=== PATIENT | male | born 1935 | race African-American/Black ===

== ENCOUNTER → 2016-09-27 | Outpatient (CLI) | payer MEDICARE, MEDICAID ==
[2016-09-27 12:16] LABS: ABSOLUTE LYMPHOCYTES (AUTO) 1.7 10^3/uL (0.5-4.7); ABSOLUTE MONOCYTES (AUTO) 0.5 10^3/uL (0.1-1.4); ABSOLUTE NEUT (AUTO) 3.4 10^3/uL (1.7-8.2); BASOPHILS % (AUTO) 0.5 % (0-2); EOSINOPHILS % (AUTO) 0.6 % (0-6); HEMATOCRIT 35.2 % (37.9-51.0); HEMOGLOBIN 11.7 g/dL (13.5-17.0); HGB HCT DIFFERENCE -0.1; LYMPHOCYTES % (AUTO) 30.4 % (13-45); MEAN CORPUSCULAR HGB CONC 33.3 g/dL (32.0-36.0); MEAN CORPUSCULAR VOLUME 93 fl (80-97); MONOCYTES % (AUTO) 9.1 % (3-13); RED BLOOD COUNT 3.78 10^6/uL (4.35-5.55); SEGMENTED NEUTROPHILS % (AUTO) 59.4 % (42-78); WHITE BLOOD COUNT 5.6 10^3/uL (4.0-10.5)
[2016-09-27 13:03] LABS: ERYTHROCYTE SEDIMENTATION RATE 31 mm/hr (0-20)
== END ==
LOC: OD 10:59
PROVIDERS: ATTEND Orthopaedic Surgery
DX: T84.59XD Infection and inflammatory reaction due to other internal joint prosthesis, subsequent encounter (principal)
CPT/HCPCS: 36415; 85025; 85652; 86140

== ENCOUNTER 2016-10-09 12:30 | Emergency (ER) | payer OTHER, MEDICARE, MEDICAID ==
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
[2016-10-09 12:53] VITALS: BP 142/75
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
== END 2016-10-09 14:24 | disposition home or self-care (01) ==
LOC: ER 12:30
DX: S46.911A Strain of unspecified muscle, fascia and tendon at shoulder and upper arm level, right arm, initial encounter (principal); M25.511 Pain in right shoulder; V89.2XXA Person injured in unspecified motor-vehicle accident, traffic, initial encounter; I48.91 Unspecified atrial fibrillation; Z95.0 Presence of cardiac pacemaker; Z79.01 Long term (current) use of anticoagulants
CPT/HCPCS: 99283

== ENCOUNTER → 2016-11-03 | Outpatient (CLI) | payer MEDICARE, MEDICAID ==
[2016-11-03 12:46] LABS: HEMATOCRIT 34.1 % (37.9-51.0); HEMOGLOBIN 11.3 g/dL (13.5-17.0); HGB HCT DIFFERENCE -0.2; MEAN CORPUSCULAR HEMOGLOBIN 31.2 pg (27.0-33.4); MEAN CORPUSCULAR HGB CONC 33.2 g/dL (32.0-36.0); MEAN CORPUSCULAR VOLUME 94 fl (80-97); RED BLOOD COUNT 3.62 10^6/uL (4.35-5.55); RED CELL DISTRIBUTION WIDTH 12.9 % (11.5-14.0); WHITE BLOOD COUNT 5.8 10^3/uL (4.0-10.5)
[2016-11-03 13:10] LABS: ALANINE AMINOTRANSFERASE 19 U/L (21-72); ALBUMIN 3.9 g/dL (3.5-5.0); ALKALINE PHOSPHATASE 104 U/L (38-126); ANION GAP 8 (5-19); ASPARTATE AMINO TRANSFERASE 18 U/L (17-59); BILIRUBIN,TOTAL 0.5 mg/dL (0.2-1.3); BLOOD UREA NITROGEN 15 mg/dL (7-20); CALCIUM 10.3 mg/dL (8.4-10.2); CARBON DIOXIDE 28 mmol/L (22-30); CHLORIDE 105 mmol/L (98-107); CREATININE RESULT 1.16 mg/dL (0.52-1.25); GLUCOSE 148 mg/dL (75-110); TOTAL PROTEIN 7.6 g/dL (6.3-8.2)
[2016-11-03 13:11] LABS: C-REACTIVE PROTEIN < 5.0 mg/L (<10.0)
[2016-11-03 13:24] LABS: ERYTHROCYTE SEDIMENTATION RATE 29 mm/hr (0-20)
[2016-11-03 13:38] LABS: THYROID STIMULATING HORMONE 0.08 uIU/mL (0.47-4.68)
== END ==
LOC: OD 11:54
PROVIDERS: ATTEND Family Medicine
DX: M25.50 Pain in unspecified joint (principal); R63.4 Abnormal weight loss
CPT/HCPCS: 36415; 80053; 84439; 84443; 85027; 85652; 86140

== ENCOUNTER 2016-11-14 16:51 | Emergency (ER) | payer MEDICARE, MEDICAID ==
--- NOTE | 2016-11-14 17:14 | ER Document Report ---
ED Medical Screen (RME) - General Stated Complaint: VOMITING,ABDOMINAL PAIN,DIZZY Time seen by provider: 17:12 Mode of Arrival: Wheelchair Information source: Patient Notes: 80-year-old male presents to ED for nausea and vomiting with a cold sweat when he gets nauseated abdominal pain and dizziness states she started about 2 hours ago. His states that everybody else ate the same thing and nobody else is sick. States that hand potato salad jarret greens and dumplings. Eliminate to drink. I have greeted and performed a rapid initial assessment of this patient. A comprehensive ED assessment and evaluation of the patient, analysis of test results and completion of medical decision making process will be conducted by an additional ED providers. TRAVEL OUTSIDE OF THE [place] IN LAST 30 DAYS: No - Related Data Allergies/Adverse Reactions: No Known Allergies Allergy (Verified 11/14/16 17:11) Past Medical History - Past Medical History Cardiac Medical History: Reports: Hx Atrial Fibrillation, Hx Hypertension Denies: Hx Coronary Artery Disease, Hx Heart Attack Pulmonary Medical History: Denies: Hx Asthma, Hx Bronchitis, Hx COPD, Hx Pneumonia, Hx Tuberculosis Neurological Medical History: Denies: Hx Cerebrovascular Accident, Hx Seizures Renal/ Medical History: Denies: Hx Peritoneal Dialysis GI Medical History: Reports: Hx Ulcer - ?. Denies: Hx Diverticulitis, Hx Gastritis, Hx Gastroesophageal Reflux Disease, Hx Hepatitis, Hx Hiatal Hernia Musculoskeltal Medical History: Denies Hx Arthritis Infectious Medical History: Denies: Hx Hepatitis Past Surgical History: Reports: Hx Cardiac Surgery - pacemaker placement, Hx Pacemaker - 3 years ago. Denies: Hx Open Heart Surgery - Immunizations Immunizations up to date: No Hx Diphtheria, Pertussis, Tetanus Vaccination: Yes
[2016-11-14] MEDS ORDERED: NORMAL SALINE 1000 ML 1,000 ML IV ONE (17:15)
[2016-11-14] MEDS ORDERED: ONDANSETRON HCL INJ/PF 4 MG/2 ML SDV IV ONE (17:15)
[2016-11-14 18:02] LABS: ABSOLUTE MONOCYTES (AUTO) 0.3 10^3/uL (0.1-1.4); ABSOLUTE NEUT (AUTO) 5.2 10^3/uL (1.7-8.2); BASOPHILS % (AUTO) 0.6 % (0-2); EOSINOPHILS % (AUTO) 0.1 % (0-6); HEMATOCRIT 35.1 % (37.9-51.0); HEMOGLOBIN 11.7 g/dL (13.5-17.0); LYMPHOCYTES % (AUTO) 14.8 % (13-45); MEAN CORPUSCULAR HEMOGLOBIN 31.2 pg (27.0-33.4); MEAN CORPUSCULAR HGB CONC 33.5 g/dL (32.0-36.0); MEAN CORPUSCULAR VOLUME 93 fl (80-97); MONOCYTES % (AUTO) 4.9 % (3-13); RED BLOOD COUNT 3.76 10^6/uL (4.35-5.55); RED CELL DISTRIBUTION WIDTH 12.1 % (11.5-14.0); SEGMENTED NEUTROPHILS % (AUTO) 79.6 % (42-78); WHITE BLOOD COUNT 6.6 10^3/uL (4.0-10.5)
[2016-11-14 18:15] LABS: ALANINE AMINOTRANSFERASE 25 U/L (21-72); ALBUMIN 4.4 g/dL (3.5-5.0); ALKALINE PHOSPHATASE 99 U/L (38-126); ANION GAP 13 (5-19); ASPARTATE AMINO TRANSFERASE 23 U/L (17-59); BILIRUBIN,TOTAL 0.5 mg/dL (0.2-1.3); BLOOD UREA NITROGEN 15 mg/dL (7-20); CALCIUM 10.9 mg/dL (8.4-10.2); CARBON DIOXIDE 22 mmol/L (22-30); CHLORIDE 106 mmol/L (98-107); CREATININE RESULT 1.22 mg/dL (0.52-1.25); GLUCOSE 201 mg/dL (75-110); LIPASE 149.5 U/L (23-300); POTASSIUM 3.8 mmol/L (3.6-5.0); SODIUM 140.5 mmol/L (137-145); TOTAL PROTEIN 7.5 g/dL (6.3-8.2)
--- NOTE | 2016-11-14 18:25 | ER Document Report ---
ED GI/ - General Chief Complaint: Nausea/Vomiting Stated Complaint: VOMITING,ABDOMINAL PAIN,DIZZY Time seen by provider: 18:24 Mode of Arrival: Wheelchair Information source: Patient TRAVEL OUTSIDE OF THE [place] IN LAST 30 DAYS: No - HPI Patient complains to provider of: Vomiting Onset: This morning Timing/Duration: Sudden Quality of pain: No pain Associated symptoms: Nausea, Vomiting Exacerbated by: Denies Relieved by: Denies Similar symptoms previously: No Recently seen / treated by doctor: No Notes: 11/14/16 18:24 Patient is an 80-year-old male presenting to the emergency room complaining of nausea and vomiting that started early this morning, he denies any diarrhea, no abdominal pain, no fever or chills, no sick contacts, no questionable food intake, at time of my evaluation he reports feeling much better and ready to try a by mouth challenge - Related Data Allergies/Adverse Reactions: No Known Allergies Allergy (Verified 11/14/16 17:11) Past Medical History - General Information source: Patient - Social History Smoking Status: Current Every Day Smoker Chew tobacco use (# tins/day): No Frequency of alcohol use: Occasional Drug Abuse: None Family History: Reviewed & Not Pertinent Patient has suicidal ideation: No Patient has homicidal ideation: No - Past Medical History Cardiac Medical History: Reports: Hx Atrial Fibrillation, Hx Hypertension Denies: Hx Coronary Artery Disease, Hx Heart Attack Pulmonary Medical History: Denies: Hx Asthma, Hx Bronchitis, Hx COPD, Hx Pneumonia, Hx Tuberculosis Neurological Medical History: Denies: Hx Cerebrovascular Accident, Hx Seizures Renal/ Medical History: Denies: Hx Peritoneal Dialysis GI Medical History: Reports: Hx Ulcer - ?. Denies: Hx Diverticulitis, Hx Gastritis, Hx Gastroesophageal Reflux Disease, Hx Hepatitis, Hx Hiatal Hernia Musculoskeltal Medical History: Denies Hx Arthritis Infectious Medical History: Denies: Hx Hepatitis Past Surgical History: Reports: Hx Cardiac Surgery - pacemaker placement, Hx Pacemaker - 3 years ago. Denies: Hx Open Heart Surgery - Immunizations Immunizations up to date: No Hx Diphtheria, Pertussis, Tetanus Vaccination: Yes Hx Pneumococcal Vaccination: 09/19/11 Review of Systems - Review of Systems Constitutional: No symptoms reported. denies: Chills, Fever EENT: No symptoms reported Cardiovascular: No symptoms reported Respiratory: No symptoms reported Gastrointestinal: No symptoms reported, Nausea, Vomiting. denies: Abdominal pain Genitourinary: No symptoms reported Male Genitourinary: No symptoms reported Musculoskeletal: No symptoms reported Skin: No symptoms reported Hematologic/Lymphatic: No symptoms reported Neurological/Psychological: No symptoms reported -: Yes All other systems reviewed and negative Physical Exam - Vital signs Vitals: Temp Pulse Resp BP Pulse Ox 97.4 F 70 18 158/68 H 99 11/14/16 17:03 11/14/16 17:03 11/14/16 17:03 11/14/16 17:03 11/14/16 17:03 Interpretation: Normal - General General appearance: Appears well, Alert - HEENT Head: Normocephalic, Atraumatic Eyes: Normal Pupils: PERRL - Respiratory Respiratory status: No respiratory distress Chest status: Nontender Breath sounds: Normal Chest palpation: Normal - Cardiovascular Rhythm: Regular Heart sounds: Normal auscultation Murmur: No - Abdominal Inspection: Normal Distension: No distension Bowel sounds: Normal Tenderness: Nontender Organomegaly: No organomegaly - Back Back: Normal, Nontender - Extremities General upper extremity: Normal inspection, Nontender, Normal color, Normal ROM , Normal temperature General lower extremity: Normal inspection, Nontender, Normal color, Normal ROM , Normal temperature, Normal weight bearing. No: Emiliana's sign - Neurological Neuro grossly intact: Yes Cognition: Normal Orientation: AAOx4 Delia Coma Scale Eye Opening: Spontaneous [place] Coma Scale Verbal: Oriented [place] Coma Scale Motor: Obeys Commands [place] Coma Scale Total: 15 Speech: Normal Motor strength normal: LUE, RUE, LLE, RLE Sensory: Normal - Psychological Associated symptoms: Normal affect, Normal mood - Skin Skin Temperature: Warm Skin Moisture: Dry Skin Color: Normal Course - Re-evaluation Re-evalutation: 11/14/16 19:25 Patient resting comfortably, reports feeling much better, tolerating by mouth intake, labs were discussed with patient at bedside including elevated blood sugar, he reports that he has a follow-up with his primary care provider later this week, he was advised to keep that appointment, will be discharged with a Zofran dose pack and information for follow-up, advised to return if symptoms worsen, patient acknowledges understanding and agreement with this plan - Vital Signs Vital signs: Temp Pulse Resp BP Pulse Ox 97.9 F 70 20 158/87 H 100 11/14/16 18:58 11/14/16 18:58 11/14/16 18:58 11/14/16 18:58 11/14/16 18:58 - Laboratory Result Diagrams: 11/14/16 17:40 11/14/16 17:40 Laboratory results interpreted by me: 11/14/16 11/14/16 17:40 17:40 RBC 3.76 L Hgb 11.7 L Hct 35.1 L Seg Neutrophils % 79.6 H Est GFR (Non-Af Amer) 57 L Glucose 201 H Calcium 10.9 H Discharge - Discharge Clinical Impression: Nausea and vomiting Qualifiers: Vomiting type: unspecified Vomiting Intractability: non-intractable Qualified Code(s): R11.2 - Nausea with vomiting, unspecified Condition: Stable Disposition: HOME, SELF-CARE Instructions: Viral Syndrome ([facility]), Vomiting ([facility]), Antinausea Medication ([facility]) Additional Instructions: Follow up with your primary care provider in one to 2 days. Return to the emergency room immediately if symptoms worsen or any additional concerns.
[2016-11-14 19:02] VITALS: BP 158/87
[2016-11-14] MEDS ORDERED: ONDANSETRON ODT 4 MG TAB (6 TAB/DSPK) PO PRN (19:26)
[2016-11-14 19:33] LABS: AMORPHOUS SEDIMENT,URINE TRACE /HPF; APPEARANCE,URINE CLOUDY; BILIRUBIN,URINE NEGATIVE (NEGATIVE); GLUCOSE, URINE NEGATIVE (NEGATIVE); KETONES,URINE NEGATIVE (NEGATIVE); LEUKOCYTE ESTERASE,URINE NEGATIVE (NEGATIVE); NITRITE,URINE NEGATIVE (NEGATIVE); PROTEIN,URINE NEGATIVE (NEGATIVE); URINE SPECIFIC GRAVITY 1.009; UROBILINOGEN,URINE NEGATIVE mg/dL (<2.0)
== END 2016-11-14 19:40 | disposition home or self-care (01) ==
LOC: ER 16:51
DX: R11.2 Nausea with vomiting, unspecified (principal); R73.9 Hyperglycemia, unspecified; I48.91 Unspecified atrial fibrillation; I10 Essential (primary) hypertension; F17.200 Nicotine dependence, unspecified, uncomplicated; Z95.0 Presence of cardiac pacemaker
CPT/HCPCS: 99284; 96374; 36415; 83690; 85025; 80053; 81001; J2405; A9270

== ENCOUNTER → 2016-11-22 | Outpatient (CLI) | payer MEDICARE, MEDICAID | LOC: RAD 11:16 | PROVIDERS: ATTEND Internal Medicine Geriatric Medicine | DX: R94.6 Abnormal results of thyroid function studies (principal) | CPT/HCPCS: 76536 ==

== ENCOUNTER 2016-12-11 12:38 | Inpatient (IN) | payer MEDICARE, MEDICAID ==
--- NOTE | 2016-12-11 12:45 | ER Document Report ---
ED Medical Screen (RME) - General Stated Complaint: BLOOD IN STOOL Mode of Arrival: Ambulatory Information source: Patient Notes: Pt presents to the ED with c/o LLQ abdominal pain for the last few days. He was dx with diverticulitis by Dr Son. reports no antibx given. Noted blood in stool night. Denies v/f/d. I have greeted and performed a rapid initial assessment of this patient. A comprehensive ED assessment and evaluation of the patient, analysis of test results and completion of the medical decision making process will be conducted by additional ED providers. TRAVEL OUTSIDE OF THE [place] IN LAST 30 DAYS: No - Related Data Allergies/Adverse Reactions: No Known Allergies Allergy (Verified 11/14/16 17:11) Past Medical History - Past Medical History Cardiac Medical History: Reports: Hx Atrial Fibrillation, Hx Hypertension Denies: Hx Coronary Artery Disease, Hx Heart Attack Pulmonary Medical History: Denies: Hx Asthma, Hx Bronchitis, Hx COPD, Hx Pneumonia, Hx Tuberculosis Neurological Medical History: Denies: Hx Cerebrovascular Accident, Hx Seizures Renal/ Medical History: Denies: Hx Peritoneal Dialysis GI Medical History: Reports: Hx Ulcer - ?. Denies: Hx Diverticulitis, Hx Gastritis, Hx Gastroesophageal Reflux Disease, Hx Hepatitis, Hx Hiatal Hernia Musculoskeltal Medical History: Denies Hx Arthritis Infectious Medical History: Denies: Hx Hepatitis Past Surgical History: Reports: Hx Cardiac Surgery - pacemaker placement, Hx Pacemaker - 3 years ago. Denies: Hx Open Heart Surgery - Immunizations Immunizations up to date: No Hx Diphtheria, Pertussis, Tetanus Vaccination: Yes
--- NOTE | 2016-12-11 13:14 | ER Document Report ---
ED GI/ - General Chief Complaint: Abdominal Pain Stated Complaint: BLOOD IN STOOL Mode of Arrival: Ambulatory Notes: Patient is an 81-year-old male, PMHx A. fib and pacemaker on Coumadin, presents after 8 episodes of bloody stool and lower abdominal pain. He saw his primary care physician yesterday and was told he has diverticulitis. He was not started on any antibiotics. His last colonoscopy was one year ago and he had multiple polyps removed. He denies lightheadedness, chest pain, shortness of breath, nausea, vomiting, rectal pain, flank pain or urinary symptoms. TRAVEL OUTSIDE OF THE [place] IN LAST 30 DAYS: No - Related Data Allergies/Adverse Reactions: No Known Allergies Allergy (Verified 12/11/16 12:43) Past Medical History - General Information source: Patient - Social History Smoking Status: Never Smoker Chew tobacco use (# tins/day): No Frequency of alcohol use: None Drug Abuse: None Family History: Reviewed & Not Pertinent - Past Medical History Cardiac Medical History: Reports: Hx Atrial Fibrillation, Hx Hypertension Denies: Hx Coronary Artery Disease, Hx Heart Attack Pulmonary Medical History: Denies: Hx Asthma, Hx Bronchitis, Hx COPD, Hx Pneumonia, Hx Tuberculosis Neurological Medical History: Denies: Hx Cerebrovascular Accident, Hx Seizures Renal/ Medical History: Denies: Hx Peritoneal Dialysis GI Medical History: Reports: Hx Ulcer - ?. Denies: Hx Diverticulitis, Hx Gastritis, Hx Gastroesophageal Reflux Disease, Hx Hepatitis, Hx Hiatal Hernia Musculoskeltal Medical History: Denies Hx Arthritis Infectious Medical History: Denies: Hx Hepatitis Past Surgical History: Reports: Hx Cardiac Surgery - pacemaker placement, Hx Pacemaker - 3 years ago. Denies: Hx Open Heart Surgery - Immunizations Immunizations up to date: No Hx Diphtheria, Pertussis, Tetanus Vaccination: Yes Hx Pneumococcal Vaccination: 09/19/11 Review of Systems - Review of Systems Notes: REVIEW OF SYSTEMS: CONSTITUTIONAL: -fevers, -chills EENT: -eye pain, -difficulty swallowing, -nasal congestion CARDIOVASCULAR:-chest pain, -syncope. RESPIRATORY: -cough, -SOB GASTROINTESTINAL: -abdominal pain, -nausea, -vomiting, -diarrhea, +blood in stool GENITOURINARY: -dysuria, -hematuria MUSCULOSKELETAL: -back pain, -neck pain SKIN: -rash or skin lesions. HEMATOLOGIC: -easy bruising or bleeding. LYMPHATIC: -swollen, enlarged glands. NEUROLOGICAL: -altered mental status or loss of consciousness, -headache, - neurologic symptoms PSYCHIATRIC: -anxiety, -depression. ALL OTHER SYSTEMS REVIEWED AND NEGATIVE. Physical Exam - Vital signs Vitals: Temp Pulse Resp BP Pulse Ox 98.3 F 87 20 161/94 H 100 12/11/16 12:45 12/11/16 12:45 12/11/16 12:45 12/11/16 12:45 12/11/16 12:45 - Notes Notes: PHYSICAL EXAMINATION: GENERAL: Well-appearing, well-nourished and in no acute distress. HEAD: Atraumatic, normocephalic. EYES: Pupils equal round and reactive to light, extraocular movements intact, sclera anicteric, conjunctiva are normal. ENT: nares patent, oropharynx clear without exudates. Moist mucous membranes. NECK: Normal range of motion, supple without lymphadenopathy LUNGS: Breath sounds clear to auscultation bilaterally and equal. No wheezes rales or rhonchi. HEART: Regular rate and rhythm without murmurs ABDOMEN: rectal exam with brown stool mixed with BRB, Soft, mild tenderness, normoactive bowel sounds. No guarding, no rebound. No masses appreciated. EXTREMITIES: Normal range of motion, no pitting or edema. No cyanosis. NEUROLOGICAL: Cranial nerves grossly intact. Normal speech, normal gait. Normal sensory, motor, and reflex exams. PSYCH: Normal mood, normal affect. SKIN: Warm, Dry, normal turgor, no rashes or lesions noted. Course - Re-evaluation Re-evalutation: Patient with bright red blood per rectum while in the emergency room. HD stable at this time and H/H 11.1, which is slightly lower than his prior values. CT does not show any evidence of diverticulosis or any other acute changes. Spoke to surgeon television producer at [place] (Dr. Oscar) and he is unable to do colonoscopies. No GI television producer at this time. Spoke to Dr. Pedro at [facility] and she is requested ICU consultation. Spoke to Dr. Rockwell at ICU and he said patient is stable for floor. Spoke to GI doc and he will see patient when he arrives to [facility]. Dr. Pedro is accepting doc. Pt HD stable at this time. - Vital Signs Vital signs: Temp Pulse Resp BP Pulse Ox 98.3 F 72 14 161/94 H 96 12/11/16 12:45 12/11/16 18:18 12/11/16 18:20 12/11/16 12:45 12/11/16 18:18 - Laboratory Result Diagrams: 12/11/16 13:35 12/11/16 13:35 Laboratory results interpreted by me: 12/11/16 12/11/16 12/11/16 13:30 13:35 13:35 RBC 3.63 L Hgb 11.2 L Hct 33.7 L PT 17.9 H Sodium 146.1 H Chloride 108 H BUN 22 H Calcium 11.0 H ALT 11 L Urine Blood 12/11/16 14:39 RBC Hgb Hct PT Sodium Chloride BUN Calcium ALT Urine Blood MODERATE H - Diagnostic Test Radiology reviewed: Image reviewed, Reports reviewed Radiology results interpreted by me: CT A/P: NAD Critical Care Note - Critical Care Note Total time excluding time spent on procedures (mins): 35 Discharge - Discharge Clinical Impression: Lower GI bleed Condition: Stable Disposition: [facility] Referrals: ROS AMAYA MD [Primary Care Provider] - Follow up as needed
[2016-12-11 14:02] LABS: ABSOLUTE LYMPHOCYTES (AUTO) 1.7 10^3/uL (0.5-4.7); ABSOLUTE MONOCYTES (AUTO) 0.6 10^3/uL (0.1-1.4); BASOPHILS % (AUTO) 0.7 % (0-2); EOSINOPHILS % (AUTO) 0.6 % (0-6); HEMATOCRIT 33.7 % (37.9-51.0); HEMOGLOBIN 11.2 g/dL (13.5-17.0); HGB HCT DIFFERENCE -0.1; LYMPHOCYTES % (AUTO) 26.3 % (13-45); MEAN CORPUSCULAR HEMOGLOBIN 30.9 pg (27.0-33.4); MEAN CORPUSCULAR HGB CONC 33.4 g/dL (32.0-36.0); MEAN CORPUSCULAR VOLUME 93 fl (80-97); MONOCYTES % (AUTO) 8.8 % (3-13); RED BLOOD COUNT 3.63 10^6/uL (4.35-5.55); RED CELL DISTRIBUTION WIDTH 12.8 % (11.5-14.0); SEGMENTED NEUTROPHILS % (AUTO) 63.6 % (42-78); WHITE BLOOD COUNT 6.3 10^3/uL (4.0-10.5)
[2016-12-11 14:07] LABS: PROTHROMBIN TIME 17.9 SEC (11.4-15.4)
[2016-12-11 14:21] LABS: ALANINE AMINOTRANSFERASE 11 U/L (21-72); ALBUMIN 4.2 g/dL (3.5-5.0); ALKALINE PHOSPHATASE 71 U/L (38-126); ANION GAP 10 (5-19); ASPARTATE AMINO TRANSFERASE 19 U/L (17-59); BILIRUBIN,DIRECT 0.1 mg/dL (0.0-0.4); BILIRUBIN,TOTAL 0.5 mg/dL (0.2-1.3); BLOOD UREA NITROGEN 22 mg/dL (7-20); CARBON DIOXIDE 28 mmol/L (22-30); CHLORIDE 108 mmol/L (98-107); CREATININE RESULT 1.05 mg/dL (0.52-1.25); GLUCOSE 95 mg/dL (75-110); POTASSIUM 4.3 mmol/L (3.6-5.0); SODIUM 146.1 mmol/L (137-145); TOTAL PROTEIN 7.4 g/dL (6.3-8.2)
[2016-12-11 14:55] LABS: APPEARANCE,URINE CLEAR; BILIRUBIN,URINE NEGATIVE (NEGATIVE); GLUCOSE, URINE NEGATIVE (NEGATIVE); KETONES,URINE NEGATIVE (NEGATIVE); LEUKOCYTE ESTERASE,URINE NEGATIVE (NEGATIVE); NITRITE,URINE NEGATIVE (NEGATIVE); PROTEIN,URINE NEGATIVE (NEGATIVE); URINE SPECIFIC GRAVITY 1.017; UROBILINOGEN,URINE NEGATIVE mg/dL (<2.0)
[2016-12-11 20:01] LABS: ABSOLUTE LYMPHOCYTES (AUTO) 2.4 10^3/uL (0.5-4.7); ABSOLUTE MONOCYTES (AUTO) 0.6 10^3/uL (0.1-1.4); ABSOLUTE NEUT (AUTO) 4.2 10^3/uL (1.7-8.2); BASOPHILS % (AUTO) 0.6 % (0-2); EOSINOPHILS % (AUTO) 0.2 % (0-6); LYMPHOCYTES % (AUTO) 33.3 % (13-45); MEAN CORPUSCULAR HEMOGLOBIN 30.8 pg (27.0-33.4); MEAN CORPUSCULAR HGB CONC 33.4 g/dL (32.0-36.0); MEAN CORPUSCULAR VOLUME 92 fl (80-97); MONOCYTES % (AUTO) 8.6 % (3-13); RED BLOOD COUNT 3.58 10^6/uL (4.35-5.55); RED CELL DISTRIBUTION WIDTH 12.5 % (11.5-14.0); SEGMENTED NEUTROPHILS % (AUTO) 57.3 % (42-78); WHITE BLOOD COUNT 7.4 10^3/uL (4.0-10.5)
[2016-12-12] MEDS ORDERED: NICOTINE 21 MG/24 HR PATCH.TD24 TD ONE (00:50)
--- NOTE | 2016-12-12 03:55 | ER Document Report ---
Doctor's Note Notes: 12/12/16 03:54 Patient resting comfortably with no complaints overnight, he did request a nicotine patch which was ordered, vital signs are stable, he is denying any pain , patient is pending transfer to tertiary care center, he remains stable for transfer
[2016-12-12 06:37] LABS: ABSOLUTE BASOPHILS # (AUTO) 0.1 10^3/uL (0.0-0.2); ABSOLUTE EOSINOPHILS # (AUTO) 0.1 10^3/uL (0.0-0.6); ABSOLUTE MONOCYTES (AUTO) 0.8 10^3/uL (0.1-1.4); ABSOLUTE NEUT (AUTO) 4.2 10^3/uL (1.7-8.2); BASOPHILS % (AUTO) 1.3 % (0-2); EOSINOPHILS % (AUTO) 0.9 % (0-6); HEMATOCRIT 32.1 % (37.9-51.0); HEMOGLOBIN 10.8 g/dL (13.5-17.0); HGB HCT DIFFERENCE 0.3; LYMPHOCYTES % (AUTO) 36.5 % (13-45); MEAN CORPUSCULAR HEMOGLOBIN 31.4 pg (27.0-33.4); MEAN CORPUSCULAR HGB CONC 33.5 g/dL (32.0-36.0); MEAN CORPUSCULAR VOLUME 94 fl (80-97); MONOCYTES % (AUTO) 10.3 % (3-13); RED BLOOD COUNT 3.43 10^6/uL (4.35-5.55); RED CELL DISTRIBUTION WIDTH 12.8 % (11.5-14.0); WHITE BLOOD COUNT 8.1 10^3/uL (4.0-10.5)
[2016-12-12] MEDS ORDERED: PANTOPRAZOLE SODIUM 40 MG VIAL IV ONE (10:56)
--- NOTE | 2016-12-12 10:56 | ER Document Report ---
Doctor's Note Notes: 12/12/16 10:55 Patient was reevaluated patient and bleeding around the ER in his clothing. Patient requesting an update. We did call transferring facility stated to be approximately 24-48 hours before bed would be available. They contacted her surgeon on-call who agreed that he'll be able to form a colonoscopy on the gentleman I discussed the case with covering PCP Dr. Adriane Quintanilla who agrees to that the patient. Otherwise patient hemoglobin 7 stable vital signs have been stable. Will give the patient a dose of Protonix Will keep nothing by mouth for possible procedure. Will admit to the [facility]
[2016-12-12] MEDS ORDERED: ONDANSETRON HCL INJ/PF 4 MG/2 ML SDV IV PRN (10:57)
[2016-12-12] MEDS ORDERED: IPRATROPIUM/ALBUTEROL 0.5-2.5 MG/3 ML AMPUL NEB PRN (10:57)
[2016-12-12] MEDS ORDERED: ACETAMINOPHEN 325 MG TABLET PO PRN (10:57)
[2016-12-12] MEDS ORDERED: NORMAL SALINE 1000 ML 1,000 ML IV ONE (10:57)
[2016-12-12] MEDS ORDERED: PHYTONADIONE INJ 10 MG/1 ML AMPULE SUBCUT ONE (11:08)
[2016-12-12 11:28] LABS: HEMATOCRIT 31.8 % (37.9-51.0); HEMOGLOBIN 10.5 g/dL (13.5-17.0); HGB HCT DIFFERENCE -0.3; MEAN CORPUSCULAR HGB CONC 33.1 g/dL (32.0-36.0); MEAN CORPUSCULAR VOLUME 94 fl (80-97); RED CELL DISTRIBUTION WIDTH 12.7 % (11.5-14.0); WHITE BLOOD COUNT 6.4 10^3/uL (4.0-10.5)
[2016-12-12 11:35] LABS: PROTHROMBIN TIME 17.6 SEC (11.4-15.4)
[2016-12-12 11:43] LABS: ANION GAP 12 (5-19); BLOOD UREA NITROGEN 25 mg/dL (7-20); CALCIUM 10.5 mg/dL (8.4-10.2); CARBON DIOXIDE 26 mmol/L (22-30); CHLORIDE 106 mmol/L (98-107); CREATININE RESULT 1.04 mg/dL (0.52-1.25); GLUCOSE 105 mg/dL (75-110); POTASSIUM 4.2 mmol/L (3.6-5.0); SODIUM 143.9 mmol/L (137-145)
[2016-12-12] MEDS ORDERED: PHYTONADIONE INJ 10 MG/1 ML AMPULE IV ONE (15:00)
--- NOTE | 2016-12-12 15:53 | HISTORY AND PHYSICAL E ---
History and Physical NAME: RASHAD GOODSON : 1935 AGE: 81Y ADMITTED: 12/12/2016 ROOM: 422 CHIEF COMPLAINT: Bloody stools. HISTORY OF PRESENT ILLNESS: This is an 81-year-old male, a patient of Dr. Amaya, with a significant history of coronary artery disease, history of pacemaker, history of chronic atrial fibrillation on chronic Coumadin and a history of diverticulitis, came to the emergency department with the presence of up 7-8 episodes of bloody stool and lower abdominal pain. The patient saw the primary care doctor yesterday and was told the patient had diverticulitis. The patient denied any antibiotic use. The patient stated the last colonoscopy was done 1 year ago and had multiple polyps that were removed. The patient denied any chest pain, not short of breath, no nausea, no vomiting. The patient's initial INR was 1.42. The patient's hemoglobin was stable. The patient initially was transferred to [facility] because of no GI availability and the patient was kept in the emergency department for more than 24 hours and the patient's hemoglobin remained stable around 10.4. Finally the ER physicians called me and they said the *------* unable to take it and they called the surgical aide here and she has agreed to scope the patient and will admit the patient for further evaluation. When I saw the patient in the emergency department, the patient denied any abdominal pain, no nausea, no vomiting. The patient had a CT abdomen and pelvis performed which showed some renal cysts but no other acute findings, and patient's hemoglobin remained stable, too. The patient at this point is admitted to the [facility] for further evaluation and treatment. PAST MEDICAL HISTORY: 1. History of atrial fibrillation on chronic Coumadin therapy. 2. History of hypertension. 3. History of pacemaker implant for arrhythmia management. 4. History of hyperlipidemia. 5. History of prostate cancer. 6. History of osteoarthritis. 7. History of essential tremors. 8. History of peripheral artery disease. ALLERGIES: No known drug allergies. HOME MEDICATIONS: Are listed in [employer] and reviewed. Currently hold the Coumadin and aspirin. FAMILY HISTORY: Noncontributory. REVIEW OF SYSTEMS: As above, all other pertinents are negative. SOCIAL HISTORY: The patient is with a spouse, denied any current cigarette smoking, no alcohol, no substance drug abuse. PHYSICAL EXAMINATION: VITAL SIGNS: Blood pressure was 160/88, temperature 97.7, pulse was 70, respirations 20, 02 saturation is 100% on room air. GENERAL: The patient is alert, awake, oriented, no acute distress. HEENT: Normocephalic. PERRLA. LUNGS: No wheezing, no rales, no rhonchi. HEART: S1 and S2 are present. ABDOMEN: Soft. Bowel sounds present. EXTREMITIES: No edema. NEUROLOGIC: No focal weakness seen. LABORATORY DATA: WBC on admission was 7.4, hemoglobin 11.0, platelets 290. Currently hemoglobin was 10.5 and platelets 281. The patient's chemistries: Sodium is 146, potassium 4.3, BUN 22, creatinine 1.05, calcium 11.0, AST is 19, ALT 11, albumin 4.2. The patient's urine is moderate blood. Stool occult blood is positive. ASSESSMENT: 1. Lower gastrointestinal bleed. 2. Abdominal pain. 3. Chronic atrial fibrillation with chronic Coumadin. 4. Hypertension. 5. Coronary disease. 6. Pacemaker status post arrhythmia. 7. Hyperlipidemia. 8. History of prostate cancer. PLAN: Admit the patient in the IMCU. Start the patient on Protonix 40 mg IV, currently hold the Coumadin and aspirin. Continue the current other medications. Consult surgery for the GI workup as agreed and continue to monitor the patient. Discussed in the ER room with the nurses who are taking care of the patient. I do not see any , will contact the and talk to her about the patient's currently admitted. We will consult cardiology for further evaluation before the procedure. I hope the patient continues to be improved. More than 45 minutes, present and examined the patient and reviewing the records. DICTATING PHYSICIAN: MARGARITA MCCRACKEN M.D. [id number] PHY#: [id number] ID: [id number] JOB#: [id number] ACCT: [id number] cc:ROS AMAYA M.D., SWETANG M.D. >
[2016-12-12] MEDS ORDERED: BISACODYL 5 MG TABEC PO ONE (16:00)
[2016-12-12] MEDS ORDERED: PEG 3350/NA SULF,BICARB,CL/KCL 4000 ML PO PRN (16:00)
--- NOTE | 2016-12-12 17:53 | CONSULTATION REPORT E ---
Consultation Report NAME: RASHAD GOODSON : 1935 AGE: 81Y DATE: 12/12/2016 422 A TO: EZEQUIEL PALOMARES M.D. FROM: ROS AMAYA M.D. Requesting Physician HISTORY OF PRESENT ILLNESS: Thank you for asking me to see this 81-year-old male who presented to the emergency room with a history of hematochezia. The patient has been having several bouts of bloody stools during the past week. He is currently on Coumadin because of atrial fibrillation. I have been consulted to provide recommendations for additional tests and/or procedures. In addition, the patient's PT/INR is elevated and the patient has been given 5 mg of vitamin K subcutaneously in the emergency room. During the interview, the patient appears to have an odd behavior consisting of confabulation, disorientation, and unable to recognize the situation, space, and time. He obviously appears to suffer from advanced dementia. He is unable to respond to the questions which are answered by his . PAST MEDICAL HISTORY: 1. Syncopal episodes. 2. Hypertension. 3. BPH. 4. Atrial fibrillation with controlled ventricular response. 5. Pacemaker placement. 6. Dementia. 7. Prostate cancer. 8. Peripheral artery disease. ALLERGIES: Negative. SOCIAL HISTORY: The patient's denies a history of alcohol, drugs or tobacco abuse. FAMILY HISTORY: Being investigated and is noncontributory. REVIEW OF SYSTEMS: A 12-point review of systems is significant for dementia, coronary artery disease, prostate cancer, hypertension, peripheral vascular disease, and atrial fibrillation. MEDICATIONS: 1. Tylenol 325 mg p.o. q.4 h. p.r.n. for pain. 2. DuoNeb treatment p.r.n. 3. Zofran 4 mg IV q.4 h. p.r.n. nausea or vomiting. 4. Protonix 40 mg IV q.12 h. REVIEW OF LABORATORIES: White blood count of 6.4, hemoglobin 10, hematocrit 31, platelet count of 281. Urinalysis shows a moderate amount of blood. Electrolytes: Creatinine within normal limits, BUN elevated at 25. Liver profile done yesterday, December 11, is within normal limits. PT/INR done today is significant for elevation of the PT at 17.6, INR 1.39 and PTT 38. PHYSICAL EXAMINATION: GENERAL: The patient is alert, but disoriented to time, place and situation. HEENT: Grossly intact, however, the patient is uncooperative. NECK: Supple without masses. CHEST: Symmetric bilaterally. LUNGS: Clear to auscultation bilaterally. HEART: Irregular rhythm and rate. ABDOMEN: Flat, soft, nondistended, nontender. EXTREMITIES: Upper extremities are equal bilaterally without deficits. NEUROLOGIC SYSTEM: Equal and symmetric bilaterally without deficits. SKIN: Warm, dry and intact without lesions. ASSESSMENT: 1. Hematochezia, multiple episodes during the past week. 2. The patient is currently on Coumadin for atrial fibrillation 3. No gastrointestinal symptoms identified at this point. 4. Stable hemoglobin and hematocrit throughout the day, 10.5 and 31.8 the most recent one, which is decreased since yesterday, 11.2 and 33.7, respectively. 5. Elevated PT, PTT and INR due to Coumadin. PLAN: 1. I agree with admission. 2. Patient to remain n.p.o. until a source of bleeding has been identified. 3. The patient has been given 5 mg of vitamin K subcutaneously. 4. Plan to perform an EGD and colonoscopy tomorrow, December 13. The procedures, benefits, and complications have been explained to the . The patient's understands all the above and she will sign a consent in [place] of the because of his dementia. 5. Will have 2 units of fresh frozen plasma ready for the patient for tomorrow to be given if his repeated PT/INR tomorrow morning is still elevated. 6. The procedures, benefits and complications have been explained to the . She understands and desires to proceed. DICTATING PHYSICIAN: EZEQUIEL PALOMARES M.D. [id number] PHY#: [id number] ID: [id number] JOB#: [id number] ACCT: [id number] cc:EZEQUIEL PALOMARES M.D. > [facility]
--- NOTE | 2016-12-12 18:57 | PDOC CONSULTATION ---
Consultation Consult Date: 12/12/16 Attending physician:: MARGARITA MCCRACKEN Consult reason:: Preop clearance History of Present Illness Admission Date/PCP: 12/12/16 10:57 ROS AMAYA Patient complains of: GI bleed History of Present Illness: RASHAD GOODSON is an 81-year-old male, with PMHx A. fib and pacemaker on Coumadin, presents after 8 episodes of bloody stool and lower abdominal pain. He saw his primary care physician yesterday and was told he has diverticulitis. He was not started on any antibiotics. His last colonoscopy was one year ago and he had multiple polyps removed. He denies lightheadedness, chest pain, shortness of breath, nausea, vomiting, rectal pain, flank pain or urinary symptoms. Patient has been is admitted for observation. He is supposed to undergo colonoscopy. I been asked to evaluate patient as regards clearance. Patient on questioning denied any chest pain. He denied any shortness of breath. Patient had a pacemaker placed in [place] about a year or 2 ago. He could not remember the name of private clinical analyst that he sees. Patient claims that he is physically active. Patient's at bedside. She basically confirmed this history. Patient denied any prior history of myocardial infarction, angina or congestive heart failure. Patient's also tells me that he has been doing well from cardiac standpoint. Past Medical History Cardiac Medical History: Reports: Atrial Fibrillation, Hypertension Denies: Coronary Artery Disease, Myocardial Infarction Pulmonary Medical History: Denies: Asthma, Bronchitis, Chronic Obstructive Pulmonary Disease (COPD), Pneumonia, Tuberculosis Neurological Medical History: Denies: Seizures GI Medical History: Denies: Diverticulitis, Gastroesophageal Reflux Disease, Hepatitis, Hiatal Hernia Musculoskeltal Medical History: Denies: Arthritis Hematology: Denies: Anemia, Sickle Cell Disease Past Surgical History Past Surgical History: Reports: Pacemaker - 3 years ago Social History Information Source: Patient Smoking Status: Never Smoker Frequency of Alcohol Use: Rare Hx Recreational Drug Use: No Drugs: None Hx Prescription Drug Abuse: No Family History Family History: Reviewed & Not Pertinent Parental Family History Reviewed: Yes Children Family History Reviewed: Yes Sibling(s) Family History Reviewed.: Yes - Negative for premature coronary artery disease or sudden cardiac in the family amongst first degree relatives. Medication/Allergy Home Medications: Diltiazem HCl [Cardizem Cd 120 mg Capsule] 120 mg PO BID 12/12/16 Meclizine HCl [Antivert 12.5 mg Tablet] 12.5 mg PO TID 12/12/16 Multivitamin [Multivitamins] 1 tab PO DAILY 12/12/16 Omeprazole 20 mg PO DAILY 12/12/16 Pentoxifylline [Pentoxil] 400 mg PO BID 12/12/16 Warfarin Sodium [Coumadin] 5 mg PO DAILY 12/12/16 Allergies/Adverse Reactions: No Known Allergies Allergy (Verified 12/11/16 12:43) Review of Systems Review of Systems: Please see history of present illness and past medical history as wall. Constitutional: No fever or chills reported. Head : No recent chronic headaches, recent head injury. Eyes: No recent eye pain, diplopia, redness, discharge, acute visual changes. Ears: No recent chronic ear pain, acute hearing loss, ear discharge. Oral cavity: No recent ulcerations, bleeding, oral cavity discomfort. Neck: No recent acute neck pain reported. Hematologic: No recent easy bruising or bleeding or hematologic malignancy reported. Lymphatic: No recent lymphatic malignancy, chronic lymphadenopathy reported yet Cardiovascular system review: See history of present illness. History of pacemaker but no history of sustained palpitations, syncope near syncope. Respiratory system review: No recent chronic cough, hemoptysis, blood clots in the lungs reported. Mild Shortness of breath on exertion Gastrointestinal system review: Negative for any recent acute or chronic abdominal pain, hematemesis, admitted now with bloody stools. Genitourinary system review: No recent acute or chronic hematuria, flank pain, UTI etc. reported. Skin system review: Negative for any recent abnormal bruising, no rash, no pruritus reported. Neurologic: No prior history of strokes, mini strokes, seizure disorder. Psychologic: No history of major psychosis or major depression reported. Musculoskeletal: Minor aches and pains reported. No acute joint swelling reported. Endocrine: No recent polyuria, polydipsia, recent heat or cold intolerance. Physical Exam Vital Signs: Temp Pulse Resp BP Pulse Ox 98.4 F 107 H 16 156/85 H 98 12/12/16 13:10 12/12/16 16:17 12/12/16 16:17 12/12/16 13:10 12/12/16 16:17 Intake & Output 12/11/16 12/12/16 12/13/16 06:59 06:59 06:59 Intake Total 300 Balance 300 Weight 54.2 kg Results Laboratory Results: 12/12/16 11:15 12/12/16 11:15 12/12/16 12/12/16 12/12/16 11:15 11:15 14:12 WBC 6.4 RBC 3.40 L Hgb 10.5 L Hct 31.8 L MCV 94 MCH 31.0 MCHC 33.1 RDW 12.7 Plt Count 281 Sodium 143.9 Potassium 4.2 Chloride 106 Carbon Dioxide 26 Anion Gap 12 BUN 25 H Creatinine 1.04 Est GFR ( Amer) > 60 Est GFR (Non-Af Amer) > 60 Glucose 105 Calcium 10.5 H Blood Type A POSITIVE Antibody Screen NEGATIVE EKG Comments: Not available for review but have ordered one. Impressions: Abdomen/Pelvis CT 12/11/16 14:45 IMPRESSION: 1. No acute findings to correlate with the patient's reported right lower quadrant pain. 2. Multiple renal cysts which have increased in number relative to CT imaging performed in 2007. While the larger lesions demonstrate Hounsfield units consistent with simple fluid, consider further evaluation with ultrasound on a routine outpatient basis. 3. 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 Assessment & Plan - Diagnosis (1) Paroxysmal atrial fibrillation Is this a current diagnosis for this admission?: Yes (2) History of Coumadin therapy Is this a current diagnosis for this admission?: Yes (3) Lower GI bleed Is this a current diagnosis for this admission?: Yes (4) History of pacemaker Is this a current diagnosis for this admission?: Yes (5) Senile dementia Qualifiers: Dementia behavioral disturbance: without behavioral disturbance Qualified Code(s): F03.90 - Unspecified dementia without behavioral disturbance Is this a current diagnosis for this admission?: Yes (6) HTN (hypertension) Qualifiers: Hypertension type: essential hypertension Qualified Code(s): I10 - Essential (primary) hypertension Is this a current diagnosis for this admission?: Yes (7) PAD (peripheral artery disease) Is this a current diagnosis for this admission?: Yes (8) Preoperative clearance Is this a current diagnosis for this admission?: Yes - Notes Notes: Paroxysmal atrial fibrillation: On rhythm strips Patient noted to have atrial paced beats. Rate is well controlled. At this point chronic Coumadin therapy on hold. Resume when feasible from GI standpoint. Lower GI bleed: Possibly diverticular versus other cause. Patient being scheduled for colonoscopy. Patient likely to do well with this procedure since this is a low-risk procedure. History of pacemaker therapy. This seems to be functioning normally. Hypertension: Blood pressure under good control. Continue home medications. Peripheral arterial disease: Currently stable without any evidence of tissue hypoperfusion. Preoperative clearance: Patient cleared for proposed surgery. Risk higher than average but not in the prohibitive range. EKG not still available for review - Time Time Spent: 30 to 50 Minutes - CODE STATUS was discussed, patient remains full code. Surrogate decision-maker patient's . Multiple medical problems were addressed.More than 50% of the time spent coordinating care, discussing management plans with involved caregivers. Management plans discussed with involved personnels. Medical decision making was of moderate complexity.
--- NOTE | 2016-12-12 19:53 | EKG REPORT ---
SEVERITY:- ABNORMAL ECG - ATRIAL-PACED RHYTHM : Confirmed by: Preet Szymanski MD 12-Dec-2016 19:52:27
[2016-12-12] MEDS: PANTOPRAZOLE SODIUM 40 MG VIAL IV SCH (22:15)
[2016-12-13 00:36] LABS: HEMATOCRIT 26.2 % (37.9-51.0); HGB HCT DIFFERENCE 0.8; MEAN CORPUSCULAR HEMOGLOBIN 31.2 pg (27.0-33.4); MEAN CORPUSCULAR HGB CONC 34.2 g/dL (32.0-36.0); MEAN CORPUSCULAR VOLUME 91 fl (80-97); RED BLOOD COUNT 2.87 10^6/uL (4.35-5.55); RED CELL DISTRIBUTION WIDTH 12.2 % (11.5-14.0); WHITE BLOOD COUNT 6.5 10^3/uL (4.0-10.5)
[2016-12-13] MEDS ORDERED: NA PHOS,M-B/NA PHOS,DI-BA (ADULT) 133 ML ENEMA PR ONE (06:00)
[2016-12-13 08:29] LABS: ABSOLUTE LYMPHOCYTES (AUTO) 2.3 10^3/uL (0.5-4.7); ABSOLUTE MONOCYTES (AUTO) 0.6 10^3/uL (0.1-1.4); ABSOLUTE NEUT (AUTO) 3.7 10^3/uL (1.7-8.2); BASOPHILS % (AUTO) 0.6 % (0-2); EOSINOPHILS % (AUTO) 0.6 % (0-6); HEMOGLOBIN 10.1 g/dL (13.5-17.0); HGB HCT DIFFERENCE 0.3; LYMPHOCYTES % (AUTO) 34.9 % (13-45); MEAN CORPUSCULAR HEMOGLOBIN 31.2 pg (27.0-33.4); MEAN CORPUSCULAR HGB CONC 33.7 g/dL (32.0-36.0); MEAN CORPUSCULAR VOLUME 92 fl (80-97); MONOCYTES % (AUTO) 8.5 % (3-13); RED BLOOD COUNT 3.25 10^6/uL (4.35-5.55); RED CELL DISTRIBUTION WIDTH 12.7 % (11.5-14.0); SEGMENTED NEUTROPHILS % (AUTO) 55.4 % (42-78); WHITE BLOOD COUNT 6.7 10^3/uL (4.0-10.5)
[2016-12-13 08:36] LABS: PROTHROMBIN TIME 15.2 SEC (11.4-15.4)
[2016-12-13 08:37] LABS: PARTIAL THROMBOPLASTIN TIME 35.8 SEC (23.5-35.8)
--- NOTE | 2016-12-13 08:44 | PDOC PROGRESS REPORT ---
Subjective Progress Note for:: 12/13/16 Subjective:: No abdominal pain, nausea, or vomiting. No chest pain or difficulty with breathing. No fever or chills. No reported observed bleeding. Patient remain NPO for possible colonoscopy evaluation later today. Physical Exam Vital Signs: Temp Pulse Resp BP Pulse Ox 98.0 F 69 16 168/95 H 100 12/13/16 06:41 12/13/16 06:41 12/13/16 06:41 12/13/16 06:41 12/13/16 06:41 Intake & Output 12/12/16 12/13/16 12/14/16 06:59 06:59 06:59 Intake Total 700 Balance 700 Weight 47.4 kg General appearance: PRESENT: no acute distress, cooperative Head exam: PRESENT: atraumatic, normocephalic Eye exam: PRESENT: conjunctiva pink, EOMI, PERRLA. ABSENT: scleral icterus Mouth exam: PRESENT: moist Respiratory exam: PRESENT: clear to auscultation stacie Cardiovascular exam: PRESENT: RRR. ABSENT: diastolic murmur, rubs, systolic murmur GI/Abdominal exam: PRESENT: normal bowel sounds, soft. ABSENT: distended, guarding, mass, organolmegaly, rebound, tenderness Extremities exam: PRESENT: full ROM Musculoskeletal exam: PRESENT: deformity - related to arthritos involvement of multiple joints Neurological exam: PRESENT: alert, awake Psychiatric exam: PRESENT: agitated - because of absence of his at bedside Skin exam: PRESENT: dry, intact, warm. ABSENT: cyanosis, rash Results Laboratory Results: 12/12/16 12/12/16 12/12/16 11:15 11:15 14:12 WBC 6.4 RBC 3.40 L Hgb 10.5 L Hct 31.8 L MCV 94 MCH 31.0 MCHC 33.1 RDW 12.7 Plt Count 281 Sodium 143.9 Potassium 4.2 Chloride 106 Carbon Dioxide 26 Anion Gap 12 BUN 25 H Creatinine 1.04 Est GFR ( Amer) > 60 Est GFR (Non-Af Amer) > 60 Glucose 105 Calcium 10.5 H Blood Type A POSITIVE Antibody Screen NEGATIVE 12/13/16 00:20 WBC 6.5 RBC 2.87 L Hgb 9.0 L Hct 26.2 L MCV 91 MCH 31.2 MCHC 34.2 RDW 12.2 Plt Count 209 Sodium Potassium Chloride Carbon Dioxide Anion Gap BUN Creatinine Est GFR ( Amer) Est GFR (Non-Af Amer) Glucose Calcium Blood Type Antibody Screen Impressions: Abdomen/Pelvis CT 12/11/16 14:45 IMPRESSION: 1. No acute findings to correlate with the patient's reported right lower quadrant pain. 2. Multiple renal cysts which have increased in number relative to CT imaging performed in 2007. While the larger lesions demonstrate Hounsfield units consistent with simple fluid, consider further evaluation with ultrasound on a routine outpatient basis. 3. 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 Assessment & Plan - Diagnosis (1) Chronic lower gastrointestinal bleeding Is this a current diagnosis for this admission?: YesPlan: See attending physician orders. Probably related to history of diverticulosis and prolong use of Coumadin for Atrial fibrillation anticoagulation therapy. (2) Anemia due to chronic blood loss Is this a current diagnosis for this admission?: YesPlan: See attending physician orders. Related to above but hemodilution may be a contributing factor. Follow up on colonoscopy findings. We toya evaluate his hemopoietic response. (3) History of Coumadin therapy Is this a current diagnosis for this admission?: YesPlan: See attending physician orders. (4) Paroxysmal atrial fibrillation Is this a current diagnosis for this admission?: YesPlan: See attending physician orders. (5) History of pacemaker Is this a current diagnosis for this admission?: YesPlan: See attending physician orders. (6) Senile dementia Qualifiers: Dementia behavioral disturbance: without behavioral disturbance Qualified Code(s): F03.90 - Unspecified dementia without behavioral disturbance Is this a current diagnosis for this admission?: YesPlan: See attending physician orders. (7) HTN (hypertension) Qualifiers: Hypertension type: essential hypertension Qualified Code(s): I10 - Essential (primary) hypertension Is this a current diagnosis for this admission?: YesPlan: See attending physician orders. (8) PAD (peripheral artery disease) Is this a current diagnosis for this admission?: YesPlan: See attending physician orders. (9) Prostate cancer Plan: See attending physician orders. 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
[2016-12-13 08:54] LABS: ANION GAP 13 (5-19); BLOOD UREA NITROGEN 16 mg/dL (7-20); CALCIUM 10.3 mg/dL (8.4-10.2); CARBON DIOXIDE 26 mmol/L (22-30); CHLORIDE 106 mmol/L (98-107); GLUCOSE 90 mg/dL (75-110); POTASSIUM 3.7 mmol/L (3.6-5.0); SODIUM 144.8 mmol/L (137-145)
[2016-12-13] MEDS: DILTIAZEM HCL 120 MG CAP.SR.24H PO SCH (09:53)
[2016-12-13] MEDS: PANTOPRAZOLE SODIUM 40 MG VIAL IV SCH ×2 (09:54→22:38)
[2016-12-13] MEDS: PENTOXIFYLLINE 400 MG TABLET.SA PO SCH ×2 (09:54→17:11)
[2016-12-13] MEDS ORDERED: NALOXONE HCL INJ/PF 0.4 MG/1 ML SDV ONE (11:39)
[2016-12-13] MEDS ORDERED: ONDANSETRON HCL INJ/PF 4 MG/2 ML SDV ONE (11:39)
[2016-12-13] MEDS ORDERED: PROMETHAZINE HCL INJ 25 MG/1 ML VIAL ONE (11:39)
[2016-12-13] MEDS ORDERED: EPINEPHRINE INJ 1 MG/10 ML DISP.SYRIN ONE (11:40)
[2016-12-13] MEDS ORDERED: FLUMAZENIL INJ 0.5 MG/5 ML VIAL IV ONE (11:40)
[2016-12-13] MEDS ORDERED: GLUCAGON,HUMAN RECOMB 1 MG INJ ONE (11:40)
[2016-12-13] MEDS: FENTANYL CITRATE INJ/PF 100 MCG/2 ML AMPUL ONE ×4 (12:12→12:43)
[2016-12-13] MEDS: MIDAZOLAM 2 MG/2 ML INJ ONE ×4 (12:14→12:45)
--- NOTE | 2016-12-13 13:43 | Operative Report ---
Operative Report DATE OF SURGERY: 12/13/16 PREOPERATIVE DIAGNOSIS: lower GI bleeding POSTOPERATIVE DIAGNOSIS: same; sigmoid diverticulosis, transverse colon teleangectasia OPERATION: EGD, colonoscopy to cecum; intravenous sedation provided by Dr. Bustos SURGEON: Prince Bustos ANESTHESIA: Moderate Sedation TISSUE REMOVED OR ALTERED: none COMPLICATIONS: none ESTIMATED BLOOD LOSS: none INTRAOPERATIVE FINDINGS: antritis; sigmoid diverticulosis, transverse coon teleangectasia
[2016-12-13] MEDS ORDERED: NORMAL SALINE 1000 ML 1,000 ML IV PRN (14:17)
[2016-12-13 15:47] LABS: HEMATOCRIT 30.4 % (37.9-51.0); HGB HCT DIFFERENCE -0.4; MEAN CORPUSCULAR HEMOGLOBIN 30.5 pg (27.0-33.4); MEAN CORPUSCULAR HGB CONC 32.9 g/dL (32.0-36.0); MEAN CORPUSCULAR VOLUME 93 fl (80-97); RED BLOOD COUNT 3.28 10^6/uL (4.35-5.55); RED CELL DISTRIBUTION WIDTH 12.1 % (11.5-14.0)
--- NOTE | 2016-12-13 15:56 | EKG REPORT ---
SEVERITY:- ABNORMAL ECG - ATRIAL-PACED RHYTHM LEFT VENTRICULAR HYPERTROPHY : Confirmed by: Fabrice Lechuga 13-Dec-2016 15:56:14
--- NOTE | 2016-12-13 20:38 | PROGRESS NOTE E ---
Progress Note NAME: RASHAD GOODSON : 1935 AGE: 81Y DATE: 12/13/2016 ROOM: 422 SUBJECTIVE: The patient denies any chest pain or discomfort. It is difficult to get hold of the patient since he is always wandering around and not in the room. He refused to be on the telemetry. On examination, his heart sounds seem to be regular. There is no PND or orthopnea. There is no further GI bleed. The patient did have a lower GI colonoscopy which showed sigmoid diverticulosis, transverse colon telangiectasia after colonoscopy. The patient denies any palpitations. There is no syncope. There is no pedal edema. OBJECTIVE: GENERAL: On examination, the patient appears to be frail built but well nourished. VITAL SIGNS: He is afebrile with temperature 97.6 degrees Fahrenheit. His pulse was 70 beats per minute. Blood pressure is 173/82. Respirations are 18 per minute. O2 saturation is 100% on room air. HEENT: Head is atraumatic, normocephalic. Eyes: Pupils are equal, round, regular, reactive to light and accommodation. Extraocular movements are normal. There is no conjunctival pallor. There is no scleral icterus. ENT is negative. NECK: Supple. There is no JVD. Carotids are equal; there is no bruit. LUNGS: Clear to auscultation and percussion. CARDIOVASCULAR: S1, S2 are heard. There is no diastolic murmur. There is systolic murmur in the left sternal border and the apex. There is no rub. ABDOMEN: Soft, nontender. There is no hepatosplenomegaly. Bowel sounds are well heard. EXTREMITIES: There is no pedal edema. Peripheral pulses are decreased. The femorals are decreased. There are no femoral bruits. There is no leg edema. CENTRAL NERVOUS SYSTEM: The patient is conscious, confused with no focal deficits. PSYCHIATRIC: The patient has spells of agitation, at present is not agitated. DIAGNOSTIC TESTS: The patient's white count is 8000; hemoglobin is 10.0; hematocrit is 30.4, and platelet count is 266,000. The patient's sodium is 144.8, potassium 3.7, chloride 106, CO2 26. BUN is 16, creatinine 0.90. GFR is greater than 60. Calcium is 10.3. Note on 12/11/2016, the patient has occult blood positive stool. ASSESSMENT: 1. LOWER GASTROINTESTINAL BLEED DUE TO CHRONIC TELANGIECTASIA AND DIVERTICULOSIS. 2. ANEMIA DUE TO CHRONIC BLOOD LOSS. Note that the patient is having his CBC checked to make sure the hemoglobin does not drop. 3. HISTORY OF COUMADIN THERAPY, AT PRESENT STOPPED. 4. PAROXYSMAL ATRIAL FIBRILLATION. At present, the patient most likely is in sinus rhythm, but he is not on the monitor. He is being placed on Cardizem CD 120 mg p.o. q.12 hours, and his Coumadin has been stopped. 5. HISTORY OF COUMADIN THERAPY. The patient is not a suitable candidate for chronic anticoagulation therapy. 6. HISTORY OF PACEMAKER. Seems to be functioning well. 7. DEMENTIA WITH SENILE DEMENTIA. 8. HYPERTENSION. Blood pressure is still not well controlled. 9. PERIPHERAL ARTERIAL DISEASE. 10. PROSTATE CANCER. PLAN: Note medications were reviewed and adjusted. Note that the patient is not a candidate for long-term anticoagulation therapy. Would continue the patient on Cardizem CD q.12 hours. TIME SPENT: Time spent with the patient 30 minutes. Colonoscopy report reviewed. Discussed with the patient. We will follow with you. DICTATING PHYSICIAN: LUKE SORIA M.D. [id number] ENMA#: [id number] ID: [id number] JOB#: [id number] ACCT: [id number] cc: > CYNTHIAD
[2016-12-13 21:07] LABS: HEMATOCRIT 28.9 % (37.9-51.0); HEMOGLOBIN 9.7 g/dL (13.5-17.0); HGB HCT DIFFERENCE 0.2; MEAN CORPUSCULAR HEMOGLOBIN 31.1 pg (27.0-33.4); MEAN CORPUSCULAR HGB CONC 33.4 g/dL (32.0-36.0); MEAN CORPUSCULAR VOLUME 93 fl (80-97); RED BLOOD COUNT 3.11 10^6/uL (4.35-5.55); RED CELL DISTRIBUTION WIDTH 12.4 % (11.5-14.0); WHITE BLOOD COUNT 6.9 10^3/uL (4.0-10.5)
[2016-12-14] MEDS: DILTIAZEM HCL 120 MG CAP.SR.24H PO SCH ×3 (01:14→18:24)
[2016-12-14 03:30] LABS: HEMATOCRIT 27.1 % (37.9-51.0); HGB HCT DIFFERENCE -0.1; MEAN CORPUSCULAR HEMOGLOBIN 30.7 pg (27.0-33.4); MEAN CORPUSCULAR HGB CONC 33.3 g/dL (32.0-36.0); MEAN CORPUSCULAR VOLUME 92 fl (80-97); RED BLOOD COUNT 2.94 10^6/uL (4.35-5.55); RED CELL DISTRIBUTION WIDTH 12.4 % (11.5-14.0)
[2016-12-14 03:46] LABS: ANION GAP 11 (5-19); BLOOD UREA NITROGEN 17 mg/dL (7-20); CALCIUM 9.8 mg/dL (8.4-10.2); CARBON DIOXIDE 22 mmol/L (22-30); CHLORIDE 110 mmol/L (98-107); CREATININE RESULT 0.94 mg/dL (0.52-1.25); GLUCOSE 82 mg/dL (75-110); POTASSIUM 3.6 mmol/L (3.6-5.0); SODIUM 143.2 mmol/L (137-145)
[2016-12-14 09:34] LABS: ABSOLUTE BASOPHILS # (AUTO) 0.1 10^3/uL (0.0-0.2); ABSOLUTE LYMPHOCYTES (AUTO) 1.9 10^3/uL (0.5-4.7); ABSOLUTE MONOCYTES (AUTO) 0.6 10^3/uL (0.1-1.4); ABSOLUTE NEUT (AUTO) 4.7 10^3/uL (1.7-8.2); BASOPHILS % (AUTO) 0.8 % (0-2); EOSINOPHILS % (AUTO) 0.2 % (0-6); HEMATOCRIT 29.3 % (37.9-51.0); HEMOGLOBIN 9.7 g/dL (13.5-17.0); HGB HCT DIFFERENCE -0.2; LYMPHOCYTES % (AUTO) 25.8 % (13-45); MEAN CORPUSCULAR HEMOGLOBIN 30.9 pg (27.0-33.4); MEAN CORPUSCULAR HGB CONC 33.2 g/dL (32.0-36.0); MEAN CORPUSCULAR VOLUME 93 fl (80-97); MONOCYTES % (AUTO) 8.1 % (3-13); RED BLOOD COUNT 3.15 10^6/uL (4.35-5.55); RED CELL DISTRIBUTION WIDTH 12.8 % (11.5-14.0); SEGMENTED NEUTROPHILS % (AUTO) 65.1 % (42-78); WHITE BLOOD COUNT 7.2 10^3/uL (4.0-10.5)
--- NOTE | 2016-12-14 10:43 | OPERATIVE REPORT E ---
Operative Report NAME: RASHAD GOODSON : 1935 AGE: 81Y DATE OF SURGERY: 12/13/2016 ROOM: 422 PREOPERATIVE DIAGNOSIS: Lower GI bleeding. POSTOPERATIVE DIAGNOSES: 1. Antritis with multiple superficial ulcerations. 2. Sigmoid diverticulosis. 3. Telangiectasia of the transverse colon. PROCEDURES: 1. EGD. 2. Colonoscopy to cecum. 3. Intermittent sedation provided by Dr. Palomares. SURGEON: EZEQUIEL PALOMARES M.D. SERVICE DELIVERY MANAGER: None. BLEEDING: None. COMPLICATIONS: None. ANESTHESIA: IV conscious sedation (4 mg IV push of Versed, 75 mcg IV push of fentanyl). INDICATION AND FINDINGS: This is an 81-year-old -[place] male who presented to the hospital with history of anemia and multiple bouts of bloody stools. I have been consulted to evaluated this for possible causes of gastrointestinal bleeding. The patient's PT/INR has been corrected with administration of vitamin K. Patient to undergo EGD and colonoscopy today for evaluation of his gastrointestinal tract. The procedure risks, benefits, and complications were explained to his . The patient understood all the above and decided to proceed. DESCRIPTION OF PROCEDURE: The patient was taken to the operating room and placed in lateral decubitus. IV sedation was provided as above. The EGD was performed without difficulty. The upper gastroscope was inserted without difficulty through the mouth as well as in the stomach and duodenum. Preparation was good. No masses, polyps, strictures, or mucosal changes were identified. At the level of the antrum, there was an area of erythema with superficial ulcerations. However, no obvious large ulcers or evidence of fresh bleeding was noted. The instrument was then slowly withdrawn. The remaining portion of the stomach was examined. On retroflexion, the fundus appeared to be within normal limits. The esophagus was examined as well and no lesions were identified. Following this, a colonoscope was inserted through the rectum and several segments and going up to the cecum. Preparation was good. No masses, polyps, strictures, or mucosal changes were identified and no ulcerations were seen. No evidence of rectal bleeding was noted; however, few scattered diverticula were noted in the sigmoid colon. The transverse colon was noted to have a large number of telangiectasias (AVM). The instrument was very slowly withdrawn. In the rectum, no lesions were identified. The instrument was then removed then from the patient without difficulty. The patient tolerated the procedure well and transferred to the recovery room in satisfactory condition. DICTATING PHYSICIAN: EZEQUIEL PALOMARES M.D. [id number] PHY#: [id number] ID: [id number] JOB#: [id number] ACCT: [id number] cc:EZEQUIEL PALOMARES M.D. > [facility]
[2016-12-14] MEDS: PENTOXIFYLLINE 400 MG TABLET.SA PO SCH ×2 (11:12→18:23)
[2016-12-14] MEDS: PANTOPRAZOLE SODIUM 40 MG VIAL IV SCH (11:12)
--- NOTE | 2016-12-14 18:39 | PDOC PROGRESS REPORT ---
Subjective Progress Note for:: 12/14/16 Subjective:: No abdominal pain, nausea, or vomiting. No chest pain or difficulty with breathing. No fever or chills. His colonoscopy evaluation did revealed telengectatic lesions with diverticulosis without any identifiable site of active bleeding. Physical Exam Vital Signs: Temp Pulse Resp BP Pulse Ox 98.5 F 72 16 139/71 H 100 12/14/16 15:12 12/14/16 17:37 12/14/16 17:37 12/14/16 15:12 12/14/16 17:37 Intake & Output 12/13/16 12/14/16 12/15/16 06:59 06:59 06:59 Intake Total 700 730 650 Output Total 150 Balance 700 580 650 Weight 47.4 kg 47.4 kg 55.3 kg Physical Exam: General appearance: PRESENT: no acute distress, cooperative Head exam: PRESENT: atraumatic, normocephalic Eye exam: PRESENT: conjunctiva pink, EOMI, PERRLA. ABSENT: scleral icterus Mouth exam: PRESENT: moist Respiratory exam: PRESENT: clear to auscultation stacie Cardiovascular exam: PRESENT: RRR. ABSENT: diastolic murmur, rubs, systolic murmur GI/Abdominal exam: PRESENT: normal bowel sounds, soft. ABSENT: distended, guarding, mass, organolmegaly, rebound, tenderness Extremities exam: PRESENT: full ROM Musculoskeletal exam: PRESENT: deformity - related to arthritis involvement of multiple joints Neurological exam: PRESENT: alert, awake Psychiatric exam: PRESENT: agitated - because of absence of his at bedside Skin exam: PRESENT: dry, intact, warm. ABSENT: cyanosis, rash Results Laboratory Results: 12/14/16 09:07 12/14/16 03:14 12/13/16 12/14/16 12/14/16 20:56 03:14 03:14 WBC 6.9 6.0 RBC 3.11 L 2.94 L Hgb 9.7 L 9.0 L Hct 28.9 L 27.1 L MCV 93 92 MCH 31.1 30.7 MCHC 33.4 33.3 RDW 12.4 12.4 Plt Count 264 192 Seg Neutrophils % Lymphocytes % Monocytes % Eosinophils % Basophils % Absolute Neutrophils Absolute Lymphocytes Absolute Monocytes Absolute Eosinophils Absolute Basophils Sodium 143.2 Potassium 3.6 Chloride 110 H Carbon Dioxide 22 Anion Gap 11 BUN 17 Creatinine 0.94 Est GFR ( Amer) > 60 Est GFR (Non-Af Amer) > 60 Glucose 82 Calcium 9.8 12/14/16 09:07 WBC 7.2 RBC 3.15 L Hgb 9.7 L Hct 29.3 L MCV 93 MCH 30.9 MCHC 33.2 RDW 12.8 Plt Count 255 Seg Neutrophils % 65.1 Lymphocytes % 25.8 Monocytes % 8.1 Eosinophils % 0.2 Basophils % 0.8 Absolute Neutrophils 4.7 Absolute Lymphocytes 1.9 Absolute Monocytes 0.6 Absolute Eosinophils 0.0 Absolute Basophils 0.1 Sodium Potassium Chloride Carbon Dioxide Anion Gap BUN Creatinine Est GFR ( Amer) Est GFR (Non-Af Amer) Glucose Calcium Impressions: Abdomen/Pelvis CT 12/11/16 14:45 IMPRESSION: 1. No acute findings to correlate with the patient's reported right lower quadrant pain. 2. Multiple renal cysts which have increased in number relative to CT imaging performed in 2007. While the larger lesions demonstrate Hounsfield units consistent with simple fluid, consider further evaluation with ultrasound on a routine outpatient basis. 3. 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 Assessment & Plan - Diagnosis (1) Chronic lower gastrointestinal bleeding Is this a current diagnosis for this admission?: YesPlan: See attending physician orders. (2) Anemia due to chronic blood loss Is this a current diagnosis for this admission?: YesPlan: See attending physician orders. Patient is considered not a candidate for director long term care anticoagulation. (3) History of Coumadin therapy Is this a current diagnosis for this admission?: YesPlan: See attending physician orders. (4) Paroxysmal atrial fibrillation Is this a current diagnosis for this admission?: YesPlan: See attending physician orders. (5) History of pacemaker Is this a current diagnosis for this admission?: YesPlan: See attending physician orders. (6) Senile dementia Qualifiers: Dementia behavioral disturbance: without behavioral disturbance Qualified Code(s): F03.90 - Unspecified dementia without behavioral disturbance Is this a current diagnosis for this admission?: YesPlan: See attending physician orders. (7) HTN (hypertension) Qualifiers: Hypertension type: essential hypertension Qualified Code(s): I10 - Essential (primary) hypertension Is this a current diagnosis for this admission?: YesPlan: See attending physician orders. (8) PAD (peripheral artery disease) Is this a current diagnosis for this admission?: YesPlan: See attending physician orders. (9) Prostate cancer Plan: See attending physician orders. 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
[2016-12-15] MEDS: DILTIAZEM HCL 120 MG CAP.SR.24H PO SCH (05:49)
[2016-12-15 06:59] LABS: ABSOLUTE BASOPHILS # (AUTO) 0.1 10^3/uL (0.0-0.2); ABSOLUTE LYMPHOCYTES (AUTO) 1.9 10^3/uL (0.5-4.7); ABSOLUTE MONOCYTES (AUTO) 0.7 10^3/uL (0.1-1.4); ABSOLUTE NEUT (AUTO) 3.8 10^3/uL (1.7-8.2); BASOPHILS % (AUTO) 0.9 % (0-2); EOSINOPHILS % (AUTO) 0.6 % (0-6); HEMATOCRIT 29.3 % (37.9-51.0); HEMOGLOBIN 9.9 g/dL (13.5-17.0); HGB HCT DIFFERENCE 0.4; LYMPHOCYTES % (AUTO) 29.1 % (13-45); MEAN CORPUSCULAR HEMOGLOBIN 31.3 pg (27.0-33.4); MEAN CORPUSCULAR HGB CONC 33.7 g/dL (32.0-36.0); MEAN CORPUSCULAR VOLUME 93 fl (80-97); MONOCYTES % (AUTO) 10.9 % (3-13); RED BLOOD COUNT 3.16 10^6/uL (4.35-5.55); RED CELL DISTRIBUTION WIDTH 12.5 % (11.5-14.0); SEGMENTED NEUTROPHILS % (AUTO) 58.5 % (42-78); WHITE BLOOD COUNT 6.5 10^3/uL (4.0-10.5)
[2016-12-15 07:23] LABS: ANION GAP 13 (5-19); BLOOD UREA NITROGEN 16 mg/dL (7-20); CALCIUM 10.7 mg/dL (8.4-10.2); CARBON DIOXIDE 25 mmol/L (22-30); CHLORIDE 106 mmol/L (98-107); CREATININE RESULT 1.07 mg/dL (0.52-1.25); GLUCOSE 88 mg/dL (75-110); POTASSIUM 3.9 mmol/L (3.6-5.0); SODIUM 143.6 mmol/L (137-145)
--- NOTE | 2016-12-15 08:12 | PDOC DISCHARGE SUMMARY ---
General - Admit/Disc Date/PCP Admission Date/Primary Care Provider: 12/12/16 10:57 ROS AMAYA Discharge Date: 12/15/16 - Discharge Diagnosis (1) Chronic lower gastrointestinal bleeding Is this a current diagnosis for this admission?: Yes (2) Anemia due to chronic blood loss Is this a current diagnosis for this admission?: Yes (3) History of Coumadin therapy Is this a current diagnosis for this admission?: Yes (4) Paroxysmal atrial fibrillation Is this a current diagnosis for this admission?: Yes (5) History of pacemaker Is this a current diagnosis for this admission?: Yes (6) Senile dementia Is this a current diagnosis for this admission?: Yes (7) HTN (hypertension) Is this a current diagnosis for this admission?: Yes (8) PAD (peripheral artery disease) Is this a current diagnosis for this admission?: Yes - Additional Information Resuscitation Status: Full Code Discharge Diet: Cardiac Discharge Activity: Activity As Tolerated Home Medications: Diltiazem HCl [Cardizem Cd 120 mg Capsule] 120 mg PO BID 12/12/16 Meclizine HCl [Antivert 12.5 mg Tablet] 12.5 mg PO TID 12/12/16 Multivitamin [Multivitamins] 1 tab PO DAILY 12/12/16 Omeprazole 20 mg PO DAILY 12/12/16 Pentoxifylline [Pentoxil] 400 mg PO BID 12/12/16 Warfarin Sodium [Coumadin] 5 mg PO DAILY 12/12/16 History of Present Illness History of Present Illness: RASHAD GOODSON is a 81 year old male admitted on 12/12/2016 after presenting to ED with compliant of recurrent bloody stool. His initial evaluation was revealing for stable hemoglobin, INR at 1.42, and CT scan abdomen and pelvic revealing renal cyst without any significant acute pathology. His transfer to tertiary center due to no GI service was salvage by the surgicalist agreeing to do his colonoscopy evaluation. This was completed and revealed nonbleeding telangectatic lesions and diverticulosis. Hospital Course Hospital Course: Patient was seen in consultation by the surgicalist and had colonoscopy completed for low GI bleed evaluation. His procedure revealed nonbleeding telangectatic lesions ad diverticulosis. He was seen in consultation by Dr. Lechuga and Griselda, cardiology team, considered not a candidate for [facility] anticoagulation therapy for chronic atrial fibrillation due to high risk for bleeding complication. His hemoglobin have been stable and on upward trend at this time. He will be discharge home today and follow up in the office as instructed upon discharge. Physical Exam Vital Signs: Temp Pulse Resp BP Pulse Ox 97.9 F 70 16 148/84 H 100 12/15/16 07:39 12/15/16 07:39 12/15/16 07:39 12/15/16 07:39 12/15/16 07:39 Intake & Output 12/14/16 12/15/16 12/16/16 06:59 06:59 06:59 Intake Total 730 1040 Output Total 150 Balance 580 1040 Weight 47.4 kg 55.3 kg Physical Exam: General appearance: PRESENT: no acute distress, cooperative Head exam: PRESENT: atraumatic, normocephalic Eye exam: PRESENT: conjunctiva pink, EOMI, PERRLA. ABSENT: scleral icterus Mouth exam: PRESENT: moist Respiratory exam: PRESENT: clear to auscultation stacie Cardiovascular exam: PRESENT: RRR. ABSENT: diastolic murmur, rubs, systolic murmur GI/Abdominal exam: PRESENT: normal bowel sounds, soft. ABSENT: distended, guarding, mass, organomegaly, rebound, tenderness Extremities exam: PRESENT: full ROM Musculoskeletal exam: PRESENT: deformity - related to arthritis involvement of multiple joints Neurological exam: PRESENT: alert, awake Psychiatric exam: PRESENT: agitated - because of absence of his at bedside Skin exam: PRESENT: dry, intact, warm. ABSENT: cyanosis, rash Results Laboratory Results: 12/15/16 05:47 12/15/16 05:47 12/14/16 12/15/16 12/15/16 09:07 05:47 05:47 WBC 7.2 6.5 RBC 3.15 L 3.16 L Hgb 9.7 L 9.9 L Hct 29.3 L 29.3 L MCV 93 93 MCH 30.9 31.3 MCHC 33.2 33.7 RDW 12.8 12.5 Plt Count 255 264 Seg Neutrophils % 65.1 58.5 Lymphocytes % 25.8 29.1 Monocytes % 8.1 10.9 Eosinophils % 0.2 0.6 Basophils % 0.8 0.9 Absolute Neutrophils 4.7 3.8 Absolute Lymphocytes 1.9 1.9 Absolute Monocytes 0.6 0.7 Absolute Eosinophils 0.0 0.0 Absolute Basophils 0.1 0.1 Sodium 143.6 Potassium 3.9 Chloride 106 Carbon Dioxide 25 Anion Gap 13 BUN 16 Creatinine 1.07 Est GFR ( Amer) > 60 Est GFR (Non-Af Amer) > 60 Glucose 88 Calcium 10.7 H Impressions: Abdomen/Pelvis CT 12/11/16 14:45 IMPRESSION: 1. No acute findings to correlate with the patient's reported right lower quadrant pain. 2. Multiple renal cysts which have increased in number relative to CT imaging performed in 2007. While the larger lesions demonstrate Hounsfield units consistent with simple fluid, consider further evaluation with ultrasound on a routine outpatient basis. 3. 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 Qualifiers PATEINT BEING DISCHARGED WITH ANY OF THE FOLLOWING DIAGNOSIS?: No Plan Discharge Plan: D/C home today with follow up in the office as instructed upon discharge. Discontinue Coumadin usage. Time Spent: Less than 30 Minutes
[2016-12-15] MEDS: PENTOXIFYLLINE 400 MG TABLET.SA PO SCH (10:15)
[2016-12-15 11:26] VITALS: BP 128/55
--- NOTE | 2016-12-16 09:38 | PROGRESS NOTE E ---
Progress Note NAME: RASHAD GOODSON : 1935 AGE: 81Y DATE: 12/15/2016 ROOM: 422 SUBJECTIVE: Note, the patient has a habit of moving around and hence I could not see him yesterday. This is since I just could not find the patient, but today, the patient is ready for discharge and I spoke to and examined the patient. He denies any chest pain or discomfort. He has no palpitations. There is no further GI bleeding. There is no abdominal pain. There is no PND or orthopnea. There is no pedal edema. There is no clinical recurrence of atrial fibrillation, but the patient is not on the monitor. OBJECTIVE: GENERAL: The patient appears to be frail built but well nourished. VITAL SIGNS: He is afebrile with a temperature of 98.1 degrees Fahrenheit orally. Pulse is 71 beats per minute, blood pressure is 128/55, respirations are 16 per minute, O2 saturations are 100% on room air. HEENT: Head is atraumatic, normocephalic. Eyes: Pupils are equal, round, regular and reactive to light and accommodation. Extraocular movements are normal. There is no conjunctival pallor. There is no scleral icterus. ENT is negative. NECK: Supple. There is no JVD. Carotids are equal. There is no bruit. LUNGS: Clear to auscultation and percussion. CARDIOVASCULAR: S1 and S2 are heard. There is no S3 gallop. There is no S4 gallop. There is a systolic murmur in the left sternal border and the apex. There is no rub. ABDOMEN: Soft, nontender. There is no hepatosplenomegaly. Bowel sounds are well heard. EXTREMITIES: There is no pedal edema. Peripheral pulses are decreased. The femorals are decreased. There are no femoral bruits. There is no leg edema. CENTRAL NERVOUS SYSTEM: The patient is conscious, confused with no focal deficits. PSYCHIATRIC: The patient does not appear to be anxious or depressed. ASSESSMENT: 1. LOWER GASTROINTESTINAL BLEED DUE TO CHRONIC TELANGIECTASIA AND DIVERTICULOSIS. 2. ANEMIA DUE TO CHRONIC BLOOD LOSS. Note that the patient is having his CBC checked to make sure the hemoglobin does not drop. 3. HISTORY OF COUMADIN THERAPY, AT PRESENT STOPPED. 4. PAROXYSMAL ATRIAL FIBRILLATION. At present, the patient most likely is in sinus rhythm, but he is not on the monitor. He is being placed on Cardizem CD 120 mg p.o. q.12 hours, and his Coumadin has been stopped. 5. HISTORY OF COUMADIN THERAPY. The patient is not a suitable candidate for chronic anticoagulation therapy. 6. HISTORY OF PACEMAKER. Seems to be functioning well. 7. DEMENTIA WITH SENILE DEMENTIA. 8. HYPERTENSION. Blood pressure is still not well controlled. 9. PERIPHERAL ARTERIAL DISEASE. 10. PROSTATE CANCER. PLAN: Note that the patient is not a candidate for long-term anticoagulation therapy. Would continue the patient on Cardizem CD q.12 hours. TIME SPENT: Time spent with the patient 25 minutes. The patient is being discharged. We will sign off. Thank you for this consult. DICTATING PHYSICIAN: LUKE SORIA M.D. [id number] PHY#: [id number] ID: [id number] JOB#: [id number] ACCT: [id number] cc: > CHRISTO
== END 2016-12-15 13:15 | disposition home or self-care (01) | DRG 379 ==
LOC: ER 12:38 → EH 12-12 10:57 → UNDOADMIN 12-12 11:04 → EH 12-12 11:04 → 4W 12-12 12:40
PROVIDERS: ADMIT Internal Medicine Geriatric Medicine; ATTEND Internal Medicine Geriatric Medicine
PROC: 0DJ08ZZ Inspection of Upper Intestinal Tract, Via Natural or Artificial Opening Endoscopic (ICD-10-PCS; principal; 2016-12-13 12:00)
PROC: 0DJD8ZZ Inspection of Lower Intestinal Tract, Via Natural or Artificial Opening Endoscopic (ICD-10-PCS; 2016-12-13 12:00)
DX: K92.1 Melena (principal); D50.0 Iron deficiency anemia secondary to blood loss (chronic); K57.30 Diverticulosis of large intestine without perforation or abscess without bleeding; K29.60 Other gastritis without bleeding; K31.819 Angiodysplasia of stomach and duodenum without bleeding; K25.9 Gastric ulcer, unspecified as acute or chronic, without hemorrhage or perforation; I10 Essential (primary) hypertension; I25.10 Atherosclerotic heart disease of native coronary artery without angina pectoris; E78.5 Hyperlipidemia, unspecified; I48.0 Paroxysmal atrial fibrillation; M19.90 Unspecified osteoarthritis, unspecified site; F03.90 Unspecified dementia, unspecified severity, without behavioral disturbance, psychotic disturbance, mood disturbance, and anxiety; I73.9 Peripheral vascular disease, unspecified; Z87.19 Personal history of other diseases of the digestive system; Z95.0 Presence of cardiac pacemaker; Z79.01 Long term (current) use of anticoagulants; Z86.010 Personal history of colon polyps; Z85.46 Personal history of malignant neoplasm of prostate
CPT/HCPCS: 36415; 43235; 45378; 74177; 80048; 80053; 81001; 82272; 85025; 85027; 85045; 85610; 85730; 86850; 86900; 86901; 87086; 87088; 87186; 93005; 93010; 99291; J0171; J1610; J2250; J2310; J2405; J2550; J3010; J3430; J3490; J7030; S0164

== ENCOUNTER 2017-01-06 12:24 | Emergency (ER) | payer MEDICARE, MEDICAID ==
--- NOTE | 2017-01-06 12:46 | ER Document Report ---
ED Medical Screen (RME) - General Chief Complaint: Dizziness Stated Complaint: DIZZINESS Notes: 81-year-old male patient comes emergency room complaining of lightheaded feeling for about 2 weeks. He was admitted on 12/13/2015 with chronic GI bleed transfused. His Coumadin was stopped at that time. Nothing seems to make the dizziness worse. I have greeted and performed a rapid initial assessment of this patient. A comprehensive ED assessment and evaluation of the patient, analysis of test results and completion of the medical decision making process will be conducted by additional ED providers. TRAVEL OUTSIDE OF THE [place] IN LAST 30 DAYS: No - Related Data Allergies/Adverse Reactions: No Known Allergies Allergy (Verified 01/06/17 12:43) Past Medical History - Past Medical History Cardiac Medical History: Reports: Hx Atrial Fibrillation, Hx Hypertension Denies: Hx Coronary Artery Disease, Hx Heart Attack Pulmonary Medical History: Denies: Hx Asthma, Hx Bronchitis, Hx COPD, Hx Pneumonia, Hx Tuberculosis Neurological Medical History: Denies: Hx Cerebrovascular Accident, Hx Seizures Renal/ Medical History: Denies: Hx Peritoneal Dialysis GI Medical History: Reports: Hx Ulcer - ?. Denies: Hx Diverticulitis, Hx Gastritis, Hx Gastroesophageal Reflux Disease, Hx Hepatitis, Hx Hiatal Hernia Musculoskeltal Medical History: Denies Hx Arthritis Infectious Medical History: Denies: Hx Hepatitis Past Surgical History: Reports: Hx Cardiac Surgery - pacemaker placement, Hx Pacemaker - 3 years ago. Denies: Hx Open Heart Surgery - Immunizations Immunizations up to date: No Hx Diphtheria, Pertussis, Tetanus Vaccination: Yes Physical Exam - Vital signs Vitals: Temp Pulse Resp BP Pulse Ox 98.5 F 71 20 151/81 H 100 01/06/17 12:37 01/06/17 12:37 01/06/17 12:37 01/06/17 12:37 01/06/17 12:37 Course - Vital Signs Vital signs: Temp Pulse Resp BP Pulse Ox 98.5 F 71 20 151/81 H 100 01/06/17 12:37 01/06/17 12:37 01/06/17 12:37 01/06/17 12:37 01/06/17 12:37
[2017-01-06 14:23] LABS: ABSOLUTE LYMPHOCYTES (AUTO) 1.3 10^3/uL (0.5-4.7); ABSOLUTE MONOCYTES (AUTO) 0.5 10^3/uL (0.1-1.4); ABSOLUTE NEUT (AUTO) 3.8 10^3/uL (1.7-8.2); BASOPHILS % (AUTO) 0.6 % (0-2); EOSINOPHILS % (AUTO) 0.1 % (0-6); HEMATOCRIT 32.7 % (37.9-51.0); HEMOGLOBIN 10.9 g/dL (13.5-17.0); LYMPHOCYTES % (AUTO) 22.7 % (13-45); MEAN CORPUSCULAR HEMOGLOBIN 31.1 pg (27.0-33.4); MEAN CORPUSCULAR HGB CONC 33.3 g/dL (32.0-36.0); MEAN CORPUSCULAR VOLUME 93 fl (80-97); MONOCYTES % (AUTO) 8.9 % (3-13); RED CELL DISTRIBUTION WIDTH 12.9 % (11.5-14.0); SEGMENTED NEUTROPHILS % (AUTO) 67.7 % (42-78); WHITE BLOOD COUNT 5.6 10^3/uL (4.0-10.5)
[2017-01-06 14:31] LABS: PROTHROMBIN TIME 12.9 SEC (11.4-15.4)
[2017-01-06 14:41] LABS: ALANINE AMINOTRANSFERASE 19 U/L (21-72); ALBUMIN 4.2 g/dL (3.5-5.0); ALKALINE PHOSPHATASE 89 U/L (38-126); ANION GAP 12 (5-19); ASPARTATE AMINO TRANSFERASE 17 U/L (17-59); BILIRUBIN,DIRECT 0.2 mg/dL (0.0-0.4); BILIRUBIN,TOTAL 0.4 mg/dL (0.2-1.3); BLOOD UREA NITROGEN 15 mg/dL (7-20); CALCIUM 10.6 mg/dL (8.4-10.2); CARBON DIOXIDE 25 mmol/L (22-30); CHLORIDE 105 mmol/L (98-107); CREATINE KINASE 38 U/L (55-170); CREATININE RESULT 1.27 mg/dL (0.52-1.25); GLUCOSE 93 mg/dL (75-110); POTASSIUM 4.7 mmol/L (3.6-5.0); SODIUM 142.4 mmol/L (137-145); TOTAL PROTEIN 7.3 g/dL (6.3-8.2)
--- NOTE | 2017-01-06 14:41 | ER Document Report ---
ED Dizziness/Weakness - General Chief Complaint: Dizziness Stated Complaint: DIZZINESS Time seen by provider: 14:37 Mode of Arrival: Ambulatory Information source: Patient Notes: 81-year-old male presents to ED for complaint of lightheaded feeling for about a week. He states he was admitted on 12/13/2015 for you, chronic GI bleed with transfusions. His Coumadin was stopped at that time. He states he is dizzy most of the time not standing or anything is just comes and goes. TRAVEL OUTSIDE OF THE [place] IN LAST 30 DAYS: No - HPI Patient complains to provider of: Dizziness Onset: Other - About 2 weeks Onset/Duration: Intermittent Quality of pain: Sharp - Sharp pain in his knee that Dr. 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 denies: Arthritis, CAD, COPD, CVA, DM, Hyperlipidemia, Hypertension, Malignancy, Thyroid Disfunction Patient has suicidal ideation: No Patient has homicidal ideation: No - Past Medical History Cardiac Medical History: Reports: Hx Atrial Fibrillation, Hx Hypertension, Other - Pacemaker Pulmonary Medical History: Reports: None EENT Medical History: Reports: None Neurological Medical History: Reports: None Endocrine Medical History: Reports: None Renal/ Medical History: Reports: None Malignancy Medical History: Reports Hx Prostate Cancer - Prostatectomy GI Medical History: Reports: Hx Gastroesophageal Reflux Disease, Hx Ulcer - ?, Hx Colonoscopy Musculoskeltal Medical History: Reports None Skin Medical History: Reports None Psychiatric Medical History: Reports: None Traumatic Medical History: Reports: None Infectious Medical History: Reports: None Past Surgical History: Reports: Hx Oral Surgery - Dental surgery, Hx Pacemaker - Immunizations Immunizations up to date: No Hx Diphtheria, Pertussis, Tetanus Vaccination: Yes Hx Pneumococcal Vaccination: 09/19/11 Review of Systems - Review of Systems Constitutional: Malaise Cardiovascular: Dizziness, Lightheaded Respiratory: No symptoms reported Gastrointestinal: No symptoms reported Genitourinary: No symptoms reported Male Genitourinary: No symptoms reported Musculoskeletal: Joint pain - Knee pain Skin: No symptoms reported Hematologic/Lymphatic: No symptoms reported Neurological/Psychological: No symptoms reported -: Yes All other systems reviewed and negative Physical Exam - Vital signs Vitals: Temp Pulse Resp BP Pulse Ox 98.5 F 71 20 151/81 H 100 01/06/17 12:37 01/06/17 12:37 01/06/17 12:37 01/06/17 12:37 01/06/17 12:37 Interpretation: Normal - General General appearance: Appears well, Alert - HEENT Head: Normocephalic, Atraumatic Eyes: Normal Pupils: PERRL - Respiratory Respiratory status: No respiratory distress Chest status: Nontender Breath sounds: Normal Chest palpation: Normal - Cardiovascular Rhythm: Regular Heart sounds: Normal auscultation Murmur: No - Abdominal Inspection: Normal Distension: No distension Bowel sounds: Normal Tenderness: Nontender Organomegaly: No organomegaly - Back Back: Normal, Nontender - Extremities General upper extremity: Normal inspection, Nontender, Normal color, Normal ROM , Normal temperature General lower extremity: Normal inspection, Normal color, Normal temperature, Normal weight bearing. No: Emiliana's sign Knee: Tender, Pain with ROM, Patellar tendon intact, Tender joint line. No: Normal, Nontender, Abrasion, Deformity, Drawer's test instability, Dislocation, Ecchymosis, Joint effusion, Instability, Laxity with valgus stress, Laxity with varus stress, Laceration, Popliteal fossa tender, Unable to bear weight, Other - Neurological Neuro grossly intact: Yes Cognition: Normal Orientation: AAOx4 [place] Coma Scale Eye Opening: Spontaneous [place] Coma Scale Verbal: Oriented Delia Coma Scale Motor: Obeys Commands [place] Coma Scale Total: 15 Speech: Normal Motor strength normal: LUE, RUE, LLE, RLE Sensory: Normal - Psychological Associated symptoms: Normal affect, Normal mood - Skin Skin Temperature: Warm Skin Moisture: Dry Skin Color: Normal Course - Re-evaluation Re-evalutation: 01/06/17 17:09 Labs discussed with patient and family. A written report given to patient to follow-up with primary doctor on Tuesday. Patient states she is feeling much better he's not shaken at this time. - Vital Signs Vital signs: Temp Pulse Resp BP Pulse Ox 98.5 F 71 15 151/81 H 100 01/06/17 12:37 01/06/17 12:37 01/06/17 16:00 01/06/17 12:37 01/06/17 12:37 - Laboratory Result Diagrams: 01/06/17 13:20 01/06/17 13:20 Laboratory results interpreted by me: 01/06/17 01/06/17 13:20 13:20 RBC 3.50 L Hgb 10.9 L Hct 32.7 L Creatinine 1.27 H Est GFR (Non-Af Amer) 54 L Calcium 10.6 H ALT 19 L Creatine Kinase 38 L Discharge - Discharge Clinical Impression: Dizziness Condition: Stable Disposition: HOME, SELF-CARE Additional Instructions: DIZZINESS: Under normal circumstances, your sense of balance is controlled by a number of signals that your brain receives from several locations: Eyes. No matter what your position, visual signals help you determine where your body is in space and how it's moving. Sensory nerves. These are in your skin, muscles and joints. Sensory nerves send messages to your brain about body movements and positions. Inner ear. The organ of balance in your inner ear is the vestibular labyrinth. It includes loop-shaped structures (semicircular canals) that contain fluid and fine, hair-like sensors that monitor the rotation of your head. Near the semicircular canals are the utricle and saccule, which contain tiny particles called otoconia (v-kis-WES-[id number]). These particles are attached to sensors that help detect gravity and dhth-wfa-[id number] motion. Good balance depends on at least two of these three sensory systems working well. For instance, closing your eyes while washing your hair in the shower doesn't mean you'll lose your balance. Signals from your inner ear and sensory nerves help keep you upright. However, if your central nervous system can't process signals from all of these locations, if the messages are contradictory, or if the sensory systems aren't functioning properly, you may experience loss of balance. Dizziness may have a number of potential causes. These may include: Vertigo Vertigo - the false sense of motion or spinning - is the most common symptom of dizziness. Sitting up or moving around may make it worse. Sometimes vertigo is severe enough to cause nausea and vomiting. Vertigo usually results from a problem with the nerves and the structures of the balance mechanism in your inner ear (vestibular system), which sense movement and changes in your head position. Abnormal rhythmic eye movements ( nystagmus) almost always accompany vertigo. Causes of vertigo may include: Benign paroxysmal positional vertigo (BPPV). BPPV involves intense, brief episodes of vertigo associated with a change in the position of your head, often when you turn over in bed or sit up in the morning. It occurs when normal calcium carbonate crystals (otoconia) break loose and fall into the wrong part of the canals in your inner ear. When these particles shift, they stimulate sensors in your ear, producing an episode of vertigo. Doctors don't know what causes BPPV, but it may be a natural result of aging. Trauma to your head also may lead to BPPV. Inflammation in the inner ear. Signs and symptoms of inflammation of the inner ear (acute vestibular neuronitis or labyrinthitis) include sudden, intense vertigo that may persist for several days, with nausea and vomiting. It can be incapacitating, requiring bed rest to minimize the signs and symptoms. Fortunately, vestibular neuronitis generally subsides and clears up on its own. Recovery time may be shorter with vestibular rehabilitation exercises. Although the cause of this condition is unknown, it may be a viral infection. Meniere's disease. This disease involves the excessive buildup of fluid in your inner ear. It may affect adults at any age and is characterized by sudden episodes of vertigo lasting 30 minutes to an hour or longer. Other signs and symptoms include the feeling of fullness in your ear, buzzing or ringing in your ear (tinnitus), and fluctuating hearing loss. The cause of Meniere's disease is unknown. Vestibular migraine. People who experience a vestibular migraine are very sensitive to motion. Dizziness and vertigo caused by a vestibular migraine may be triggered by turning your head quickly, being in a crowded or confusing place , driving or riding in a vehicle, or even watching movement on TV. A vestibular migraine may cause feelings of imbalance or unsteadiness, hearing loss, "muffled " hearing, or ringing in your ears (tinnitus). For most people with a vestibular migraine, vertigo doesn't necessarily happen at the same time as the headache. Instead, typical migraine triggers may lead to vertigo without an actual migraine. Attacks of migrainous vertigo can last from a few minutes to several days. Acoustic neuroma. An acoustic neuroma (schwannoma) is a noncancerous (benign ) growth on the acoustic nerve, which connects the inner ear to your brain. Signs and symptoms of an acoustic neuroma may include dizziness, loss of balance , hearing loss and tinnitus. Rapid changes in motion. Riding on roller coasters or in boats, cars or even airplanes may on occasion make you dizzy. Other causes. Rarely, vertigo can be a symptom of a more serious neurological problem such as a stroke, brain hemorrhage or multiple sclerosis. Feeling of faintness (presyncope) "Presyncope" is the medical term for feeling faint and lightheaded without losing consciousness. Sometimes nausea, pale skin and a sense of dizziness accompany a feeling of faintness. Causes of presyncope include: Drop in blood pressure (orthostatic hypotension). A dramatic drop in your systolic blood pressure - the higher number in your blood pressure reading - may result in lightheadedness or a feeling of faintness. It can occur after sitting up or standing too quickly. Inadequate output of blood from the heart. Conditions such as partially blocked arteries (atherosclerosis), disease of the heart muscle (cardiomyopathy) , abnormal heart rhythm (arrhythmia) or a decrease in blood volume may cause inadequate blood flow from your heart. Loss of balance (disequilibrium) Disequilibrium is the loss of balance or the feeling of unsteadiness when you walk. Causes may include: Inner ear (vestibular) problems. Abnormalities with your inner ear can cause you to feel like you are floating, have a heavy head or are unsteady in the dark. Sensory disorders. Failing vision and nerve damage in your legs (peripheral neuropathy) are common in older adultsand may result in difficulty maintaining your balance. Joint and muscle problems. Muscle weakness and osteoarthritis - the type of arthritis that involves wear and tear of your joints - can contribute to loss of balance when it involves your weight-bearing joints. Medications. Loss of balance can be a side effect of certain medications, such as anti-seizure drugs, sedatives and tranquilizers. Lightheadedness and other kinds of dizziness Feeling lightheaded is the feeling of being "spaced out" or having the sensation of spinning inside your head. It can also give you the sensation that if your lightheadedness worsens, you might lose consciousness. Causes may include: Inner ear disorders. These abnormalities of your inner ear can lead to illusions of motion and make you feel like you're floating. Anxiety disorders. Certain anxiety disorders, such as panic attacks and a fear of leaving home or being in large, open spaces (agoraphobia), may cause lightheadedness. Hyperventilation. Abnormally rapid breathing that often accompanies anxiety disorders may make you feel lightheaded. NORMAL EXAM AND WORKUP: At this time, your examination and workup show no significant abnormality. No significant abnormal physical findings were noted. All laboratory, EKG, and imaging (x-ray, CT scans, ultrasound) studies that were ordered show no significant abnormality. Although your examination and all studies that were ordered showed no significant abnormal finding, there are no examinations and no studies that are 100% accurate. There is always the possibility that some abnormality could exist and not be detected with physical examination or within the limits and capabilities of laboratory and other studies. You should return or follow up as you were instructed on your visit today for further evaluation if your symptoms do not resolve. A copy of all of your labs reports were given to you to follow-up with her primary doctor on Tuesday at your scheduled visit. Please call your doctor if you have any increase in symptoms before your visit on Tuesday. Return to the ED for any questions or concerns. FOLLOW-UP CARE: If you have been referred to a physician for follow-up care, call the physician s office for an appointment as you were instructed or within the next two days. If you experience worsening or a significant change in your symptoms, notify the physician immediately or return to the Emergency Department at any time for re-evaluation. Forms: Elevated Blood Pressure Referrals: ROS AMAYA MD [Primary Care Provider] - Follow up as needed
[2017-01-06 14:52] LABS: CREATINE KINASE MB < 0.22 ng/mL (<4.55); TROPONIN I < 0.012 ng/mL
[2017-01-06 17:15] VITALS: BP 150/72
--- NOTE | 2017-01-06 20:02 | EKG REPORT ---
SEVERITY:- ABNORMAL ECG - ATRIAL-PACED RHYTHM : Confirmed by: Samantha Block MD 06-Jan-2017 20:01:46
== END 2017-01-06 17:16 | disposition home or self-care (01) ==
LOC: ER 12:24
DX: R42 Dizziness and giddiness (principal); I48.91 Unspecified atrial fibrillation; I10 Essential (primary) hypertension; M25.569 Pain in unspecified knee; Z95.0 Presence of cardiac pacemaker; Z87.19 Personal history of other diseases of the digestive system; Z87.891 Personal history of nicotine dependence; Z85.46 Personal history of malignant neoplasm of prostate
CPT/HCPCS: 36415; 80053; 82272; 82550; 82553; 84484; 85025; 85610; 93005; 93010; 99284

== ENCOUNTER 2017-02-22 12:34 | Emergency (ER) | payer MEDICARE, MEDICAID ==
[2017-02-22 13:06] LABS: ABSOLUTE LYMPHOCYTES (AUTO) 0.9 10^3/uL (0.5-4.7); ABSOLUTE MONOCYTES (AUTO) 0.4 10^3/uL (0.1-1.4); BASOPHILS % (AUTO) 0.7 % (0-2); EOSINOPHILS % (AUTO) 0.2 % (0-6); HEMATOCRIT 35.1 % (37.9-51.0); HEMOGLOBIN 11.3 g/dL (13.5-17.0); HGB HCT DIFFERENCE -1.2; LYMPHOCYTES % (AUTO) 16.4 % (13-45); MEAN CORPUSCULAR HEMOGLOBIN 30.2 pg (27.0-33.4); MEAN CORPUSCULAR HGB CONC 32.1 g/dL (32.0-36.0); MEAN CORPUSCULAR VOLUME 94 fl (80-97); MONOCYTES % (AUTO) 6.9 % (3-13); RED BLOOD COUNT 3.73 10^6/uL (4.35-5.55); RED CELL DISTRIBUTION WIDTH 12.7 % (11.5-14.0); SEGMENTED NEUTROPHILS % (AUTO) 75.8 % (42-78); WHITE BLOOD COUNT 5.3 10^3/uL (4.0-10.5)
[2017-02-22 13:26] LABS: ALANINE AMINOTRANSFERASE 17 U/L (21-72); ALBUMIN 4.1 g/dL (3.5-5.0); ALKALINE PHOSPHATASE 94 U/L (38-126); ANION GAP 9 (5-19); ASPARTATE AMINO TRANSFERASE 17 U/L (17-59); BILIRUBIN,DIRECT 0.3 mg/dL (0.0-0.4); BILIRUBIN,TOTAL 0.5 mg/dL (0.2-1.3); BLOOD UREA NITROGEN 13 mg/dL (7-20); CALCIUM 10.5 mg/dL (8.4-10.2); CARBON DIOXIDE 27 mmol/L (22-30); CHLORIDE 106 mmol/L (98-107); CREATINE KINASE 46 U/L (55-170); CREATININE RESULT 1.04 mg/dL (0.52-1.25); GLUCOSE 124 mg/dL (75-110); POTASSIUM 4.7 mmol/L (3.6-5.0); SODIUM 141.9 mmol/L (137-145); TOTAL PROTEIN 7.7 g/dL (6.3-8.2)
[2017-02-22] MEDS ORDERED: ONDANSETRON HCL INJ/PF 4 MG/2 ML SDV ONE ×2 (13:29→13:30)
--- NOTE | 2017-02-22 13:35 | RADIOLOGY REPORT (SQ) ---
EXAM DESCRIPTION: CHEST SINGLE VIEW COMPLETED DATE/TIME: 02/22/2017 1:20 pm REASON FOR STUDY: weakness, COMPARISON: 08/19/2016 EXAM PARAMETERS: NUMBER OF VIEWS: One view. TECHNIQUE: Single frontal radiographic view of the chest acquired. RADIATION DOSE: NA LIMITATIONS: None. FINDINGS: LUNGS AND PLEURA: No opacities, masses or pneumothorax. No pleural effusion. MEDIASTINUM AND HILAR STRUCTURES: No masses. Contour normal. HEART AND VASCULAR STRUCTURES: Heart normal in size. Normal vasculature. BONES: No acute findings. HARDWARE: Pacemaker OTHER: No other significant finding. IMPRESSION: NO ACUTE RADIOGRAPHIC FINDING IN THE CHEST. TECHNICAL DOCUMENTATION: JOB ID: [id number]
[2017-02-22 13:37] LABS: CREATINE KINASE MB < 0.22 ng/mL (<4.55); TROPONIN I < 0.012 ng/mL
--- NOTE | 2017-02-22 13:45 | PDOC CONSULTATION ---
Consultation Consult Date: 02/22/17 Attending physician:: DENNIS SANTANA Consult reason:: Abnormal electrocardiogram History of Present Illness Admission Date/PCP: Dr. Son Patient complains of: Nausea and vomiting History of Present Illness: RASHAD GOODSON is a 81 year old male, who presents to the emergency department with nausea vomiting, generalized shakiness and weakness. measurement superintendent were called. They did EKG rhythm strip which showed ventricular tachycardia. Patient has underlying pacemaker. To my review of rhythm strips, it seems patient has artifact. Patient describes history of pacemaker being placed about a year or 2 ago. To the best of his memory, it was placed at [facility] but my previous notes suggest that it could have been done in [place]. Patient may have some underlying dementia. Past Medical History Cardiac Medical History: Reports: Atrial Fibrillation - Paroxysmal, Hypertension Denies: Coronary Artery Disease, Myocardial Infarction Pulmonary Medical History: Denies: Asthma, Bronchitis, Chronic Obstructive Pulmonary Disease (COPD), Pneumonia, Tuberculosis Neurological Medical History: Denies: Seizures GI Medical History: Reports: Gastroesophageal Reflux Disease Denies: Diverticulitis, Hepatitis, Hiatal Hernia Musculoskeltal Medical History: Denies: Arthritis Hematology: Denies: Anemia, Sickle Cell Disease Past Surgical History Past Surgical History: Reports: Pacemaker Social History Information Source: Patient Smoking Status: Current Every Day Smoker Frequency of Alcohol Use: Rare Hx Recreational Drug Use: No Drugs: None Hx Prescription Drug Abuse: No - Advance Directive Surrogate healthcare decision maker:: is the surrogate decision-maker Family History Family History: None. denies: Arthritis, CAD, COPD, CVA, DM, Hyperlipidemia, Hypertension, Malignancy, Thyroid Disfunction Parental Family History Reviewed: Yes Children Family History Reviewed: Yes Sibling(s) Family History Reviewed.: Yes Medication/Allergy Home Medications: Diltiazem HCl [Cardizem Cd 120 mg Capsule] 120 mg PO BID 12/12/16 Meclizine HCl [Antivert 12.5 mg Tablet] 12.5 mg PO TID 12/12/16 Multivitamin [Multivitamins] 1 tab PO DAILY 12/12/16 Omeprazole 20 mg PO DAILY 12/12/16 Pentoxifylline [Pentoxil] 400 mg PO BID 12/12/16 Allergies/Adverse Reactions: No Known Allergies Allergy (Verified 01/06/17 12:43) Review of Systems Review of Systems: Please see history of present illness and past medical history as wall. Constitutional: No fever or chills reported. Head : No recent chronic headaches, recent head injury. Eyes: No recent eye pain, diplopia, redness, discharge, acute visual changes. Ears: No recent chronic ear pain, acute hearing loss, ear discharge. Oral cavity: No recent ulcerations, bleeding, oral cavity discomfort. Neck: No recent acute neck pain reported. Hematologic: No recent easy bruising or bleeding or hematologic malignancy reported. Lymphatic: No recent lymphatic malignancy, chronic lymphadenopathy reported yet Cardiovascular system review: See history of present illness. No chest pain, mild dizziness noted today. Respiratory system review: No recent chronic cough, hemoptysis, blood clots in the lungs reported. Mild Shortness of breath on exertion Gastrointestinal system review: Negative for any recent acute or chronic abdominal pain, hematemesis, melena, recent change in bowel habits. Positive for nausea vomiting. History of GI bleed in the past. Genitourinary system review: No recent acute or chronic hematuria, flank pain, UTI etc. reported. Skin system review: Negative for any recent abnormal bruising, no rash, no pruritus reported. Neurologic: No prior history of strokes, mini strokes, seizure disorder. Psychologic: No history of major psychosis or major depression reported. Musculoskeletal: Minor aches and pains reported. No acute joint swelling reported. Endocrine: No recent polyuria, polydipsia, recent heat or cold intolerance. Physical Exam Vital Signs: Temp Pulse Resp BP Pulse Ox 98.1 F 70 20 143/79 H 100 02/22/17 12:54 02/22/17 12:54 02/22/17 12:54 02/22/17 12:54 02/22/17 12:54 Exam: GENERAL: well-nourished and in no acute distress. Alert and oriented x3. Patient seems nervous and shaky HEAD: Atraumatic, normocephalic. EYES: Pupils equal round and reactive to light, extraocular movements intact, sclera anicteric, conjunctiva are normal. ENT: TMs normal, nares patent, oropharynx clear without exudates. Moist mucous membranes. No oral ulcerations or bleeding gums noted NECK: supple without lymphadenopathy. Trachea is central. No cervical or axillary lymphadenopathy noted. Carotids are 2+, JVD WNL LUNGS: Respiration seems nonlabored, no significant accessory muscle action noted. Breath sounds clear to auscultation bilaterally and equal noted. No wheezes rales or rhonchi noted. No significant dullness noted on percussion. CHEST: Palpation of the chest wall shows no significant chest wall tenderness. No other significant abnormalities noted. HEART: [employer], No PSH, 1/6 LEATHA aortic area, 1/6 pop systolic murmur mitral area, no rubs, no gallops. ABDOMEN: Soft, no significant tenderness appreciated, normoactive bowel sounds. No guarding, no rebound. No rigidity noted . No masses appreciated. EXTREMITIES: Pedal pulses are 1-2+, no calf tenderness noted. No clubbing or cyanosis.trace to 1+ pedal edema noted NEUROLOGICAL: Focused neurological exam showed no significant neurologic deficit. Normal speech, no focal weakness appreciated. PSYCH: Normal mood, normal affect. Judgment and insight within normal limits. SKIN: No significant ecchymosis, rash, ulcerations or signs of pruritus noted. MUSCULOSKELETAL EXAM: No significant joint swelling noted. Results Laboratory Results: 02/22/17 12:42 02/22/17 12:42 02/22/17 02/22/17 02/22/17 12:42 12:42 12:42 WBC 5.3 RBC 3.73 L Hgb 11.3 L Hct 35.1 L MCV 94 MCH 30.2 MCHC 32.1 RDW 12.7 Plt Count 262 Seg Neutrophils % 75.8 Lymphocytes % 16.4 Monocytes % 6.9 Eosinophils % 0.2 Basophils % 0.7 Absolute Neutrophils 4.0 Absolute Lymphocytes 0.9 Absolute Monocytes 0.4 Absolute Eosinophils 0.0 Absolute Basophils 0.0 Sodium 141.9 Potassium 4.7 Chloride 106 Carbon Dioxide 27 Anion Gap 9 BUN 13 Creatinine 1.04 Est GFR ( Amer) > 60 Est GFR (Non-Af Amer) > 60 Glucose 124 H Lactic Acid 1.4 Calcium 10.5 H Total Bilirubin 0.5 AST 17 ALT 17 L Alkaline Phosphatase 94 Total Protein 7.7 Albumin 4.1 02/22/17 12:42 Creatine Kinase 46 L EKG Comments: Shows atrial paced beats, no acute ST-T wave changes are noted. Impressions: Chest X-Ray 02/22/17 12:58 IMPRESSION: NO ACUTE RADIOGRAPHIC FINDING IN THE CHEST. Assessment & Plan - Diagnosis (1) Cardiac dysrhythmia Qualifiers: Atrial fibrillation type: unspecified Is this a current diagnosis for this admission?: Yes (2) Paroxysmal atrial fibrillation Is this a current diagnosis for this admission?: Yes (3) HTN (hypertension) Qualifiers: Hypertension type: essential hypertension Qualified Code(s): I10 - Essential (primary) hypertension Is this a current diagnosis for this admission?: Yes (4) History of pacemaker Is this a current diagnosis for this admission?: Yes (5) Senile dementia Qualifiers: Dementia behavioral disturbance: without behavioral disturbance Qualified Code(s): F03.90 - Unspecified dementia without behavioral disturbance Is this a current diagnosis for this admission?: Yes - Notes Notes: Cardiac dysrhythmia: Rhythm strip suggest more artifact rather than true arrhythmia but would recommend observation and interrogation of the pacemaker. This was discussed with the ER physician. Paroxysmal atrial fibrillation: Patient currently maintaining atrial paced rhythm. Hypertension: Stable History of pacemaker placement: To be interrogated. Senile dementia: Stable Nausea/vomiting: Because not clear. Possible vagal stimulation. To be further evaluated. - Time Time Spent: 30 to 50 Minutes Medications reviewed and adjusted accordingly: Yes
--- NOTE | 2017-02-22 14:36 | RADIOLOGY REPORT (SQ) ---
EXAM DESCRIPTION: CT HEAD WITHOUT COMPLETED DATE/TIME: 02/22/2017 2:23 pm REASON FOR STUDY: Lightheaded and nausea and vomited COMPARISON: [address] BRAIN EXAMS SINCE 01/02/2010, MOST RECENTLY 04/09/2016 TECHNIQUE: Axial images acquired through the brain without intravenous contrast. Images reviewed wi th bone, brain and subdural windows. Images stored on PACS. All CT scanners at this facility use dose modulation, iterative reconstruction, and/or weight based d osing when appropriate to reduce radiation dose to as low as reasonably achievable (ALARA). [facility]: Dose Right [facility]: CareDose [facility]: Dose Right [facility]: Teradose 4D [facility]: Navagis RADIATION DOSE: 64.61 mGy. LIMITATIONS: None. FINDINGS: VENTRICLES: Normal size and contour. CEREBRUM: No masses. No acute hemorrhage. No midline shift. Moderate spotty bifrontal and bipariet al low attenuation from chronic small vessel disease. No evidence for acute infarction. CEREBELLUM: No masses. No hemorrhage. No alteration of density. No evidence for acute infarction. EXTRAAXIAL SPACES: No fluid collections. No masses. ORBITS AND GLOBE: No intra- or extraconal masses. Normal contour of globe without masses. CALVARIUM: No fracture. PARANASAL SINUSES: No fluid or mucosal thickening. SOFT TISSUES: No mass or hematoma. OTHER: No other significant finding. IMPRESSION: White matter disease. No acute findings TECHNICAL DOCUMENTATION: JOB ID: [id number] Quality ID # [id number]: Final reports with documentation of one or more dose reduction techniques (e.g., Au tomated exposure control, adjustment of the mA and/or kV according to patient size, use of iterative reconstruction technique) 2010 [employer]- All Rights Reserved
[2017-02-22 14:57] LABS: APPEARANCE,URINE SLIGHTLY-CLOUDY; BILIRUBIN,URINE NEGATIVE (NEGATIVE); GLUCOSE, URINE NEGATIVE (NEGATIVE); KETONES,URINE NEGATIVE (NEGATIVE); LEUKOCYTE ESTERASE,URINE NEGATIVE (NEGATIVE); NITRITE,URINE NEGATIVE (NEGATIVE); PROTEIN,URINE NEGATIVE (NEGATIVE); URINE SPECIFIC GRAVITY 1.013; UROBILINOGEN,URINE NEGATIVE mg/dL (<2.0)
--- NOTE | 2017-02-22 16:12 | ER Document Report ---
ED General - General Chief Complaint: Vomiting Stated Complaint: VOMITING,WEAKNESS Time Seen by Provider: 02/22/17 12:57 Notes: Patient was at his 's doctor's office for her appointment this morning when he began to feel lightheaded and then nauseated and eventually vomited once. He was not there to see the doctor, merely accompanying his . Patient denies experiencing any chest pain or he had the pain. He did not lose consciousness. He says he is feeling much better now and no longer feels lightheaded or experiencing any nausea. Patient denies having any difficulty breathing or shortness of breath. He has not been sick recently. Has not had any fever. EMS obtained a couple of runs of what are suggestive of ventricular tachycardia. Patient was placed in his room and on a monitor and has no complaints and is stable and all his vital signs are normal. TRAVEL OUTSIDE OF THE [place] IN LAST 30 DAYS: No - Related Data Allergies/Adverse Reactions: No Known Allergies Allergy (Verified 01/06/17 12:43) Past Medical History - Social History Smoking Status: Current Every Day Smoker Chew tobacco use (# tins/day): No Frequency of alcohol use: None Drug Abuse: None Family History: None, Reviewed & Not Pertinent - Past Medical History Cardiac Medical History: Reports: Hx Atrial Fibrillation - Paroxysmal, Hx Hypertension, Other - Has a cardiac pacemaker Neurological Medical History: Denies: Hx Cerebrovascular Accident, Hx Seizures Endocrine Medical History: Denies: Hx Diabetes Mellitus Type 1, Hx Diabetes Mellitus Type 2 Malignancy Medical History: Reports Hx Prostate Cancer - Prostatectomy GI Medical History: Reports: Hx Gastroesophageal Reflux Disease, Hx Ulcer - ?, Hx Colonoscopy Infectious Medical History: Denies: Hx Hepatitis Past Surgical History: Reports: Hx Cardiac Surgery - pacemaker placement, Hx Oral Surgery - Dental surgery, Hx Pacemaker. Denies: Hx Open Heart Surgery - Immunizations Immunizations up to date: No Hx Diphtheria, Pertussis, Tetanus Vaccination: Yes Hx Pneumococcal Vaccination: 09/19/11 Review of Systems - Review of Systems Notes: REVIEW OF SYSTEMS: CONSTITUTIONAL : Denies fever. EENT: Denies eye, ear, nose or mouth or throat pain or other symptoms. CARDIOVASCULAR: Denies chest pain. RESPIRATORY: Denies cough, chest congestion, or shortness of breath. GASTROINTESTINAL: See HPI. Denies abdominal pain, vomited once. Now feels better. No diarrhea. Not constipated. GENITOURINARY: Denies difficulty or painful urinating, urinary frequency, blood in urine. MUSCULOSKELETAL: Denies back or neck pain. Denies joint pain or swelling. SKIN: Denies rash or skin lesions. NEUROLOGICAL: Denies LOC or altered mental status. Denies headache. Denies sensory loss or motor deficits. ALL OTHER SYSTEMS REVIEWED AND NEGATIVE. Physical Exam - Vital signs Vitals: Resp Pulse Ox 17 99 02/22/17 12:42 02/22/17 12:42 Interpretation: Normal - Notes Notes: PHYSICAL EXAMINATION: GENERAL: Well-appearing, in no acute distress. Signs are all normal. Has no complaints at this time. HEAD: Atraumatic, normocephalic. NECK: Normal range of motion, supple. LUNGS: Breath sounds clear and equal bilaterally. HEART: Regular rate and rhythm without murmurs. ABDOMEN: Soft, nontender. No guarding or rebound. BACK: No tenderness throughout entire back. EXTREMITIES: Normal range of motion without pain. NEUROLOGICAL: Normal speech, normal gait. Normal sensory, motor, and reflex exams. Awake, alert, and oriented x3. Cranial nerves normal. PSYCH: Normal mood, normal affect. SKIN: Warm, dry, no rashes. Course - Re-evaluation Re-evalutation: 02/22/17 16:14 Patient had an episode in the emergency department where his satellite project site monitor showed the same pattern that EMS had obtained on their leads in route to the hospital. Patient was asymptomatic through this episode. Attempted to interrogate the patient's pacemaker, but the machine is not functioning properly. [employer] will send a retail account representative out to check the machine, but that will take an hour and a half to get here. In the meantime, I faxed the patient's EKG strips from EMS as well as one here in the emergency department as well as a 12-lead EKG to Dr. Wheeler in [place]. She called me back and says that all of these leads look like artifact to her. 02/22/17 22:03 Patient's pacemaker was eventually interrogated by a [employer] retail account representative. He indicated that the findings suggest that these changes seen on the patient' s rhythm strips are not real and are most likely some form of artifact, as well. Patient is being discharged to follow-up at Dr. Wheeler's office for a visit on Tuesday, as scheduled. - Vital Signs Vital signs: Temp Pulse Resp BP Pulse Ox 97.9 F 66 16 100/56 L 100 02/22/17 19:13 02/22/17 19:13 02/22/17 19:13 02/22/17 19:13 02/22/17 19:13 - Laboratory Result Diagrams: 02/22/17 12:42 02/22/17 12:42 Laboratory results interpreted by me: 02/22/17 02/22/17 12:42 12:42 RBC 3.73 L Hgb 11.3 L Hct 35.1 L Glucose 124 H Calcium 10.5 H ALT 17 L Creatine Kinase 46 L Discharge - Discharge Clinical Impression: Lightheaded Vomiting Qualifiers: Vomiting type: unspecified Vomiting Intractability: non-intractable Nausea presence: with nausea Qualified Code(s): R11.2 - Nausea with vomiting, unspecified Condition: Stable Disposition: HOME, SELF-CARE Additional Instructions: DIZZINESS: Under normal circumstances, your sense of balance is controlled by a number of signals that your brain receives from several locations: Eyes. No matter what your position, visual signals help you determine where your body is in space and how it's moving. Sensory nerves. These are in your skin, muscles and joints. Sensory nerves send messages to your brain about body movements and positions. Inner ear. The organ of balance in your inner ear is the vestibular labyrinth. It includes loop-shaped structures (semicircular canals) that contain fluid and fine, hair-like sensors that monitor the rotation of your head. Near the semicircular canals are the utricle and saccule, which contain tiny particles called otoconia (m-pzu-VIM-nee-uh). These particles are attached to sensors that help detect gravity and pbdl-mnp-ldsri motion. Good balance depends on at least two of these three sensory systems working well. For instance, closing your eyes while washing your hair in the shower doesn't mean you'll lose your balance. Signals from your inner ear and sensory nerves help keep you upright. However, if your central nervous system can't process signals from all of these locations, if the messages are contradictory, or if the sensory systems aren't functioning properly, you may experience loss of balance. Dizziness may have a number of potential causes. These may include: Vertigo Vertigo - the false sense of motion or spinning - is the most common symptom of dizziness. Sitting up or moving around may make it worse. Sometimes vertigo is severe enough to cause nausea and vomiting. Vertigo usually results from a problem with the nerves and the structures of the balance mechanism in your inner ear (vestibular system), which sense movement and changes in your head position. Abnormal rhythmic eye movements ( nystagmus) almost always accompany vertigo. Causes of vertigo may include: Benign paroxysmal positional vertigo (BPPV). BPPV involves intense, brief episodes of vertigo associated with a change in the position of your head, often when you turn over in bed or sit up in the morning. It occurs when normal calcium carbonate crystals (otoconia) break loose and fall into the wrong part of the canals in your inner ear. When these particles shift, they stimulate sensors in your ear, producing an episode of vertigo. Doctors don't know what causes BPPV, but it may be a natural result of aging. Trauma to your head also may lead to BPPV. Inflammation in the inner ear. Signs and symptoms of inflammation of the inner ear (acute vestibular neuronitis or labyrinthitis) include sudden, intense vertigo that may persist for several days, with nausea and vomiting. It can be incapacitating, requiring bed rest to minimize the signs and symptoms. Fortunately, vestibular neuronitis generally subsides and clears up on its own. Recovery time may be shorter with vestibular rehabilitation exercises. Although the cause of this condition is unknown, it may be a viral infection. Meniere's disease. This disease involves the excessive buildup of fluid in your inner ear. It may affect adults at any age and is characterized by sudden episodes of vertigo lasting 30 minutes to an hour or longer. Other signs and symptoms include the feeling of fullness in your ear, buzzing or ringing in your ear (tinnitus), and fluctuating hearing loss. The cause of Meniere's disease is unknown. Vestibular migraine. People who experience a vestibular migraine are very sensitive to motion. Dizziness and vertigo caused by a vestibular migraine may be triggered by turning your head quickly, being in a crowded or confusing place , driving or riding in a vehicle, or even watching movement on TV. A vestibular migraine may cause feelings of imbalance or unsteadiness, hearing loss, "muffled " hearing, or ringing in your ears (tinnitus). For most people with a vestibular migraine, vertigo doesn't necessarily happen at the same time as the headache. Instead, typical migraine triggers may lead to vertigo without an actual migraine. Attacks of migrainous vertigo can last from a few minutes to several days. Acoustic neuroma. An acoustic neuroma (schwannoma) is a noncancerous (benign ) growth on the acoustic nerve, which connects the inner ear to your brain. Signs and symptoms of an acoustic neuroma may include dizziness, loss of balance , hearing loss and tinnitus. Rapid changes in motion. Riding on roller coasters or in boats, cars or even airplanes may on occasion make you dizzy. Other causes. Rarely, vertigo can be a symptom of a more serious neurological problem such as a stroke, brain hemorrhage or multiple sclerosis. Feeling of faintness (presyncope) "Presyncope" is the medical term for feeling faint and lightheaded without losing consciousness. Sometimes nausea, pale skin and a sense of dizziness accompany a feeling of faintness. Causes of presyncope include: Drop in blood pressure (orthostatic hypotension). A dramatic drop in your systolic blood pressure - the higher number in your blood pressure reading - may result in lightheadedness or a feeling of faintness. It can occur after sitting up or standing too quickly. Inadequate output of blood from the heart. Conditions such as partially blocked arteries (atherosclerosis), disease of the heart muscle (cardiomyopathy) , abnormal heart rhythm (arrhythmia) or a decrease in blood volume may cause inadequate blood flow from your heart. Loss of balance (disequilibrium) Disequilibrium is the loss of balance or the feeling of unsteadiness when you walk. Causes may include: Inner ear (vestibular) problems. Abnormalities with your inner ear can cause you to feel like you are floating, have a heavy head or are unsteady in the dark. Sensory disorders. Failing vision and nerve damage in your legs (peripheral neuropathy) are common in older adultsand may result in difficulty maintaining your balance. Joint and muscle problems. Muscle weakness and osteoarthritis - the type of arthritis that involves wear and tear of your joints - can contribute to loss of balance when it involves your weight-bearing joints. Medications. Loss of balance can be a side effect of certain medications, such as anti-seizure drugs, sedatives and tranquilizers. Lightheadedness and other kinds of dizziness Feeling lightheaded is the feeling of being "spaced out" or having the sensation of spinning inside your head. It can also give you the sensation that if your lightheadedness worsens, you might lose consciousness. Causes may include: Inner ear disorders. These abnormalities of your inner ear can lead to illusions of motion and make you feel like you're floating. Anxiety disorders. Certain anxiety disorders, such as panic attacks and a fear of leaving home or being in large, open spaces (agoraphobia), may cause lightheadedness. Hyperventilation. Abnormally rapid breathing that often accompanies anxiety disorders may make you feel lightheaded. VOMITING: Vomiting (or nausea without vomiting) can be caused by many other different problems. It can mean that something's wrong with the stomach, such as ulcers or inflammation or the intestinal tract, such as appendicitis. But it can also be a symptom of a problem that has nothing to do with the stomach or intestines. Vomiting is common with severe headaches, earaches, tonsillitis, and kidney infections, etc. We see it with pneumonia or heart attacks. Drugs can cause nausea and vomiting. Many abdominal problems cause vomiting; for example, gallstones, kidney stones, pancreatitis, and intestinal obstruction ( blocked bowels). In most cases, curing the vomiting depends on fixing the problem that caused it. For temporary relief, we may use an anti-nausea medicine. For home use, we can prescribe suppositories, chewable pills, pills that dissolve in the mouth, or liquid anti-nausea drugs. If the vomiting seems to be caused by a problem in the stomach, acid-suppressing drugs may be prescribed as well. It's important to avoid dehydration. Sip small amounts of clear liquids ( soft drinks, tea, broth, etc) . Try to take fluids frequently even if you are vomiting to prevent dehydration. Take increasing amounts of fluid and when liquids are being consumed successfully, advance to small amounts of bland food (toast, soups, mashed potatoes, etc.) until you are able to resume a regular diet. Avoid aspirin, tobacco, and alcohol. If the vomiting worsens, if the problem that's making you vomit worsens, or if there's evidence of bleeding in the stomach (such as black, tarry stool, or bloody or black vomit), you should return immediately. Also, return if abdominal pain worsens or becomes localized to one area or you develop high fever. Call your doctor if you aren't improved in 24 hours. INTRAVENOUS (I V) FLUIDS: As part of your care today, you received intravenous (IV) fluids. IV fluids are administered to patients who are dehydrated or to those who have certain chemical (electrolyte) abnormalities that need correcting. ANTINAUSEA MEDICATION: You have been given a medication to suppress nausea and vomiting. This type of medication can be given as a shot, pill, or suppository. It will usually last for many hours. Pills and shots usually last six to eight hours. For the typical illness, only one or two doses of the medication may be necessary. Mild lightheadedness may occur. This type of medicine can cause drowsiness. Do not drive or operate dangerous machinery while under its influence. Do not mix with alcohol. See your doctor at once if you have muscle spasms or tightness, or uncontrollable motions (particularly of the neck, mouth, or jaw). Persistent vomiting or severe lightheadedness should also be evaluated by the physician. NORMAL EXAM AND WORKUP: At this time, your examination and workup show no significant abnormality. No significant abnormal physical findings were noted. All laboratory, EKG, and imaging (x-ray, CT scans, ultrasound) studies that were ordered show no significant abnormality. Although your examination and all studies that were ordered showed no significant abnormal finding, there are no examinations and no studies that are 100% accurate. There is always the possibility that some abnormality could exist and not be detected with physical examination or within the limits and capabilities of laboratory and other studies. You should return or follow up as you were instructed on your visit today for further evaluation if your symptoms do not resolve. FOLLOW-UP CARE: If you have been referred to a physician for follow-up care, call the physician s office for an appointment as you were instructed or within the next two days. If you experience worsening or a significant change in your symptoms, notify the physician immediately or return to the Emergency Department at any time for re-evaluation. Keep your appointment Tuesday with Dr. Wheeler, your cardiovascular invasive specialist. Return if you have new or worsening symptoms. Referrals: ROS AMAYA MD [Primary Care Provider] - Follow up as needed
--- NOTE | 2017-02-22 17:14 | EKG REPORT ---
SEVERITY:- ABNORMAL ECG - ATRIAL-PACED COMPLEXES : Confirmed by: Samantha Block MD 22-Feb-2017 17:14:13
[2017-02-22 19:40] VITALS: BP 100/56
== END 2017-02-22 19:25 | disposition home or self-care (01) ==
LOC: ER 12:34
DX: R42 Dizziness and giddiness (principal); R11.2 Nausea with vomiting, unspecified; R53.1 Weakness; I47.2 Ventricular tachycardia
CPT/HCPCS: 93005; 99285; 96374; 36415; 82553; 82550; 83605; 85025; 80053; 81001; 84484; 71010; 70450; 93010; J2405

== ENCOUNTER → 2017-03-24 | Outpatient (CLI) | payer MEDICARE, MEDICAID ==
--- NOTE | 2017-03-24 12:53 | EKG REPORT ---
SEVERITY:- ABNORMAL ECG - ATRIAL-PACED COMPLEXES PROBABLE LEFT ATRIAL ABNORMALITY : Confirmed by: Preet Szymanski MD 24-Mar-2017 12:52:29
[2017-03-24 13:50] LABS: ABSOLUTE LYMPHOCYTES (AUTO) 1.3 10^3/uL (0.5-4.7); ABSOLUTE MONOCYTES (AUTO) 0.4 10^3/uL (0.1-1.4); ABSOLUTE NEUT (AUTO) 2.8 10^3/uL (1.7-8.2); BASOPHILS % (AUTO) 0.8 % (0-2); EOSINOPHILS % (AUTO) 0.4 % (0-6); HEMATOCRIT 34.9 % (37.9-51.0); HEMOGLOBIN 11.4 g/dL (13.5-17.0); HGB HCT DIFFERENCE -0.7; LYMPHOCYTES % (AUTO) 28.6 % (13-45); MEAN CORPUSCULAR HEMOGLOBIN 30.1 pg (27.0-33.4); MEAN CORPUSCULAR HGB CONC 32.5 g/dL (32.0-36.0); MEAN CORPUSCULAR VOLUME 93 fl (80-97); MONOCYTES % (AUTO) 9.3 % (3-13); RED BLOOD COUNT 3.78 10^6/uL (4.35-5.55); RED CELL DISTRIBUTION WIDTH 12.7 % (11.5-14.0); SEGMENTED NEUTROPHILS % (AUTO) 60.9 % (42-78); WHITE BLOOD COUNT 4.6 10^3/uL (4.0-10.5)
[2017-03-24 14:03] LABS: ANION GAP 12 (5-19); BLOOD UREA NITROGEN 16 mg/dL (7-20); CALCIUM 10.4 mg/dL (8.4-10.2); CARBON DIOXIDE 24 mmol/L (22-30); CHLORIDE 107 mmol/L (98-107); GLUCOSE 96 mg/dL (75-110); POTASSIUM 4.4 mmol/L (3.6-5.0); SODIUM 142.6 mmol/L (137-145)
--- NOTE | 2017-03-24 15:51 | RADIOLOGY REPORT (SQ) ---
EXAM DESCRIPTION: CHEST PA/LATERAL COMPLETED DATE/TIME: 03/24/2017 1:15 pm REASON FOR STUDY: PRE OP COMPARISON: AP chest 02/22/2017 Two-view chest 08/19/2016 EXAM PARAMETERS: NUMBER OF VIEWS: two views TECHNIQUE: Digital Frontal and Lateral radiographic views of the chest acquired. RADIATION DOSE: NA LIMITATIONS: none FINDINGS: LUNGS AND PLEURA: No opacities, masses or pneumothorax. No pleural effusion. MEDIASTINUM AND HILAR STRUCTURES: No masses or contour abnormalities. HEART AND VASCULAR STRUCTURES: Heart normal size. No evidence for failure. BONES: Left-sided dual lead pacemaker unchanged HARDWARE: None in the chest. OTHER: No other significant finding. IMPRESSION: NO SIGNIFICANT RADIOGRAPHIC FINDING IN THE CHEST. TECHNICAL DOCUMENTATION: JOB ID: [id number] [employer]- All Rights Reserved
[2017-03-25 17:48] LABS: APPEARANCE,URINE SLIGHTLY-CLOUDY; BILIRUBIN,URINE NEGATIVE (NEGATIVE); CALCIUM OXALATE CRYSTALS,URINE MODERATE /HPF; GLUCOSE, URINE NEGATIVE (NEGATIVE); KETONES,URINE NEGATIVE (NEGATIVE); LEUKOCYTE ESTERASE,URINE NEGATIVE (NEGATIVE); NITRITE,URINE NEGATIVE (NEGATIVE); PROTEIN,URINE NEGATIVE (NEGATIVE); URINE SPECIFIC GRAVITY 1.018; UROBILINOGEN,URINE NEGATIVE mg/dL (<2.0)
== END ==
LOC: OD 12:18
PROVIDERS: ATTEND Orthopaedic Surgery
DX: Z01.810 Encounter for preprocedural cardiovascular examination (principal); Z01.812 Encounter for preprocedural laboratory examination; Z01.818 Encounter for other preprocedural examination
CPT/HCPCS: 36415; 71020; 80048; 81001; 85025; 93005; 93010

== ENCOUNTER → 2017-04-06 | Outpatient (CLI) | payer MEDICARE, MEDICAID ==
[2017-04-06 12:44] LABS: Direct HDL 53 mg/dL (>40); TRIGLYCERIDES 140 mg/dL (<150)
[2017-04-06 12:55] LABS: DIRECT LDL 140 mg/dL (<100)
== END ==
LOC: OD 11:28
PROVIDERS: ATTEND Internal Medicine Endocrinology, Diabetes & Metabolism
DX: E05.90 Thyrotoxicosis, unspecified without thyrotoxic crisis or storm (principal)
CPT/HCPCS: 36415; 80061

== ENCOUNTER → 2017-04-13 | Outpatient (CLI) | payer MEDICARE, MEDICAID | LOC: OD 07:52 | PROVIDERS: ATTEND Internal Medicine Endocrinology, Diabetes & Metabolism | DX: E05.90 Thyrotoxicosis, unspecified without thyrotoxic crisis or storm (principal) | CPT/HCPCS: 36415; 82024; 82533 ==

== ENCOUNTER 2017-04-18 07:54 | Inpatient (IN) | payer MEDICARE, MEDICAID ==
[~2017-04-18 07:54] MED LIST: BUPIVACAINE INJ/PF LIPOSOME/PF 266 MG/20 ML SDV INJ PRN; CEFAZOLIN INJ 1 GM VIAL IV PRN; IBUPROFEN 800 MG in NORMAL SALINE 250 ML IV PRN; LACTATED RINGERS 1000 ML IV PRN; LANSOPRAZOLE 15 MG TAB.RAP.DR PO PRN; OXYCODONE HCL SR 10 MG TABLET PO PRN; VANCOMYCIN HCL 1,000 MG in DEXTROSE 5%-WATER 250 ML IV PRN
[2017-04-18] MEDS ORDERED: THROMBIN (BOVINE) 5000 UNIT EPITAXIS KIT ONE (08:25)
[2017-04-18] MEDS ORDERED: THROMBIN (BOVINE) TOPICAL 20000 UNIT VIAL ONE (08:25)
[2017-04-18] MEDS ORDERED: BUPIVACAINE INJ/PF LIPOSOME/PF 266 MG/20 ML SDV ONE (08:25)
[2017-04-18] MEDS ORDERED: DEXMEDETOMIDINE INJ 80 MCG/20 ML VIAL IV ONE (09:03)
[2017-04-18] MEDS ORDERED: MIDAZOLAM 2 MG/2 ML INJ ONE (09:03)
[2017-04-18] MEDS ORDERED: FENTANYL CITRATE INJ/PF 100 MCG/2 ML AMPUL ONE (09:03)
[2017-04-18] MEDS ORDERED: PROPOFOL INJ 200 MG/20 ML VIAL IV ONE (09:03)
[2017-04-18] MEDS ORDERED: TRANEXAMIC ACID INJ/PF 1,000 MG/10 ML SDV IV ONE ×3 (09:04→15:00)
[2017-04-18] MEDS ORDERED: PROMETHAZINE HCL INJ 25 MG/1 ML VIAL IV PRN (11:09)
[2017-04-18] MEDS ORDERED: FENTANYL CITRATE INJ/PF 100 MCG/2 ML AMPUL IV PRN ×3 (11:09)
[2017-04-18] MEDS ORDERED: DIPHENHYDRAMINE HCL 50 MG/ML VIAL IV PRN ×2 (11:09→11:27)
[2017-04-18] MEDS ORDERED: MORPHINE SULFATE 10 MG/ML INJ IV PRN ×4 (11:09→11:27)
--- NOTE | 2017-04-18 11:26 | Operative Report ---
Operative Report DATE OF SURGERY: 04/18/17 PREOPERATIVE DIAGNOSIS: Painful left knee arthroplasty OPERATION: Revision tibial spacer left knee arthroplasty SURGEON: JOSE LUIS HELM ANESTHESIA: Spinal TISSUE REMOVED OR ALTERED: Cultures 2 to microbiology, implant to pathology ESTIMATED BLOOD LOSS: 75 PROCEDURE: The patient supine table the left lower extremities prepped and draped in a sterile fashion. Limb was elevated for exsanguination tourniquet inflated to 80 torr. A standard midline medial parapatellar approach to the knee is taken. Once the knee capsule has been entered cultures are sent for culture and sensitivity. The knee is then exposed. The existing polyethylene is removed uneventfully. The [employer] size 5 611 mm posterior stabilized spacer. The wound was then irrigated. A trial with a 13 mm spacer mild and continues to demonstrate full extension but with presumed increased tension and better stability. The 13 mm spacer was then impacted into position. The wound was irrigated. Hemostasis obtained with electrocautery. The wound was closed with interrupted Vicryl followed by bud. A sterile compressive dressing was applied and the patient's return to the PACU in satisfactory condition.
[2017-04-18] MEDS ORDERED: ONDANSETRON 4 MG TAB.RAPDIS PO PRN (11:27)
[2017-04-18] MEDS ORDERED: MAG HYDROX/AL HYDROX/SIMETH SUSP 30 ML UDCUP PO PRN (11:27)
[2017-04-18] MEDS ORDERED: ACETAMINOPHEN 325 MG TABLET PO PRN (11:27)
[2017-04-18] MEDS ORDERED: MORPHINE SULFATE 10 MG/ML INJ IM PRN (11:27)
[2017-04-18] MEDS ORDERED: OXYCODONE HCL IR 5 MG TABLET PO PRN (11:27)
[2017-04-18] MEDS ORDERED: ZOLPIDEM TARTRATE 5 MG TABLET PO PRN (11:27)
--- NOTE | 2017-04-18 12:13 | RADIOLOGY REPORT (SQ) ---
EXAM DESCRIPTION: KNEE LEFT 2 VIEWS COMPLETED DATE/TIME: 04/18/2017 11:55 am REASON FOR STUDY: Post OP -Long Cassette in PACU T84.398D [facility] COMPL OF OTH BONE DEVICES, IMPLANTS AND GRAFTS COMPARISON: None. NUMBER OF VIEWS: Two views view(s). TECHNIQUE: Digital radiographic images of the left knee post-procedure. LIMITATIONS: None. FINDINGS: BONES: No worrisome or unexpected findings post- procedure. DEVICes: Left knee arthroplasty. SOFT TISSUES: No worrisome findings. Expected postoperative soft tissue changes. Ligamentous calcification again noted medially. IMPRESSION: POSTOPERATIVE left KNEE. TECHNICAL DOCUMENTATION: JOB ID: [id number] [employer]- All Rights Reserved
[2017-04-18] MEDS: MECLIZINE HCL 12.5 MG TABLET PO SCH ×2 (13:28→15:22)
[2017-04-18] MEDS ORDERED: TRANEXAMIC ACID INJ/PF 1,000 MG/10 ML SDV IV PRN (14:00)
[2017-04-18] MEDS: ONDANSETRON HCL INJ/PF 4 MG/2 ML SDV IV PRN (15:28)
[2017-04-18] MEDS ORDERED: ONDANSETRON HCL INJ/PF 4 MG/2 ML SDV ONE (15:30)
[2017-04-18] MEDS: SENNOSIDES/DOCUSATE 8.6-50 MG 1 EACH TABLET PO SCH (18:51)
[2017-04-18] MEDS: PENTOXIFYLLINE 400 MG TABLET.SA PO SCH (18:52)
[2017-04-18] MEDS: IBUPROFEN 800 MG in NORMAL SALINE 250 ML IV SCH (18:52)
[2017-04-18] MEDS: DILTIAZEM HCL 120 MG CAP.SR.24H PO SCH (21:25)
[2017-04-18] MEDS: RIVAROXABAN 10 MG TABLET PO SCH (21:25)
[2017-04-18] MEDS: OXYCODONE HCL SR 10 MG TABLET PO SCH (21:26)
[2017-04-18] MEDS ORDERED: VANCOMYCIN HCL 1,000 MG in DEXTROSE 5%-WATER 250 ML IV ONE (23:00)
[2017-04-19] MEDS: IBUPROFEN 800 MG in NORMAL SALINE 250 ML IV SCH ×3 (02:02→18:05)
[2017-04-19] MEDS: ONDANSETRON HCL INJ/PF 4 MG/2 ML SDV IV PRN (04:03)
[2017-04-19] MEDS: LANSOPRAZOLE 30 MG TAB.RAP.DR PO SCH (05:14)
[2017-04-19] MEDS: MECLIZINE HCL 12.5 MG TABLET PO SCH ×3 (05:15→21:17)
[2017-04-19 06:48] LABS: HEMATOCRIT 31.7 % (37.9-51.0); HEMOGLOBIN 10.7 g/dL (13.5-17.0); HGB HCT DIFFERENCE 0.4; MEAN CORPUSCULAR HEMOGLOBIN 30.9 pg (27.0-33.4); MEAN CORPUSCULAR HGB CONC 33.8 g/dL (32.0-36.0); MEAN CORPUSCULAR VOLUME 92 fl (80-97); RED BLOOD COUNT 3.46 10^6/uL (4.35-5.55); RED CELL DISTRIBUTION WIDTH 12.6 % (11.5-14.0); WHITE BLOOD COUNT 8.5 10^3/uL (4.0-10.5)
--- NOTE | 2017-04-19 06:54 | PDOC PROGRESS REPORT ---
Subjective Progress Note for:: 04/19/17 Subjective:: With mental confusion who has pulled out both the picot dressing pump as well as his IV and oxygen saturation monitor Physical Exam Vital Signs: Temp Pulse Resp BP Pulse Ox 36.9 C 74 19 149/68 H 97 04/19/17 03:32 04/19/17 05:23 04/19/17 03:32 04/19/17 03:32 04/19/17 03:36 Pulse Oximeter Continuous Start: 04/18/17 13: 50 Freq: RTQ4 Status: Active Document 04/19/17 03:36 STI (Rec: 04/19/17 03:36 STI [id number]) Pulse Oximetry Assessment Oxygen Saturation (92-100) 97 Oxygen Delivery Method Room Air Fraction of Inspired Oxygen (FIO2) 21 Equipment Usage Equipment Standby Continuous SpO2 Machine # [id number] Intake & Output 04/17/17 04/18/17 04/19/17 06:59 06:59 06:59 Intake Total 2700 Output Total 550 Balance 2150 General appearance: PRESENT: no acute distress Head exam: PRESENT: normocephalic Respiratory exam: PRESENT: unlabored Cardiovascular exam: PRESENT: RRR Pulses: PRESENT: +1 pedal pulses bilateral Vascular exam: PRESENT: normal capillary refill GI/Abdominal exam: PRESENT: soft Rectal exam: PRESENT: deferred Extremities exam: PRESENT: other - Lower extremity dressing is dry and intact. Picot pump has been discontinued. Distal neurovascular examination is intact. Neurological exam: PRESENT: awake, oriented to person, oriented to situation Psychiatric exam: PRESENT: flat affect Skin exam: PRESENT: dry, intact, warm. ABSENT: cyanosis, rash Results Laboratory Results: 04/19/17 06:05 04/19/17 06:05 WBC 8.5 RBC 3.46 L Hgb 10.7 L Hct 31.7 L MCV 92 MCH 30.9 MCHC 33.8 RDW 12.6 Plt Count 238 Impressions: Knee X-Ray 04/18/17 11:28 IMPRESSION: POSTOPERATIVE left KNEE. Status: Imported from PACS Assessment & Plan - Diagnosis (1) Mechanical complication of knee prosthesis Is this a current diagnosis for this admission?: YesPlan: 81-year-old black male postop day 1 from left knee revision arthroplasty with some mental status changes last night. Patient did not receive any physical therapy yesterday. Plan for weightbearing as tolerated ambulation with physical therapy today and presumed discharge home tomorrow - Time Time Spent with patient: 15-24 minutes Anticipated discharge: Home with Homehealth Within: within 24 hours
[2017-04-19 07:10] LABS: ANION GAP 12 (5-19); BLOOD UREA NITROGEN 12 mg/dL (7-20); CALCIUM 10.2 mg/dL (8.4-10.2); CARBON DIOXIDE 27 mmol/L (22-30); CHLORIDE 102 mmol/L (98-107); CREATININE RESULT 0.98 mg/dL (0.52-1.25); GLUCOSE 120 mg/dL (75-110); SODIUM 140.6 mmol/L (137-145)
[2017-04-19 07:12] LABS: POTASSIUM 4.2 mmol/L (3.6-5.0)
[2017-04-19] MEDS: ROPINIROLE HCL 0.25 MG TABLET PO SCH (09:40)
[2017-04-19] MEDS: PRENATAL VITAMIN W-O CA NO5/FE FUMARATE/FA CAPSULE PO SCH (09:41)
[2017-04-19] MEDS: OXYCODONE HCL SR 10 MG TABLET PO SCH ×2 (09:41→21:17)
[2017-04-19] MEDS: DILTIAZEM HCL 120 MG CAP.SR.24H PO SCH ×2 (09:42→21:17)
[2017-04-19] MEDS: PENTOXIFYLLINE 400 MG TABLET.SA PO SCH ×2 (09:42→18:05)
[2017-04-19] MEDS: BENAZEPRIL HCL 10 MG TABLET PO SCH (09:42)
[2017-04-19] MEDS: METOPROLOL SUCCINATE 25 MG TAB.SR.24H PO SCH (09:43)
[2017-04-19] MEDS: SENNOSIDES/DOCUSATE 8.6-50 MG 1 EACH TABLET PO SCH ×2 (09:43→18:05)
[2017-04-19] MEDS ORDERED: ROPINIROLE HCL 0.5 MG PO SCH (10:00)
[2017-04-19] MEDS ORDERED: (PENDING PHARMACY ID) (Multivitamin [Multivitamins] 1 TAB) PO SCH (10:00)
[2017-04-19] MEDS: RIVAROXABAN 10 MG TABLET PO SCH (21:17)
[2017-04-20] MEDS: IBUPROFEN 800 MG in NORMAL SALINE 250 ML IV SCH ×2 (01:08→09:38)
[2017-04-20 04:52] LABS: HEMOGLOBIN 11.2 g/dL (13.5-17.0); HGB HCT DIFFERENCE 0.6; MEAN CORPUSCULAR HEMOGLOBIN 31.5 pg (27.0-33.4); MEAN CORPUSCULAR VOLUME 93 fl (80-97); RED BLOOD COUNT 3.55 10^6/uL (4.35-5.55); RED CELL DISTRIBUTION WIDTH 12.4 % (11.5-14.0); WHITE BLOOD COUNT 7.2 10^3/uL (4.0-10.5)
[2017-04-20] MEDS: LANSOPRAZOLE 30 MG TAB.RAP.DR PO SCH (05:42)
[2017-04-20] MEDS: MECLIZINE HCL 12.5 MG TABLET PO SCH (05:42)
--- NOTE | 2017-04-20 07:24 | PDOC DISCHARGE SUMMARY ---
General - Admit/Disc Date/PCP Admission Date/Primary Care Provider: 04/18/17 07:54 HARSH THOMAS, Discharge Date: 04/20/17 - Discharge Diagnosis (1) Mechanical complication of knee prosthesis Is this a current diagnosis for this admission?: Yes - Additional Information Resuscitation Status: Full Code Discharge Diet: As Tolerated, Regular Discharge Activity: Balance Activity w/Rest, No Driving, No tub bath Home Medications: Diltiazem HCl [Cardizem Cd 120 mg Capsule] 120 mg PO BID 12/12/16 Meclizine HCl [Antivert 12.5 mg Tablet] 12.5 mg PO TID 12/12/16 Multivitamin [Multivitamins] 1 tab PO DAILY 12/12/16 Omeprazole 20 mg PO QAM 12/12/16 Pentoxifylline [Pentoxil] 400 mg PO BID 12/12/16 Benazepril HCl 10 mg PO QAM 04/14/17 Metoprolol Succinate 25 mg PO QAM 04/14/17 Ropinirole HCl 0.5 mg PO DAILY 04/14/17 Oxycodone HCl [Oxy-Ir 5 mg Tablet] 5 mg PO Q6HP PRN #0 tablet 04/20/17 Rivaroxaban [Xarelto 10 mg Tablet] 10 mg PO QHS #0 tablet 04/20/17 History of Present Illness History of Present Illness: RASHAD GOODSON is a 81 year old male post left knee arthroplasty in the past with ongoing complaints of pain and potentially mechanical instability. This is been progressive over several years. The patient is now admitted for an elective left knee revision arthroplasty. Hospital Course Hospital Course: Admitted through the operating room where he undergoes an uncomplicated left knee revision arthroplasty involving the tibial component. He tolerates the procedure without complication. He is up walking in the first postoperative day with physical therapy. Hematocrit remains above 33%. Physical Exam Vital Signs: Temp Pulse Resp BP Pulse Ox 37.2 C 70 18 145/85 H 98 04/20/17 00:10 04/20/17 00:10 04/20/17 00:10 04/20/17 00:10 04/20/17 00:10 Pulse Oximeter Continuous Start: 04/18/17 13: 50 Freq: RTQ4 Status: Active Document 04/20/17 00:00 SFL (Rec: 04/20/17 00:50 [email or web address] [email or web address]) Pulse Oximetry Assessment Equipment Usage Equipment Standby Continuous SpO2 Machine # 2 Intake & Output 04/19/17 04/20/17 04/21/17 06:59 06:59 06:59 Intake Total 2900 2080 Output Total 2750 Balance 150 2080 Weight 61.8 kg 58 kg General appearance: PRESENT: thin Head exam: PRESENT: normocephalic Eye exam: PRESENT: EOMI Respiratory exam: PRESENT: unlabored Cardiovascular exam: PRESENT: RRR Pulses: PRESENT: +1 pedal pulses bilateral Vascular exam: PRESENT: normal capillary refill GI/Abdominal exam: PRESENT: soft Rectal exam: PRESENT: deferred Extremities exam: PRESENT: other - To have dressing is removed on postop day 2. The underlying picot dressing is clean dry and intact with the patient has discontinued the suction drain for this device. It is replaced with Acticoat dressing. Neurological exam: PRESENT: alert, awake, oriented to situation Skin exam: PRESENT: dry, intact, warm. ABSENT: cyanosis, rash Results Laboratory Results: 04/20/17 04:31 04/19/17 06:05 04/20/17 04:31 WBC 7.2 RBC 3.55 L Hgb 11.2 L Hct 33.0 L MCV 93 MCH 31.5 MCHC 34.0 RDW 12.4 Plt Count 234 Impressions: Knee X-Ray 04/18/17 11:28 IMPRESSION: POSTOPERATIVE left KNEE. Status: Imported from PACS Plan Discharge Plan: Discharge home with home health nursing, home health physical therapy, wheeled walker, bedside commode. Dressing can be changed on the left knee as needed. Follow-up with Dr. Crenshaw in the [facility] for surgery in 2 weeks for staple removal.
[2017-04-20] MEDS: METOPROLOL SUCCINATE 25 MG TAB.SR.24H PO SCH (09:23)
[2017-04-20] MEDS: OXYCODONE HCL SR 10 MG TABLET PO SCH (09:24)
[2017-04-20] MEDS: DILTIAZEM HCL 120 MG CAP.SR.24H PO SCH (09:25)
[2017-04-20] MEDS: ROPINIROLE HCL 0.25 MG TABLET PO SCH (09:26)
[2017-04-20] MEDS: BENAZEPRIL HCL 10 MG TABLET PO SCH (09:26)
[2017-04-20] MEDS: SENNOSIDES/DOCUSATE 8.6-50 MG 1 EACH TABLET PO SCH (09:27)
[2017-04-20] MEDS: PENTOXIFYLLINE 400 MG TABLET.SA PO SCH (09:27)
[2017-04-20] MEDS: PRENATAL VITAMIN W-O CA NO5/FE FUMARATE/FA CAPSULE PO SCH (09:34)
[2017-04-20 10:33] VITALS: BP 146/85
== END 2017-04-20 12:39 | disposition home health service (06) | DRG 489 ==
LOC: INOR 07:54 → 4S 13:03
PROVIDERS: ADMIT Orthopaedic Surgery; ATTEND Orthopaedic Surgery
PROC: 0SUW09Z Supplement Left Knee Joint, Tibial Surface with Liner, Open Approach (ICD-10-PCS; 2017-04-18)
PROC: 0SPD09Z Removal of Liner from Left Knee Joint, Open Approach (ICD-10-PCS; principal; 2017-04-18 10:00)
DX: T84.093A Other mechanical complication of internal left knee prosthesis, initial encounter (principal); I10 Essential (primary) hypertension; K21.9 Gastro-esophageal reflux disease without esophagitis; Z98.41 Cataract extraction status, right eye; Z95.0 Presence of cardiac pacemaker; Z96.652 Presence of left artificial knee joint; Z79.899 Other long term (current) drug therapy
CPT/HCPCS: 01402; 36415; 80048; 85027; 87070; 87075; 87205; 94762; 94799; C9290; G8978-GP; G8979-GP; G8987-GO; G8988-GO; G8989-GO; J0690; J1741; J2250; J2270; J2405; J2704; J3010; J3370; J3490; J7050; J7060; J7120; L1830

== ENCOUNTER 2017-04-21 12:36 | Emergency (ER) | payer MEDICARE, MEDICAID ==
[2017-04-21 12:42] VITALS: BP 157/82
--- NOTE | 2017-04-21 13:43 | ER Document Report ---
ED Extremity Problem, Lower - General Chief Complaint: Knee Pain Stated Complaint: KNEE PAIN Time Seen by Provider: 04/21/17 13:23 Mode of Arrival: Ambulatory Information source: Patient Notes: 31-year-old male presents to ED for pain in his left knee. His daughter states that the nurse and PT came today and the physical therapist told him to walk into the kitchen and then to sit down for a little while. The daughter states then he decided to get up and wander outside walking and she is afraid that he walk too much. Patient denies falling or injuring himself but he states that his knee felt a little tight. I asked daughter and patient did he have any pain medicine. Daughter states she does not know what he had but she gave him his morning medicines she does not know what within them. When I asked if he had any medicines to take as needed for pain, she said she does not know. The daughter stated his is out wandering around and she does not know where she is. She states that patient's knows what medications he is on she does not. TRAVEL OUTSIDE OF THE [place] IN LAST 30 DAYS: No - HPI Patient complains to provider of: Pain. No: Swelling Location: Knee - Left Occurred: Other - Surgery on Tuesday Onset/Duration: Intermittent Quality of pain: No pain - Patient stated he did not have any pain at the time that I saw him. There was no swelling no redness and no drainage to the site. Severity: None Pain Level: Denies Context: Other - Surgery on Tuesday Recent injury: No Exacerbated by: Movement, Walking Relieved by: Ice, Rest - Related Data Allergies/Adverse Reactions: No Known Allergies Allergy (Verified 04/21/17 12:39) Past Medical History - General Information source: Patient, Relative - Social History Smoking Status: Current Every Day Smoker Cigarette use (# per day): Yes Chew tobacco use (# tins/day): No Smoking Education Provided: No Frequency of alcohol use: None Lives with: Family Family History: None, Reviewed & Not Pertinent - Past Medical History Cardiac Medical History: Reports: Hx Atrial Fibrillation - Paroxysmal, Hx Hypertension Pulmonary Medical History: Reports: None EENT Medical History: Reports: None Neurological Medical History: Reports: None Endocrine Medical History: Reports: None Renal/ Medical History: Reports: Hx Benign Prostatic Hyperplasia Malignancy Medical History: Reports Hx Prostate Cancer - Prostatectomy GI Medical History: Reports: Hx Gastroesophageal Reflux Disease, Hx Ulcer - 40 yrs ago?, Hx Colonoscopy Musculoskeltal Medical History: Reports Hx Arthritis, Reports Hx Musculoskeletal Deformity, Reports Hx Musculoskeletal Trauma Skin Medical History: Reports None Psychiatric Medical History: Reports: None Traumatic Medical History: Reports: None Infectious Medical History: Reports: None Past Surgical History: Reports: Hx Cardiac Surgery - pacemaker placement, Hx Oral Surgery - Dental surgery, Hx Orthopedic Surgery - left knee surgery, Hx Pacemaker - Immunizations Immunizations up to date: No Hx Diphtheria, Pertussis, Tetanus Vaccination: Yes Hx Pneumococcal Vaccination: 09/19/11 Review of Systems - Review of Systems Constitutional: No symptoms reported EENT: No symptoms reported Cardiovascular: No symptoms reported Respiratory: No symptoms reported Gastrointestinal: No symptoms reported Genitourinary: No symptoms reported Male Genitourinary: No symptoms reported Musculoskeletal: No symptoms reported Skin: Other - left knee surgical incision clean no redness no drainage. bud intact Hematologic/Lymphatic: No symptoms reported Neurological/Psychological: No symptoms reported -: Yes All other systems reviewed and negative Physical Exam - Vital signs Vitals: Temp Pulse Resp BP Pulse Ox 98.7 F 92 16 157/82 H 99 04/21/17 12:39 04/21/17 12:39 04/21/17 12:39 04/21/17 12:39 04/21/17 12:39 Interpretation: Normal - General General appearance: Appears well, Alert - HEENT Head: Normocephalic, Atraumatic Eyes: Normal Pupils: PERRL - Respiratory Respiratory status: No respiratory distress Chest status: Nontender Breath sounds: Normal Chest palpation: Normal - Cardiovascular Rhythm: Regular Heart sounds: Normal auscultation Murmur: No - Abdominal Inspection: Normal Distension: No distension Bowel sounds: Normal Tenderness: Nontender Organomegaly: No organomegaly - Back Back: Normal, Nontender - Extremities General upper extremity: Normal inspection, Nontender, Normal color, Normal ROM , Normal temperature General lower extremity: Normal color, Normal temperature, Normal weight bearing. No: Emiliana's sign Knee: Tender, Pain with ROM, Other - [place] intact, no redness, no drainage, no pain except when touched. - Neurological Neuro grossly intact: Yes Cognition: Normal Orientation: AAOx4 [place] Coma Scale Eye Opening: Spontaneous [place] Coma Scale Verbal: Oriented [place] Coma Scale Motor: Obeys Commands Delia Coma Scale Total: 15 Speech: Normal Motor strength normal: LUE, RUE, LLE, RLE Sensory: Normal - Psychological Associated symptoms: Normal affect, Normal mood - Skin Skin Temperature: Warm Skin Moisture: Dry Skin Color: Normal Course - Vital Signs Vital signs: Temp Pulse Resp BP Pulse Ox 98.7 F 92 16 157/82 H 99 04/21/17 12:39 04/21/17 12:39 04/21/17 12:39 04/21/17 12:39 04/21/17 12:39 Discharge - Discharge Clinical Impression: Postoperative pain of left knee Condition: Stable Disposition: HOME, SELF-CARE Additional Instructions: You were seen today for postop pain in your left knee. You will need to follow all instructions your surgeon gave you concerning care of your name. Please do not go wandering around more than what the doctor has prescribed. Please take your medications as prescribed for pain. Elevate and ice her knee when you are not walking. Keep your follow-up appointments with Dr. Helm as ordered. Forms: Smoking Cessation Education, Elevated Blood Pressure Referrals: JOSE LUIS HELM MD [ACTIVE STAFF] - Follow up as needed
== END 2017-04-21 14:24 | disposition home or self-care (01) ==
LOC: ER 12:36
DX: G89.18 Other acute postprocedural pain (principal); M25.562 Pain in left knee; F17.210 Nicotine dependence, cigarettes, uncomplicated
CPT/HCPCS: 99283

== ENCOUNTER 2017-04-21 19:02 | Emergency (ER) | payer MEDICARE, MEDICAID ==
[2017-04-21 19:08] VITALS: BP 101/83
--- NOTE | 2017-04-21 19:54 | ER Document Report ---
ED Medical Screen (RME) - General Chief Complaint: Knee Pain Stated Complaint: ABDOMINAL PAIN, LEFT KNEE PAIN Time Seen by Provider: 04/21/17 19:52 Mode of Arrival: Wheelchair Information source: Patient, Relative TRAVEL OUTSIDE OF THE [place] IN LAST 30 DAYS: No - HPI Patient complains to provider of: Left knee pain, postoperative, abdominal pain , back pain Notes: 04/21/17 19:53 Patient is an 81-year-old male with history of recent left-sided knee replacement, presenting to the emergency room for knee pain has been going on since the knee replacement surgery, and occasional sharp stabbing abdominal pain with back pain that has been going on for "quite some time" intermittently , he reports nausea but no vomiting, no diarrhea - Related Data Allergies/Adverse Reactions: No Known Allergies Allergy (Verified 04/21/17 19:04) Past Medical History - Past Medical History Cardiac Medical History: Reports: Hx Atrial Fibrillation - Paroxysmal, Hx Hypertension Denies: Hx Congestive Heart Failure, Hx Coronary Artery Disease, Hx Heart Attack, Hx Hypercholesterolemia, Hx Peripheral Vascular Disease, Hx Pulmonary Embolism, Hx Heart Murmur Pulmonary Medical History: Denies: Hx Asthma, Hx Bronchitis, Hx COPD, Hx Pneumonia, Hx Respiratory Failure, Hx Sleep Apnea, Hx Tuberculosis Neurological Medical History: Denies: Hx Cerebrovascular Accident, Hx Seizures Endocrine Medical History: Denies: Hx Diabetes Mellitus Type 1, Hx Diabetes Mellitus Type 2, Hx Graves' Disease, Hx Hyperthyroidism, Hx Hypothyroidism Renal/ Medical History: Reports: Hx Benign Prostatic Hyperplasia. Denies: Hx End Stage Renal Disease, Hx Kidney Stones, Hx Peritoneal Dialysis Malignancy Medical History: Denies Hx Leukemia, Denies Hx Lung Cancer, Reports Hx Prostate Cancer - Prostatectomy GI Medical History: Reports: Hx Gastroesophageal Reflux Disease, Hx Ulcer - 40 yrs ago?, Hx Colonoscopy. Denies: Hx Crohn's Disease, Hx Diverticulitis, Hx Gastritis, Hx Hepatitis, Hx Hiatal Hernia, Hx Irritable Bowel, Hx Liver Failure Musculoskeltal Medical History: Reports Hx Arthritis, Denies Hx Fibromyalgia, Denies Hx Multiple Sclerosis, Denies Hx Muscular Dystrophy, Reports Hx Musculoskeletal Deformity, Reports Hx Musculoskeletal Trauma Psychiatric Medical History: Denies: Hx Bipolar Disorder, Hx Dementia, Hx Depression, Hx Post Traumatic Stress Disorder, Hx Schizophrenia Traumatic Medical History: Denies: Hx Fractures Infectious Medical History: Denies: Hx Hepatitis, Hx HIV Past Surgical History: Reports: Hx Cardiac Surgery - pacemaker placement, Hx Oral Surgery - Dental surgery, Hx Orthopedic Surgery - left knee surgery, Hx Pacemaker. Denies: Hx Appendectomy, Hx Bowel Surgery, Hx Cholecystectomy, Hx Colostomy, Hx Coronary Artery Bypass Graft, Hx Gastric Bypass Surgery, Hx Herniorrhaphy, Hx Open Heart Surgery, Hx Tonsillectomy - Immunizations Immunizations up to date: No Hx Diphtheria, Pertussis, Tetanus Vaccination: Yes Physical Exam - Vital signs Vitals: Temp Pulse Resp BP Pulse Ox 98.3 F 78 16 101/83 100 04/21/17 19:06 04/21/17 19:06 04/21/17 19:06 04/21/17 19:06 04/21/17 19:06 Course - Vital Signs Vital signs: Temp Pulse Resp BP Pulse Ox 98.3 F 78 16 101/83 100 04/21/17 19:06 04/21/17 19:06 04/21/17 19:06 04/21/17 19:06 04/21/17 19:06
[2017-04-21 20:14] LABS: ABSOLUTE LYMPHOCYTES (AUTO) 1.6 10^3/uL (0.5-4.7); ABSOLUTE MONOCYTES (AUTO) 0.8 10^3/uL (0.1-1.4); ABSOLUTE NEUT (AUTO) 7.2 10^3/uL (1.7-8.2); BASOPHILS % (AUTO) 0.5 % (0-2); EOSINOPHILS % (AUTO) 0.1 % (0-6); HEMATOCRIT 30.3 % (37.9-51.0); HEMOGLOBIN 10.3 g/dL (13.5-17.0); HGB HCT DIFFERENCE 0.6; LYMPHOCYTES % (AUTO) 16.2 % (13-45); MEAN CORPUSCULAR HEMOGLOBIN 31.4 pg (27.0-33.4); MEAN CORPUSCULAR HGB CONC 33.8 g/dL (32.0-36.0); MEAN CORPUSCULAR VOLUME 93 fl (80-97); MONOCYTES % (AUTO) 8.5 % (3-13); RED BLOOD COUNT 3.27 10^6/uL (4.35-5.55); RED CELL DISTRIBUTION WIDTH 12.4 % (11.5-14.0); SEGMENTED NEUTROPHILS % (AUTO) 74.7 % (42-78); WHITE BLOOD COUNT 9.6 10^3/uL (4.0-10.5)
[2017-04-21 20:31] LABS: ALANINE AMINOTRANSFERASE 19 U/L (21-72); ALKALINE PHOSPHATASE 81 U/L (38-126); ANION GAP 15 (5-19); ASPARTATE AMINO TRANSFERASE 23 U/L (17-59); BILIRUBIN,DIRECT 0.3 mg/dL (0.0-0.4); BILIRUBIN,TOTAL 0.6 mg/dL (0.2-1.3); BLOOD UREA NITROGEN 24 mg/dL (7-20); CALCIUM 10.5 mg/dL (8.4-10.2); CARBON DIOXIDE 24 mmol/L (22-30); CHLORIDE 99 mmol/L (98-107); CREATININE RESULT 2.23 mg/dL (0.52-1.25); GLUCOSE 117 mg/dL (75-110); LIPASE 97.8 U/L (23-300); POTASSIUM 3.7 mmol/L (3.6-5.0); SODIUM 137.8 mmol/L (137-145); TOTAL PROTEIN 7.1 g/dL (6.3-8.2)
== END 2017-04-21 22:27 | disposition left against medical advice (07) ==
LOC: ER 19:02
DX: G89.18 Other acute postprocedural pain (principal); M25.562 Pain in left knee; F17.210 Nicotine dependence, cigarettes, uncomplicated
CPT/HCPCS: 36415; 80053; 83690; 85025; 99281

== ENCOUNTER 2018-05-13 06:27 | Emergency (ER) | payer MEDICARE, MEDICAID ==
[2018-05-13] MEDS ORDERED: ONDANSETRON 4 MG TAB.RAPDIS PO ONE (06:44)
[2018-05-13 07:38] LABS: ABSOLUTE LYMPHOCYTES (AUTO) 0.7 10^3/uL (0.5-4.7); ABSOLUTE MONOCYTES (AUTO) 0.6 10^3/uL (0.1-1.4); ABSOLUTE NEUT (AUTO) 7.6 10^3/uL (1.7-8.2); BASOPHILS % (AUTO) 0.2 % (0-2); HEMOGLOBIN 10.2 g/dL (13.5-17.0); LYMPHOCYTES % (AUTO) 8.2 % (13-45); MEAN CORPUSCULAR HEMOGLOBIN 31.4 pg (27.0-33.4); MEAN CORPUSCULAR VOLUME 93 fl (80-97); MONOCYTES % (AUTO) 6.6 % (3-13); PLATELET COUNT 267 10^3/uL (150-450); RED BLOOD COUNT 3.24 10^6/uL (4.35-5.55); RED CELL DISTRIBUTION WIDTH 12.4 % (11.5-14.0); TOTAL CELLS COUNTED % (AUTO) 100 %
[2018-05-13 08:00] LABS: ALANINE AMINOTRANSFERASE 13 U/L (21-72); ALBUMIN 4.1 g/dL (3.5-5.0); ALKALINE PHOSPHATASE 71 U/L (38-126); ANION GAP 13 (5-19); ASPARTATE AMINO TRANSFERASE 16 U/L (17-59); BILIRUBIN,DIRECT 0.3 mg/dL (0.0-0.4); BILIRUBIN,TOTAL 0.4 mg/dL (0.2-1.3); BLOOD UREA NITROGEN 16 mg/dL (7-20); CALCIUM 10.2 mg/dL (8.4-10.2); CARBON DIOXIDE 23 mmol/L (22-30); CHLORIDE 105 mmol/L (98-107); GLUCOSE 204 mg/dL (75-110); POTASSIUM 4.1 mmol/L (3.6-5.0); SODIUM 141.4 mmol/L (137-145); TOTAL PROTEIN 7.2 g/dL (6.3-8.2)
--- NOTE | 2018-05-13 08:38 | RADIOLOGY REPORT (SQ) ---
EXAM DESCRIPTION: CT HEAD WITHOUT COMPLETED DATE/TIME: 05/13/2018 8:22 am REASON FOR STUDY: fall COMPARISON: 02/22/2017. TECHNIQUE: Axial images acquired through the brain without intravenous contrast. Images reviewed wi th bone, brain and subdural windows. Additional sagittal and coronal reconstructions were generated. Images stored on PACS. All CT scanners at this facility use dose modulation, iterative reconstruction, and/or weight based d osing when appropriate to reduce radiation dose to as low as reasonably achievable (ALARA). [facility]: Dose Right [facility]: CareDose [facility]: Dose Right [facility]: Teradose 4D [facility]: Smart Cloudmach RADIATION DOSE: CT Rad equipment meets quality standard of care and radiation dose reduction techniq ues were employed. CTDIvol: 53.2 mGy. DLP: 1044 mGy-cm. mGy. LIMITATIONS: None. FINDINGS: VENTRICLES: Prominent. CEREBRUM: No masses. No hemorrhage. No midline shift. Areas of low density in the white matter mos t likely due to chronic micro-vascular ischemic change. No evidence for acute infarction. CEREBELLUM: No masses. No hemorrhage. No alteration of density. No evidence for acute infarction. EXTRAAXIAL SPACES: Mild age-related involutional change. No fluid collections. No masses. ORBITS AND GLOBE: No intra- or extraconal masses. Normal contour of globe without masses. CALVARIUM: No fracture. PARANASAL SINUSES: No fluid or mucosal thickening. SOFT TISSUES: No mass or hematoma. OTHER: No other significant finding. IMPRESSION: MILD CHRONIC CHANGES OF ATROPHY AND MICROVASCULAR ISCHEMIA. NO ACUTE PROCESS. EVIDENCE OF ACUTE STROKE: NO. TECHNICAL DOCUMENTATION: JOB ID: [id number] Quality ID # [id number]: Final reports with documentation of one or more dose reduction techniques (e.g., Au tomated exposure control, adjustment of the mA and/or kV according to patient size, use of iterative reconstruction technique) 2010 [employer]- All Rights Reserved Reading location - IP/workstation name: [email or web address]
[2018-05-13] MEDS ORDERED: NORMAL SALINE 500 ML IV ONE (08:50)
--- NOTE | 2018-05-13 08:51 | RADIOLOGY REPORT (SQ) ---
EXAM DESCRIPTION: ACUTE ABDOMEN SERIES COMPLETED DATE/TIME: 05/13/2018 8:40 am REASON FOR STUDY: fall n/v COMPARISON: None. NUMBER OF VIEWS: Three views. TECHNIQUE: Frontal chest, supine abdomen and upright/decubitus abdomen radiographic images acquired. LIMITATIONS: None. FINDINGS: CHEST: Lungs clear of infiltrates. FREE AIR: None. No abnormal gas collections. BOWEL GAS PATTERN: Nonobstructive pattern. No dilated loops or air fluid levels. CALCIFICATIONS: No suspicious calcifications. HARDWARE: Pacemaker. SOFT TISSUES: No gross mass or suggestion of organomegaly. BONES: No acute fracture. No worrisome bone lesions. OTHER: No other significant finding. IMPRESSION: NO RADIOGRAPHIC EVIDENCE FOR ACUTE ABDOMINAL DISEASE. TECHNICAL DOCUMENTATION: JOB ID: [id number] [employer]- All Rights Reserved Reading location - IP/workstation name: [email or web address]
[2018-05-13] MEDS ORDERED: ACETAMINOPHEN 325 MG TABLET PO ONE (09:14)
--- NOTE | 2018-05-13 09:27 | EKG REPORT ---
SEVERITY:- ABNORMAL ECG - ATRIAL-PACED RHYTHM : Confirmed by: Fabrice Lechuga 13-May-2018 09:26:31
[2018-05-13] MEDS ORDERED: KETOROLAC TROMETHAMINE INJ/PF 30 MG/1 ML SDV IV ONE (09:43)
[2018-05-13 09:49] LABS: APPEARANCE,URINE CLEAR; BILIRUBIN,URINE NEGATIVE (NEGATIVE); COLOR,URINE YELLOW; GLUCOSE, URINE 50 mg/dL (NEGATIVE); KETONES,URINE NEGATIVE (NEGATIVE); LEUKOCYTE ESTERASE,URINE NEGATIVE (NEGATIVE); NITRITE,URINE NEGATIVE (NEGATIVE); PROTEIN,URINE NEGATIVE (NEGATIVE); URINE SPECIFIC GRAVITY 1.009; UROBILINOGEN,URINE NEGATIVE mg/dL (<2.0)
--- NOTE | 2018-05-13 10:30 | ER Document Report ---
ED General - General Chief Complaint: Head Injury without LOC Stated Complaint: HEAD INJURY Time Seen by Provider: 05/13/18 06:42 TRAVEL OUTSIDE OF THE [place] IN LAST 30 DAYS: No - HPI Patient complains to provider of: Head injury vomiting Notes: Patient coming in for head injury states last night or not prior to arrival patient exam blading when he lost his balance fell striking his head on dresser patient had a hematoma on the back of the skull forearm family states they placed ice patient did not have any loss of consciousness wanted to wait until this morning to be further evaluated. Patient this morning started having some vomiting therefore came to the ER for further evaluation. Upon my evaluation patient resting currently. Patient denies any other symptoms other than feeling nauseous. No recent antibiotics no other falls no traumatic findings. Patient denies of any extremity or joint pain. - Related Data Allergies/Adverse Reactions: No Known Allergies Allergy (Verified 05/13/18 06:28) Past Medical History - Social History Smoking Status: Never Smoker Chew tobacco use (# tins/day): No Frequency of alcohol use: None Drug Abuse: None Family History: None, Reviewed & Not Pertinent Patient has suicidal ideation: No Patient has homicidal ideation: No - Past Medical History Cardiac Medical History: Reports: Hx Atrial Fibrillation - Paroxysmal, Hx Hypertension Denies: Hx Congestive Heart Failure, Hx Coronary Artery Disease, Hx Heart Attack, Hx Hypercholesterolemia, Hx Peripheral Vascular Disease, Hx Pulmonary Embolism, Hx Heart Murmur Pulmonary Medical History: Denies: Hx Asthma, Hx Bronchitis, Hx COPD, Hx Pneumonia, Hx Respiratory Failure, Hx Sleep Apnea, Hx Tuberculosis Neurological Medical History: Denies: Hx Cerebrovascular Accident, Hx Seizures Endocrine Medical History: Denies: Hx Diabetes Mellitus Type 1, Hx Diabetes Mellitus Type 2, Hx Graves' Disease, Hx Hyperthyroidism, Hx Hypothyroidism Renal/ Medical History: Reports: Hx Benign Prostatic Hyperplasia. Denies: Hx End Stage Renal Disease, Hx Kidney Stones, Hx Peritoneal Dialysis Malignancy Medical History: Denies Hx Leukemia, Denies Hx Lung Cancer, Reports Hx Prostate Cancer - Prostatectomy GI Medical History: Reports: Hx Gastroesophageal Reflux Disease, Hx Ulcer - 40 yrs ago?, Hx Colonoscopy. Denies: Hx Crohn's Disease, Hx Diverticulitis, Hx Gastritis, Hx Hepatitis, Hx Hiatal Hernia, Hx Irritable Bowel, Hx Liver Failure , Hx Pancreatitis Musculoskeletal Medical History: Reports Hx Arthritis, Denies Hx Fibromyalgia, Denies Hx Multiple Sclerosis, Denies Hx Muscular Dystrophy, Reports Hx Musculoskeletal Deformity, Reports Hx Musculoskeletal Trauma Psychiatric Medical History: Denies: Hx Bipolar Disorder, Hx Dementia, Hx Depression, Hx Post Traumatic Stress Disorder, Hx Schizophrenia Traumatic Medical History: Denies: Hx Fractures Infectious Medical History: Denies: Hx Hepatitis, Hx HIV Past Surgical History: Reports: Hx Cardiac Surgery - pacemaker placement, Hx Oral Surgery - Dental surgery, Hx Orthopedic Surgery - left knee surgery, Hx Pacemaker. Denies: Hx Appendectomy, Hx Bowel Surgery, Hx Cholecystectomy, Hx Colostomy, Hx Coronary Artery Bypass Graft, Hx Gastric Bypass Surgery, Hx Herniorrhaphy, Hx Open Heart Surgery, Hx Tonsillectomy - Immunizations Immunizations up to date: No Hx Diphtheria, Pertussis, Tetanus Vaccination: Yes Hx Pneumococcal Vaccination: 09/19/11 Review of Systems - Review of Systems Constitutional: Other - Fall vomiting EENT: No symptoms reported Cardiovascular: No symptoms reported Respiratory: No symptoms reported Gastrointestinal: No symptoms reported Genitourinary: No symptoms reported Male Genitourinary: No symptoms reported Musculoskeletal: No symptoms reported Skin: No symptoms reported Hematologic/Lymphatic: No symptoms reported Neurological/Psychological: No symptoms reported -: Yes All other systems reviewed and negative Physical Exam - Vital signs Vitals: Temp Pulse Resp BP Pulse Ox 97.6 F 78 20 124/52 L 100 05/13/18 06:29 05/13/18 06:29 05/13/18 06:29 05/13/18 06:29 05/13/18 06:29 Interpretation: Normal - General General appearance: Appears well, Alert - HEENT Head: Normocephalic. No: Atraumatic - Small hematoma formation to the left occipital region Eyes: Normal Pupils: PERRL - Respiratory Respiratory status: No respiratory distress Chest status: Nontender Breath sounds: Normal Chest palpation: Normal - Cardiovascular Rhythm: Regular Heart sounds: Normal auscultation Murmur: No - Abdominal Inspection: Normal Distension: No distension Bowel sounds: Normal Tenderness: Nontender Organomegaly: No organomegaly - Back Back: Normal, Nontender - Extremities General upper extremity: Normal inspection, Nontender, Normal color, Normal ROM , Normal temperature General lower extremity: Normal inspection, Nontender, Normal color, Normal ROM , Normal temperature, Normal weight bearing. No: Emiliana's sign - Neurological Neuro grossly intact: Yes Cognition: Normal Orientation: AAOx4 [place] Coma Scale Eye Opening: Spontaneous [place] Coma Scale Verbal: Oriented [place] Coma Scale Motor: Obeys Commands [place] Coma Scale Total: 15 Speech: Normal Motor strength normal: LUE, RUE, LLE, RLE Sensory: Normal - Psychological Associated symptoms: Normal affect, Normal mood - Skin Skin Temperature: Warm Skin Moisture: Dry Skin Color: Normal Course - Re-evaluation Re-evalutation: 05/13/18 14:31 Patient with a head CT basic laboratory studies showing the critical pathology. Zofran 8 and the patient's nausea. Was able tolerate p.o. here. No other clinical pathology seen patient will be discharged home to follow primary care physician. - Vital Signs Vital signs: Temp Pulse Resp BP Pulse Ox 97.6 F 78 15 158/73 H 100 05/13/18 06:29 05/13/18 06:29 05/13/18 10:53 05/13/18 10:53 05/13/18 10:53 - Laboratory Result Diagrams: 05/13/18 07:10 05/13/18 07:10 Laboratory results interpreted by me: 05/13/18 05/13/18 05/13/18 07:10 07:10 09:14 RBC 3.24 L Hgb 10.2 L Hct 30.0 L Seg Neutrophils % 85.0 H Lymphocytes % 8.2 L Glucose 204 H AST 16 L ALT 13 L Urine Glucose (UA) 50 H Discharge - Discharge Clinical Impression: Vomiting Qualifiers: Vomiting type: unspecified Vomiting Intractability: unspecified Nausea presence : unspecified Qualified Code(s): R11.10 - Vomiting, unspecified Head injury Qualifiers: Encounter type: initial encounter Qualified Code(s): S09.90XA - Unspecified injury of head, initial encounter Condition: Good Disposition: HOME, SELF-CARE Instructions: Head Injury Precautions ([facility]), Vomiting ([facility]) Additional Instructions: Follow-up with her primary care physician for return to the ER symptoms worsen. Would recommend taking the Zofran for any further nausea. Please stick to a bland diet for the next 12-24 hours starchy foods such as cereal toast nothing on it. Follow with your primary care physician in the next 2-3 days. Prescriptions: Ondansetron [Zofran Odt] 4 mg PO Q6 PRN #30 tab.rapdis PRN Reason: For Nausea/Vomiting Referrals: OSUNKOYA,ROS, MD [Primary Care Provider] - Follow up in 3-5 days
[2018-05-13 11:03] VITALS: BP 158/73
== END 2018-05-13 11:04 | disposition home or self-care (01) ==
LOC: ER 06:27
DX: S09.90XA Unspecified injury of head, initial encounter (principal); R11.10 Vomiting, unspecified; W01.190A Fall on same level from slipping, tripping and stumbling with subsequent striking against furniture, initial encounter; I48.91 Unspecified atrial fibrillation; I10 Essential (primary) hypertension; Z95.0 Presence of cardiac pacemaker
CPT/HCPCS: 93005; 99284; 96361; 96374; 36415; 83690; 85025; 80053; 81001; 84484; 74022; 70450; 93010; A9270 ×2; J1885; J7040; S0119

== ENCOUNTER 2018-05-14 12:03 | Emergency (ER) | payer MEDICARE, OTHER, MEDICAID ==
[2018-05-14 12:11] VITALS: BP 162/95
[2018-05-14] MEDS ORDERED: HYDROCODONE/ACETAMINOPHEN 5-325 MG TABLET PO ONE (13:25)
[2018-05-14] MEDS ORDERED: DILTIAZEM HCL 60 MG TABLET PO ONE (13:27)
[2018-05-14] MEDS ORDERED: METOPROLOL SUCCINATE 25 MG TAB.SR.24H PO ONE (13:27)
--- NOTE | 2018-05-14 13:34 | ER Document Report ---
ED Medical Screen (RME) - General Chief Complaint: High Blood Pressure Stated Complaint: BLOOD PRESSURE ISSUE Time Seen by Provider: 05/14/18 13:17 Mode of Arrival: Ambulatory TRAVEL OUTSIDE OF THE [place] IN LAST 30 DAYS: No - HPI Patient complains to provider of: Headache Onset: Other - This is an 82-year-old man who was evaluated previously for a fall in which he hit his head, he underwent CT imaging of the head and neck at that time, was subsequently discharged home with brief prescription of narcotic medication in addition to his home medications. His notes that they missed her dose of normal blood pressure medication this morning. Notes that he has been otherwise in his normal state of health except for his intermittent persistent headache would like something to try and help with his headache if able. - Related Data Allergies/Adverse Reactions: No Known Allergies Allergy (Verified 05/14/18 13:14) Past Medical History - General Information source: Patient, Relative - Social History Chew tobacco use (# tins/day): No Frequency of alcohol use: Rare Drug Abuse: None - Past Medical History Cardiac Medical History: Reports: Hx Atrial Fibrillation - Paroxysmal, Hx Hypertension Denies: Hx Congestive Heart Failure, Hx Coronary Artery Disease, Hx Heart Attack, Hx Hypercholesterolemia, Hx Peripheral Vascular Disease, Hx Pulmonary Embolism, Hx Heart Murmur Pulmonary Medical History: Denies: Hx Asthma, Hx Bronchitis, Hx COPD, Hx Pneumonia, Hx Respiratory Failure, Hx Sleep Apnea, Hx Tuberculosis Neurological Medical History: Denies: Hx Cerebrovascular Accident, Hx Seizures Endocrine Medical History: Denies: Hx Diabetes Mellitus Type 1, Hx Diabetes Mellitus Type 2, Hx Graves' Disease, Hx Hyperthyroidism, Hx Hypothyroidism Renal/ Medical History: Reports: Hx Benign Prostatic Hyperplasia. Denies: Hx End Stage Renal Disease, Hx Kidney Stones, Hx Peritoneal Dialysis Malignancy Medical History: Denies Hx Leukemia, Denies Hx Lung Cancer, Reports Hx Prostate Cancer - Prostatectomy GI Medical History: Reports: Hx Gastroesophageal Reflux Disease, Hx Ulcer - 40 yrs ago?, Hx Colonoscopy. Denies: Hx Crohn's Disease, Hx Diverticulitis, Hx Gastritis, Hx Hepatitis, Hx Hiatal Hernia, Hx Irritable Bowel, Hx Liver Failure , Hx Pancreatitis Musculoskeltal Medical History: Reports Hx Arthritis, Denies Hx Fibromyalgia, Denies Hx Multiple Sclerosis, Denies Hx Muscular Dystrophy, Reports Hx Musculoskeletal Deformity, Reports Hx Musculoskeletal Trauma Psychiatric Medical History: Denies: Hx Bipolar Disorder, Hx Dementia, Hx Depression, Hx Post Traumatic Stress Disorder, Hx Schizophrenia Traumatic Medical History: Denies: Hx Fractures Infectious Medical History: Denies: Hx Hepatitis, Hx HIV Past Surgical History: Reports: Hx Cardiac Surgery - pacemaker placement, Hx Oral Surgery - Dental surgery, Hx Orthopedic Surgery - left knee surgery, Hx Pacemaker. Denies: Hx Appendectomy, Hx Bowel Surgery, Hx Cholecystectomy, Hx Colostomy, Hx Coronary Artery Bypass Graft, Hx Gastric Bypass Surgery, Hx Herniorrhaphy, Hx Open Heart Surgery, Hx Tonsillectomy - Immunizations Immunizations up to date: No Hx Diphtheria, Pertussis, Tetanus Vaccination: Yes Review of Systems - Review of Systems -: Yes All other systems reviewed and negative Physical Exam - Vital signs Vitals: Temp Pulse Resp BP Pulse Ox 98.2 F 70 16 162/95 H 99 05/14/18 12:09 05/14/18 12:09 05/14/18 12:09 05/14/18 12:09 05/14/18 12:09 - General General appearance: Appears well In distress: None - HEENT Head: Normocephalic, Open wounds Eyes: Normal Conjunctiva: Normal Cornea: Normal Extraocular movements intact: Yes Pupils: PERRL Ears: Normal External canal: Normal Tympanic membrane: Normal Nasal: Normal Mouth/Lips: Normal Pharynx: Normal Neck: Normal - Respiratory Respiratory status: No respiratory distress Chest status: Nontender Breath sounds: Normal Chest palpation: Normal - Cardiovascular Rhythm: Regular Heart sounds: Normal auscultation Murmur: No - Abdominal Inspection: Normal Distension: No distension Tenderness: Nontender Organomegaly: No organomegaly - Back Back: Normal - Extremities General upper extremity: Normal inspection, Normal ROM General lower extremity: Normal inspection, Normal ROM - Neurological Neuro grossly intact: Yes Cognition: Normal Orientation: AAOx4 [place] Coma Scale Eye Opening: Spontaneous Delia Coma Scale Verbal: Oriented Delia Coma Scale Motor: Obeys Commands Delia Coma Scale Total: 15 Speech: Normal Knee - Reflex grade: 2 = Normal Ankle - Reflex grade: 2 = Normal - Psychological Associated symptoms: Normal affect Course - Re-evaluation Re-evalutation: 05/14/18 20:06 This 82-year-old man presents for evaluation of a headache which she has had since falling and hitting his head previously. He was evaluated and underwent CT imaging of the head as well as the cervical spine. Given that he is ambulatory at this time well-appearing neurologically intact without assistance do not believe he warrants further imaging at this time. His notes that he ate did not take his normal blood pressure medications today, will dose those in the emergency department. Patient also is noted to have persistent headache will give a brief prescription for narcotic pain medication which did help with his headache previously did speak at length with the spouse about the importance of monitoring because he is a fall risk at this time. She verbalized understanding, current plan will be for this patient to undergo discharge with follow-up at primary physician's office for ongoing management of his chronic medical problems. She was given return precautions as well. - Vital Signs Vital signs: Temp Pulse Resp BP Pulse Ox 98.2 F 70 16 162/95 H 99 05/14/18 12:09 05/14/18 12:09 05/14/18 12:09 05/14/18 12:09 05/14/18 12:09 Doctor's Discharge - Discharge Clinical Impression: Headache Qualifiers: Headache type: unspecified Headache chronicity pattern: unspecified pattern Intractability: not intractable Qualified Code(s): R51 - Headache Condition: Good Disposition: HOME, SELF-CARE Instructions: Headache ([facility]), High Blood Pressure ([facility]), High Blood Pressure, Requiring Treatment ([facility]), Oral Narcotic Medication ([facility]) Prescriptions: Hydrocodone/Acetaminophen [[place] 5-325 mg Tablet] 1 tab PO Q8H PRN #10 tablet PRN Reason: For Headache Referrals: ROS AMAYA MD [Primary Care Provider] - Follow up as needed
== END 2018-05-14 14:00 | disposition home or self-care (01) ==
LOC: ER 12:03
DX: R51 Headache (principal); W19.XXXA Unspecified fall, initial encounter; I10 Essential (primary) hypertension; Z79.899 Other long term (current) drug therapy
CPT/HCPCS: 99283; A9270 ×3

== ENCOUNTER 2018-06-22 17:34 | Emergency (ER) | payer MEDICARE, MEDICAID ==
[2018-06-22 19:01] LABS: ABSOLUTE LYMPHOCYTES (AUTO) 0.8 10^3/uL (0.5-4.7); ABSOLUTE MONOCYTES (AUTO) 0.5 10^3/uL (0.1-1.4); ABSOLUTE NEUT (AUTO) 6.9 10^3/uL (1.7-8.2); BASOPHILS % (AUTO) 0.2 % (0-2); HEMATOCRIT 31.8 % (37.9-51.0); HEMOGLOBIN 10.6 g/dL (13.5-17.0); LYMPHOCYTES % (AUTO) 10.1 % (13-45); MEAN CORPUSCULAR HEMOGLOBIN 31.1 pg (27.0-33.4); MEAN CORPUSCULAR HGB CONC 33.3 g/dL (32.0-36.0); MEAN CORPUSCULAR VOLUME 94 fl (80-97); MONOCYTES % (AUTO) 5.5 % (3-13); PLATELET COUNT 282 10^3/uL (150-450); RED CELL DISTRIBUTION WIDTH 12.6 % (11.5-14.0); SEGMENTED NEUTROPHILS % (AUTO) 84.2 % (42-78); TOTAL CELLS COUNTED % (AUTO) 100 %; WHITE BLOOD COUNT 8.2 10^3/uL (4.0-10.5)
[2018-06-22 19:20] LABS: ALANINE AMINOTRANSFERASE 20 U/L (21-72); ALBUMIN 4.2 g/dL (3.5-5.0); ALKALINE PHOSPHATASE 98 U/L (38-126); ANION GAP 11 (5-19); ASPARTATE AMINO TRANSFERASE 17 U/L (17-59); BILIRUBIN,DIRECT 0.3 mg/dL (0.0-0.4); BILIRUBIN,TOTAL 0.6 mg/dL (0.2-1.3); BLOOD UREA NITROGEN 13 mg/dL (7-20); CALCIUM 11.3 mg/dL (8.4-10.2); CARBON DIOXIDE 25 mmol/L (22-30); CHLORIDE 105 mmol/L (98-107); GLUCOSE 122 mg/dL (75-110); POTASSIUM 4.8 mmol/L (3.6-5.0); SODIUM 140.9 mmol/L (137-145); TOTAL PROTEIN 7.8 g/dL (6.3-8.2)
[2018-06-22 19:22] LABS: ALCOHOL < 10 mg/dL (NONE DETECTED)
--- NOTE | 2018-06-22 19:26 | ER Document Report ---
ED General - General Chief Complaint: Altered Mental Status Stated Complaint: ALTERED MENTAL STATUS Time Seen by Provider: 06/22/18 19:03 Notes: Patient is an 82-year-old male with a history of dementia who presents to the emergency department with increased confusion, per patient's . Unfortunately due to patient's dementia, he is unable to tell me why he is here in the hospital. His who is at bedside stated that he has fallen multiple times in the past few days, but denies him hitting his head. Family has stated that his increased confusion is something that is new as of today. He is not remembering information he normally knows. His past medical history includes hypertension, GERD, atrial fibrillation and pacemaker placement for "irregular heart rate," per his . TRAVEL OUTSIDE OF THE [place] IN LAST 30 DAYS: No - Related Data Allergies/Adverse Reactions: No Known Allergies Allergy (Verified 05/14/18 13:14) Past Medical History - General Information source: Relative Cannot obtain history due to: Dementia - Social History Smoking Status: Unknown if Ever Smoked Drug Abuse: None Lives with: Family Family History: None, Reviewed & Not Pertinent Patient has suicidal ideation: No Patient has homicidal ideation: No - Past Medical History Cardiac Medical History: Reports: Hx Atrial Fibrillation - Paroxysmal, Hx Hypertension Denies: Hx Congestive Heart Failure, Hx Coronary Artery Disease, Hx Heart Attack, Hx Hypercholesterolemia, Hx Peripheral Vascular Disease, Hx Pulmonary Embolism, Hx Heart Murmur Pulmonary Medical History: Denies: Hx Asthma, Hx Bronchitis, Hx COPD, Hx Pneumonia, Hx Respiratory Failure, Hx Sleep Apnea, Hx Tuberculosis Neurological Medical History: Denies: Hx Cerebrovascular Accident, Hx Seizures Endocrine Medical History: Denies: Hx Diabetes Mellitus Type 1, Hx Diabetes Mellitus Type 2, Hx Graves' Disease, Hx Hyperthyroidism, Hx Hypothyroidism Renal/ Medical History: Reports: Hx Benign Prostatic Hyperplasia. Denies: Hx End Stage Renal Disease, Hx Kidney Stones, Hx Peritoneal Dialysis Malignancy Medical History: Denies Hx Leukemia, Denies Hx Lung Cancer, Reports Hx Prostate Cancer - Prostatectomy GI Medical History: Reports: Hx Gastroesophageal Reflux Disease, Hx Ulcer - 40 yrs ago?, Hx Colonoscopy. Denies: Hx Crohn's Disease, Hx Diverticulitis, Hx Gastritis, Hx Hepatitis, Hx Hiatal Hernia, Hx Irritable Bowel, Hx Liver Failure , Hx Pancreatitis Musculoskeletal Medical History: Reports Hx Arthritis, Denies Hx Fibromyalgia, Denies Hx Multiple Sclerosis, Denies Hx Muscular Dystrophy, Reports Hx Musculoskeletal Deformity, Reports Hx Musculoskeletal Trauma Psychiatric Medical History: Denies: Hx Bipolar Disorder, Hx Dementia, Hx Depression, Hx Post Traumatic Stress Disorder, Hx Schizophrenia Traumatic Medical History: Denies: Hx Fractures Infectious Medical History: Denies: Hx Hepatitis, Hx HIV Past Surgical History: Reports: Hx Cardiac Surgery - pacemaker placement, Hx Oral Surgery - Dental surgery, Hx Orthopedic Surgery - left knee surgery, Hx Pacemaker. Denies: Hx Appendectomy, Hx Bowel Surgery, Hx Cholecystectomy, Hx Colostomy, Hx Coronary Artery Bypass Graft, Hx Gastric Bypass Surgery, Hx Herniorrhaphy, Hx Open Heart Surgery, Hx Tonsillectomy - Immunizations Immunizations up to date: No Hx Diphtheria, Pertussis, Tetanus Vaccination: Yes Hx Pneumococcal Vaccination: 09/19/11 Review of Systems - Review of Systems Constitutional: No symptoms reported EENT: No symptoms reported Cardiovascular: No symptoms reported Respiratory: No symptoms reported Gastrointestinal: No symptoms reported Genitourinary: No symptoms reported Male Genitourinary: No symptoms reported Musculoskeletal: No symptoms reported Skin: No symptoms reported Hematologic/Lymphatic: No symptoms reported Neurological/Psychological: See HPI, Dementia Physical Exam - General In distress: None - Respiratory Chest status: Nontender - Cardiovascular Pulses: Normal: Radial, Dorsalis pedis - Neurological Cognition: Confused Orientation: Disoriented to person, Disoriented to time, Disoriented to events Delia Coma Scale Eye Opening: Spontaneous [place] Coma Scale Verbal: Confused Delia Coma Scale Motor: Obeys Commands Delia Coma Scale Total: 14 Sensory: Normal Course - Re-evaluation Re-evalutation: 06/22/18 19:36 Upon reevaluation of the patient, patient stated he needed to urinate, but he said it hurts when he does. Patient was helped with urinal, by myself. Discharge was noted around the head of the patient's penis. Due to the reports of patient falling multiple times these past few days. He will be sent for a CT of the head to rule out any intracranial bleed at this time. Labs and chest x-ray are ordered. 06/22/18 20:40 Nursing staff informed me that patient was unable to lie still for his CT of the head. Dr. Shepard was consulted in regards to giving patient small dose of Haldol, for his scan. Labs have been reviewed and are unremarkable. Chest x- ray shows possible right lower lobe pneumonia. 06/22/18 22:00 Radiology has informed me that the patient has bilateral subdural hematomas that are acute to subacute in nature. Due to no neurosurgery coverage at this time, patient will need to be transferred to their facility. The family has been updated about CT results. The family wishes for the patient to go to [facility], where there is neurosurgery coverage. 06/22/18 22:18 I have contacted the transfer center at [facility] in regards to the patient's subdural hematomas. Per Candi, transfer center coordinator, they will call back with the neurosurgeon. 06/22/18 23:02 Report has been given to Dr. Hernandez, neurosurgery at [facility], and patient has been accepted for transfer. - Laboratory Result Diagrams: 06/22/18 18:40 06/22/18 18:40 Laboratory results interpreted by me: 06/22/18 06/22/18 06/22/18 18:40 18:40 20:00 RBC 3.40 L Hgb 10.6 L Hct 31.8 L Seg Neutrophils % 84.2 H Lymphocytes % 10.1 L Glucose 122 H Calcium 11.3 H ALT 20 L Urine Blood SMALL H - EKG Interpretation by Me Rate: Normal Additional EKG results interpreted by me: 06/22/18 23:19 Heart rate 70: Atrial paced-FL 172; QRS 82; QT 376; QTC 406 Discharge - Discharge Clinical Impression: Subdural hematoma Altered mental status Qualifiers: Altered mental status type: unspecified Qualified Code(s): R41.82 - Altered mental status, unspecified Disposition: [facility] Referrals: ROS AMAYA MD [Primary Care Provider] - Follow up as needed
--- NOTE | 2018-06-22 20:17 | EKG REPORT ---
SEVERITY:- ABNORMAL ECG - ATRIAL-PACED RHYTHM LEFT VENTRICULAR HYPERTROPHY CONSIDER ANTERIOR INFARCT : Confirmed by: Fabrice Lechuga 22-Jun-2018 20:17:09
[2018-06-22] MEDS ORDERED: HALOPERIDOL LACTATE INJ 5 MG/1 ML VIAL IV ONE ×2 (20:39→21:06)
--- NOTE | 2018-06-22 20:44 | RADIOLOGY REPORT (SQ) ---
EXAM DESCRIPTION: CHEST SINGLE VIEW COMPLETED DATE/TIME: 06/22/2018 8:12 pm REASON FOR STUDY: AMS COMPARISON: 03/24/2017 EXAM PARAMETERS: NUMBER OF VIEWS: One view. TECHNIQUE: Single frontal radiographic view of the chest acquired. RADIATION DOSE: NA LIMITATIONS: None. FINDINGS: LUNGS AND PLEURA: There is hyperexpansion of the lungs. Slightly increased opacification in the medial right base. MEDIASTINUM AND HILAR STRUCTURES: No masses. Contour normal. HEART AND VASCULAR STRUCTURES: Heart normal in size. Normal vasculature. BONES: No acute findings. HARDWARE: Pacemaker. OTHER: No other significant finding. IMPRESSION: Chronic lung changes. Cannot exclude limited right lower lobe pneumonia. TECHNICAL DOCUMENTATION: JOB ID: [id number] [employer]- All Rights Reserved Reading location - IP/workstation name: [email or web address]
[2018-06-22 20:51] LABS: APPEARANCE,URINE CLOUDY; BILIRUBIN,URINE NEGATIVE (NEGATIVE); COLOR,URINE YELLOW; GLUCOSE, URINE NEGATIVE (NEGATIVE); KETONES,URINE NEGATIVE (NEGATIVE); LEUKOCYTE ESTERASE,URINE NEGATIVE (NEGATIVE); NITRITE,URINE NEGATIVE (NEGATIVE); PROTEIN,URINE NEGATIVE (NEGATIVE); URINE SPECIFIC GRAVITY 1.013; UROBILINOGEN,URINE NEGATIVE mg/dL (<2.0)
[2018-06-22 20:58] LABS: URINE AMPHETAMINES SCREEN NEGATIVE; URINE BARBITURATES SCREEN NEGATIVE; URINE BENZODIAZEPINES SCREEN NEGATIVE; URINE COCAINE SCREEN NEGATIVE; URINE MARIJUANA (THC) SCREEN NEGATIVE; URINE METHADONE SCREEN NEGATIVE; URINE PHENCYCLIDINE SCREEN NEGATIVE
--- NOTE | 2018-06-22 22:12 | RADIOLOGY REPORT (SQ) ---
CT HEAD WITHOUT IV CONTRAST HISTORY: Altered mental status. COMPARISON: 05/13/2018 TECHNIQUE: CT scan of the brain. This exam was performed according to our departmental dose-optimization program, which includes automated exposure control, adjustment of the mA and/or kV according to patient size and/or use of iterative reconstruction technique. FINDINGS: Bilateral crescentic hemispheric subdural collections which are predominantly iso to hypointense relative to brain parenchyma, consistent with bilateral subdural hematomas. Small amount of layering hyperdense blood in present in the bifrontal and bitemporal regions, consistent with acute blood products. No acute infarction, intracranial hemorrhage, or midline shift. Paranasal sinuses are clear. No calvarial fracture. IMPRESSION: Acute to subacute bilateral subdural hematomas. No evidence of midline shift or parenchymal hemorrhage. Findings were discussed with JARED Chan at 9:04 PM on 06/22/2018.
[2018-06-22] MEDS ORDERED: LEVETIRACETAM INJ/PF 500 MG/5 ML SDV IV ONE (23:01)
[2018-06-22] MEDS ORDERED: DEXAMETHASONE SOD PHOS INJ 10 MG/1 ML VIAL IV ONE (23:02)
[2018-06-23 02:50] VITALS: BP 188/99
== END 2018-06-23 02:59 | disposition short-term general hospital (02) ==
LOC: ER 17:34
DX: I62.00 Nontraumatic subdural hemorrhage, unspecified (principal); R41.82 Altered mental status, unspecified; R39.15 Urgency of urination; I48.91 Unspecified atrial fibrillation; I10 Essential (primary) hypertension; Z95.0 Presence of cardiac pacemaker; Z91.81 History of falling
CPT/HCPCS: 93005; 99285; 96374; 96375; 36415; 80307 ×2; 83735; 85025; 80053; 81001; 71045; 70450; 93010; J1630; J1953; J1100

== ENCOUNTER 2018-08-03 09:39 | Emergency (ER) | payer MEDICARE, MEDICAID ==
[2018-08-03] MEDS ORDERED: NORMAL SALINE 1000 ML 1,000 ML IV ONE (09:57)
--- NOTE | 2018-08-03 09:58 | ER Document Report ---
ED Medical Screen (RME) - General Chief Complaint: Fall Stated Complaint: FALL Time Seen by Provider: 08/03/18 09:51 Notes: 82 years old male with a history of intracranial bleed which was about 6 months ago presents today with 2 fall x2 general weakness and change in mental status. TRAVEL OUTSIDE OF THE [place] IN LAST 30 DAYS: No - Related Data Allergies/Adverse Reactions: No Known Allergies Allergy (Verified 08/03/18 09:42) Past Medical History - Social History Chew tobacco use (# tins/day): No Frequency of alcohol use: Rare Drug Abuse: None - Past Medical History Cardiac Medical History: Reports: Hx Atrial Fibrillation - Paroxysmal, Hx Hypertension Denies: Hx Congestive Heart Failure, Hx Coronary Artery Disease, Hx Heart Attack, Hx Hypercholesterolemia, Hx Peripheral Vascular Disease, Hx Pulmonary Embolism, Hx Heart Murmur Pulmonary Medical History: Denies: Hx Asthma, Hx Bronchitis, Hx COPD, Hx Pneumonia, Hx Respiratory Failure, Hx Sleep Apnea, Hx Tuberculosis Neurological Medical History: Denies: Hx Cerebrovascular Accident, Hx Seizures Endocrine Medical History: Denies: Hx Diabetes Mellitus Type 1, Hx Diabetes Mellitus Type 2, Hx Graves' Disease, Hx Hyperthyroidism, Hx Hypothyroidism Renal/ Medical History: Reports: Hx Benign Prostatic Hyperplasia. Denies: Hx End Stage Renal Disease, Hx Kidney Stones, Hx Peritoneal Dialysis Malignancy Medical History: Denies Hx Leukemia, Denies Hx Lung Cancer, Reports Hx Prostate Cancer - Prostatectomy GI Medical History: Reports: Hx Gastroesophageal Reflux Disease, Hx Ulcer - 40 yrs ago?, Hx Colonoscopy. Denies: Hx Crohn's Disease, Hx Diverticulitis, Hx Gastritis, Hx Hepatitis, Hx Hiatal Hernia, Hx Irritable Bowel, Hx Liver Failure , Hx Pancreatitis Musculoskeltal Medical History: Reports Hx Arthritis, Denies Hx Fibromyalgia, Denies Hx Multiple Sclerosis, Denies Hx Muscular Dystrophy, Reports Hx Musculoskeletal Deformity, Reports Hx Musculoskeletal Trauma Psychiatric Medical History: Denies: Hx Bipolar Disorder, Hx Dementia, Hx Depression, Hx Post Traumatic Stress Disorder, Hx Schizophrenia Traumatic Medical History: Denies: Hx Fractures Infectious Medical History: Denies: Hx Hepatitis, Hx HIV Past Surgical History: Reports: Hx Cardiac Surgery - pacemaker placement, Hx Oral Surgery - Dental surgery, Hx Orthopedic Surgery - left knee surgery, Hx Pacemaker. Denies: Hx Appendectomy, Hx Bowel Surgery, Hx Cholecystectomy, Hx Colostomy, Hx Coronary Artery Bypass Graft, Hx Gastric Bypass Surgery, Hx Herniorrhaphy, Hx Open Heart Surgery, Hx Tonsillectomy - Immunizations Immunizations up to date: No Hx Diphtheria, Pertussis, Tetanus Vaccination: Yes Physical Exam - Vital signs Vitals: Temp Pulse Resp BP Pulse Ox 97.6 F 79 16 118/74 91 L 08/03/18 09:49 08/03/18 09:49 08/03/18 09:49 08/03/18 09:49 08/03/18 09:49 Course - Vital Signs Vital signs: Temp Pulse Resp BP Pulse Ox 97.6 F 79 16 118/74 91 L 08/03/18 09:49 08/03/18 09:49 08/03/18 09:49 08/03/18 09:49 08/03/18 09:49 Doctor's Discharge - Discharge Referrals: ROS AMAYA MD [Primary Care Provider] - Follow up as needed
--- NOTE | 2018-08-03 11:03 | ER Document Report ---
ED Fall - General Chief Complaint: Fall Stated Complaint: FALL Time Seen by Provider: 08/03/18 09:51 Notes: Patient is a 82-year-old male presenting to the emergency department with his family for decrease in mental status over the last week. Family states the patient has slowly over the last week become more weak, disoriented and had abnormal speech. They also states the patient has fallen on his buttocks twice in the last 2 days. Family states they did not see the patient trip at all, they feel that these falls are due to weakness. Patient was to this facility on 06/22/2018 and subsequently transferred to [facility] for subdural hematomas. Family states patient was discharged from [facility] and was "normal at that time." States the decline in mental status and weakness has just increased over the last week. Family denies URI symptoms, fever, nausea, vomiting, diarrhea, chest pain, shortness of breath, abdominal pain, dysuria. Past medical history: Hypertension, atrial fibrillation, dementia, peripheral artery disease, anemia, pacemaker Medications: Xarelto, omeprazole, Cardizem, benazepril, metoprolol Allergies: None surgical history: Pacemaker insertion Family denies cigarette smoking, illicit drug use. Admits to occasional EtOH use. PCP Huy TRAVEL OUTSIDE OF THE [place] IN LAST 30 DAYS: No - Related data Allergies/Adverse Reactions: No Known Allergies Allergy (Verified 08/03/18 09:42) Past Medical History - General Information source: Relative - Social History Smoking Status: Never Smoker Chew tobacco use (# tins/day): No Frequency of alcohol use: Rare Drug Abuse: None Lives with: Family Family History: None, Reviewed & Not Pertinent Patient has suicidal ideation: No Patient has homicidal ideation: No - Past Medical History Cardiac Medical History: Reports: Hx Atrial Fibrillation - Paroxysmal, Hx Hypertension Denies: Hx Congestive Heart Failure, Hx Coronary Artery Disease, Hx Heart Attack, Hx Hypercholesterolemia, Hx Peripheral Vascular Disease, Hx Pulmonary Embolism, Hx Heart Murmur Pulmonary Medical History: Denies: Hx Asthma, Hx Bronchitis, Hx COPD, Hx Pneumonia, Hx Respiratory Failure, Hx Sleep Apnea, Hx Tuberculosis Neurological Medical History: Denies: Hx Cerebrovascular Accident, Hx Seizures Endocrine Medical History: Denies: Hx Diabetes Mellitus Type 1, Hx Diabetes Mellitus Type 2, Hx Graves' Disease, Hx Hyperthyroidism, Hx Hypothyroidism Renal/ Medical History: Reports: Hx Benign Prostatic Hyperplasia. Denies: Hx End Stage Renal Disease, Hx Kidney Stones, Hx Peritoneal Dialysis Malignancy Medical History: Denies Hx Leukemia, Denies Hx Lung Cancer, Reports Hx Prostate Cancer - Prostatectomy GI Medical History: Reports: Hx Gastroesophageal Reflux Disease, Hx Ulcer - 40 yrs ago?, Hx Colonoscopy. Denies: Hx Crohn's Disease, Hx Diverticulitis, Hx Gastritis, Hx Hepatitis, Hx Hiatal Hernia, Hx Irritable Bowel, Hx Liver Failure , Hx Pancreatitis Musculoskeletal Medical History: Reports Hx Arthritis, Denies Hx Fibromyalgia, Denies Hx Multiple Sclerosis, Denies Hx Muscular Dystrophy, Reports Hx Musculoskeletal Deformity, Reports Hx Musculoskeletal Trauma Psychiatric Medical History: Denies: Hx Bipolar Disorder, Hx Dementia, Hx Depression, Hx Post Traumatic Stress Disorder, Hx Schizophrenia Traumatic Medical History: Denies: Hx Fractures Infectious Medical History: Denies: Hx Hepatitis, Hx HIV Past Surgical History: Reports: Hx Cardiac Surgery - pacemaker placement, Hx Oral Surgery - Dental surgery, Hx Orthopedic Surgery - left knee surgery, Hx Pacemaker. Denies: Hx Appendectomy, Hx Bowel Surgery, Hx Cholecystectomy, Hx Colostomy, Hx Coronary Artery Bypass Graft, Hx Gastric Bypass Surgery, Hx Herniorrhaphy, Hx Open Heart Surgery, Hx Tonsillectomy - Immunizations Immunizations up to date: No Hx Diphtheria, Pertussis, Tetanus Vaccination: Yes Hx Pneumococcal Vaccination: 09/19/11 Review of Systems - Review of Systems Constitutional: See HPI EENT: See HPI Cardiovascular: See HPI Respiratory: See HPI Gastrointestinal: See HPI Genitourinary: See HPI Male Genitourinary: No symptoms reported Musculoskeletal: See HPI Hematologic/Lymphatic: No symptoms reported Neurological/Psychological: See HPI Physical Exam - Vital signs Vitals: Temp Pulse Resp BP Pulse Ox 97.6 F 79 16 118/74 91 L 08/03/18 09:49 08/03/18 09:49 08/03/18 09:49 08/03/18 09:49 08/03/18 09:49 - Notes Notes: GENERAL: Alert, interacts well. No acute distress. Patient does not have slurred speech when he is speaking but does have garbled speech at times. HEAD: Normocephalic, atraumatic. No facial droop appreciated. EYES: Pupils equal, round, and reactive to light. Extraocular movements intact. ENT: Oral mucosa moist, tongue midline. NECK: Full range of motion. Supple. Trachea midline. LUNGS: Clear to auscultation bilaterally, no wheezes, rales, or rhonchi. No respiratory distress. HEART: Regular rate and rhythm. No murmur ABDOMEN: Soft, non-tender. Non-distended. Bowel sounds present in all 4 quadrants. EXTREMITIES: Moves all 4 extremities spontaneously. No edema, normal radial and dorsalis pedis pulses bilaterally. No cyanosis. 5 out of 5 strength all 4 extremities. BACK: no cervical, thoracic, lumbar midline tenderness. No saddle anesthesia, normal distal neurovascular exam. NEUROLOGICAL: Alert and oriented to himself and current situation. Patient unable to state the date which is patient's normal. cranial nerves II through XII grossly intact PSYCH: Normal affect, normal mood. SKIN: Warm, dry, normal turgor. No rashes or lesions noted. 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 Shaniqua Ruvalcaba who suggest transfer patient to [facility]. Initially discussed the case with Dr. Byrnes from neurosurgery out of [place] some fluid around the quad tendon emergency MRI of the knee but there is no bleeding within the muscle compartment is masses with a muscle pressure or bleeding with compartment MRI is also Nt. States patient should be transferred to his facility as soon as possible. Stated there were no current beds available in the ICU. States we should discuss case with Dr. Crowley in the emergency room to do an ED to ED transfer. Dr. Crowley then transferred and on the phone call. Dr. Crowley states she will accept the patient in the emergency department and consult neurosurgery upon the patient's arrival. Dr. Byrnes requests continuing the Cardene drip to maintain a systolic blood pressure of 140. 08/03/18 14:10 Transport is at bedside. Blood pressure is currently 137/67 heart rate 71 pulse ox 100% respiratory rate 14. Patient continues without any airway issues at this time. Patient stable for transfer. - Vital Signs Vital signs: Temp Pulse Resp BP Pulse Ox 98.1 F 71 16 137/67 H 99 08/03/18 14:05 08/03/18 14:05 08/03/18 14:05 08/03/18 14:05 08/03/18 14:05 - Laboratory Result Diagrams: 08/03/18 10:40 11/15/18 10:40 Laboratory results interpreted by me: 08/03/18 08/03/18 10:40 10:40 RBC 3.42 L Hgb 10.5 L Hct 31.6 L Plt Count 540 H Sodium 145.2 H BUN 24 H Creatinine 1.45 H Est GFR ( Amer) 56 L Est GFR (Non-Af Amer) 46 L Calcium 11.1 H AST 14 L ALT 8 L Discharge - Discharge Clinical Impression: Subdural hemorrhage Condition: Good Disposition: [facility] Admitting Provider: Keo Referrals: ROS AMAYA MD [Primary Care Provider] - Follow up as needed
[2018-08-03 11:05] LABS: ABSOLUTE BASOPHILS # (AUTO) 0.1 10^3/uL (0.0-0.2); ABSOLUTE EOSINOPHILS # (AUTO) 0.1 10^3/uL (0.0-0.6); ABSOLUTE LYMPHOCYTES (AUTO) 2.3 10^3/uL (0.5-4.7); ABSOLUTE NEUT (AUTO) 5.8 10^3/uL (1.7-8.2); BASOPHILS % (AUTO) 1.1 % (0-2); EOSINOPHILS % (AUTO) 1.2 % (0-6); HEMATOCRIT 31.6 % (37.9-51.0); HEMOGLOBIN 10.5 g/dL (13.5-17.0); LYMPHOCYTES % (AUTO) 24.6 % (13-45); MEAN CORPUSCULAR HEMOGLOBIN 30.7 pg (27.0-33.4); MEAN CORPUSCULAR HGB CONC 33.3 g/dL (32.0-36.0); MEAN CORPUSCULAR VOLUME 92 fl (80-97); MONOCYTES % (AUTO) 10.6 % (3-13); PLATELET COUNT 540 10^3/uL (150-450); RED BLOOD COUNT 3.42 10^6/uL (4.35-5.55); RED CELL DISTRIBUTION WIDTH 13.5 % (11.5-14.0); SEGMENTED NEUTROPHILS % (AUTO) 62.5 % (42-78); TOTAL CELLS COUNTED % (AUTO) 100 %; WHITE BLOOD COUNT 9.2 10^3/uL (4.0-10.5)
[2018-08-03 11:24] LABS: ALANINE AMINOTRANSFERASE 8 U/L (21-72); ALBUMIN 4.3 g/dL (3.5-5.0); ALKALINE PHOSPHATASE 121 U/L (38-126); ANION GAP 13 (5-19); ASPARTATE AMINO TRANSFERASE 14 U/L (17-59); BILIRUBIN,DIRECT 0.2 mg/dL (0.0-0.4); BILIRUBIN,TOTAL 0.3 mg/dL (0.2-1.3); BLOOD UREA NITROGEN 24 mg/dL (7-20); CALCIUM 11.1 mg/dL (8.4-10.2); CARBON DIOXIDE 27 mmol/L (22-30); CHLORIDE 105 mmol/L (98-107); GLUCOSE 90 mg/dL (75-110); POTASSIUM 4.7 mmol/L (3.6-5.0); SODIUM 145.2 mmol/L (137-145); TOTAL PROTEIN 8.2 g/dL (6.3-8.2)
--- NOTE | 2018-08-03 11:35 | RADIOLOGY REPORT (SQ) ---
EXAM DESCRIPTION: CHEST SINGLE VIEW COMPLETED DATE/TIME: 08/03/2018 11:18 am REASON FOR STUDY: syncope COMPARISON: 08/19/2016 EXAM PARAMETERS: NUMBER OF VIEWS: One view. TECHNIQUE: Single frontal radiographic view of the chest acquired. RADIATION DOSE: NA LIMITATIONS: None. FINDINGS: LUNGS AND PLEURA: No opacities, masses or pneumothorax. No pleural effusion. MEDIASTINUM AND HILAR STRUCTURES: No masses. Contour normal. HEART AND VASCULAR STRUCTURES: Heart normal in size. Normal vasculature. BONES: No acute findings. HARDWARE: Stable position of left pacemaker. OTHER: No other significant finding. IMPRESSION: NO ACUTE RADIOGRAPHIC FINDING IN THE CHEST. TECHNICAL DOCUMENTATION: JOB ID: [id number] [employer]- All Rights Reserved Reading location - IP/workstation name: [email or web address]
--- NOTE | 2018-08-03 12:12 | RADIOLOGY REPORT (SQ) ---
EXAM DESCRIPTION: CT HEAD WITHOUT COMPLETED DATE/TIME: 08/03/2018 12:01 pm REASON FOR STUDY: change in mental status COMPARISON: 06/22/2018 TECHNIQUE: Axial images acquired through the brain without intravenous contrast. Images reviewed wi th bone, brain and subdural windows. Additional sagittal and coronal reconstructions were generated. Images stored on PACS. All CT scanners at this facility use dose modulation, iterative reconstruction, and/or weight based d osing when appropriate to reduce radiation dose to as low as reasonably achievable (ALARA). [facility]: Dose Right [facility]: CareDose [facility]: Dose Right [facility]: Teradose 4D [facility]: [employer] RADIATION DOSE: CT Rad equipment meets quality standard of care and radiation dose reduction techniq ues were employed. CTDIvol: 55.2 mGy. DLP: 1194 mGy-cm. mGy. LIMITATIONS: None. FINDINGS: VENTRICLES: Normal size and contour. CEREBRUM: No masses. No hemorrhage. No midline shift. No evidence for acute infarction. Normal gra y/white matter differentiation. No areas of low density in the white matter. CEREBELLUM: No masses. No hemorrhage. No alteration of density. No evidence for acute infarction. EXTRAAXIAL SPACES: There are redemonstrated large bilateral mixed attenuation bihemispheric subdural hematomas, maximum thickness of 1.8 cm on the right and 1.9 cm on the left, not significantly changed from prior examination. There is substantial mass effect on the bilateral cerebral hemispheres with out evidence of midline or downward shift. ORBITS AND GLOBE: No intra- or extraconal masses. Normal contour of globe without masses. CALVARIUM: No fracture. PARANASAL SINUSES: No fluid or mucosal thickening. SOFT TISSUES: No mass or hematoma. OTHER: No other significant finding. IMPRESSION: There are redemonstrated large bilateral mixed attenuation bihemispheric subdural hemato mas, maximum thickness of 1.8 cm on the right and 1.9 cm on the left, not significantly changed from prior examination. There is substantial mass effect on the bilateral cerebral hemispheres without ev idence of midline or downward shift. Findings remain consistent with subacute or recurrent acute on c hronic subdural hemorrhages. COMMENT: Quality ID # [id number]: Final reports with documentation of one or more dose reduction techniques (e.g., Automated exposure control, adjustment of the mA and/or kV according to patient size, use of iterative reconstruction technique) TECHNICAL DOCUMENTATION: JOB ID: [id number] [employer]- All Rights Reserved Reading location - IP/workstation name: [email or web address]
[2018-08-03] MEDS ORDERED: NICARDIPINE HCL RTU, ISO-OS 20 MG/200 ML RTUINJ IV PRN ×3 (12:34→12:40)
[2018-08-03] MEDS ORDERED: MORPHINE SULFATE 10 MG/ML INJ IV ONE (13:11)
[2018-08-03 14:12] LABS: APPEARANCE,URINE CLEAR; BILIRUBIN,URINE NEGATIVE (NEGATIVE); COLOR,URINE STRAW; GLUCOSE, URINE NEGATIVE (NEGATIVE); KETONES,URINE NEGATIVE (NEGATIVE); LEUKOCYTE ESTERASE,URINE NEGATIVE (NEGATIVE); NITRITE,URINE NEGATIVE (NEGATIVE); PROTEIN,URINE NEGATIVE (NEGATIVE); URINE SPECIFIC GRAVITY 1.009; UROBILINOGEN,URINE NEGATIVE mg/dL (<2.0)
[2018-08-03 14:22] LABS: URINE AMPHETAMINES SCREEN NEGATIVE; URINE BARBITURATES SCREEN NEGATIVE; URINE BENZODIAZEPINES SCREEN NEGATIVE; URINE COCAINE SCREEN NEGATIVE; URINE MARIJUANA (THC) SCREEN NEGATIVE; URINE METHADONE SCREEN NEGATIVE; URINE PHENCYCLIDINE SCREEN NEGATIVE
[2018-08-03 14:32] VITALS: BP 137/67
--- NOTE | 2018-08-04 10:38 | EKG REPORT ---
SEVERITY:- ABNORMAL ECG - ATRIAL-PACED COMPLEXES BORDERLINE ST ELEVATION, ANTEROLATERAL LEADS : Confirmed by: Fabrice Lechuga 04-Aug-2018 10:37:14
== END 2018-08-03 14:05 | disposition short-term general hospital (02) ==
LOC: ER 09:39
DX: I62.00 Nontraumatic subdural hemorrhage, unspecified (principal); W19.XXXA Unspecified fall, initial encounter; I10 Essential (primary) hypertension; I48.91 Unspecified atrial fibrillation; D64.9 Anemia, unspecified; Z95.0 Presence of cardiac pacemaker; Z79.02 Long term (current) use of antithrombotics/antiplatelets
CPT/HCPCS: 93005; 99285; 96361; 51702; 96375; 96365; 36415; 83735; 85025; 80053; 81001; 84484; 80307; 71045; 70450; 93010; J2270; J7030; J3490

== ENCOUNTER → 2018-10-18 | Outpatient (CLI) | payer MEDICARE, MEDICAID ==
--- NOTE | 2018-10-18 13:04 | RADIOLOGY REPORT (SQ) ---
EXAM DESCRIPTION: CT HEAD WITHOUT COMPLETED DATE/TIME: 10/18/2018 12:48 pm REASON FOR STUDY: S06.9X0A UNSP INTRACRANIAL INJURY W/O LOSS OF CONSCIOUSNESS, INIT S06.9X0A UNSP I NTRACRANIAL INJURY W/O LOSS OF CONSCIOUSNESS, COMPARISON: 08/03/2018 TECHNIQUE: Axial images acquired through the brain without intravenous contrast. Images reviewed wi th bone, brain and subdural windows. Additional sagittal and coronal reconstructions were generated. Images stored on PACS. All CT scanners at this facility use dose modulation, iterative reconstruction, and/or weight based d osing when appropriate to reduce radiation dose to as low as reasonably achievable (ALARA). [facility]: Dose Right [facility]: CareDose [facility]: Dose Right [facility]: Teradose 4D [facility]: [employer] RADIATION DOSE: CT Rad equipment meets quality standard of care and radiation dose reduction techniq ues were employed. CTDIvol: 48.6 mGy. DLP: 880 mGy-cm. mGy. LIMITATIONS: None. FINDINGS: VENTRICLES: Prominent ventricles secondary to involutional atrophy. CEREBRUM: Cortical atrophy. No masses. No hemorrhage. No midline shift. No evidence for acute inf arction. Few scattered areas of low density in the white matter most likely chronic small vessel isch emic changes. CEREBELLUM: No masses. No hemorrhage. No alteration of density. No evidence for acute infarction. EXTRAAXIAL SPACES: Chronic bilateral subdural fluid collections. Maximum depth 18 mm on the right in the frontal region and 16 mm in the left frontal region. These are slightly more dense than CSF. ORBITS AND GLOBE: No intra- or extraconal masses. Normal contour of globe without masses. CALVARIUM: 2 titi holes are present in each side of the calvarium. PARANASAL SINUSES: No fluid or mucosal thickening. SOFT TISSUES: No mass or hematoma. OTHER: No other significant finding. IMPRESSION: Involutional changes of aging with mild chronic microvascular ischemia. Chronic bilater al subdural fluid collections as described. EVIDENCE OF ACUTE STROKE: NO. COMMENT: Quality ID # [id number]: Final reports with documentation of one or more dose reduction techniques (e.g., Automated exposure control, adjustment of the mA and/or kV according to patient size, use of iterative reconstruction technique) TECHNICAL DOCUMENTATION: JOB ID: [id number]- All Rights Reserved Reading location - IP/workstation name: [email or web address]
== END ==
LOC: RAD 14:32
PROVIDERS: ATTEND Internal Medicine
DX: S06.9X0A Unspecified intracranial injury without loss of consciousness, initial encounter (principal); X58.XXXA Exposure to other specified factors, initial encounter
CPT/HCPCS: 70450

== ENCOUNTER 2019-06-02 13:51 | Emergency (ER) | payer MEDICARE, MEDICAID ==
[2019-06-02] MEDS ORDERED: ONDANSETRON 4 MG TAB.RAPDIS PO ONE (14:47)
--- NOTE | 2019-06-02 14:50 | ER Document Report ---
ED Medical Screen (RME) - General Chief Complaint: Nausea/Vomiting Stated Complaint: VOMITING Time Seen by Provider: 06/02/19 14:41 Primary Care Provider: RADHA MARIE MD [Primary Care Provider] - Follow up as needed Notes: Patient is a 83-year-old male with a history of hypertension presents to emergency department with a chief complaint of vomiting. Patient states about 2 hours prior to arrival he started vomiting green bile. Patient states he also has an upper abdominal discomfort. Patient denies chest pain or shortness of breath. Patient denies blood in the vomitus. Patient reports having a normal bowel movement yesterday without noticeable blood. Patient denies use of blood thinners. stated she attempted to give him an Ensure but he was unable to keep that down. TRAVEL OUTSIDE OF THE [place] IN LAST 30 DAYS: No - Related Data Allergies/Adverse Reactions: No Known Allergies Allergy (Verified 06/02/19 13:54) Past Medical History - Past Medical History Cardiac Medical History: Reports: Hx Atrial Fibrillation - Paroxysmal, Hx Hypertension Denies: Hx Congestive Heart Failure, Hx Coronary Artery Disease, Hx Heart Attack, Hx Hypercholesterolemia, Hx Peripheral Vascular Disease, Hx Pulmonary Embolism, Hx Heart Murmur Pulmonary Medical History: Denies: Hx Asthma, Hx Bronchitis, Hx COPD, Hx Pneumonia, Hx Respiratory Failure, Hx Sleep Apnea, Hx Tuberculosis Neurological Medical History: Denies: Hx Cerebrovascular Accident, Hx Seizures Endocrine Medical History: Denies: Hx Diabetes Mellitus Type 1, Hx Diabetes Mellitus Type 2, Hx Graves' Disease, Hx Hyperthyroidism, Hx Hypothyroidism Renal/ Medical History: Reports: Hx Benign Prostatic Hyperplasia. Denies: Hx End Stage Renal Disease, Hx Kidney Stones, Hx Peritoneal Dialysis Malignancy Medical History: Denies Hx Leukemia, Denies Hx Lung Cancer, Reports Hx Prostate Cancer - Prostatectomy GI Medical History: Reports: Hx Gastroesophageal Reflux Disease, Hx Ulcer - 40 yrs ago?, Hx Colonoscopy. Denies: Hx Crohn's Disease, Hx Diverticulitis, Hx Gastritis, Hx Hepatitis, Hx Hiatal Hernia, Hx Irritable Bowel, Hx Liver Failure, Hx Pancreatitis Musculoskeltal Medical History: Reports Hx Arthritis, Denies Hx Fibromyalgia, Denies Hx Multiple Sclerosis, Denies Hx Muscular Dystrophy, Reports Hx Musculoskeletal Deformity, Reports Hx Musculoskeletal Trauma, Denies Hx Systemic Lupus Erythematosus Psychiatric Medical History: Denies: Hx Bipolar Disorder, Hx Dementia, Hx Depression, Hx Post Traumatic Stress Disorder, Hx Schizophrenia Traumatic Medical History: Denies: Hx Fractures Infectious Medical History: Denies: Hx Hepatitis, Hx HIV Past Surgical History: Reports: Hx Cardiac Surgery - pacemaker placement, Hx Oral Surgery - Dental surgery, Hx Orthopedic Surgery - left knee surgery, Hx Pacemaker. Denies: Hx Appendectomy, Hx Bowel Surgery, Hx Cholecystectomy, Hx Colostomy, Hx Coronary Artery Bypass Graft, Hx Gastric Bypass Surgery, Hx Herniorrhaphy, Hx Open Heart Surgery, Hx Tonsillectomy - Immunizations Immunizations up to date: No Hx Diphtheria, Pertussis, Tetanus Vaccination: Yes Physical Exam - Vital signs Vitals: Temp Pulse Resp BP Pulse Ox 97.5 F 102 H 18 158/82 H 99 06/02/19 13:56 06/02/19 13:56 06/02/19 13:56 06/02/19 13:56 06/02/19 13:56 - Abdominal Inspection: Normal Distension: No distension Bowel sounds: Normal Tenderness: Nontender Organomegaly: No organomegaly Course - Re-evaluation Re-evalutation: 06/02/19 14:48 Patient is actively spitting up/vomiting green bile in triage. I have greeted and performed a rapid initial assessment of this patient. A comprehensive ED assessment and evaluation of the patient, analysis of test results and completion of the medical decision making process will be conducted by additional ED providers. - Vital Signs Vital signs: Temp Pulse Resp BP Pulse Ox 97.5 F 102 H 18 158/82 H 99 06/02/19 13:56 06/02/19 13:56 06/02/19 13:56 06/02/19 13:56 06/02/19 13:56 Doctor's Discharge - Discharge Referrals: RADHA MARIE MD [Primary Care Provider] - Follow up as needed
[2019-06-02 16:25] LABS: ABSOLUTE LYMPHOCYTES (AUTO) 1.2 10^3/uL (0.5-4.7); ABSOLUTE MONOCYTES (AUTO) 0.5 10^3/uL (0.1-1.4); ABSOLUTE NEUT (AUTO) 8.7 10^3/uL (1.7-8.2); BASOPHILS % (AUTO) 0.4 % (0-2); EOSINOPHILS % (AUTO) 0.1 % (0-6); HEMATOCRIT 33.7 % (37.9-51.0); HEMOGLOBIN 11.3 g/dL (13.5-17.0); LYMPHOCYTES % (AUTO) 11.1 % (13-45); MEAN CORPUSCULAR HEMOGLOBIN 31.6 pg (27.0-33.4); MEAN CORPUSCULAR HGB CONC 33.5 g/dL (32.0-36.0); MEAN CORPUSCULAR VOLUME 94 fl (80-97); MONOCYTES % (AUTO) 4.4 % (3-13); PLATELET COUNT 330 10^3/uL (150-450); RED BLOOD COUNT 3.57 10^6/uL (4.35-5.55); RED CELL DISTRIBUTION WIDTH 12.7 % (11.5-14.0); TOTAL CELLS COUNTED % (AUTO) 100 %; WHITE BLOOD COUNT 10.4 10^3/uL (4.0-10.5)
--- NOTE | 2019-06-02 16:31 | ER Document Report ---
ED GI/ - General Chief Complaint: Nausea/Vomiting Stated Complaint: VOMITING Time Seen by Provider: 06/02/19 14:41 Primary Care Provider: ROS AMAYA MD [Primary Care Provider] - Follow up as needed Mode of Arrival: Ambulatory Information source: Relative - Notes: 83-year-old male presented to ED for complaint of vomiting about 2 hours before arrival. states the vomitus was green bile looking. She states she also had some upper abdominal pain. He denies any pain at this time. He denies any shortness of breath nausea or vomiting since he came in. states there was no blood in the vomitus. He has had normal bowel movements and is only vomited the one time. She states there is no other problems with himself. She states she tried to get him to drink some Ensure and he vomited. Patient has a history of dementia and does not answer all questions appropriate but states this is his normal. She states he has had dementia for about 6 to 8 months. TRAVEL OUTSIDE OF THE [place] IN LAST 30 DAYS: No - HPI Patient complains to provider of: Abdominal pain, Vomiting. No: Diarrhea Onset: Other - 2 hours before arrival Timing/Duration: Gone Quality of pain: No pain Severity at maximum: Moderate Severity in ED: None Pain Level: Denies Location: LUQ, RUQ Associated symptoms: Vomiting - Several times over a 2-hour. No longer vomiting no longer nauseated and denies pain Exacerbated by: Denies Relieved by: Denies Similar symptoms previously: No Recently seen / treated by doctor: No - Related Data Allergies/Adverse Reactions: No Known Allergies Allergy (Verified 06/02/19 13:54) Past Medical History - General Information source: Patient - Social History Smoking Status: Former Smoker Cigarette use (# per day): No Frequency of alcohol use: None Drug Abuse: None Lives with: Family Family History: None, Reviewed & Not Pertinent Patient has suicidal ideation: No Patient has homicidal ideation: No - Past Medical History Cardiac Medical History: Reports: Hx Atrial Fibrillation - Paroxysmal, Hx Hypert ension Pulmonary Medical History: Reports: None EENT Medical History: Reports: None Neurological Medical History: Reports: None Endocrine Medical History: Reports: None Renal/ Medical History: Reports: None Malignancy Medical History: Reports Hx Prostate Cancer - Prostatectomy GI Medical History: Reports: Hx Gastroesophageal Reflux Disease, Hx Ulcer - 40 yrs ago?, Hx Colonoscopy Musculoskeletal Medical History: Reports Hx Arthritis, Reports Hx Musculoskeletal Deformity, Reports Hx Musculoskeletal Trauma Skin Medical History: Reports None Psychiatric Medical History: Reports: Other - Dementia Traumatic Medical History: Reports: None Infectious Medical History: Reports: None Past Surgical History: Reports: Hx Cardiac Surgery - pacemaker placement, Hx Oral Surgery - Dental surgery, Hx Orthopedic Surgery - left knee surgery, Hx Pacemaker, Other - Prostate removed - Immunizations Immunizations up to date: No Hx Diphtheria, Pertussis, Tetanus Vaccination: Yes Hx Pneumococcal Vaccination: 09/19/11 Review of Systems - Review of Systems Constitutional: No symptoms reported EENT: No symptoms reported Cardiovascular: No symptoms reported Respiratory: No symptoms reported Gastrointestinal: Abdominal pain, Vomiting Genitourinary: No symptoms reported Male Genitourinary: No symptoms reported Musculoskeletal: No symptoms reported Skin: No symptoms reported Hematologic/Lymphatic: No symptoms reported Neurological/Psychological: No symptoms reported -: Yes All other systems reviewed and negative Physical Exam - Vital signs Vitals: Temp Pulse Resp BP Pulse Ox 97.5 F 102 H 18 158/82 H 99 06/02/19 13:56 06/02/19 13:56 06/02/19 13:56 06/02/19 13:56 06/02/19 13:56 Interpretation: Normal - General General appearance: Appears well, Alert - HEENT Head: Normocephalic, Atraumatic Eyes: Normal Pupils: PERRL - Respiratory Respiratory status: No respiratory distress Chest status: Nontender Breath sounds: Normal Chest palpation: Normal - Cardiovascular Rhythm: Regular Heart sounds: Normal auscultation Murmur: No - Abdominal Inspection: Normal Distension: No distension Bowel sounds: Normal Tenderness: Nontender Organomegaly: No organomegaly - Back Back: Normal, Nontender - Extremities General upper extremity: Normal inspection, Nontender, Normal color, Normal ROM, Normal temperature General lower extremity: Normal inspection, Nontender, Normal color, Normal ROM, Normal temperature, Normal weight bearing. 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 Patient has dementia so everything was discussed with the . verbalized understanding and agreement with treatment plan and patient was discharged home. Patient did not have any pain at the time of discharge. states he has not had any vomiting except for one time earlier in the day. - Vital Signs Vital signs: Temp Pulse Resp BP Pulse Ox 98.0 F 69 16 158/86 H 98 06/02/19 18:06 06/02/19 18:06 06/02/19 18:06 06/02/19 18:06 06/02/19 18:06 - Laboratory Result Diagrams: 06/02/19 15:48 06/02/19 15:48 Laboratory results interpreted by me: 06/02/19 06/02/19 06/02/19 15:48 15:48 16:20 RBC 3.57 L Hgb 11.3 L Hct 33.7 L Lymph % (Auto) 11.1 L Absolute Neuts (auto) 8.7 H Seg Neutrophils % 84.0 H BUN 24 H Creatinine 1.86 H Est GFR ( Amer) 42 L Est GFR (MDRD) Non-Af 35 L Glucose 180 H Calcium 10.7 H Urine Urobilinogen 2.0 H Urine Ascorbic Acid 40 H Discharge - Discharge Clinical Impression: Nausea & vomiting Qualifiers: Vomiting type: unspecified Vomiting Intractability: non-intractable Qualified Code(s): R11.2 - Nausea with vomiting, unspecified Condition: Stable Disposition: HOME, SELF-CARE Additional Instructions: VOMITING: Vomiting (or nausea without vomiting) can be caused by many other different problems. It can mean that something's wrong with the stomach, such as ulcers or inflammation or the intestinal tract, such as appendicitis. But it can also be a symptom of a problem that has nothing to do with the stomach or intestines. Vomiting is common with severe headaches, earaches, tonsillitis, and kidney infections, etc. We see it with pneumonia or heart attacks. Drugs can cause nausea and vomiting. Many abdominal problems cause vomiting; for example, gallstones, kidney stones, pancreatitis, and intestinal obstruction (blocked bowels). In most cases, curing the vomiting depends on fixing the problem that caused it. For temporary relief, we may use an anti-nausea medicine. For home use, we can prescribe suppositories, chewable pills, pills that dissolve in the mouth, or liquid anti-nausea drugs. If the vomiting seems to be caused by a problem in the stomach, acid-suppressing drugs may be prescribed as well. It's important to avoid dehydration. Sip small amounts of clear liquids (soft drinks, tea, broth, etc) . Try to take fluids frequently even if you are vomiting to prevent dehydration. Take increasing amounts of fluid and when liquids are being consumed successfully, advance to small amounts of bland food (toast, soups, mashed potatoes, etc.) until you are able to resume a regular diet. Avoid aspirin, tobacco, and alcohol. If the vomiting worsens, if the problem that's making you vomit worsens, or if there's evidence of bleeding in the stomach (such as black, tarry stool, or bloody or black vomit), you should return immediately. Also, return if abdominal pain worsens or becomes localized to one area or you develop high fever. Call your doctor if you aren't improved in 24 hours. Diabetes You have an abnormally high blood sugar, suspicious for diabetes. Not all high blood sugar requires long-term treatment. High blood sugar can be due to medications, , or the stress of illness. (These cases are "borderline diabetes.") If the doctor feels your high blood sugar might get better with time, you may not require treatment now. You will be scheduled for further evaluation. It's very important that you follow through. Uncontrolled high blood sugar leads to early heart disease, strokes, nerve damage, eye damage, and kidney damage. All diabetics should follow a diet designed to control the blood sugar. Overweight diabetics should exercise regularly and lose weight. If this is not sufficient to control the blood sugar, pills or insulin shots are necessary. Younger people who develop diabetes almost always require insulin daily. Home testing of blood sugars or urine sugar is required. Diabetic teaching is available to help you figure insulin doses and monitor the blood sugar. Call the physician if there is faintness, excess sleepiness, or very rapid breathing. If hypoglycemia (LOW blood sugar) develops, symptoms are shakiness, weakness, sweating, and confusion. In this case, you should eat or drink something with sugar at once. Your has renal insufficiency or your kidneys are not working completely properly at this time. I have given you a list of your previous labs and your labs today. He has had this in the past as well as the elevated blood sugars. Please follow-up with your primary doctor on Tuesday and discuss these. VIRAL SYNDROME: The physician has diagnosed a viral infection. Viruses not only cause "colds," but can cause many different symptoms including generalized aching, fever, headache, cough, diarrhea, nausea, vomiting, and fatigue. The treatment, for the most part, is simply relief of symptoms. This means that antibiotics are usually not given. Rest, fluids, pain medications and, occasionally, medication for the specific symptoms that are most bothersome will be prescribed. Use good handwashing to avoid passing the virus to others. Shared toys should be cleaned with disinfectant. Clean the toilets, sinks, and counter surfaces in bathrooms. Launder clothing in hot water. Contact the physician if you develop any new or unusual symptoms such as severe headache, stiff neck, high fever, chest pain, productive cough, or shortness of breath. You should be rechecked if you don't see marked improvement within seven to 10 days. ANTINAUSEA MEDICATION: You have been given a medication to suppress nausea and vomiting. This type of medication can be given as a shot, pill, or suppository. It will usually last for many hours. Pills and shots usually last six to eight hours. For the typical illness, only one or two doses of the medication may be necessary. Mild lightheadedness may occur. This type of medicine can cause drowsiness. Do not drive or operate dangerous machinery while under its influence. Do not mix with alcohol. See your doctor at once if you have muscle spasms or tightness, or uncontrollable motions (particularly of the neck, mouth, or jaw). Persistent vomiting or severe lightheadedness should also be evaluated by the physician. FOLLOW-UP CARE: If you have been referred to a physician for follow-up care, call the physicians office for an appointment as you were instructed or within the next two days. If you experience worsening or a significant change in your symptoms, notify the physician immediately or return to the Emergency Department at any time for re-evaluation. Prescriptions: Ondansetron [Zofran Odt 4 mg Tablet] 1 tab PO Q6H #15 tab.rapdis Forms: Elevated Blood Pressure Referrals: ROS AMAYA MD [Primary Care Provider] - Follow up as needed
[2019-06-02 16:34] LABS: ALBUMIN 4.7 g/dL (3.5-5.0); ALKALINE PHOSPHATASE 95 U/L (38-126); ANION GAP 12 (5-19); ASPARTATE AMINO TRANSFERASE 22 U/L (17-59); BILIRUBIN,DIRECT 0.3 mg/dL (0.0-0.4); BILIRUBIN,TOTAL 0.4 mg/dL (0.2-1.3); BLOOD UREA NITROGEN 24 mg/dL (7-20); CALCIUM 10.7 mg/dL (8.4-10.2); CARBON DIOXIDE 23 mmol/L (22-30); CHLORIDE 107 mmol/L (98-107); GLUCOSE 180 mg/dL (75-110); POTASSIUM 4.1 mmol/L (3.6-5.0); TOTAL PROTEIN 8.1 g/dL (6.3-8.2)
[2019-06-02 16:59] LABS: APPEARANCE,URINE CLEAR; BILIRUBIN,URINE NEGATIVE (NEGATIVE); COLOR,URINE YELLOW; GLUCOSE, URINE NEGATIVE (NEGATIVE); KETONES,URINE NEGATIVE (NEGATIVE); LEUKOCYTE ESTERASE,URINE NEGATIVE (NEGATIVE); NITRITE,URINE NEGATIVE (NEGATIVE); PROTEIN,URINE NEGATIVE (NEGATIVE); URINE SPECIFIC GRAVITY 1.017
[2019-06-02 18:08] VITALS: BP 158/86
== END 2019-06-02 18:12 | disposition home or self-care (01) ==
LOC: ER 13:51
DX: R11.2 Nausea with vomiting, unspecified (principal); R10.10 Upper abdominal pain, unspecified; F03.90 Unspecified dementia, unspecified severity, without behavioral disturbance, psychotic disturbance, mood disturbance, and anxiety; I10 Essential (primary) hypertension; Z85.46 Personal history of malignant neoplasm of prostate; Z95.0 Presence of cardiac pacemaker; Z87.891 Personal history of nicotine dependence; Z87.19 Personal history of other diseases of the digestive system
CPT/HCPCS: 36415; 83690; 85025; 80053; 81001; A9270; 99283; S0119

== ENCOUNTER → 2019-10-02 | Outpatient (CLI) | payer MEDICARE, MEDICAID ==
[2019-10-02 14:50] LABS: ABSOLUTE BASOPHILS # (AUTO) 0.1 10^3/uL (0.0-0.2); ABSOLUTE LYMPHOCYTES (AUTO) 1.6 10^3/uL (0.5-4.7); ABSOLUTE MONOCYTES (AUTO) 0.3 10^3/uL (0.1-1.4); ABSOLUTE NEUT (AUTO) 3.1 10^3/uL (1.7-8.2); BASOPHILS % (AUTO) 1.2 % (0-2); EOSINOPHILS % (AUTO) 0.5 % (0-6); HEMATOCRIT 32.7 % (37.9-51.0); HEMOGLOBIN 10.9 g/dL (13.5-17.0); MEAN CORPUSCULAR HEMOGLOBIN 31.5 pg (27.0-33.4); MEAN CORPUSCULAR HGB CONC 33.3 g/dL (32.0-36.0); MEAN CORPUSCULAR VOLUME 95 fl (80-97); MONOCYTES % (AUTO) 6.4 % (3-13); PLATELET COUNT 288 10^3/uL (150-450); RED BLOOD COUNT 3.46 10^6/uL (4.35-5.55); SEGMENTED NEUTROPHILS % (AUTO) 59.9 % (42-78); TOTAL CELLS COUNTED % (AUTO) 100 %; WHITE BLOOD COUNT 5.1 10^3/uL (4.0-10.5)
[2019-10-02 15:13] LABS: ALBUMIN 4.2 g/dL (3.5-5.0); ALKALINE PHOSPHATASE 85 U/L (38-126); ANION GAP 10 (5-19); ASPARTATE AMINO TRANSFERASE 15 U/L (17-59); BILIRUBIN,DIRECT 0.3 mg/dL (0.0-0.4); BILIRUBIN,TOTAL 0.5 mg/dL (0.2-1.3); BLOOD UREA NITROGEN 17 mg/dL (7-20); CALCIUM 10.6 mg/dL (8.4-10.2); CARBON DIOXIDE 26 mmol/L (22-30); CHLORIDE 108 mmol/L (98-107); CHOLESTEROL 210.85 mg/dL (0-200); GLUCOSE 100 mg/dL (75-110); POTASSIUM 4.3 mmol/L (3.6-5.0); TOTAL PROTEIN 7.9 g/dL (6.3-8.2); TRIGLYCERIDES 130 mg/dL (<150)
[2019-10-02 15:24] LABS: DIRECT LDL 125 mg/dL (<100)
== END ==
LOC: OD 14:07
PROVIDERS: ATTEND Internal Medicine Geriatric Medicine
DX: I10 Essential (primary) hypertension (principal)
CPT/HCPCS: 36415; 80053; 80061; 85025

== ENCOUNTER 2020-04-03 13:52 | Inpatient (IN) | payer MEDICARE, MEDICAID ==
--- NOTE | 2020-04-03 14:20 | ER Document Report ---
ED Medical Screen (RME) - General Chief Complaint: Altered Mental Status Stated Complaint: WEAKNESS Time Seen by Provider: 04/03/20 14:11 Primary Care Provider: ROS AMAYA MD [Primary Care Provider] - Follow up as needed Mode of Arrival: Wheelchair Information source: Relative - Notes: 84-year-old male presented to ED for incontinence of stool unable to walk new onset weakness. states he has a long history of dementia but his elbow is been able to walk. She states around noon he kept getting sleepy falling asleep on her she could not get him to wake up could not get him to walk and is very weak. She states she had to have someone help her to get him in the car and brought him to the emergency room. She states this is not his normal. She states yesterday she took him to the section leader [facility] machine setter to get his toenails clipped and that is the only change in his history. Patient is able to speak but a lot of what he says does not make sense. I have greeted and performed a rapid initial assessment of this patient. A comprehensive ED assessment and evaluation of the patient, analysis of test results and completion of medical decision making process will be conducted by an additional ED providers. TRAVEL OUTSIDE OF THE [place] IN LAST 30 DAYS: No - Related Data Allergies/Adverse Reactions: No Known Allergies Allergy (Verified 06/02/19 13:54) Past Medical History - Past Medical History Cardiac Medical History: Reports: Hx Atrial Fibrillation - Paroxysmal, Hx Hypertension Denies: Hx Congestive Heart Failure, Hx Coronary Artery Disease, Hx Heart Attack, Hx Hypercholesterolemia, Hx Peripheral Vascular Disease, Hx Pulmonary Embolism, Hx Heart Murmur Pulmonary Medical History: Denies: Hx Asthma, Hx Bronchitis, Hx COPD, Hx Pneumonia, Hx Respiratory Failure, Hx Sleep Apnea, Hx Tuberculosis Neurological Medical History: Denies: Hx Cerebrovascular Accident, Hx Seizures, Hx Parkinson's Disease Endocrine Medical History: Denies: Hx Diabetes Mellitus Type 1, Hx Diabetes Mellitus Type 2, Hx Graves' Disease, Hx Hyperthyroidism, Hx Hypothyroidism Renal/ Medical History: Reports: Hx Benign Prostatic Hyperplasia. Denies: Hx End Stage Renal Disease, Hx Kidney Stones, Hx Peritoneal Dialysis Malignancy Medical History: Denies Hx Leukemia, Denies Hx Lung Cancer, Reports Hx Prostate Cancer - Prostatectomy GI Medical History: Reports: Hx Gastroesophageal Reflux Disease, Hx Ulcer - 40 yrs ago?, Hx Colonoscopy. Denies: Hx Crohn's Disease, Hx Diverticulitis, Hx Gastritis, Hx Hepatitis, Hx Hiatal Hernia, Hx Irritable Bowel, Hx Liver Failure, Hx Pancreatitis Musculoskeltal Medical History: Reports Hx Arthritis, Denies Hx Fibromyalgia, Denies Hx Multiple Sclerosis, Denies Hx Muscular Dystrophy, Reports Hx Musculoskeletal Deformity, Reports Hx Musculoskeletal Trauma, Denies Hx Systemic Lupus Erythematosus Psychiatric Medical History: Denies: Hx Bipolar Disorder, Hx Dementia, Hx Depression, Hx Post Traumatic Stress Disorder, Hx Schizophrenia Traumatic Medical History: Denies: Hx Fractures Infectious Medical History: Denies: Hx Hepatitis, Hx HIV Past Surgical History: Reports: Hx Cardiac Surgery - pacemaker placement, Hx Oral Surgery - Dental surgery, Hx Orthopedic Surgery - left knee surgery, Hx Pacemaker, Other - Prostate removed. Denies: Hx Appendectomy, Hx Bowel Surgery, Hx Cholecystectomy, Hx Colostomy, Hx Coronary Artery Bypass Graft, Hx Gastric Bypass Surgery, Hx Herniorrhaphy, Hx Open Heart Surgery, Hx Tonsillectomy - Immunizations Immunizations up to date: No Hx Diphtheria, Pertussis, Tetanus Vaccination: Yes Physical Exam - Vital signs Vitals: Temp Pulse Resp BP Pulse Ox 97.8 F 78 20 94/55 L 100 04/03/20 14:12 04/03/20 14:12 04/03/20 14:12 04/03/20 14:12 04/03/20 14:12 Course - Vital Signs Vital signs: Temp Pulse Resp BP Pulse Ox 97.8 F 78 20 94/55 L 100 04/03/20 14:12 04/03/20 14:12 04/03/20 14:12 04/03/20 14:12 04/03/20 14:12 Doctor's Discharge - Discharge Referrals: ROS AMAYA MD [Primary Care Provider] - Follow up as needed
[2020-04-03] MEDS ORDERED: NORMAL SALINE 1000 ML 1,000 ML IV ONE (14:37)
--- NOTE | 2020-04-03 14:37 | RADIOLOGY REPORT (SQ) ---
EXAM DESCRIPTION: CHEST SINGLE VIEW IMAGES COMPLETED DATE/TIME: 04/03/2020 2:25 pm REASON FOR STUDY: New onset weakness unable to ambulate chronic zena COMPARISON: None. EXAM PARAMETERS: NUMBER OF VIEWS: One view. TECHNIQUE: Single frontal radiographic view of the chest acquired. RADIATION DOSE: NA LIMITATIONS: None. FINDINGS: LUNGS AND PLEURA: No opacities, masses or pneumothorax. No pleural effusion. MEDIASTINUM AND HILAR STRUCTURES: No masses. Contour normal. HEART AND VASCULAR STRUCTURES: Heart size is borderline. No pulmonary edema. BONES: No acute findings. HARDWARE: Pacemaker. OTHER: No other significant finding. IMPRESSION: Borderline cardiomegaly. No gregoria pulmonary edema. TECHNICAL DOCUMENTATION: JOB ID: [id number] 2010 [employer]- All Rights Reserved Reading location - IP/workstation name: [email or web address]
--- NOTE | 2020-04-03 14:42 | RADIOLOGY REPORT (SQ) ---
EXAM DESCRIPTION: CT HEAD WITHOUT IMAGES COMPLETED DATE/TIME: 04/03/2020 2:29 pm REASON FOR STUDY: New onset weakness unable to ambulate chronic zena COMPARISON: 10/18/2018 TECHNIQUE: Axial images acquired through the brain without intravenous contrast. Images reviewed wi th bone, brain and subdural windows. Additional sagittal and coronal reconstructions were generated. Images stored on PACS. All CT scanners at this facility use dose modulation, iterative reconstruction, and/or weight based d osing when appropriate to reduce radiation dose to as low as reasonably achievable (ALARA). [facility]: Dose Right [facility]: CareDose [facility]: Dose Right [facility]: Teradose 4D [facility]: Smart GT Solar RADIATION DOSE: CT Rad equipment meets quality standard of care and radiation dose reduction techniq ues were employed. CTDIvol: 55.2 mGy. DLP: 1056 mGy-cm. mGy. LIMITATIONS: None. FINDINGS: VENTRICLES: Prominent ventricles secondary to involutional atrophy. CEREBRUM: Cortical at a. No masses. No hemorrhage. No midline shift. No evidence for acute infarct ion. Few scattered areas of low density in the white matter most likely chronic small vessel ischemic changes. CEREBELLUM: No masses. No hemorrhage. No alteration of density. No evidence for acute infarction. EXTRAAXIAL SPACES: Chronic subdural fluid collections are once again seen but are smaller, measuring 12.7 mm in depth in the right frontal region and 10.3 mm in depth on the left. ORBITS AND GLOBE: No intra- or extraconal masses. Normal contour of globe without masses. CALVARIUM: No fracture. PARANASAL SINUSES: No fluid or mucosal thickening. SOFT TISSUES: No mass or hematoma. OTHER: No other significant finding. IMPRESSION: Involutional changes with mild chronic microvascular ischemia. Chronic frontal subdural fluid collections are smaller than on the prior study. EVIDENCE OF ACUTE STROKE: NO. COMMENT: Quality ID # [id number]: Final reports with documentation of one or more dose reduction techniques (e.g., Automated exposure control, adjustment of the mA and/or kV according to patient size, use of iterative reconstruction technique) TECHNICAL DOCUMENTATION: JOB ID: [id number] 2010 [employer]- All Rights Reserved Reading location - IP/workstation name: [email or web address]
[2020-04-03 15:00] LABS: ABSOLUTE EOSINOPHILS # (AUTO) 0.1 10^3/uL (0.0-0.6); ABSOLUTE LYMPHOCYTES (AUTO) 1.2 10^3/uL (0.5-4.7); ABSOLUTE MONOCYTES (AUTO) 0.4 10^3/uL (0.1-1.4); ABSOLUTE NEUT (AUTO) 2.7 10^3/uL (1.7-8.2); BASOPHILS % (AUTO) 0.4 % (0-2); EOSINOPHILS % (AUTO) 1.4 % (0-6); HEMATOCRIT 31.2 % (37.9-51.0); HEMOGLOBIN 10.3 g/dL (13.5-17.0); LYMPHOCYTES % (AUTO) 28.2 % (13-45); MEAN CORPUSCULAR HEMOGLOBIN 31.4 pg (27.0-33.4); MEAN CORPUSCULAR HGB CONC 33.1 g/dL (32.0-36.0); MEAN CORPUSCULAR VOLUME 95 fl (80-97); MONOCYTES % (AUTO) 8.8 % (3-13); PLATELET COUNT 267 10^3/uL (150-450); RED BLOOD COUNT 3.29 10^6/uL (4.35-5.55); SEGMENTED NEUTROPHILS % (AUTO) 61.2 % (42-78); TOTAL CELLS COUNTED % (AUTO) 100 %; WHITE BLOOD COUNT 4.4 10^3/uL (4.0-10.5)
[2020-04-03 15:02] LABS: PARTIAL THROMBOPLASTIN TIME 30.2 SEC (23.5-35.8)
[2020-04-03 15:10] LABS: INTERNATIONAL RATION (INR) 1.06; PROTHROMBIN TIME 13.8 SEC (11.4-15.4)
[2020-04-03 15:23] LABS: ALKALINE PHOSPHATASE 71 U/L (38-126); ANION GAP 5 (5-19); ASPARTATE AMINO TRANSFERASE 14 U/L (17-59); BILIRUBIN,TOTAL 0.3 mg/dL (0.2-1.3); BLOOD UREA NITROGEN 18 mg/dL (7-20); CALCIUM 10.1 mg/dL (8.4-10.2); CARBON DIOXIDE 26 mmol/L (22-30); CHLORIDE 107 mmol/L (98-107); CREATINE KINASE 52 U/L (55-170); GLUCOSE 129 mg/dL (75-110); POTASSIUM 3.9 mmol/L (3.6-5.0); TOTAL PROTEIN 7.3 g/dL (6.3-8.2)
[2020-04-03 15:38] LABS: CREATINE KINASE MB 0.48 ng/mL (<4.55)
[2020-04-03 15:41] LABS: TROPONIN I < 0.012 ng/mL
--- NOTE | 2020-04-03 15:51 | ER Document Report ---
ED General - General Chief Complaint: Altered Mental Status Stated Complaint: WEAKNESS Time Seen by Provider: 04/03/20 14:11 Primary Care Provider: ROS AMAYA MD [Primary Care Provider] - Follow up as needed Mode of Arrival: Wheelchair TRAVEL OUTSIDE OF THE [place] IN LAST 30 DAYS: No - HPI Notes: Chief complaint: Weakness History of present illness: 84-year-old male followed by Dr. Scott with history of old CVA and dementia at baseline brought in for family for evaluation of insidious onset generalized weakness over the past 2 to 3 days. They feel this is worse today. Noted to have some incontinence of stool today by family members which is different from his usual pattern. states he has a long history of dementia but is normally able to walk independently. She states around noon he kept getting sleepy falling asleep on her she could not get him to wake up could not get him to walk and is very weak. No fever or vomiting is reported. No cough or shortness of breath is reported. - Related Data Allergies/Adverse Reactions: No Known Allergies Allergy (Verified 06/02/19 13:54) Past Medical History - General Information source: Relative - Cannot obtain history due to: Dementia - Social History Smoking Status: Unknown if Ever Smoked Family History: None, Reviewed & Not Pertinent - Past Medical History Cardiac Medical History: Reports: Hx Atrial Fibrillation - Paroxysmal, Hx Hypertension Denies: Hx Congestive Heart Failure, Hx Coronary Artery Disease, Hx Heart Attack, Hx Hypercholesterolemia, Hx Peripheral Vascular Disease, Hx Pulmonary Embolism, Hx Heart Murmur Pulmonary Medical History: Denies: Hx Asthma, Hx Bronchitis, Hx COPD, Hx Pneumonia, Hx Respiratory Failure, Hx Sleep Apnea, Hx Tuberculosis Neurological Medical History: Denies: Hx Cerebrovascular Accident, Hx Seizures, Hx Parkinson's Disease Endocrine Medical History: Denies: Hx Diabetes Mellitus Type 1, Hx Diabetes Mellitus Type 2, Hx Graves' Disease, Hx Hyperthyroidism, Hx Hypothyroidism Renal/ Medical History: Reports: Hx Benign Prostatic Hyperplasia. Denies: Hx End Stage Renal Disease, Hx Kidney Stones, Hx Peritoneal Dialysis Malignancy Medical History: Denies Hx Leukemia, Denies Hx Lung Cancer, Reports Hx Prostate Cancer - Prostatectomy GI Medical History: Reports: Hx Gastroesophageal Reflux Disease, Hx Ulcer - 40 yrs ago?, Hx Colonoscopy. Denies: Hx Crohn's Disease, Hx Diverticulitis, Hx Gastritis, Hx Hepatitis, Hx Hiatal Hernia, Hx Irritable Bowel, Hx Liver Failure, Hx Pancreatitis Musculoskeletal Medical History: Reports Hx Arthritis, Denies Hx Fibromyalgia, Denies Hx Multiple Sclerosis, Denies Hx Muscular Dystrophy, Reports Hx Musculoskeletal Deformity, Reports Hx Musculoskeletal Trauma, Denies Hx Systemic Lupus Erythematosus Psychiatric Medical History: Denies: Hx Bipolar Disorder, Hx Dementia, Hx Depression, Hx Post Traumatic Stress Disorder, Hx Schizophrenia Traumatic Medical History: Denies: Hx Fractures Infectious Medical History: Denies: Hx Hepatitis, Hx HIV Past Surgical History: Reports: Hx Cardiac Surgery - pacemaker placement, Hx Oral Surgery - Dental surgery, Hx Orthopedic Surgery - left knee surgery, Hx Pacemaker, Other - Prostate removed. Denies: Hx Appendectomy, Hx Bowel Surgery, Hx Cholecystectomy, Hx Colostomy, Hx Coronary Artery Bypass Graft, Hx Gastric Bypass Surgery, Hx Herniorrhaphy, Hx Open Heart Surgery, Hx Tonsillectomy - Immunizations Immunizations up to date: No Hx Diphtheria, Pertussis, Tetanus Vaccination: Yes Hx Pneumococcal Vaccination: 09/19/11 Review of Systems - Review of Systems -: Yes ROS unobtainable due to patient's medical condition Physical Exam - Vital signs Vitals: Temp Pulse Resp BP Pulse Ox 97.8 F 78 20 94/55 L 100 04/03/20 14:12 04/03/20 14:12 04/03/20 14:12 04/03/20 14:12 04/03/20 14:12 - Notes Notes: GENERAL: Frail elderly man appearing in no acute distress. SKIN: Good turgor no rashes. HEAD: Normocephalic atraumatic. EYES: Bilateral arcus senilis. PERRLA. EOMI. Conjunctivae and sclerae clear. EARS: CANALS AND TMS CLEAR. NOSE: CLEAR. MOUTH: Moist mucosa. Good dentition. No stridor or edema. No drooling. NECK: Supple. No masses or thyromegaly. No adenopathy. Carotids 2+ without bruits. No JVD. BACK: Symmetrical without tenderness. CHEST: Respirations unlabored. Breath sounds clear and symmetrical. HEART: Regular rhythm. No murmur gallop or rub. ABDOMEN: Soft nontender without masses, organomegaly or rebound. Bowel sounds normally active. No bruits. GENITALIA: Deferred. EXTREMITIES: No edema. No calf tenderness. Cap refill less than 1.5 seconds. Dorsalis pedis and posterior tibial pulses 2+ and symmetrical. NEUROLOGICAL: Patient is disoriented and confabulating which is apparently his baseline. He is moving all 4 extremities symmetrically and I do not detect any clear-cut focal weakness. Course - Re-evaluation Re-evalutation: 04/03/20 19:06 Elderly gentleman with some generalized weakness noted this afternoon by family. He is not running a fever. His head CT does not show any new findings. He does not appear to have any lateralizing neurologic signs or lateralizing weakness on my exam. His urinalysis is unremarkable. His chest x-ray shows no infiltrate. His troponin is normal. His EKG shows an atrial paced rhythm unchanged from baseline. His CBC shows mild anemia which is chronic and unchanged. His creatinine is about 1.2 which is consistent with his usual baseline. The remainder of his comprehensive metabolic profile is unremarkable. Patient received some IV hydration here. We are still not able to get this gentleman to stand without assistance. Case was discussed with his primary physician Dr. Amaya who at this time will admit him to a telemetry bed on observation status. - Vital Signs Vital signs: Temp Pulse Resp BP Pulse Ox 97.8 F 70 14 145/93 H 100 04/03/20 14:12 04/03/20 14:55 04/03/20 17:01 04/03/20 17:01 04/03/20 15:01 - Laboratory Result Diagrams: 04/03/20 14:35 04/03/20 14:35 Laboratory results interpreted by me: 04/03/20 04/03/20 04/03/20 14:32 14:35 14:35 RBC 3.29 L Hgb 10.3 L Hct 31.2 L Creatinine 1.41 H Est GFR ( Amer) 58 L Est GFR (MDRD) Non-Af 48 L Glucose 129 H POC Glucose 136 H AST 14 L Ammonia Creatine Kinase 52 L Urine Urobilinogen 04/03/20 04/03/20 15:20 16:14 RBC Hgb Hct Creatinine Est GFR ( Amer) Est GFR (MDRD) Non-Af Glucose POC Glucose AST Ammonia < 8.7 L Creatine Kinase Urine Urobilinogen 2.0 H - EKG Interpretation by Me Additional EKG results interpreted by me: 04/03/20 19:05 Twelve-lead EKG from 1539 hrs. was reviewed contemporaneously by me demonstrating atrial paced rhythm. There were no interval changes compared with prior tracing dated 08/03/2018. Indication for current study: Altered mental status. Discharge - Discharge Clinical Impression: Dehydration Senile dementia Qualifiers: Dementia behavioral disturbance: without behavioral disturbance Qualified Code(s): F03.90 - Unspecified dementia without behavioral disturbance Disposition: ADMITTED OBSERVATION Admitting Provider: Huy Referrals: ROS AMAYA MD [Primary Care Provider] - Follow up as needed
[2020-04-03 18:06] LABS: APPEARANCE,URINE CLEAR; BILIRUBIN,URINE NEGATIVE (NEGATIVE); COLOR,URINE YELLOW; GLUCOSE, URINE NEGATIVE (NEGATIVE); KETONES,URINE NEGATIVE (NEGATIVE); PROTEIN,URINE NEGATIVE (NEGATIVE); URINE SPECIFIC GRAVITY 1.017
--- NOTE | 2020-04-03 18:21 | EKG REPORT ---
SEVERITY:- ABNORMAL ECG - ATRIAL-PACED COMPLEXES PROBABLE LEFT ATRIAL ABNORMALITY : Confirmed by: Amish Lawson MD 03-Apr-2020 18:21:11
[2020-04-03] MEDS ORDERED: NORMAL SALINE 1000 ML 1,000 ML IV PRN (21:29)
[2020-04-03] MEDS: QUETIAPINE FUMARATE 25 MG TABLET PO SCH (21:57)
[2020-04-03] MEDS: NORMAL SALINE 1000 ML 1,000 ML with POTASSIUM CHLORIDE 20 MEQ, MAGNESIUM SULFATE 8 MEQ,... IV SCH ×5 (22:59)
[2020-04-03] MEDS: DILTIAZEM HCL 30 MG TABLET PO SCH (23:11)
[2020-04-04] MEDS: PANTOPRAZOLE SODIUM 40 MG TABLET.DR PO SCH (05:14)
[2020-04-04] MEDS: DILTIAZEM HCL 30 MG TABLET PO SCH ×4 (05:14→23:11)
[2020-04-04 06:10] LABS: ABSOLUTE EOSINOPHILS # (AUTO) 0.1 10^3/uL (0.0-0.6); ABSOLUTE LYMPHOCYTES (AUTO) 1.9 10^3/uL (0.5-4.7); ABSOLUTE MONOCYTES (AUTO) 0.4 10^3/uL (0.1-1.4); BASOPHILS % (AUTO) 0.5 % (0-2); EOSINOPHILS % (AUTO) 1.9 % (0-6); LYMPHOCYTES % (AUTO) 34.8 % (13-45); MEAN CORPUSCULAR HEMOGLOBIN 31.7 pg (27.0-33.4); MEAN CORPUSCULAR HGB CONC 33.4 g/dL (32.0-36.0); MEAN CORPUSCULAR VOLUME 95 fl (80-97); MONOCYTES % (AUTO) 8.1 % (3-13); PLATELET COUNT 227 10^3/uL (150-450); RED BLOOD COUNT 3.16 10^6/uL (4.35-5.55); RED CELL DISTRIBUTION WIDTH 12.8 % (11.5-14.0); SEGMENTED NEUTROPHILS % (AUTO) 54.7 % (42-78); TOTAL CELLS COUNTED % (AUTO) 100 %; WHITE BLOOD COUNT 5.5 10^3/uL (4.0-10.5)
[2020-04-04 06:24] LABS: ALBUMIN 3.7 g/dL (3.5-5.0); ALKALINE PHOSPHATASE 67 U/L (38-126); ANION GAP 5 (5-19); ASPARTATE AMINO TRANSFERASE 16 U/L (17-59); BILIRUBIN,TOTAL 0.5 mg/dL (0.2-1.3); BLOOD UREA NITROGEN 14 mg/dL (7-20); CALCIUM 9.7 mg/dL (8.4-10.2); CARBON DIOXIDE 24 mmol/L (22-30); CHLORIDE 109 mmol/L (98-107); GLUCOSE 93 mg/dL (75-110); POTASSIUM 4.1 mmol/L (3.6-5.0)
[2020-04-04] MEDS: NORMAL SALINE 1000 ML 1,000 ML IV PRN ×2 (09:38→21:07)
[2020-04-04] MEDS ORDERED: ENOXAPARIN SODIUM INJ 40 MG/0.4 ML DISP.SYRIN SUBCUT SCH (10:00)
[2020-04-04] MEDS: FERROUS SULFATE 325 MG TABLET PO SCH (10:11)
[2020-04-04] MEDS: QUETIAPINE FUMARATE 25 MG TABLET PO SCH ×2 (10:12→21:06)
[2020-04-04] MEDS: PENTOXIFYLLINE 400 MG TABLET.SA PO SCH ×2 (10:15→19:09)
[2020-04-04] MEDS: BENAZEPRIL HCL 10 MG TABLET PO SCH (10:15)
[2020-04-04] MEDS: ENOXAPARIN SODIUM INJ 30 MG/0.3 ML DISP.SYRIN SUBCUT SCH (10:17)
--- NOTE | 2020-04-04 15:51 | PDOC H&P ---
History of Present Illness Admission Date/PCP: 04/03/20 19:42 ROS MONIQUE Patient complains of: Weakness, Difficulty with walking History of Present Illness: RASHAD GOODSON is a 84 year old male patient known to my practice who presented to the ED with spouse reporting that he was unable to transfer out of her car. She reported that she went to her chiropractor session with the patient and upon returning him he was unable to transfer out of her car which was unusual. She denied any preceding or associated event of loss of consciousness or seizure activity. No reported chest pain or difficulty with breathing. No fever or chills. No reported headache or focal weakness. His initial ED evaluation was unrevealing except for possible dehydration and generalized debility as well as his baseline dementia with behavioral problem. His spouse was advised ho spitalization for further evaluation and management. His morbidities are as listed below. Past Medical History Cardiac Medical History: Reports: Atrial Fibrillation - Paroxysmal, Hypertension Denies: Congestive Heart Failure, Coronary Artery Disease, Myocardial Infarction, Hyperlipidema, Peripheral Vascular Disease, Pulmonary Embolism, Heart Murmur Pulmonary Medical History: Denies: Asthma, Bronchitis, Chronic Obstructive Pulmonary Disease (COPD), Pneumonia, Respiratory Failure, Sleep Apnea, Tuberculosis Neurological Medical History: Denies: Seizures Endocrine Medical History: Denies: Diabetes Mellitus Type 1, Diabetes Mellitus Type 2, Hyperthyroidism, Hypothyroidism Renal/ Medical History: Denies: End Stage Renal Disease Malignancy Medical History: Denies: Breast Cancer, Cervical Cancer, Leukemia, Lung Cancer, Ovarian Cancer GI Medical History: Reports: Gastroesophageal Reflux Disease Denies: Crohn's Disease, Diverticulitis, Hepatitis, Hiatal Hernia Musculoskeltal Medical History: Reports: Arthritis Denies: Fibromyalgia Psychiatric Medical History: Denies: Bipolar Disorder, Dementia, Depression, Post Traumatic Stress Disord er Hematology: Denies: Anemia, Hemophilia, Sickle Cell Disease Infectious Medical History: Denies: HIV Past Surgical History Past Surgical History: Reports: Orthopedic Surgery - left knee surgery, Pacemaker, Other - Prostate removed Denies: Appendectomy, Cholecystectomy, Colostomy, Coronary Artery Bypass Graft, Gastric Bypass Surgery, Herniorrhaphy, Tonsillectomy Social History Smoking Status: Unknown if Ever Smoked Frequency of Alcohol Use: Rare Hx Recreational Drug Use: No Drugs: None Hx Prescription Drug Abuse: No Family History Family History: None, Reviewed & Not Pertinent Parental Family History Reviewed: Yes Children Family History Reviewed: Yes Sibling(s) Family History Reviewed.: Yes Medication/Allergy Home Medications: Omeprazole 20 mg PO QAM 12/12/16 Pentoxifylline [Pentoxil] 400 mg PO BID 12/12/16 Benazepril HCl 20 mg PO DAILY 04/14/17 Diltiazem HCl [Cardizem 30 mg Tablet] 15 mg PO Q6 04/03/20 Ferrous Sulfate [Feosol 325 mg Tablet] 325 mg PO DAILY 04/03/20 Furosemide [Lasix 20 mg Tablet] 20 mg PO DAILY 04/03/20 Quetiapine Fumarate [Seroquel 25 mg Tablet] 50 mg PO Q12 04/03/20 Allergies/Adverse Reactions: Penicillins Allergy (Verified 04/04/20 01:24) Review of Systems Constitutional: PRESENT: weakness. ABSENT: chills, fever(s), headache(s) Eyes: ABSENT: visual disturbances Ears: ABSENT: hearing changes Cardiovascular: ABSENT: chest pain, dyspnea on exertion, edema, orthropnea, palpitations Respiratory: ABSENT: cough, hemoptysis Gastrointestinal: ABSENT: abdominal pain, constipation, diarrhea, hematemesis, hematochezia, nausea, vomiting Genitourinary: ABSENT: dysuria, hematuria Musculoskeletal: ABSENT: joint swelling Integumentary: ABSENT: rash, wounds Neurological: ABSENT: abnormal gait, abnormal speech, confusion, dizziness, focal weakness, syncope Psychiatric: ABSENT: anxiety, depression, homidical ideation, suicidal ideation Endocrine: ABSENT: cold intolerance, heat intolerance, polydipsia, polyuria Hematologic/Lymphatic: ABSENT: easy bleeding, easy bruising, lymphadenopathy Allergic/Immunologic: ABSENT: seasonal rhinorrhea Physical Exam Vital Signs: Temp Pulse Resp BP Pulse Ox 98.1 F 70 18 151/88 H 95 04/03/20 20:01 04/03/20 14:55 04/03/20 20:01 04/03/20 20:01 04/03/20 20:01 Intake & Output 04/02/20 04/03/20 04/04/20 06:59 06:59 06:59 Intake Total 1000 Balance 1000 Weight 54 kg General appearance: PRESENT: no acute distress Head exam: PRESENT: atraumatic, normocephalic Eye exam: PRESENT: conjunctiva pink. ABSENT: scleral icterus Ear exam: PRESENT: normal external ear exam Mouth exam: PRESENT: moist Teeth exam: PRESENT: edentulous Respiratory exam: PRESENT: clear to auscultation stacie, decreased breath sounds Cardiovascular exam: PRESENT: RRR, +S1, +S2. ABSENT: diastolic murmur, rubs, systolic murmur Vascular exam: ABSENT: pallor GI/Abdominal exam: PRESENT: normal bowel sounds, soft. ABSENT: distended, guarding, mass, organolmegaly, rebound, tenderness Extremities exam: ABSENT: pedal edema Musculoskeletal exam: PRESENT: deformity - related to arthritis involvement. Neurological exam: PRESENT: alert, awake. ABSENT: oriented to person, oriented to place, oriented to time, oriented to situation Psychiatric exam: PRESENT: agitated - with care interruption Focused psych exam: PRESENT: delusional Skin exam: PRESENT: dry, warm Results Laboratory Results: 04/03/20 14:35 04/03/20 14:35 04/03/20 04/03/20 04/03/20 14:35 14:35 15:20 WBC 4.4 RBC 3.29 L Hgb 10.3 L Hct 31.2 L MCV 95 MCH 31.4 MCHC 33.1 RDW 13.0 Plt Count 267 Seg Neutrophils % 61.2 Sodium 138.3 Potassium 3.9 Chloride 107 Carbon Dioxide 26 Anion Gap 5 BUN 18 Creatinine 1.41 H Est GFR ( Amer) 58 L Glucose 129 H Calcium 10.1 Total Bilirubin 0.3 AST 14 L Alkaline Phosphatase 71 Ammonia < 8.7 L Total Protein 7.3 Albumin 4.0 Urine Color Urine Appearance Urine pH Ur Specific [place] Urine Protein Urine Glucose (UA) Urine Ketones Urine Blood Urine RBC (Auto) 04/03/20 16:14 WBC RBC Hgb Hct MCV MCH MCHC RDW Plt Count Seg Neutrophils % Sodium Potassium Chloride Carbon Dioxide Anion Gap BUN Creatinine Est GFR ( Amer) Glucose Calcium Total Bilirubin AST Alkaline Phosphatase Ammonia Total Protein Albumin Urine Color YELLOW Urine Appearance CLEAR Urine pH 5.0 Ur Specific [place] 1.017 Urine Protein NEGATIVE Urine Glucose (UA) NEGATIVE Urine Ketones NEGATIVE Urine Blood NEGATIVE Urine RBC (Auto) 1 04/03/20 04/03/20 14:35 14:35 Creatine Kinase 52 L CK-MB (CK-2) 0.48 Troponin I < 0.012 Impressions: Chest X-Ray 04/03/20 14:15 IMPRESSION: Borderline cardiomegaly. No gregoria pulmonary edema. Head CT 04/03/20 14:15 IMPRESSION: Involutional changes with mild chronic microvascular ischemia. Chronic frontal subdural fluid collections are smaller than on the prior study. EVIDENCE OF ACUTE STROKE: NO. Assessment & Plan - Diagnosis (1) Dehydration Is this a current diagnosis for this admission?: Yes Plan: See admitting attending physician orders for details about care plan. (2) Senile dementia with behavioral disturbance Is this a current diagnosis for this admission?: Yes Plan: See admitting attending physician orders for details about care plan. (3) Paroxysmal atrial fibrillation Is this a current diagnosis for this admission?: Yes Plan: See admitting attending physician orders for details about care plan. (4) HTN (hypertension) Qualifiers: Hypertension type: essential hypertension Qualified Code(s): I10 - Essential (primary) hypertension Is this a current diagnosis for this admission?: Yes Plan: See admitting attending physician orders for details about care plan. - Time Time Spent: 50 to 70 Minutes Medications reviewed and adjusted accordingly: Yes Anticipated discharge: Home with Homehealth, SNF Within: Other - Inpatient Certification Based on my medical assessment, after consideration of the patient's comorbidities, presenting symptoms, or acuity I expect that the services needed warrant INPATIENT care.: Yes I certify that my determination is in accordance with my understanding of Medicare's requirements for reasonable and necessary INPATIENT services [42 CFR 412.3e].: Yes Medical Necessity: Significant Comorbidiites Make Outpatient Treatment Too Risky, Need Close Monitoring Due to Risk of Patient Decompensation, Need For IV Fluids, Risk of Complication if Not Cared For in Hospital, Risk of Diagnosis Which Will Require Inpatient Eval/Care/Monitoring Post Hospital Care: D/C Health Tech Documentation, D/C or Transfer Summary - Plan Summary Plan Summary: See admitting attending physician orders for details about care plan.
--- NOTE | 2020-04-04 16:07 | PDOC PROGRESS REPORT ---
Subjective Progress Note for:: 04/04/20 Subjective:: Patient continue to demonstrate confusional state with care interruption. No reported fever or difficulty with breathing. No observed chest pain. Spouse at bedside for patient reorientation due o confusion. Reason For Visit: DEHYDRATION; METABOLIC ENCEPHALOPATHY; DEMENTIA Physical Exam Vital Signs: Temp Pulse Resp BP Pulse Ox 97.6 F 80 17 160/82 H 100 04/04/20 13:00 04/04/20 13:00 04/04/20 13:00 04/04/20 13:00 04/04/20 13:00 Intake & Output 04/03/20 04/04/20 04/05/20 06:59 06:59 06:59 Intake Total 1260 360 Balance 1260 360 Weight 62.4 kg General appearance: PRESENT: no acute distress Head exam: PRESENT: atraumatic, normocephalic Eye exam: ABSENT: conjunctiva pink, scleral icterus Mouth exam: PRESENT: moist Teeth exam: PRESENT: edentulous Respiratory exam: PRESENT: clear to auscultation stacie, decreased breath sounds - at lung bases Cardiovascular exam: PRESENT: RRR, +S1, +S2. ABSENT: diastolic murmur, rubs, systolic murmur Vascular exam: ABSENT: pallor GI/Abdominal exam: PRESENT: normal bowel sounds, soft. ABSENT: tenderness Extremities exam: ABSENT: pedal edema Neurological exam: PRESENT: alert, awake Focused psych exam: PRESENT: delusional Skin exam: PRESENT: dry, warm Results Laboratory Results: 04/04/20 05:56 04/04/20 05:56 04/03/20 04/03/20 04/04/20 15:20 16:14 05:56 WBC 5.5 RBC 3.16 L Hgb 10.0 L Hct 30.0 L MCV 95 MCH 31.7 MCHC 33.4 RDW 12.8 Plt Count 227 Seg Neutrophils % 54.7 Sodium Potassium Chloride Carbon Dioxide Anion Gap BUN Creatinine Est GFR ( Amer) Glucose Calcium Total Bilirubin AST Alkaline Phosphatase Ammonia < 8.7 L Total Protein Albumin Urine Color YELLOW Urine Appearance CLEAR Urine pH 5.0 Ur Specific [place] 1.017 Urine Protein NEGATIVE Urine Glucose (UA) NEGATIVE Urine Ketones NEGATIVE Urine Blood NEGATIVE Urine RBC (Auto) 1 04/04/20 05:56 WBC RBC Hgb Hct MCV MCH MCHC RDW Plt Count Seg Neutrophils % Sodium 138.1 Potassium 4.1 Chloride 109 H Carbon Dioxide 24 Anion Gap 5 BUN 14 Creatinine 1.09 Est GFR ( Amer) > 60 Glucose 93 Calcium 9.7 Total Bilirubin 0.5 AST 16 L Alkaline Phosphatase 67 Ammonia Total Protein 7.0 Albumin 3.7 Urine Color Urine Appearance Urine pH Ur Specific [place] Urine Protein Urine Glucose (UA) Urine Ketones Urine Blood Urine RBC (Auto) 04/03/20 04/03/20 14:35 14:35 Creatine Kinase 52 L CK-MB (CK-2) 0.48 Troponin I < 0.012 Impressions: Chest X-Ray 04/03/20 14:15 IMPRESSION: Borderline cardiomegaly. No gregoria pulmonary edema. Head CT 04/03/20 14:15 IMPRESSION: Involutional changes with mild chronic microvascular ischemia. Chronic frontal subdural fluid collections are smaller than on the prior study. EVIDENCE OF ACUTE STROKE: NO. Assessment & Plan - Diagnosis (1) Dehydration Is this a current diagnosis for this admission?: Yes (2) Metabolic encephalopathy Is this a current diagnosis for this admission?: Yes Plan: Continue IV fluid, electrolytes, and vitamins therapy. (3) Senile dementia with behavioral disturbance Is this a current diagnosis for this admission?: Yes (4) Paroxysmal atrial fibrillation Is this a current diagnosis for this admission?: Yes (5) HTN (hypertension) Qualifiers: Hypertension type: essential hypertension Qualified Code(s): I10 - Essential (primary) hypertension Is this a current diagnosis for this admission?: Yes - Time Time Spent with patient: 25-34 minutes Level of Care: TELE Medications reviewed and adjusted accordingly: Yes Anticipated discharge: Home with Homehealth Within: Other - Inpatient Certification Based on my medical assessment, after consideration of the patient's comorbidities, presenting symptoms, or acuity I expect that the services needed warrant INPATIENT care.: Yes I certify that my determination is in accordance with my understanding of Medicare's requirements for reasonable and necessary INPATIENT services [42 CFR 412.3e].: Yes Medical Necessity: Failure to Improve With Outpatient Therapy, Significant Comorbidiites Make Outpatient Treatment Too Risky, Need Close Monitoring Due to Risk of Patient Decompensation, Need For IV Fluids, Risk of Complication if Not Cared For in Hospital, Risk of Diagnosis Which Will Require Inpatient Eval/Care/Monitoring Post Hospital Care: D/C Pulp Press Tender Documentation, D/C or Transfer Summary - Plan Summary Plan Summary: Continue IV fluid and electrolyte as well as vitamins administration via the Banana infusion. Obtain BMP in AM. Maintain on all current mediation management.
[2020-04-04] MEDS: NORMAL SALINE 1000 ML 1,000 ML with POTASSIUM CHLORIDE 20 MEQ, MAGNESIUM SULFATE 8 MEQ,... IV SCH ×5 (21:09)
[2020-04-05] MEDS: PANTOPRAZOLE SODIUM 40 MG TABLET.DR PO SCH (05:26)
[2020-04-05] MEDS: DILTIAZEM HCL 30 MG TABLET PO SCH ×4 (05:26→23:41)
[2020-04-05] MEDS: NORMAL SALINE 1000 ML 1,000 ML IV PRN (11:08)
[2020-04-05] MEDS: FERROUS SULFATE 325 MG TABLET PO SCH (11:15)
[2020-04-05] MEDS: QUETIAPINE FUMARATE 25 MG TABLET PO SCH ×2 (11:15→21:04)
[2020-04-05] MEDS: BENAZEPRIL HCL 10 MG TABLET PO SCH (11:25)
[2020-04-05] MEDS: ENOXAPARIN SODIUM INJ 30 MG/0.3 ML DISP.SYRIN SUBCUT SCH (11:27)
[2020-04-05] MEDS: PENTOXIFYLLINE 400 MG TABLET.SA PO SCH ×2 (11:32→18:54)
--- NOTE | 2020-04-05 15:46 | PDOC PROGRESS REPORT ---
Subjective Progress Note for:: 04/05/20 Subjective:: Patient is very confused requires a sitter, talking out of his head Reason For Visit: DEHYDRATION; METABOLIC ENCEPHALOPATHY; DEMENTIA Physical Exam Vital Signs: Temp Pulse Resp BP Pulse Ox 96.8 F L 73 12 177/82 H 90 L 04/05/20 12:00 04/05/20 12:00 04/05/20 12:00 04/05/20 12:00 04/05/20 12:00 Intake & Output 04/04/20 04/05/20 04/06/20 06:59 06:59 06:59 Intake Total 1260 2876 786 Balance 1260 2876 786 Weight 62.4 kg General appearance: PRESENT: no acute distress Eye exam: PRESENT: PERRLA Respiratory exam: PRESENT: clear to auscultation stacie Cardiovascular exam: PRESENT: +S1, +S2 GI/Abdominal exam: PRESENT: soft Results Laboratory Results: 04/04/20 05:56 04/04/20 05:56 04/03/20 04/03/20 14:35 14:35 Creatine Kinase 52 L CK-MB (CK-2) 0.48 Troponin I < 0.012 Impressions: Chest X-Ray 04/03/20 14:15 IMPRESSION: Borderline cardiomegaly. No gregoria pulmonary edema. Head CT 04/03/20 14:15 IMPRESSION: Involutional changes with mild chronic microvascular ischemia. Chronic frontal subdural fluid collections are smaller than on the prior study. EVIDENCE OF ACUTE STROKE: NO. Assessment & Plan - Diagnosis (1) Dehydration Is this a current diagnosis for this admission?: Yes (2) Metabolic encephalopathy Is this a current diagnosis for this admission?: Yes Plan: Continue present line of treatment - Time Time Spent with patient: 15-24 minutes Level of Care: MEDICAL Medications reviewed and adjusted accordingly: Yes Anticipated discharge: Home Within: Other
[2020-04-05] MEDS: NORMAL SALINE 1000 ML 1,000 ML with POTASSIUM CHLORIDE 20 MEQ, MAGNESIUM SULFATE 8 MEQ,... IV SCH ×5 (21:03)
[2020-04-06] MEDS: DILTIAZEM HCL 30 MG TABLET PO SCH ×3 (05:44→17:30)
[2020-04-06] MEDS: PANTOPRAZOLE SODIUM 40 MG TABLET.DR PO SCH (05:44)
[2020-04-06] MEDS: QUETIAPINE FUMARATE 25 MG TABLET PO SCH ×2 (10:27→22:00)
[2020-04-06] MEDS: BENAZEPRIL HCL 10 MG TABLET PO SCH (10:27)
[2020-04-06] MEDS: PENTOXIFYLLINE 400 MG TABLET.SA PO SCH ×2 (10:30→17:16)
[2020-04-06] MEDS: FERROUS SULFATE 325 MG TABLET PO SCH (10:33)
[2020-04-06] MEDS: ENOXAPARIN SODIUM INJ 30 MG/0.3 ML DISP.SYRIN SUBCUT SCH (10:33)
--- NOTE | 2020-04-06 15:20 | PDOC PROGRESS REPORT ---
Subjective Progress Note for:: 04/06/20 Subjective:: Patient is still confused requiring a sitter Reason For Visit: DEHYDRATION; METABOLIC ENCEPHALOPATHY; DEMENTIA Physical Exam Vital Signs: Temp Pulse Resp BP Pulse Ox 96.8 F L 69 12 160/90 H 100 04/06/20 08:00 04/06/20 08:00 04/06/20 08:00 04/06/20 08:00 04/06/20 08:00 Intake & Output 04/05/20 04/06/20 04/07/20 06:59 06:59 06:59 Intake Total 2876 3099 1023 Balance 2876 3099 1023 Weight 60.3 kg General appearance: PRESENT: no acute distress Eye exam: PRESENT: PERRLA Respiratory exam: PRESENT: clear to auscultation stacie Cardiovascular exam: PRESENT: +S1, +S2 GI/Abdominal exam: PRESENT: soft Neurological exam: PRESENT: alert Results Laboratory Results: 04/04/20 05:56 04/04/20 05:56 04/03/20 04/03/20 14:35 14:35 Creatine Kinase 52 L CK-MB (CK-2) 0.48 Troponin I < 0.012 Impressions: Chest X-Ray 04/03/20 14:15 IMPRESSION: Borderline cardiomegaly. No gregoria pulmonary edema. Head CT 04/03/20 14:15 IMPRESSION: Involutional changes with mild chronic microvascular ischemia. Chronic frontal subdural fluid collections are smaller than on the prior study. EVIDENCE OF ACUTE STROKE: NO. Assessment & Plan - Diagnosis (1) Metabolic encephalopathy Is this a current diagnosis for this admission?: Yes Plan: Continue present line of treatment (2) Dehydration Is this a current diagnosis for this admission?: Yes - Time Time Spent with patient: 25-34 minutes Level of Care: MEDICAL Medications reviewed and adjusted accordingly: Yes Anticipated discharge: Home
[2020-04-06] MEDS: NORMAL SALINE 1000 ML 1,000 ML with POTASSIUM CHLORIDE 20 MEQ, MAGNESIUM SULFATE 8 MEQ,... IV SCH ×5 (21:59)
[2020-04-07] MEDS: DILTIAZEM HCL 30 MG TABLET PO SCH ×4 (00:21→17:39)
[2020-04-07] MEDS: PANTOPRAZOLE SODIUM 40 MG TABLET.DR PO SCH (05:57)
[2020-04-07] MEDS: QUETIAPINE FUMARATE 25 MG TABLET PO SCH ×2 (11:03→21:22)
[2020-04-07] MEDS: FERROUS SULFATE 325 MG TABLET PO SCH (11:03)
[2020-04-07] MEDS: BENAZEPRIL HCL 10 MG TABLET PO SCH (11:04)
[2020-04-07] MEDS: PENTOXIFYLLINE 400 MG TABLET.SA PO SCH ×2 (11:04→17:39)
[2020-04-07] MEDS: ENOXAPARIN SODIUM INJ 30 MG/0.3 ML DISP.SYRIN SUBCUT SCH (11:05)
--- NOTE | 2020-04-07 12:52 | PDOC PROGRESS REPORT ---
Subjective Progress Note for:: 04/07/20 Subjective:: Patient is more cooperative with care but remain at baseline dementia in behavioral issues. No reported fever or difficulty with breathing. No observed chest pain, difficulty with breathing, fever, or chills. Patient remain in soft wrist restraint due to behavioral issue and care interruption.. Reason For Visit: DEHYDRATION; METABOLIC ENCEPHALOPATHY; DEMENTIA Physical Exam Vital Signs: Temp Pulse Resp BP Pulse Ox 97.7 F 71 12 157/94 H 100 04/07/20 07:40 04/07/20 07:40 04/07/20 07:40 04/07/20 07:40 04/07/20 07:40 Intake & Output 04/06/20 04/07/20 04/08/20 06:59 06:59 06:59 Intake Total 3099 2451 Balance 3099 2451 Weight 60.3 kg 61.2 kg Physical Exam: General appearance: PRESENT: no acute distress Head exam: PRESENT: atraumatic, normocephalic Eye exam: PRESENT : conjunctiva pink, ABSENT: pallor, scleral icterus Respiratory exam: PRESENT: clear to auscultation stacie, decreased breath sounds - at lung bases Cardiovascular exam: PRESENT: RRR, +S1, +S2. ABSENT: diastolic murmur, rubs, systolic murmur GI/Abdominal exam: PRESENT: normal bowel sounds, soft. ABSENT: tenderness Extremities exam: ABSENT: pedal edema Neurological exam: PRESENT: alert, awake, cooperative with examination psych exam: PRESENT: delusional Skin exam: PRESENT: dry, warm Results Laboratory Results: 04/04/20 05:56 04/04/20 05:56 04/03/20 04/03/20 14:35 14:35 Creatine Kinase 52 L CK-MB (CK-2) 0.48 Troponin I < 0.012 Impressions: Chest X-Ray 04/03/20 14:15 IMPRESSION: Borderline cardiomegaly. No gregoria pulmonary edema. Head CT 04/03/20 14:15 IMPRESSION: Involutional changes with mild chronic microvascular ischemia. Chronic frontal subdural fluid collections are smaller than on the prior study. EVIDENCE OF ACUTE STROKE: NO. Assessment & Plan - Diagnosis (1) Dehydration Is this a current diagnosis for this admission?: Yes (2) Metabolic encephalopathy Is this a current diagnosis for this admission?: Yes (3) Senile dementia with behavioral disturbance Is this a current diagnosis for this admission?: Yes (4) Paroxysmal atrial fibrillation Is this a current diagnosis for this admission?: Yes (5) HTN (hypertension) Qualifiers: Hypertension type: essential hypertension Qualified Code(s): I10 - Essential (primary) hypertension Is this a current diagnosis for this admission?: Yes - Time Time Spent with patient: 25-34 minutes Level of Care: MEDICAL Medications reviewed and adjusted accordingly: Yes Anticipated discharge: Home with Homehealth Within: Other - Inpatient Certification Based on my medical assessment, after consideration of the patient's comorbidities, presenting symptoms, or acuity I expect that the services needed warrant INPATIENT care.: Yes I certify that my determination is in accordance with my understanding of Medicare's requirements for reasonable and necessary INPATIENT services [42 CFR 412.3e].: Yes Medical Necessity: Significant Comorbidiites Make Outpatient Treatment Too Risky, Need Close Monitoring Due to Risk of Patient Decompensation, Need For IV Fluids, Risk of Complication if Not Cared For in Hospital, Risk of Diagnosis Which Will Require Inpatient Eval/Care/Monitoring Post Hospital Care: D/C Corporate Representative Documentation - Plan Summary Plan Summary: Continue current medication management and support. Obtain CBC with diff, BMP in am.
[2020-04-08] MEDS: DILTIAZEM HCL 30 MG TABLET PO SCH ×5 (00:11→23:57)
[2020-04-08] MEDS: PANTOPRAZOLE SODIUM 40 MG TABLET.DR PO SCH (05:12)
[2020-04-08] MEDS: QUETIAPINE FUMARATE 25 MG TABLET PO SCH ×2 (09:17→21:55)
[2020-04-08] MEDS: FERROUS SULFATE 325 MG TABLET PO SCH (09:17)
[2020-04-08] MEDS: MULTIVITAMIN TABLET PO SCH (09:17)
[2020-04-08] MEDS: ENOXAPARIN SODIUM INJ 30 MG/0.3 ML DISP.SYRIN SUBCUT SCH (09:18)
[2020-04-08] MEDS: BENAZEPRIL HCL 10 MG TABLET PO SCH (09:18)
[2020-04-08] MEDS: PENTOXIFYLLINE 400 MG TABLET.SA PO SCH ×2 (09:18→17:26)
--- NOTE | 2020-04-08 10:53 | PDOC PROGRESS REPORT ---
Subjective Progress Note for:: 04/08/20 Subjective:: Patient is less agitated and cooperative with care as per nursing staff report this morning. No reported fever or difficulty with breathing. No observed chest pain, difficulty with breathing, fever, or chills. Reason For Visit: DEHYDRATION; METABOLIC ENCEPHALOPATHY; DEMENTIA Physical Exam Vital Signs: Temp Pulse Resp BP Pulse Ox 97.9 F 70 16 181/91 H 95 04/08/20 04:09 04/08/20 04:09 04/08/20 04:09 04/08/20 04:09 04/08/20 04:09 Intake & Output 04/07/20 04/08/20 04/09/20 06:59 06:59 06:59 Intake Total 2451 1992 Output Total 75 Balance 2451 1918 Weight 61.2 kg 61.2 kg Physical Exam: General appearance: PRESENT: no acute distress Head exam: PRESENT: atraumatic, normocephalic Eye exam: PRESENT : conjunctiva pink, ABSENT: pallor, scleral icterus Respiratory exam: PRESENT: clear to auscultation stacie, decreased breath sounds - at lung bases Cardiovascular exam: PRESENT: RRR, +S1, +S2. ABSENT: diastolic murmur, rubs, systolic murmur GI/Abdominal exam: PRESENT: normal bowel sounds, soft. ABSENT: tenderness Extremities exam: ABSENT: pedal edema Neurological exam: PRESENT: alert, awake, cooperative with examination psych exam: PRESENT: delusional, Less agitated Skin exam: PRESENT: dry, warm Results Laboratory Results: 04/04/20 05:56 04/04/20 05:56 04/03/20 04/03/20 14:35 14:35 Creatine Kinase 52 L CK-MB (CK-2) 0.48 Troponin I < 0.012 Impressions: Chest X-Ray 04/03/20 14:15 IMPRESSION: Borderline cardiomegaly. No gregoria pulmonary edema. Head CT 04/03/20 14:15 IMPRESSION: Involutional changes with mild chronic microvascular ischemia. Chronic frontal subdural fluid collections are smaller than on the prior study. EVIDENCE OF ACUTE STROKE: NO. Assessment & Plan - Diagnosis (1) Dehydration Is this a current diagnosis for this admission?: Yes (2) Metabolic encephalopathy Is this a current diagnosis for this admission?: Yes (3) Senile dementia with behavioral disturbance Is this a current diagnosis for this admission?: Yes (4) Paroxysmal atrial fibrillation Is this a current diagnosis for this admission?: Yes (5) HTN (hypertension) Qualifiers: Hypertension type: essential hypertension Qualified Code(s): I10 - Essential (primary) hypertension Is this a current diagnosis for this admission?: Yes - Time Time Spent with patient: 25-34 minutes Level of Care: MEDICAL Medications reviewed and adjusted accordingly: Yes Anticipated discharge: Home with Homehealth, SNF Within: Other - Inpatient Certification Based on my medical assessment, after consideration of the patient's comorbi dities, presenting symptoms, or acuity I expect that the services needed warrant INPATIENT care.: Yes I certify that my determination is in accordance with my understanding of Medicare's requirements for reasonable and necessary INPATIENT services [42 CFR 412.3e].: Yes Medical Necessity: Significant Comorbidiites Make Outpatient Treatment Too Risky, Need Close Monitoring Due to Risk of Patient Decompensation, Need For IV Fluids, Risk of Complication if Not Cared For in Hospital, Risk of Diagnosis Which Will Require Inpatient Eval/Care/Monitoring Post Hospital Care: D/C Class A Lineman Documentation, D/C or Transfer Summary - Plan Summary Plan Summary: Continue current medication management. Discuss with spouse possible short term rehabilitation versus SNF placement as resident in view of demands of self care of the spouse.
[2020-04-09] MEDS: PANTOPRAZOLE SODIUM 40 MG TABLET.DR PO SCH (06:34)
[2020-04-09] MEDS: DILTIAZEM HCL 30 MG TABLET PO SCH ×4 (06:34→23:38)
[2020-04-09] MEDS: MULTIVITAMIN TABLET PO SCH (09:31)
[2020-04-09] MEDS: FERROUS SULFATE 325 MG TABLET PO SCH (09:31)
[2020-04-09] MEDS: QUETIAPINE FUMARATE 25 MG TABLET PO SCH ×2 (09:31→22:07)
[2020-04-09] MEDS: PENTOXIFYLLINE 400 MG TABLET.SA PO SCH ×2 (09:32→17:05)
[2020-04-09] MEDS: ENOXAPARIN SODIUM INJ 30 MG/0.3 ML DISP.SYRIN SUBCUT SCH (09:33)
[2020-04-09] MEDS: BENAZEPRIL HCL 10 MG TABLET PO SCH (09:33)
--- NOTE | 2020-04-09 21:00 | PDOC PROGRESS REPORT ---
Subjective Progress Note for:: 04/09/20 Subjective:: Patient remain cooperative with care but at baseline dementia. No demonstrable chest pain or difficulty with breathing. No fever, or chills. No nausea, vomiting or abdominal pain. Reason For Visit: DEHYDRATION; METABOLIC ENCEPHALOPATHY; DEMENTIA Physical Exam Vital Signs: Temp Pulse Resp BP Pulse Ox 97.2 F 73 19 108/56 L 100 04/09/20 12:38 04/09/20 12:38 04/09/20 12:38 04/09/20 12:38 04/09/20 12:38 Intake & Output 04/08/20 04/09/20 04/10/20 06:59 06:59 06:59 Intake Total 1992 870 480 Output Total 75 Balance 1917 870 480 Weight 61.2 kg 61.2 kg Physical Exam: General appearance: PRESENT: no acute distress Head exam: PRESENT: atraumatic, normocephalic Eye exam: PRESENT : conjunctiva pink, ABSENT: pallor, scleral icterus Respiratory exam: PRESENT: clear to auscultation stacie, decreased breath sounds - at lung bases Cardiovascular exam: PRESENT: RRR, +S1, +S2. ABSENT: diastolic murmur, rubs, sy stolic murmur GI/Abdominal exam: PRESENT: normal bowel sounds, soft. ABSENT: tenderness Extremities exam: ABSENT: pedal edema Neurological exam: PRESENT: alert, awake, cooperative with examination psych exam: PRESENT: delusional, Less agitated Skin exam: PRESENT: dry, warm Results Laboratory Results: 04/04/20 05:56 04/04/20 05:56 04/03/20 04/03/20 14:35 14:35 Creatine Kinase 52 L CK-MB (CK-2) 0.48 Troponin I < 0.012 Impressions: Chest X-Ray 04/03/20 14:15 IMPRESSION: Borderline cardiomegaly. No gregoria pulmonary edema. Head CT 04/03/20 14:15 IMPRESSION: Involutional changes with mild chronic microvascular ischemia. Chronic frontal subdural fluid collections are smaller than on the prior study. EVIDENCE OF ACUTE STROKE: NO. Assessment & Plan - Diagnosis (1) Dehydration Is this a current diagnosis for this admission?: Yes (2) Metabolic encephalopathy Is this a current diagnosis for this admission?: Yes (3) Senile dementia with behavioral disturbance Is this a current diagnosis for this admission?: Yes (4) Paroxysmal atrial fibrillation Is this a current diagnosis for this admission?: Yes (5) HTN (hypertension) Qualifiers: Hypertension type: essential hypertension Qualified Code(s): I10 - Essential (primary) hypertension Is this a current diagnosis for this admission?: Yes - Time Time Spent with patient: 25-34 minutes Level of Care: MEDICAL Medications reviewed and adjusted accordingly: Yes Anticipated discharge: SNF Within: when bed available - Inpatient Certification Based on my medical assessment, after consideration of the patient's comorbidities, presenting symptoms, or acuity I expect that the services needed warrant INPATIENT care.: Yes I certify that my determination is in accordance with my understanding of Medicare's requirements for reasonable and necessary INPATIENT services [42 CFR 412.3e].: Yes Medical Necessity: Significant Comorbidiites Make Outpatient Treatment Too Risky, Need Close Monitoring Due to Risk of Patient Decompensation, Need For IV Fluids, Risk of Complication if Not Cared For in Hospital, Risk of Diagnosis Which Will Require Inpatient Eval/Care/Monitoring Post Hospital Care: D/C or Transfer Summary - Plan Summary Plan Summary: Continue current medication and support care management. Follow up on efforts fo r medicaid SNF placement.
[2020-04-10] MEDS: PANTOPRAZOLE SODIUM 40 MG TABLET.DR PO SCH (06:25)
[2020-04-10] MEDS: DILTIAZEM HCL 30 MG TABLET PO SCH ×4 (06:25→23:01)
[2020-04-10] MEDS: MULTIVITAMIN TABLET PO SCH (09:12)
[2020-04-10] MEDS: FERROUS SULFATE 325 MG TABLET PO SCH (09:12)
[2020-04-10] MEDS: QUETIAPINE FUMARATE 25 MG TABLET PO SCH ×2 (09:12→23:01)
[2020-04-10] MEDS: PENTOXIFYLLINE 400 MG TABLET.SA PO SCH ×2 (09:13→17:08)
[2020-04-10] MEDS: ENOXAPARIN SODIUM INJ 30 MG/0.3 ML DISP.SYRIN SUBCUT SCH (09:13)
[2020-04-10] MEDS: BENAZEPRIL HCL 10 MG TABLET PO SCH (09:13)
--- NOTE | 2020-04-10 17:42 | PDOC PROGRESS REPORT ---
Subjective Progress Note for:: 04/10/20 Subjective:: Patient remain cooperative with care. No reported observed chest pain or difficulty with breathing. No fever, or chills. No nausea, vomiting or abdominal pain. Reason For Visit: DEHYDRATION; METABOLIC ENCEPHALOPATHY; DEMENTIA Physical Exam Vital Signs: Temp Pulse Resp BP Pulse Ox 98.7 F 69 18 153/75 H 98 04/09/20 23:15 04/09/20 23:15 04/09/20 23:15 04/09/20 23:15 04/09/20 23:15 Intake & Output 04/09/20 04/10/20 04/11/20 06:59 06:59 06:59 Intake Total 870 1000 Balance 870 1000 Weight 61.2 kg 53.6 kg Physical Exam: General appearance: PRESENT: no acute distress Head exam: PRESENT: atraumatic, normocephalic Eye exam: PRESENT : conjunctiva pink, ABSENT: pallor, scleral icterus Respiratory exam: PRESENT: clear to auscultation stacie, decreased breath sounds - at lung bases Cardiovascular exam: PRESENT: RRR, +S1, +S2. ABSENT: diastolic murmur, rubs, systolic murmur GI/Abdominal exam: PRESENT: normal bowel sounds, soft. ABSENT: tenderness Extremities exam: ABSENT: pedal edema Neurological exam: PRESENT: alert, awake, cooperative with examination psych exam: PRESENT: delusional, Less agitated Skin exam: PRESENT: dry, warm Results Laboratory Results: 04/04/20 05:56 04/04/20 05:56 04/03/20 04/03/20 14:35 14:35 Creatine Kinase 52 L CK-MB (CK-2) 0.48 Troponin I < 0.012 Impressions: Chest X-Ray 04/03/20 14:15 IMPRESSION: Borderline cardiomegaly. No gregoria pulmonary edema. Head CT 04/03/20 14:15 IMPRESSION: Involutional changes with mild chronic microvascular ischemia. Chronic frontal subdural fluid collections are smaller than on the prior study. EVIDENCE OF ACUTE STROKE: NO. Assessment & Plan - Diagnosis (1) Dehydration Is this a current diagnosis for this admission?: Yes (2) Metabolic encephalopathy Is this a current diagnosis for this admission?: Yes (3) Senile dementia with behavioral disturbance Is this a current diagnosis for this admission?: Yes (4) Paroxysmal atrial fibrillation Is this a current diagnosis for this admission?: Yes (5) HTN (hypertension) Qualifiers: Hypertension type: essential hypertension Qualified Code(s): I10 - Essential (primary) hypertension Is this a current diagnosis for this admission?: Yes - Time Time Spent with patient: 25-34 minutes Level of Care: MEDICAL Medications reviewed and adjusted accordingly: Yes Anticipated discharge: SNF Within: Other - Inpatient Certification Based on my medical assessment, after consideration of the patient's c omorbidities, presenting symptoms, or acuity I expect that the services needed warrant INPATIENT care.: Yes I certify that my determination is in accordance with my understanding of Medicare's requirements for reasonable and necessary INPATIENT services [42 CFR 412.3e].: Yes Medical Necessity: Significant Comorbidiites Make Outpatient Treatment Too Risky, Need Close Monitoring Due to Risk of Patient Decompensation, Risk of Complication if Not Cared For in Hospital, Risk of Diagnosis Which Will Require Inpatient Eval/Care/Monitoring Post Hospital Care: D/C or Transfer Summary - Plan Summary Plan Summary: Continue current mediation management. Follow up on efforts at placement which is currently stalling due to his medicaid coverage. I discussed situation with spouse who informed me that patient has more than medicaid insurance coverage.
[2020-04-11] MEDS: DILTIAZEM HCL 30 MG TABLET PO SCH ×4 (06:01→23:30)
[2020-04-11] MEDS: PANTOPRAZOLE SODIUM 40 MG TABLET.DR PO SCH (06:01)
[2020-04-11] MEDS: QUETIAPINE FUMARATE 25 MG TABLET PO SCH ×2 (09:56→22:01)
[2020-04-11] MEDS: MULTIVITAMIN TABLET PO SCH (09:56)
[2020-04-11] MEDS: FERROUS SULFATE 325 MG TABLET PO SCH (09:56)
[2020-04-11] MEDS: ENOXAPARIN SODIUM INJ 30 MG/0.3 ML DISP.SYRIN SUBCUT SCH (09:57)
[2020-04-11] MEDS: BENAZEPRIL HCL 10 MG TABLET PO SCH (09:57)
[2020-04-11] MEDS: PENTOXIFYLLINE 400 MG TABLET.SA PO SCH ×2 (09:57→18:27)
--- NOTE | 2020-04-11 14:41 | PDOC PROGRESS REPORT ---
Subjective Progress Note for:: 04/11/20 Subjective:: No reported observed chest pain or difficulty with breathing. No fever, or chills. No nausea, vomiting or abdominal pain. Awaiting response from SNF for his placement. Reason For Visit: DEHYDRATION; METABOLIC ENCEPHALOPATHY; DEMENTIA Physical Exam Vital Signs: Temp Pulse Resp BP Pulse Ox 97.3 F 76 20 136/73 H 100 04/11/20 07:27 04/11/20 07:27 04/11/20 07:27 04/11/20 07:27 04/11/20 07:27 Intake & Output 04/10/20 04/11/20 04/12/20 06:59 06:59 06:59 Intake Total 1000 820 120 Balance 1000 820 120 Weight 53.6 kg 53.6 kg Physical Exam: General appearance: PRESENT: no acute distress Head exam: PRESENT: atraumatic, normocephalic Eye exam: PRESENT : conjunctiva pink, ABSENT: pallor, scleral icterus Respiratory exam: PRESENT: clear to auscultation stacie Cardiovascular exam: PRESENT: RRR, +S1, +S2. ABSENT: diastolic murmur, rubs, systolic murmur GI/Abdominal exam: PRESENT: normal bowel sounds, soft. ABSENT: tenderness Extremities exam: ABSENT: pedal edema Neurological exam: PRESENT: alert, awake, cooperative with examination psych exam: PRESENT: delusional, Less agitated Skin exam: PRESENT: dry, warm Results Laboratory Results: 04/04/20 05:56 04/04/20 05:56 04/03/20 04/03/20 14:35 14:35 Creatine Kinase 52 L CK-MB (CK-2) 0.48 Troponin I < 0.012 Impressions: Chest X-Ray 04/03/20 14:15 IMPRESSION: Borderline cardiomegaly. No gregoria pulmonary edema. Head CT 04/03/20 14:15 IMPRESSION: Involutional changes with mild chronic microvascular ischemia. Chronic frontal subdural fluid collections are smaller than on the prior study. EVIDENCE OF ACUTE STROKE: NO. Assessment & Plan - Diagnosis (1) Dehydration Is this a current diagnosis for this admission?: Yes (2) Metabolic encephalopathy Is this a current diagnosis for this admission?: Yes (3) Senile dementia with behavioral disturbance Is this a current diagnosis for this admission?: Yes (4) Paroxysmal atrial fibrillation Is this a current diagnosis for this admission?: Yes (5) HTN (hypertension) Qualifiers: Hypertension type: essential hypertension Qualified Code(s): I10 - Essential (primary) hypertension Is this a current diagnosis for this admission?: Yes - Time Time Spent with patient: 25-34 minutes Level of Care: MEDICAL Medications reviewed and adjusted accordingly: Yes Anticipated discharge: SNF Anticipated DC Timeframe: Other - Inpatient Certification Based on my medical assessment, after consideration of the patient's comorbiditi es, presenting symptoms, or acuity I expect that the services needed warrant INPATIENT care.: Yes I certify that my determination is in accordance with my understanding of [facility]'s requirements for reasonable and necessary INPATIENT services [42 CFR 412.3e].: Yes Medical Necessity: Significant Comorbidiites Make Outpatient Treatment Too Risky, Need Close Monitoring Due to Risk of Patient Decompensation, Risk of Complication if Not Cared For in Hospital, Risk of Diagnosis Which Will Require Inpatient Eval/Care/Monitoring Post Hospital Care: D/C or Transfer Summary - Plan Summary Plan Summary: Continue current medication management. Follow up on placement efforts with brand planner.
[2020-04-12] MEDS: PANTOPRAZOLE SODIUM 40 MG TABLET.DR PO SCH (06:38)
[2020-04-12] MEDS: DILTIAZEM HCL 30 MG TABLET PO SCH ×3 (06:38→17:58)
[2020-04-12] MEDS: QUETIAPINE FUMARATE 25 MG TABLET PO SCH ×2 (09:30→21:36)
[2020-04-12] MEDS: BENAZEPRIL HCL 10 MG TABLET PO SCH (09:31)
[2020-04-12] MEDS: PENTOXIFYLLINE 400 MG TABLET.SA PO SCH ×2 (09:31→17:58)
[2020-04-12] MEDS: FERROUS SULFATE 325 MG TABLET PO SCH (09:31)
[2020-04-12] MEDS: ENOXAPARIN SODIUM INJ 30 MG/0.3 ML DISP.SYRIN SUBCUT SCH (09:31)
[2020-04-12] MEDS: MULTIVITAMIN TABLET PO SCH (09:31)
--- NOTE | 2020-04-12 17:12 | PDOC PROGRESS REPORT ---
Subjective Progress Note for:: 04/12/20 Subjective:: No observed chest pain or difficulty with breathing. No fever, or chills. No nausea, vomiting or abdominal pain. PO intake remain satisfactory. Reason For Visit: DEHYDRATION; METABOLIC ENCEPHALOPATHY; DEMENTIA Physical Exam Vital Signs: Temp Pulse Resp BP Pulse Ox 99.6 F 70 17 162/88 H 100 04/11/20 23:33 04/12/20 04:38 04/12/20 04:38 04/12/20 04:38 04/12/20 04:38 Intake & Output 04/11/20 04/12/20 04/13/20 06:59 06:59 06:59 Intake Total 820 470 Balance 820 470 Weight 53.6 kg 60.4 kg Physical Exam: General appearance: PRESENT: no acute distress Head exam: PRESENT: atraumatic, normocephalic Eye exam: PRESENT : conjunctiva pink, ABSENT: pallor, scleral icterus Respiratory exam: PRESENT: clear to auscultation stacie Cardiovascular exam: PRESENT: RRR, +S1, +S2. ABSENT: diastolic murmur, rubs, systolic murmur GI/Abdominal exam: PRESENT: normal bowel sounds, soft. ABSENT: tenderness Extremities exam: ABSENT: pedal edema Neurological exam: PRESENT: alert, awake, cooperative with examination psych exam: PRESENT: delusional, Less agitated Skin exam: PRESENT: dry, warm Results Laboratory Results: 04/04/20 05:56 04/04/20 05:56 04/03/20 04/03/20 14:35 14:35 Creatine Kinase 52 L CK-MB (CK-2) 0.48 Troponin I < 0.012 Impressions: Chest X-Ray 04/03/20 14:15 IMPRESSION: Borderline cardiomegaly. No gregoria pulmonary edema. Head CT 04/03/20 14:15 IMPRESSION: Involutional changes with mild chronic microvascular ischemia. Chronic frontal subdural fluid collections are smaller than on the prior study. EVIDENCE OF ACUTE STROKE: NO. Assessment & Plan - Diagnosis (1) Dehydration Is this a current diagnosis for this admission?: Yes (2) Metabolic encephalopathy Is this a current diagnosis for this admission?: Yes (3) Senile dementia with behavioral disturbance Is this a current diagnosis for this admission?: Yes (4) Paroxysmal atrial fibrillation Is this a current diagnosis for this admission?: Yes (5) HTN (hypertension) Qualifiers: Hypertension type: essential hypertension Qualified Code(s): I10 - Essential (primary) hypertension Is this a current diagnosis for this admission?: Yes - Time Time Spent with patient: 25-34 minutes Level of Care: MEDICAL Medications reviewed and adjusted accordingly: Yes Anticipated discharge: SNF Anticipated DC Timeframe: Other - Inpatient Certification Based on my medical assessment, after consideration of the patient's comorbidities, presenting symptoms, or acuity I expect that the services needed warrant INPATIENT care.: Yes I certify that my determination is in accordance with my understanding of Medicare's requirements for reasonable and necessary INPATIENT services [42 CFR 412.3e].: Yes Medical Necessity: Significant Comorbidiites Make Outpatient Treatment Too Risky, Need Close Monitoring Due to Risk of Patient Decompensation, Risk of Complication if Not Cared For in Hospital, Risk of Diagnosis Which Will Require Inpatient Eval/Care/Monitoring Post Hospital Care: D/C or Transfer Summary - Plan Summary Plan Summary: Continue current medication management. Follow up on efforts for SNF placement.
[2020-04-13] MEDS: DILTIAZEM HCL 30 MG TABLET PO SCH ×4 (00:38→17:44)
[2020-04-13] MEDS: PANTOPRAZOLE SODIUM 40 MG TABLET.DR PO SCH (05:46)
[2020-04-13] MEDS: FERROUS SULFATE 325 MG TABLET PO SCH (10:01)
[2020-04-13] MEDS: MULTIVITAMIN TABLET PO SCH (10:01)
[2020-04-13] MEDS: PENTOXIFYLLINE 400 MG TABLET.SA PO SCH ×2 (10:01→17:44)
[2020-04-13] MEDS: BENAZEPRIL HCL 10 MG TABLET PO SCH (10:01)
[2020-04-13] MEDS: QUETIAPINE FUMARATE 25 MG TABLET PO SCH ×2 (10:01→22:14)
[2020-04-13] MEDS: ENOXAPARIN SODIUM INJ 30 MG/0.3 ML DISP.SYRIN SUBCUT SCH (10:02)
--- NOTE | 2020-04-13 13:37 | PDOC PROGRESS REPORT ---
Subjective Progress Note for:: 04/13/20 Subjective:: Patient remain at baseline dementia status with behavioral issues. No observed chest pain or difficulty with breathing. No fever, or chills. No nausea, vomiting or abdominal pain. P.O intake remain satisfactory. Reason For Visit: DEHYDRATION; METABOLIC ENCEPHALOPATHY; DEMENTIA Physical Exam Vital Signs: Temp Pulse Resp BP Pulse Ox 97.9 F 72 12 169/72 H 100 04/13/20 07:34 04/13/20 07:34 04/13/20 07:34 04/13/20 07:34 04/13/20 07:34 Intake & Output 04/12/20 04/13/20 04/14/20 06:59 06:59 06:59 Intake Total 470 770 Output Total 3 Balance 470 767 Weight 60.4 kg 54 kg Physical Exam: General appearance: PRESENT: no acute distress Head exam: PRESENT: atraumatic, normocephalic Eye exam: PRESENT : conjunctiva pink, ABSENT: pallor, scleral icterus Respiratory exam: PRESENT: clear to auscultation stacie Cardiovascular exam: PRESENT: RRR, +S1, +S2. ABSENT: diastolic murmur, rubs, systolic murmur GI/Abdominal exam: PRESENT: normal bowel sounds, soft. ABSENT: tenderness Extremities exam: ABSENT: pedal edema Neurological exam: PRESENT: alert, awake, cooperative with examination psych exam: PRESENT: delusional, Less agitated Skin exam: PRESENT: dry, warm Results Laboratory Results: 04/04/20 05:56 04/04/20 05:56 04/03/20 04/03/20 14:35 14:35 Creatine Kinase 52 L CK-MB (CK-2) 0.48 Troponin I < 0.012 Impressions: Chest X-Ray 04/03/20 14:15 IMPRESSION: Borderline cardiomegaly. No gregoria pulmonary edema. Head CT 04/03/20 14:15 IMPRESSION: Involutional changes with mild chronic microvascular ischemia. Chronic frontal subdural fluid collections are smaller than on the prior study. EVIDENCE OF ACUTE STROKE: NO. Assessment & Plan - Diagnosis (1) Dehydration Is this a current diagnosis for this admission?: Yes (2) Metabolic encephalopathy Is this a current diagnosis for this admission?: Yes (3) Senile dementia with behavioral disturbance Is this a current diagnosis for this admission?: Yes (4) Paroxysmal atrial fibrillation Is this a current diagnosis for this admission?: Yes (5) HTN (hypertension) Qualifiers: Hypertension type: essential hypertension Qualified Code(s): I10 - Essential (primary) hypertension Is this a current diagnosis for this admission?: Yes - Time Time Spent with patient: 25-34 minutes Level of Care: MEDICAL Medications reviewed and adjusted accordingly: Yes Anticipated discharge: SNF Anticipated DC Timeframe: Other - Inpatient Certification Based on my medical assessment, after consideration of the patient's comorbidities, presenting symptoms, or acuity I expect that the services needed warrant INPATIENT care.: Yes I certify that my determination is in accordance with my understanding of Medicare's requirements for reasonable and necessary INPATIENT services [42 CFR 412.3e].: Yes Medical Necessity: Significant Comorbidiites Make Outpatient Treatment Too Risky, Need Close Monitoring Due to Risk of Patient Decompensation, Risk of Complication if Not Cared For in Hospital, Risk of Diagnosis Which Will Require Inpatient Eval/Care/Monitoring Post Hospital Care: D/C or Transfer Summary - Plan Summary Plan Summary: Continue current medication management. Follow up on SNF placement.
[2020-04-14] MEDS: DILTIAZEM HCL 30 MG TABLET PO SCH ×4 (01:19→18:53)
[2020-04-14] MEDS: PANTOPRAZOLE SODIUM 40 MG TABLET.DR PO SCH (06:59)
[2020-04-14] MEDS: QUETIAPINE FUMARATE 25 MG TABLET PO SCH ×2 (09:31→23:16)
[2020-04-14] MEDS: FERROUS SULFATE 325 MG TABLET PO SCH (09:32)
[2020-04-14] MEDS: MULTIVITAMIN TABLET PO SCH (09:32)
[2020-04-14] MEDS: PENTOXIFYLLINE 400 MG TABLET.SA PO SCH ×2 (09:32→18:53)
[2020-04-14] MEDS: BENAZEPRIL HCL 10 MG TABLET PO SCH (09:32)
[2020-04-14] MEDS: ENOXAPARIN SODIUM INJ 30 MG/0.3 ML DISP.SYRIN SUBCUT SCH (09:50)
[2020-04-15] MEDS: DILTIAZEM HCL 30 MG TABLET PO SCH ×5 (06:16→23:22)
[2020-04-15] MEDS: PANTOPRAZOLE SODIUM 40 MG TABLET.DR PO SCH (06:16)
--- NOTE | 2020-04-15 07:53 | PDOC PROGRESS REPORT ---
Subjective Progress Note for:: 04/14/20 Subjective:: No chest pain or difficulty with breathing. No fever, or chills. No nausea, vomiting or abdominal pain. Patient remain at baseline dementia status with behavioral issues. Reason For Visit: DEHYDRATION; METABOLIC ENCEPHALOPATHY; DEMENTIA Physical Exam Vital Signs: Temp Pulse Resp BP Pulse Ox 98.1 F 72 16 130/64 H 95 04/14/20 16:00 04/14/20 16:00 04/14/20 16:00 04/14/20 16:00 04/14/20 16:00 Intake & Output 04/13/20 04/14/20 04/15/20 06:59 06:59 06:59 Intake Total 770 480 240 Output Total 3 Balance 767 480 240 Weight 54 kg 53.8 kg Physical Exam: General appearance: PRESENT: no acute distress Head exam: PRESENT: atraumatic, normocephalic Eye exam: PRESENT : conjunctiva pink, ABSENT: pallor, scleral icterus Respiratory exam: PRESENT: clear to auscultation stacie Cardiovascular exam: PRESENT: RRR, +S1, +S2. ABSENT: diastolic murmur, rubs, systolic murmur GI/Abdominal exam: PRESENT: normal bowel sounds, soft. ABSENT: tenderness Extremities exam: ABSENT: pedal edema Neurological exam: PRESENT: alert, awake, cooperative with examination psych exam: PRESENT: delusional, Less agitated Skin exam: PRESENT: dry, warm Results Laboratory Results: 04/04/20 05:56 04/04/20 05:56 04/03/20 04/03/20 14:35 14:35 Creatine Kinase 52 L CK-MB (CK-2) 0.48 Troponin I < 0.012 Impressions: Chest X-Ray 04/03/20 14:15 IMPRESSION: Borderline cardiomegaly. No gregoria pulmonary edema. Head CT 04/03/20 14:15 IMPRESSION: Involutional changes with mild chronic microvascular ischemia. Chronic frontal subdural fluid collections are smaller than on the prior study. EVIDENCE OF ACUTE STROKE: NO. Assessment & Plan - Diagnosis (1) Dehydration Is this a current diagnosis for this admission?: Yes (2) Metabolic encephalopathy Is this a current diagnosis for this admission?: Yes (3) Senile dementia with behavioral disturbance Is this a current diagnosis for this admission?: Yes (4) Paroxysmal atrial fibrillation Is this a current diagnosis for this admission?: Yes (5) HTN (hypertension) Qualifiers: Hypertension type: essential hypertension Qualified Code(s): I10 - Essential (primary) hypertension Is this a current diagnosis for this admission?: Yes - Time Time Spent with patient: 25-34 minutes Level of Care: MEDICAL Medications reviewed and adjusted accordingly: Yes Anticipated discharge: SNF Anticipated DC Timeframe: Other - Inpatient Certification Based on my medical assessment, after consideration of the patient's comorbidities, presenting symptoms, or acuity I expect that the services needed warrant INPATIENT care.: Yes I certify that my determination is in accordance with my understanding of Medicare's requirements for reasonable and necessary INPATIENT services [42 CFR 412.3e].: Yes Medical Necessity: Significant Comorbidiites Make Outpatient Treatment Too Risky, Need Close Monitoring Due to Risk of Patient Decompensation, Risk of Com plication if Not Cared For in Hospital, Risk of Diagnosis Which Will Require Inpatient Eval/Care/Monitoring Post Hospital Care: D/C or Transfer Summary - Plan Summary Plan Summary: Continue current medication management. Follow up on inventory planner efforts at placing this patient.
--- NOTE | 2020-04-15 07:55 | PDOC PROGRESS REPORT ---
Subjective Progress Note for:: 04/15/20 Subjective:: No chest pain or difficulty with breathing. No fever, or chills. No nausea, vomiting or abdominal pain. Awaiting SNF placement. Reason For Visit: DEHYDRATION; METABOLIC ENCEPHALOPATHY; DEMENTIA Physical Exam Vital Signs: Temp Pulse Resp BP Pulse Ox 97.8 F 70 16 138/84 H 90 L 04/14/20 19:39 04/14/20 19:39 04/14/20 19:39 04/14/20 19:39 04/14/20 19:39 Intake & Output 04/14/20 04/15/20 04/16/20 06:59 06:59 06:59 Intake Total 480 240 Balance 480 240 Weight 53.8 kg 53.8 kg Physical Exam: General appearance: PRESENT: no acute distress Head exam: PRESENT: atraumatic, normocephalic Eye exam: PRESENT : conjunctiva pink, ABSENT: pallor, scleral icterus Respiratory exam: PRESENT: clear to auscultation stacie Cardiovascular exam: PRESENT: RRR, +S1, +S2. ABSENT: diastolic murmur, rubs, systolic murmur GI/Abdominal exam: PRESENT: normal bowel sounds, soft. ABSENT: tenderness Extremities exam: ABSENT: pedal edema Neurological exam: PRESENT: alert, awake, cooperative with examination psych exam: PRESENT: delusional, Less agitated Skin exam: PRESENT: dry, warm Results Laboratory Results: 04/04/20 05:56 04/04/20 05:56 04/03/20 04/03/20 14:35 14:35 Creatine Kinase 52 L CK-MB (CK-2) 0.48 Troponin I < 0.012 Impressions: Chest X-Ray 04/03/20 14:15 IMPRESSION: Borderline cardiomegaly. No gregoria pulmonary edema. Head CT 04/03/20 14:15 IMPRESSION: Involutional changes with mild chronic microvascular ischemia. Chronic frontal subdural fluid collections are smaller than on the prior study. EVIDENCE OF ACUTE STROKE: NO. Assessment & Plan - Diagnosis (1) Dehydration Is this a current diagnosis for this admission?: Yes (2) Metabolic encephalopathy Is this a current diagnosis for this admission?: Yes (3) Senile dementia with behavioral disturbance Is this a current diagnosis for this admission?: Yes (4) Paroxysmal atrial fibrillation Is this a current diagnosis for this admission?: Yes (5) HTN (hypertension) Qualifiers: Hypertension type: essential hypertension Qualified Code(s): I10 - Essential (primary) hypertension Is this a current diagnosis for this admission?: Yes - Time Time Spent with patient: 25-34 minutes Level of Care: MEDICAL Medications reviewed and adjusted accordingly: Yes Anticipated discharge: SNF Anticipated DC Timeframe: when bed available - Inpatient Certification Based on my medical assessment, after consideration of the patient's comorbidities, presenting symptoms, or acuity I expect that the services needed warrant INPATIENT care.: Yes I certify that my determination is in accordance with my understanding of Medicare's requirements for reasonable and necessary INPATIENT services [42 CFR 412.3e].: Yes Medical Necessity: Significant Comorbidiites Make Outpatient Treatment Too Risky, Need Close Monitoring Due to Risk of Patient Decompensation, Risk of Complication if Not Cared For in Hospital, Risk of Diagnosis Which Will Require Inpatient Eval/Care/Monitoring Post Hospital Care: D/C or Transfer Summary - Plan Summary Plan Summary: Continue current medication therapy. Follow up on placement efforts.
[2020-04-15] MEDS: QUETIAPINE FUMARATE 25 MG TABLET PO SCH ×2 (09:05→23:21)
[2020-04-15] MEDS: MULTIVITAMIN TABLET PO SCH (09:06)
[2020-04-15] MEDS: BENAZEPRIL HCL 10 MG TABLET PO SCH (09:08)
[2020-04-15] MEDS: FERROUS SULFATE 325 MG TABLET PO SCH (09:08)
[2020-04-15] MEDS: PENTOXIFYLLINE 400 MG TABLET.SA PO SCH ×2 (09:11→18:15)
[2020-04-15] MEDS: ENOXAPARIN SODIUM INJ 30 MG/0.3 ML DISP.SYRIN SUBCUT SCH (09:14)
[2020-04-16] MEDS: PANTOPRAZOLE SODIUM 40 MG TABLET.DR PO SCH (05:52)
[2020-04-16] MEDS: DILTIAZEM HCL 30 MG TABLET PO SCH ×4 (06:11→23:05)
[2020-04-16] MEDS: MULTIVITAMIN TABLET PO SCH (09:41)
[2020-04-16] MEDS: QUETIAPINE FUMARATE 25 MG TABLET PO SCH ×2 (09:41→22:56)
[2020-04-16] MEDS: FERROUS SULFATE 325 MG TABLET PO SCH (09:41)
[2020-04-16] MEDS: ENOXAPARIN SODIUM INJ 30 MG/0.3 ML DISP.SYRIN SUBCUT SCH (09:42)
[2020-04-16] MEDS: BENAZEPRIL HCL 10 MG TABLET PO SCH (09:42)
[2020-04-16] MEDS: PENTOXIFYLLINE 400 MG TABLET.SA PO SCH ×2 (09:42→19:35)
--- NOTE | 2020-04-16 18:13 | PDOC PROGRESS REPORT ---
Subjective Progress Note for:: 04/16/20 Subjective:: No chest pain or difficulty with breathing. No fever, or chills. No nausea, vomiting or abdominal pain. Hopefully patient will get bed approval with [facility] for placement tomorrow. Reason For Visit: DEHYDRATION; METABOLIC ENCEPHALOPATHY; DEMENTIA Physical Exam Vital Signs: Temp Pulse Resp BP Pulse Ox 98.5 F 71 15 141/81 H 96 04/16/20 16:00 04/16/20 16:00 04/16/20 16:00 04/16/20 16:00 04/16/20 16:00 Intake & Output 04/15/20 04/16/20 04/17/20 06:59 06:59 06:59 Intake Total 240 480 456 Balance 240 480 456 Weight 53.8 kg 53.8 kg Results Laboratory Results: 04/04/20 05:56 04/04/20 05:56 04/03/20 04/03/20 14:35 14:35 Creatine Kinase 52 L CK-MB (CK-2) 0.48 Troponin I < 0.012 Impressions: Chest X-Ray 04/03/20 14:15 IMPRESSION: Borderline cardiomegaly. No gregoria pulmonary edema. Head CT 04/03/20 14:15 IMPRESSION: Involutional changes with mild chronic microvascular ischemia. Chronic frontal subdural fluid collections are smaller than on the prior study. EVIDENCE OF ACUTE STROKE: NO. Assessment & Plan - Diagnosis (1) Dehydration Is this a current diagnosis for this admission?: Yes (2) Metabolic encephalopathy Is this a current diagnosis for this admission?: Yes (3) Senile dementia with behavioral disturbance Is this a current diagnosis for this admission?: Yes (4) Paroxysmal atrial fibrillation Is this a current diagnosis for this admission?: Yes (5) HTN (hypertension) Qualifiers: Hypertension type: essential hypertension Qualified Code(s): I10 - Essential (primary) hypertension Is this a current diagnosis for this admission?: Yes - Time Time Spent with patient: 25-34 minutes Level of Care: MEDICAL Medications reviewed and adjusted accordingly: Yes Anticipated discharge: SNF Anticipated DC Timeframe: within 24 hours - Inpatient Certification Based on my medical assessment, after consideration of the patient's comorbidities, presenting symptoms, or acuity I expect that the services needed warrant INPATIENT care.: Yes I certify that my determination is in accordance with my understanding of Medicare's requirements for reasonable and necessary INPATIENT services [42 CFR 412.3e].: Yes Medical Necessity: Significant Comorbidiites Make Outpatient Treatment Too Risky, Need Close Monitoring Due to Risk of Patient Decompensation, Risk of Complication if Not Cared For in Hospital, Risk of Diagnosis Which Will Require Inpatient Eval/Care/Monitoring Post Hospital Care: D/C or Transfer Summary - Plan Summary Plan Summary: Continue current medication management. Follow up on disposition efforts. I discussed possible transfer to SNF with spouse at bedside.
[2020-04-17] MEDS: PANTOPRAZOLE SODIUM 40 MG TABLET.DR PO SCH (06:16)
[2020-04-17] MEDS: DILTIAZEM HCL 30 MG TABLET PO SCH ×4 (06:16→23:06)
[2020-04-17] MEDS: MULTIVITAMIN TABLET PO SCH ×2 (10:16→10:30)
[2020-04-17] MEDS: QUETIAPINE FUMARATE 25 MG TABLET PO SCH ×3 (10:16→23:00)
[2020-04-17] MEDS: FERROUS SULFATE 325 MG TABLET PO SCH ×2 (10:16→10:29)
[2020-04-17] MEDS: PENTOXIFYLLINE 400 MG TABLET.SA PO SCH ×3 (10:16→17:58)
[2020-04-17] MEDS: BENAZEPRIL HCL 10 MG TABLET PO SCH ×2 (10:17→10:29)
[2020-04-17] MEDS: ENOXAPARIN SODIUM INJ 30 MG/0.3 ML DISP.SYRIN SUBCUT SCH (10:27)
--- NOTE | 2020-04-17 16:06 | PDOC PROGRESS REPORT ---
Subjective Progress Note for:: 04/17/20 Subjective:: No chest pain or difficulty with breathing. No fever, or chills. No nausea, vomiting or abdominal pain. Awaiting SNF placement. Reason For Visit: DEHYDRATION; METABOLIC ENCEPHALOPATHY; DEMENTIA Physical Exam Vital Signs: Temp Pulse Resp BP Pulse Ox 98.9 F 218 H 18 125/106 H 99 04/17/20 04:56 04/17/20 11:56 04/16/20 23:32 04/17/20 11:56 04/17/20 04:56 Intake & Output 04/16/20 04/17/20 04/18/20 06:59 06:59 06:59 Intake Total 480 796 240 Balance 480 796 240 Weight 53.8 kg 54.2 kg Physical Exam: General appearance: PRESENT: no acute distress Head exam: PRESENT: atraumatic, normocephalic Eye exam: PRESENT : conjunctiva pink, ABSENT: pallor, scleral icterus Respiratory exam: PRESENT: clear to auscultation stacie Cardiovascular exam: PRESENT: RRR, +S1, +S2. ABSENT: diastolic murmur, rubs, systolic murmur GI/Abdominal exam: PRESENT: normal bowel sounds, soft. ABSENT: tenderness Extremities exam: ABSENT: pedal edema Neurological exam: PRESENT: alert, awake, cooperative with examination psych exam: PRESENT: delusional, Less agitated Skin exam: PRESENT: dry, warm Results Laboratory Results: 04/04/20 05:56 04/04/20 05:56 04/03/20 04/03/20 14:35 14:35 Creatine Kinase 52 L CK-MB (CK-2) 0.48 Troponin I < 0.012 Impressions: Chest X-Ray 04/03/20 14:15 IMPRESSION: Borderline cardiomegaly. No gregoria pulmonary edema. Head CT 04/03/20 14:15 IMPRESSION: Involutional changes with mild chronic microvascular ischemia. Chronic frontal subdural fluid collections are smaller than on the prior study. EVIDENCE OF ACUTE STROKE: NO. Assessment & Plan - Diagnosis (1) Dehydration Is this a current diagnosis for this admission?: Yes (2) Metabolic encephalopathy Is this a current diagnosis for this admission?: Yes (3) Senile dementia with behavioral disturbance Is this a current diagnosis for this admission?: Yes (4) Paroxysmal atrial fibrillation Is this a current diagnosis for this admission?: Yes (5) HTN (hypertension) Qualifiers: Hypertension type: essential hypertension Qualified Code(s): I10 - Essenti al (primary) hypertension Is this a current diagnosis for this admission?: Yes - Time Time Spent with patient: 25-34 minutes Level of Care: MEDICAL Medications reviewed and adjusted accordingly: Yes Anticipated discharge: SNF Anticipated DC Timeframe: when bed available - Inpatient Certification Based on my medical assessment, after consideration of the patient's comorbidities, presenting symptoms, or acuity I expect that the services needed warrant INPATIENT care.: Yes I certify that my determination is in accordance with my understanding of Medicare's requirements for reasonable and necessary INPATIENT services [42 CFR 412.3e].: Yes Medical Necessity: Significant Comorbidiites Make Outpatient Treatment Too Risky, Need Close Monitoring Due to Risk of Patient Decompensation, Risk of Complication if Not Cared For in Hospital, Risk of Diagnosis Which Will Require Inpatient Eval/Care/Monitoring Post Hospital Care: D/C or Transfer Summary - Plan Summary Plan Summary: Continue current medication management and support.
[2020-04-18] MEDS: PANTOPRAZOLE SODIUM 40 MG TABLET.DR PO SCH (05:25)
[2020-04-18] MEDS: DILTIAZEM HCL 30 MG TABLET PO SCH ×3 (05:26→17:11)
[2020-04-18] MEDS: QUETIAPINE FUMARATE 25 MG TABLET PO SCH ×2 (10:29→21:33)
[2020-04-18] MEDS: PENTOXIFYLLINE 400 MG TABLET.SA PO SCH ×2 (10:30→17:11)
[2020-04-18] MEDS: FERROUS SULFATE 325 MG TABLET PO SCH (10:30)
[2020-04-18] MEDS: ENOXAPARIN SODIUM INJ 30 MG/0.3 ML DISP.SYRIN SUBCUT SCH (10:31)
[2020-04-18] MEDS: BENAZEPRIL HCL 10 MG TABLET PO SCH (10:31)
[2020-04-18] MEDS: MULTIVITAMIN TABLET PO SCH (10:32)
--- NOTE | 2020-04-18 13:28 | PDOC PROGRESS REPORT ---
Subjective Progress Note for:: 04/18/20 Subjective:: No chest pain or difficulty with breathing. No fever, or chills. No nausea, vomiting or abdominal pain. Awaiting transfer of insurance information between [facility] and SNF placement. Reason For Visit: DEHYDRATION; METABOLIC ENCEPHALOPATHY; DEMENTIA Physical Exam Vital Signs: Temp Pulse Resp BP Pulse Ox 97.4 F 49 L 12 78/38 L 95 04/18/20 11:22 04/18/20 11:22 04/18/20 11:22 04/18/20 11:22 04/18/20 11:22 Intake & Output 04/17/20 04/18/20 04/19/20 06:59 06:59 06:59 Intake Total 796 920 236 Balance 796 920 236 Weight 54.2 kg 52.7 kg Physical Exam: General appearance: PRESENT: no acute distress Head exam: PRESENT: atraumatic, normocephalic Eye exam: PRESENT : conjunctiva pink, ABSENT: pallor, scleral icterus Respiratory exam: PRESENT: clear to auscultation stacie Cardiovascular exam: PRESENT: RRR, +S1, +S2. ABSENT: diastolic murmur, rubs, systolic murmur GI/Abdominal exam: PRESENT: normal bowel sounds, soft. ABSENT: tenderness Extremities exam: ABSENT: pedal edema Neurological exam: PRESENT: alert, awake, cooperative with examination psych exam: PRESENT: delusional, Less agitated Skin exam: PRESENT: dry, warm Results Laboratory Results: 04/04/20 05:56 04/04/20 05:56 04/03/20 04/03/20 14:35 14:35 Creatine Kinase 52 L CK-MB (CK-2) 0.48 Troponin I < 0.012 Impressions: Chest X-Ray 04/03/20 14:15 IMPRESSION: Borderline cardiomegaly. No gregoria pulmonary edema. Head CT 04/03/20 14:15 IMPRESSION: Involutional changes with mild chronic microvascular ischemia. Chronic frontal subdural fluid collections are smaller than on the prior study. EVIDENCE OF ACUTE STROKE: NO. Assessment & Plan - Diagnosis (1) Dehydration Is this a current diagnosis for this admission?: Yes (2) Metabolic encephalopathy Is this a current diagnosis for this admission?: Yes (3) Senile dementia with behavioral disturbance Is this a current diagnosis for this admission?: Yes (4) Paroxysmal atrial fibrillation Is this a current diagnosis for this admission?: Yes (5) HTN (hypertension) Qualifiers: Hypertension type: essential hypertension Qualified Code(s): I10 - Essential (primary) hypertension Is this a current diagnosis for this admission?: Yes - Time Time Spent with patient: 25-34 minutes Level of Care: MEDICAL Medications reviewed and adjusted accordingly: Yes Anticipated discharge: SNF Anticipated DC Timeframe: when bed available - Inpatient Certification Based on my medical assessment, after consideration of the patient's comorbidities, presenting symptoms, or acuity I expect that the services needed warrant INPATIENT care.: Yes I certify that my determination is in accordance with my understanding of Medicare's requirements for reasonable and necessary INPATIENT services [42 CFR 412.3e].: Yes Medical Necessity: Significant Comorbidiites Make Outpatient Treatment Too Risky, Need Close Monitoring Due to Risk of Patient Decompensation, Risk of Complication if Not Cared For in Hospital, Risk of Diagnosis Which Will Require Inpatient Eval/Care/Monitoring Post Hospital Care: D/C or Transfer Summary - Plan Summary Plan Summary: Continue current medication and supportive care management.
[2020-04-19] MEDS: DILTIAZEM HCL 30 MG TABLET PO SCH ×5 (00:19→23:40)
[2020-04-19] MEDS: PANTOPRAZOLE SODIUM 40 MG TABLET.DR PO SCH (06:00)
[2020-04-19] MEDS: FERROUS SULFATE 325 MG TABLET PO SCH (09:38)
[2020-04-19] MEDS: BENAZEPRIL HCL 10 MG TABLET PO SCH (09:38)
[2020-04-19] MEDS: ENOXAPARIN SODIUM INJ 30 MG/0.3 ML DISP.SYRIN SUBCUT SCH (09:38)
[2020-04-19] MEDS: MULTIVITAMIN TABLET PO SCH (09:38)
[2020-04-19] MEDS: PENTOXIFYLLINE 400 MG TABLET.SA PO SCH ×2 (09:38→17:36)
[2020-04-19] MEDS: QUETIAPINE FUMARATE 25 MG TABLET PO SCH ×2 (09:38→23:39)
--- NOTE | 2020-04-19 14:56 | PDOC PROGRESS REPORT ---
Subjective Progress Note for:: 04/19/20 Subjective:: Patient with baseline dementia, awaiting placement in intermediate Reason For Visit: DEHYDRATION; METABOLIC ENCEPHALOPATHY; DEMENTIA Physical Exam Vital Signs: Temp Pulse Resp BP Pulse Ox 97.8 F 58 L 18 110/84 97 04/19/20 12:00 04/19/20 12:00 04/19/20 12:00 04/19/20 12:00 04/19/20 12:00 Intake & Output 04/18/20 04/19/20 04/20/20 06:59 06:59 06:59 Intake Total 920 356 120 Balance 920 356 120 Weight 52.7 kg 57.2 kg Results Laboratory Results: 04/04/20 05:56 04/04/20 05:56 04/03/20 04/03/20 14:35 14:35 Creatine Kinase 52 L CK-MB (CK-2) 0.48 Troponin I < 0.012 Impressions: Chest X-Ray 04/03/20 14:15 IMPRESSION: Borderline cardiomegaly. No gregoria pulmonary edema. Head CT 04/03/20 14:15 IMPRESSION: Involutional changes with mild chronic microvascular ischemia. Chronic frontal subdural fluid collections are smaller than on the prior study. EVIDENCE OF ACUTE STROKE: NO. Assessment & Plan - Diagnosis (1) Metabolic encephalopathy Is this a current diagnosis for this admission?: Yes (2) Dehydration Is this a current diagnosis for this admission?: Yes - Time Time Spent with patient: Less than 15 minutes Level of Care: MEDICAL Anticipated discharge: SNF Anticipated DC Timeframe: when bed available
[2020-04-20] MEDS: PANTOPRAZOLE SODIUM 40 MG TABLET.DR PO SCH (06:32)
[2020-04-20] MEDS: DILTIAZEM HCL 30 MG TABLET PO SCH ×3 (06:32→18:10)
[2020-04-20] MEDS: ENOXAPARIN SODIUM INJ 30 MG/0.3 ML DISP.SYRIN SUBCUT SCH (13:05)
[2020-04-20] MEDS: QUETIAPINE FUMARATE 25 MG TABLET PO SCH ×2 (13:06→22:06)
[2020-04-20] MEDS: MULTIVITAMIN TABLET PO SCH (13:07)
[2020-04-20] MEDS: PENTOXIFYLLINE 400 MG TABLET.SA PO SCH ×2 (13:07→18:10)
[2020-04-20] MEDS: FERROUS SULFATE 325 MG TABLET PO SCH (13:07)
[2020-04-20] MEDS: BENAZEPRIL HCL 10 MG TABLET PO SCH (13:18)
--- NOTE | 2020-04-20 15:06 | PDOC PROGRESS REPORT ---
Subjective Progress Note for:: 04/20/20 Subjective:: Patient with baseline dementia, awaiting placement in senior care Reason For Visit: DEHYDRATION; METABOLIC ENCEPHALOPATHY; DEMENTIA Physical Exam Vital Signs: Temp Pulse Resp BP Pulse Ox 97.9 F 74 18 145/86 H 100 04/20/20 12:00 04/20/20 12:00 04/20/20 12:00 04/20/20 12:00 04/20/20 12:00 Intake & Output 04/19/20 04/20/20 04/21/20 06:59 06:59 06:59 Intake Total 356 120 120 Balance 356 120 120 Weight 57.2 kg 57.3 kg Results Laboratory Results: 04/04/20 05:56 04/04/20 05:56 04/03/20 04/03/20 14:35 14:35 Creatine Kinase 52 L CK-MB (CK-2) 0.48 Troponin I < 0.012 Impressions: Chest X-Ray 04/03/20 14:15 IMPRESSION: Borderline cardiomegaly. No gregoria pulmonary edema. Head CT 04/03/20 14:15 IMPRESSION: Involutional changes with mild chronic microvascular ischemia. Chronic frontal subdural fluid collections are smaller than on the prior study. EVIDENCE OF ACUTE STROKE: NO. Assessment & Plan - Diagnosis (1) Metabolic encephalopathy Is this a current diagnosis for this admission?: Yes (2) Dehydration Is this a current diagnosis for this admission?: Yes - Time Time Spent with patient: Less than 15 minutes Level of Care: MEDICAL Medications reviewed and adjusted accordingly: Yes Anticipated discharge: SNF Anticipated DC Timeframe: when bed available
[2020-04-21] MEDS: DILTIAZEM HCL 30 MG TABLET PO SCH ×5 (00:23→23:33)
[2020-04-21] MEDS: PANTOPRAZOLE SODIUM 40 MG TABLET.DR PO SCH (06:23)
[2020-04-21] MEDS: BENAZEPRIL HCL 10 MG TABLET PO SCH (10:16)
[2020-04-21] MEDS: ENOXAPARIN SODIUM INJ 30 MG/0.3 ML DISP.SYRIN SUBCUT SCH (10:16)
[2020-04-21] MEDS: PENTOXIFYLLINE 400 MG TABLET.SA PO SCH ×2 (10:16→17:55)
[2020-04-21] MEDS: QUETIAPINE FUMARATE 25 MG TABLET PO SCH (10:16)
[2020-04-21] MEDS: FERROUS SULFATE 325 MG TABLET PO SCH (10:16)
[2020-04-21] MEDS: MULTIVITAMIN TABLET PO SCH (10:16)
--- NOTE | 2020-04-21 12:24 | PDOC PROGRESS REPORT ---
Subjective Progress Note for:: 04/21/20 Subjective:: No chest pain or difficulty with breathing. No fever, or chills. No nausea, vomiting or abdominal pain. Poor P.O intake as per nursing staff. Patient is less engaging. Awaiting transfer of insurance information between [facility] and SNF placement. Reason For Visit: DEHYDRATION; METABOLIC ENCEPHALOPATHY; DEMENTIA Physical Exam Vital Signs: Temp Pulse Resp BP Pulse Ox 97.9 F 87 16 115/97 H 99 04/21/20 00:18 04/21/20 00:18 04/21/20 00:18 04/21/20 00:18 04/21/20 00:18 Intake & Output 04/20/20 04/21/20 04/22/20 06:59 06:59 06:59 Intake Total 120 120 Balance 120 120 Weight 57.3 kg 57.3 kg Physical Exam: General appearance: PRESENT: no acute distress Head exam: PRESENT: atraumatic, normocephalic Eye exam: PRESENT : conjunctiva pink, ABSENT: pallor, scleral icterus Respiratory exam: PRESENT: clear to auscultation stacie Cardiovascular exam: PRESENT: RRR, +S1, +S2. ABSENT: diastolic murmur, rubs, systolic murmur GI/Abdominal exam: PRESENT: normal bowel sounds, soft. ABSENT: tenderness Extremities exam: ABSENT: pedal edema Neurological exam: PRESENT: alert, awake, cooperative with examination psych exam: PRESENT: delusional, Less agitated Skin exam: PRESENT: dry, warm Results Laboratory Results: 04/04/20 05:56 04/04/20 05:56 04/03/20 04/03/20 14:35 14:35 Creatine Kinase 52 L CK-MB (CK-2) 0.48 Troponin I < 0.012 Impressions: Chest X-Ray 04/03/20 14:15 IMPRESSION: Borderline cardiomegaly. No gregoria pulmonary edema. Head CT 04/03/20 14:15 IMPRESSION: Involutional changes with mild chronic microvascular ischemia. Chronic frontal subdural fluid collections are smaller than on the prior study. EVIDENCE OF ACUTE STROKE: NO. Assessment & Plan - Diagnosis (1) Dehydration Is this a current diagnosis for this admission?: Yes (2) Metabolic encephalopathy Is this a current diagnosis for this admission?: Yes (3) Senile dementia with behavioral disturbance Is this a current diagnosis for this admission?: Yes (4) Paroxysmal atrial fibrillation Is this a current diagnosis for this admission?: Yes (5) HTN (hypertension) Qualifiers: Hypertension type: essential hypertension Qualified Code(s): I10 - Essential (primary) hypertension Is this a current diagnosis for this admission?: Yes - Time Time Spent with patient: 25-34 minutes Level of Care: MEDICAL Medications reviewed and adjusted accordingly: Yes Anticipated discharge: SNF Anticipated DC Timeframe: when bed available - Inpatient Certification Based on my medical assessment, after consideration of the patient's comorbidities, presenting symptoms, or acuity I expect that the services needed warrant INPATIENT care.: Yes I certify that my determination is in accordance with my understanding of Medicare's requirements for reasonable and necessary INPATIENT services [42 CFR 412.3e].: Yes Medical Necessity: Significant Comorbidiites Make Outpatient Treatment Too Risky, Need Close Monitoring Due to Risk of Patient Decompensation, Risk of Complication if Not Cared For in Hospital, Risk of Diagnosis Which Will Require Inpatient Eval/Care/Monitoring Post Hospital Care: D/C or Transfer Summary - Plan Summary Plan Summary: Decrease Seroquel to 25 mg p.o bid. Continue al other current medication management.
[2020-04-22] MEDS: DILTIAZEM HCL 30 MG TABLET PO SCH ×3 (06:37→18:22)
[2020-04-22] MEDS: PANTOPRAZOLE SODIUM 40 MG TABLET.DR PO SCH (06:38)
[2020-04-22] MEDS: FERROUS SULFATE 325 MG TABLET PO SCH (11:14)
[2020-04-22] MEDS: BENAZEPRIL HCL 10 MG TABLET PO SCH (11:14)
[2020-04-22] MEDS: MULTIVITAMIN TABLET PO SCH (11:14)
[2020-04-22] MEDS: QUETIAPINE FUMARATE 25 MG TABLET PO SCH ×2 (11:14→20:34)
[2020-04-22] MEDS: PENTOXIFYLLINE 400 MG TABLET.SA PO SCH ×2 (11:14→18:22)
[2020-04-22] MEDS: ENOXAPARIN SODIUM INJ 30 MG/0.3 ML DISP.SYRIN SUBCUT SCH (11:18)
--- NOTE | 2020-04-22 16:04 | PDOC PROGRESS REPORT ---
Subjective Progress Note for:: 04/22/20 Subjective:: No chest pain or difficulty with breathing. No fever, or chills. No nausea, vomiting or abdominal pain. Poor P.O intake remain a challenge. Reason For Visit: DEHYDRATION; METABOLIC ENCEPHALOPATHY; DEMENTIA Physical Exam Vital Signs: Temp Pulse Resp BP Pulse Ox 98.4 F 90 20 111/71 100 04/22/20 11:06 04/22/20 11:06 04/22/20 11:06 04/22/20 11:06 04/22/20 11:06 Intake & Output 04/21/20 04/22/20 04/23/20 06:59 06:59 06:59 Intake Total 120 Balance 120 Weight 57.3 kg 57.3 kg Physical Exam: General appearance: PRESENT: no acute distress Head exam: PRESENT: atraumatic, normocephalic Eye exam: PRESENT : conjunctiva pink, ABSENT: pallor, scleral icterus Respiratory exam: PRESENT: clear to auscultation stacie Cardiovascular exam: PRESENT: RRR, +S1, +S2. ABSENT: diastolic murmur, rubs, systolic murmur GI/Abdominal exam: PRESENT: normal bowel sounds, soft. ABSENT: tenderness Extremities exam: ABSENT: pedal edema Neurological exam: PRESENT: alert, awake, cooperative with examination psych exam: PRESENT: delusional but less agitated Skin exam: PRESENT: dry, warm Results Laboratory Results: 04/04/20 05:56 04/04/20 05:56 04/03/20 04/03/20 14:35 14:35 Creatine Kinase 52 L CK-MB (CK-2) 0.48 Troponin I < 0.012 Impressions: Chest X-Ray 04/03/20 14:15 IMPRESSION: Borderline cardiomegaly. No gregoria pulmonary edema. Head CT 04/03/20 14:15 IMPRESSION: Involutional changes with mild chronic microvascular ischemia. Chronic frontal subdural fluid collections are smaller than on the prior study. EVIDENCE OF ACUTE STROKE: NO. Assessment & Plan - Diagnosis (1) Dehydration Is this a current diagnosis for this admission?: Yes (2) Metabolic encephalopathy Is this a current diagnosis for this admission?: Yes (3) Senile dementia with behavioral disturbance Is this a current diagnosis for this admission?: Yes (4) Paroxysmal atrial fibrillation Is this a current diagnosis for this admission?: Yes (5) HTN (hypertension) Qualifiers: Hypertension type: essential hypertension Qualified Code(s): I10 - Essenti al (primary) hypertension Is this a current diagnosis for this admission?: Yes - Time Time Spent with patient: 25-34 minutes Level of Care: MEDICAL Medications reviewed and adjusted accordingly: Yes Anticipated discharge: SNF Anticipated DC Timeframe: Other - Inpatient Certification Based on my medical assessment, after consideration of the patient's comorbidities, presenting symptoms, or acuity I expect that the services needed warrant INPATIENT care.: Yes I certify that my determination is in accordance with my understanding of Medicare's requirements for reasonable and necessary INPATIENT services [42 CFR 412.3e].: Yes Medical Necessity: Significant Comorbidiites Make Outpatient Treatment Too Risky, Need Close Monitoring Due to Risk of Patient Decompensation, Risk of Complication if Not Cared For in Hospital, Risk of Diagnosis Which Will Require Inpatient Eval/Care/Monitoring Post Hospital Care: D/C or Transfer Summary - Plan Summary Plan Summary: Continue current medication and supportive management. Awaiting medicaid insurance transfer from [facility] to [facility] to effect his halfway transfer.
[2020-04-23] MEDS: DILTIAZEM HCL 30 MG TABLET PO SCH ×5 (00:06→23:38)
[2020-04-23] MEDS: PANTOPRAZOLE SODIUM 40 MG TABLET.DR PO SCH (06:49)
[2020-04-23 10:21] LABS: HEMATOCRIT 40.8 % (37.9-51.0); HEMOGLOBIN 13.5 g/dL (13.5-17.0); MEAN CORPUSCULAR HEMOGLOBIN 30.9 pg (27.0-33.4); MEAN CORPUSCULAR HGB CONC 33.1 g/dL (32.0-36.0); MEAN CORPUSCULAR VOLUME 93 fl (80-97); RED BLOOD COUNT 4.39 10^6/uL (4.35-5.55); RED CELL DISTRIBUTION WIDTH 12.9 % (11.5-14.0); WHITE BLOOD COUNT 8.8 10^3/uL (4.0-10.5)
[2020-04-23 10:44] LABS: ALBUMIN 4.5 g/dL (3.5-5.0); ALKALINE PHOSPHATASE 80 U/L (38-126); ANION GAP 5 (5-19); ASPARTATE AMINO TRANSFERASE 42 U/L (17-59); BILIRUBIN,DIRECT 0.1 mg/dL (0.0-0.4); BILIRUBIN,TOTAL 1.2 mg/dL (0.2-1.3); BLOOD UREA NITROGEN 51 mg/dL (7-20); CALCIUM 11.5 mg/dL (8.4-10.2); CARBON DIOXIDE 28 mmol/L (22-30); CHLORIDE 116 mmol/L (98-107); GLUCOSE 137 mg/dL (75-110); POTASSIUM 4.1 mmol/L (3.6-5.0); TOTAL PROTEIN 8.8 g/dL (6.3-8.2)
[2020-04-23 11:05] LABS: ABSOLUTE LYMPHOCYTES# (MANUAL) 2.5 10^3/uL (0.5-4.7); BAND NEUTROPHILS % (MANUAL) 2 % (3-5); BASOPHILS % (MANUAL) 0 % (0-2); EOSINOPHILS % (MANUAL) 0 % (0-6); LYMPHOCYTES % (MANUAL) 28 % (13-45); MONOCYTES % (MANUAL) 11 % (3-13); SEGMENTED NEUTROPHILS % (MAN) 59 % (42-78); TOTAL CELLS COUNTED 100
[2020-04-23 11:07] LABS: PLATELET CLUMPS PRESENT; PLATELET COMMENT ADEQUATE; PLATELET LARGE PRESENT; POLYCHROMASIA SLIGHT
[2020-04-23 11:09] LABS: PLATELET COUNT 305 10^3/uL (150-450)
[2020-04-23] MEDS: BENAZEPRIL HCL 10 MG TABLET PO SCH (11:10)
[2020-04-23] MEDS: QUETIAPINE FUMARATE 25 MG TABLET PO SCH ×2 (11:11→20:38)
[2020-04-23] MEDS: PENTOXIFYLLINE 400 MG TABLET.SA PO SCH ×2 (11:11→17:49)
[2020-04-23] MEDS: FERROUS SULFATE 325 MG TABLET PO SCH (11:11)
[2020-04-23] MEDS: ENOXAPARIN SODIUM INJ 30 MG/0.3 ML DISP.SYRIN SUBCUT SCH (11:12)
[2020-04-23] MEDS: MULTIVITAMIN TABLET PO SCH (11:12)
--- NOTE | 2020-04-23 17:45 | PDOC PROGRESS REPORT ---
Subjective Progress Note for:: 04/23/20 Subjective:: No chest pain or difficulty with breathing. No fever, or chills. No nausea, vomiting or abdominal pain. Reason For Visit: DEHYDRATION; METABOLIC ENCEPHALOPATHY; DEMENTIA Physical Exam Vital Signs: Temp Pulse Resp BP Pulse Ox 98.6 F 80 18 140/62 H 94 04/23/20 08:00 04/23/20 08:00 04/23/20 08:00 04/23/20 08:00 04/23/20 08:00 Intake & Output 04/22/20 04/23/20 04/24/20 06:59 06:59 06:59 Intake Total 0 Balance 0 Weight 57.3 kg 57.3 kg Physical Exam: General appearance: PRESENT: no acute distress Head exam: PRESENT: atraumatic, normocephalic Eye exam: PRESENT : conjunctiva pink, ABSENT: pallor, scleral icterus Respiratory exam: PRESENT: clear to auscultation stacie Cardiovascular exam: PRESENT: RRR, +S1, +S2. ABSENT: diastolic murmur, rubs, systolic murmur GI/Abdominal exam: PRESENT: normal bowel sounds, soft. ABSENT: tenderness Extremities exam: ABSENT: pedal edema Neurological exam: PRESENT: alert, awake, cooperative with examination psych exam: PRESENT: delusional but less agitated Skin exam: PRESENT: dry, warm Results Laboratory Results: 04/04/20 05:56 04/04/20 05:56 04/03/20 04/03/20 14:35 14:35 Creatine Kinase 52 L CK-MB (CK-2) 0.48 Troponin I < 0.012 Impressions: Chest X-Ray 04/03/20 14:15 IMPRESSION: Borderline cardiomegaly. No gregoria pulmonary edema. Head CT 04/03/20 14:15 IMPRESSION: Involutional changes with mild chronic microvascular ischemia. Chronic frontal subdural fluid collections are smaller than on the prior study. EVIDENCE OF ACUTE STROKE: NO. Assessment & Plan - Diagnosis (1) Dehydration Is this a current diagnosis for this admission?: Yes (2) Metabolic encephalopathy Is this a current diagnosis for this admission?: Yes (3) Senile dementia with behavioral disturbance Is this a current diagnosis for this admission?: Yes (4) Paroxysmal atrial fibrillation Is this a current diagnosis for this admission?: Yes (5) HTN (hypertension) Qualifiers: Hypertension type: essential hypertension Qualified Code(s): I10 - Essential (primary) hypertension Is this a current diagnosis for this admission?: Yes - Time Time Spent with patient: 25-34 minutes Level of Care: MEDICAL Medications reviewed and adjusted accordingly: Yes Anticipated discharge: SNF Anticipated DC Timeframe: when bed available - Inpatient Certification Based on my medical assessment, after consideration of the patient's comorbidities, presenting symptoms, or acuity I expect that the services needed warrant INPATIENT care.: Yes I certify that my determination is in accordance with my understanding of Medicare's requirements for reasonable and necessary INPATIENT services [42 CFR 412.3e].: Yes Medical Necessity: Significant Comorbidiites Make Outpatient Treatment Too Risky, Need Close Monitoring Due to Risk of Patient Decompensation, Need For IV Fluids, Risk of Complication if Not Cared For in Hospital, Risk of Diagnosis Which Will Require Inpatient Eval/Care/Monitoring - Plan Summary Plan Summary: Start on IV N/S at 100 ml/hour. Continue all other current medication management.
[2020-04-23] MEDS: NORMAL SALINE 1000 ML 1,000 ML IV PRN (18:34)
[2020-04-24] MEDS: PANTOPRAZOLE SODIUM 40 MG TABLET.DR PO SCH (06:30)
[2020-04-24] MEDS: DILTIAZEM HCL 30 MG TABLET PO SCH ×3 (06:30→17:37)
[2020-04-24] MEDS: QUETIAPINE FUMARATE 25 MG TABLET PO SCH (10:05)
[2020-04-24] MEDS: MULTIVITAMIN TABLET PO SCH (10:05)
[2020-04-24] MEDS: PENTOXIFYLLINE 400 MG TABLET.SA PO SCH ×2 (10:05→17:37)
[2020-04-24] MEDS: BENAZEPRIL HCL 10 MG TABLET PO SCH (10:05)
[2020-04-24] MEDS: FERROUS SULFATE 325 MG TABLET PO SCH (10:05)
[2020-04-24] MEDS: ENOXAPARIN SODIUM INJ 30 MG/0.3 ML DISP.SYRIN SUBCUT SCH (10:06)
[2020-04-24] MEDS: NORMAL SALINE 1000 ML 1,000 ML IV PRN (12:42)
--- NOTE | 2020-04-24 17:33 | PDOC PROGRESS REPORT ---
Subjective Progress Note for:: 04/24/20 Subjective:: No chest pain or difficulty with breathing. No fever, or chills. No nausea, vomiting or abdominal pain. I had extensive discussion with spouse regarding transferring medicaid coverage from [facility] to [facility] to effect SNF placement. Reason For Visit: DEHYDRATION; METABOLIC ENCEPHALOPATHY; DEMENTIA Physical Exam Vital Signs: Temp Pulse Resp BP Pulse Ox 97.2 F 30 L 18 142/84 H 82 L 04/24/20 15:31 04/24/20 15:31 04/24/20 15:31 04/24/20 15:31 04/24/20 15:31 Intake & Output 04/23/20 04/24/20 04/25/20 06:59 06:59 06:59 Intake Total 0 1050 Balance 0 1050 Weight 57.3 kg 39.8 kg 57.3 kg Physical Exam: General appearance: PRESENT: no acute distress Head exam: PRESENT: atraumatic, normocephalic Eye exam: PRESENT : conjunctiva pink, ABSENT: pallor, scleral icterus Respiratory exam: PRESENT: clear to auscultation stacie Cardiovascular exam: PRESENT: RRR, +S1, +S2. ABSENT: diastolic murmur, rubs, sy stolic murmur GI/Abdominal exam: PRESENT: normal bowel sounds, soft. ABSENT: tenderness Extremities exam: ABSENT: pedal edema Neurological exam: PRESENT: alert, awake, cooperative with examination psych exam: PRESENT: delusional but not agitated Skin exam: PRESENT: dry, warm Results Laboratory Results: 04/23/20 10:12 04/23/20 10:12 04/03/20 04/03/20 14:35 14:35 Creatine Kinase 52 L CK-MB (CK-2) 0.48 Troponin I < 0.012 Impressions: Chest X-Ray 04/03/20 14:15 IMPRESSION: Borderline cardiomegaly. No gregoria pulmonary edema. Head CT 04/03/20 14:15 IMPRESSION: Involutional changes with mild chronic microvascular ischemia. Chronic frontal subdural fluid collections are smaller than on the prior study. EVIDENCE OF ACUTE STROKE: NO. Assessment & Plan - Diagnosis (1) Dehydration Is this a current diagnosis for this admission?: Yes (2) Metabolic encephalopathy Is this a current diagnosis for this admission?: Yes (3) Senile dementia with behavioral disturbance Is this a current diagnosis for this admission?: Yes (4) Paroxysmal atrial fibrillation Is this a current diagnosis for this admission?: Yes (5) HTN (hypertension) Qualifiers: Hypertension type: essential hypertension Qualified Code(s): I10 - Essential (primary) hypertension Is this a current diagnosis for this admission?: Yes - Time Time Spent with patient: 25-34 minutes Level of Care: MEDICAL Medications reviewed and adjusted accordingly: Yes Anticipated discharge: SNF Anticipated DC Timeframe: Other - Inpatient Certification Based on my medical assessment, after consideration of the patient's comorbidities, presenting symptoms, or acuity I expect that the services needed warrant INPATIENT care.: Yes I certify that my determination is in accordance with my understanding of Medicare's requirements for reasonable and necessary INPATIENT services [42 CFR 412.3e].: Yes Medical Necessity: Significant Comorbidiites Make Outpatient Treatment Too Risky, Need Close Monitoring Due to Risk of Patient Decompensation, Need For IV Fluids, Risk of Complication if Not Cared For in Hospital, Risk of Diagnosis Which Will Require Inpatient Eval/Care/Monitoring Post Hospital Care: D/C or Transfer Summary - Plan Summary Plan Summary: Continue current medication management. Follow up on efforts at SNF placement.
[2020-04-25] MEDS: QUETIAPINE FUMARATE 25 MG TABLET PO SCH ×3 (00:19→20:07)
[2020-04-25] MEDS: DILTIAZEM HCL 30 MG TABLET PO SCH ×4 (04:38→17:18)
[2020-04-25] MEDS: PANTOPRAZOLE SODIUM 40 MG TABLET.DR PO SCH (06:24)
[2020-04-25] MEDS: NORMAL SALINE 1000 ML 1,000 ML IV PRN (11:13)
[2020-04-25] MEDS: FERROUS SULFATE 325 MG TABLET PO SCH (11:13)
[2020-04-25] MEDS: BENAZEPRIL HCL 10 MG TABLET PO SCH ×2 (11:14→17:18)
[2020-04-25] MEDS: PENTOXIFYLLINE 400 MG TABLET.SA PO SCH ×2 (11:14→17:18)
[2020-04-25] MEDS: ENOXAPARIN SODIUM INJ 30 MG/0.3 ML DISP.SYRIN SUBCUT SCH (11:14)
[2020-04-25] MEDS: MULTIVITAMIN TABLET PO SCH (11:14)
--- NOTE | 2020-04-25 14:11 | PDOC PROGRESS REPORT ---
Subjective Progress Note for:: 04/25/20 Subjective:: No chest pain or difficulty with breathing. No fever or chills. No nausea, vomiting or abdominal pain. PO intake remain a concern. Intermittent tremulousness with patient fumbling over his pelvic /suprapubic region. Reason For Visit: DEHYDRATION; METABOLIC ENCEPHALOPATHY; DEMENTIA Physical Exam Vital Signs: Temp Pulse Resp BP Pulse Ox 97.2 F 121 H 20 109/65 82 L 04/24/20 15:31 04/25/20 11:18 04/25/20 11:18 04/25/20 11:18 04/24/20 15:31 Intake & Output 04/24/20 04/25/20 04/26/20 06:59 06:59 06:59 Intake Total 1050 1110 90 Balance 1050 1110 90 Weight 39.8 kg 58.2 kg Physical Exam: General appearance: PRESENT: no acute distress Head exam: PRESENT: atraumatic, normocephalic Eye exam: PRESENT : conjunctiva pink, ABSENT: pallor, scleral icterus Respiratory exam: PRESENT: clear to auscultation stacie Cardiovascular exam: PRESENT: RRR, +S1, +S2. ABSENT: diastolic murmur, rubs, systolic murmur GI/Abdominal exam: PRESENT: normal bowel sounds, soft. ABSENT: tenderness Extremities exam: ABSENT: pedal edema Neurological exam: PRESENT: alert, awake, cooperative with examination psych exam: PRESENT: delusional but not agitated Skin exam: PRESENT: dry, warm Results Laboratory Results: 04/23/20 10:12 04/23/20 10:12 04/03/20 04/03/20 14:35 14:35 Creatine Kinase 52 L CK-MB (CK-2) 0.48 Troponin I < 0.012 Impressions: Chest X-Ray 04/03/20 14:15 IMPRESSION: Borderline cardiomegaly. No gregoria pulmonary edema. Head CT 04/03/20 14:15 IMPRESSION: Involutional changes with mild chronic microvascular ischemia. Chronic frontal subdural fluid collections are smaller than on the prior study. EVIDENCE OF ACUTE STROKE: NO. Assessment & Plan - Diagnosis (1) Dehydration Is this a current diagnosis for this admission?: Yes Plan: Obtain BMP. (2) Metabolic encephalopathy Is this a current diagnosis for this admission?: Yes (3) Senile dementia with behavioral disturbance Is this a current diagnosis for this admission?: Yes (4) Paroxysmal atrial fibrillation Is this a current diagnosis for this admission?: Yes (5) HTN (hypertension) Qualifiers: Hypertension type: essential hypertension Qualified Code(s): I10 - Essential (primary) hypertension Is this a current diagnosis for this admission?: Yes (6) Urinary incontinence Qualifiers: Urinary Incontinence type: unspecified incontinence Qualified Code(s): R32 - Unspecified urinary incontinence Is this a current diagnosis for this admission?: Yes Plan: Obtain bladder scan for evaluation of possible retention problem. - Time Time Spent with patient: 25-34 minutes Level of Care: MEDICAL Medications reviewed and adjusted accordingly: Yes Anticipated discharge: SNF Anticipated DC Timeframe: when bed available - Inpatient Certification Based on my medical assessment, after consideration of the patient's comorbidities, presenting symptoms, or acuity I expect that the services needed warrant INPATIENT care.: Yes I certify that my determination is in accordance with my understanding of Medicare's requirements for reasonable and necessary INPATIENT services [42 CFR 412.3e].: Yes Medical Necessity: Significant Comorbidiites Make Outpatient Treatment Too Risky, Need Close Monitoring Due to Risk of Patient Decompensation, Need For IV Fluids, Risk of Complication if Not Cared For in Hospital, Risk of Diagnosis Which Will Require Inpatient Eval/Care/Monitoring Post Hospital Care: D/C or Transfer Summary - Plan Summary Plan Summary: Obtain BMP and bladder scan. Continue all other current medication and supportive management.
[2020-04-25 15:25] LABS: BLOOD UREA NITROGEN 38 mg/dL (7-20); CALCIUM 10.2 mg/dL (8.4-10.2); GLUCOSE 115 mg/dL (75-110); POTASSIUM 3.8 mmol/L (3.6-5.0)
[2020-04-25 15:31] LABS: CARBON DIOXIDE 24 mmol/L (22-30); CHLORIDE 129 mmol/L (98-107)
[2020-04-25 15:36] LABS: ANION GAP 6 (5-19)
[2020-04-26] MEDS: DILTIAZEM HCL 30 MG TABLET PO SCH ×5 (00:01→23:47)
[2020-04-26] MEDS: NORMAL SALINE 1000 ML 1,000 ML IV PRN ×2 (00:01→10:09)
[2020-04-26] MEDS: PANTOPRAZOLE SODIUM 40 MG TABLET.DR PO SCH (05:58)
[2020-04-26] MEDS: BENAZEPRIL HCL 10 MG TABLET PO SCH (10:05)
[2020-04-26] MEDS: QUETIAPINE FUMARATE 25 MG TABLET PO SCH ×2 (10:05→20:08)
[2020-04-26] MEDS: FERROUS SULFATE 325 MG TABLET PO SCH (10:05)
[2020-04-26] MEDS: MULTIVITAMIN TABLET PO SCH (10:05)
[2020-04-26] MEDS: ENOXAPARIN SODIUM INJ 30 MG/0.3 ML DISP.SYRIN SUBCUT SCH (10:06)
[2020-04-26] MEDS: PENTOXIFYLLINE 400 MG TABLET.SA PO SCH ×2 (10:06→17:28)
[2020-04-26] MEDS: DEXTROSE 5%-1/2 NORMAL SALINE 1,000 ML IV PRN ×2 (10:31→23:56)
--- NOTE | 2020-04-26 12:03 | PDOC PROGRESS REPORT ---
Subjective Progress Note for:: 04/26/20 Subjective:: Patient is currently alert awake According to nursing staff no other concerns Looking the chart patient sodium was 158 We will change the IV fluid from normal saline to D5 one half normal saline Reason For Visit: DEHYDRATION; METABOLIC ENCEPHALOPATHY; DEMENTIA Physical Exam Vital Signs: Temp Pulse Resp BP Pulse Ox 98 F 83 22 H 155/86 H 100 04/26/20 00:00 04/25/20 20:00 04/26/20 00:00 04/25/20 20:00 04/25/20 20:00 Intake & Output 04/25/20 04/26/20 04/27/20 06:59 06:59 06:59 Intake Total 1110 1530 1037 Balance 1110 1530 1037 Weight 58.2 kg 58.7 kg General appearance: PRESENT: no acute distress Eye exam: PRESENT: PERRLA Mouth exam: PRESENT: neck supple Respiratory exam: PRESENT: clear to auscultation stacie Cardiovascular exam: PRESENT: +S1, +S2 GI/Abdominal exam: PRESENT: normal bowel sounds, soft Neurological exam: PRESENT: alert, awake Skin exam: PRESENT: dry Results Laboratory Results: 04/23/20 10:12 04/25/20 14:42 04/25/20 14:42 Sodium 158.6 H Potassium 3.8 Chloride 129 H Carbon Dioxide 24 Anion Gap 6 BUN 38 H Creatinine 1.27 H Est GFR ( Amer) > 60 Glucose 115 H Calcium 10.2 04/03/20 04/03/20 14:35 14:35 Creatine Kinase 52 L CK-MB (CK-2) 0.48 Troponin I < 0.012 Impressions: Chest X-Ray 04/03/20 14:15 IMPRESSION: Borderline cardiomegaly. No gregoria pulmonary edema. Head CT 04/03/20 14:15 IMPRESSION: Involutional changes with mild chronic microvascular ischemia. Chronic frontal subdural fluid collections are smaller than on the prior study. EVIDENCE OF ACUTE STROKE: NO. Assessment & Plan - Diagnosis (1) Hypernatremia Is this a current diagnosis for this admission?: Yes Plan: We will change the IV fluid (2) Dehydration Is this a current diagnosis for this admission?: Yes (3) Metabolic encephalopathy Is this a current diagnosis for this admission?: Yes (4) Senile dementia with behavioral disturbance Is this a current diagnosis for this admission?: Yes (5) Urinary incontinence Qualifiers: Urinary Incontinence type: unspecified incontinence Qualified Code(s): R32 - Unspecified urinary incontinence Is this a current diagnosis for this admission?: Yes (6) Anemia due to chronic blood loss Is this a current diagnosis for this admission?: Yes (7) Atrial fibrillation with controlled ventricular response Is this a current diagnosis for this admission?: Yes (8) HTN (hypertension) Qualifiers: Hypertension type: essential hypertension Qualified Code(s): I10 - Essential (primary) hypertension Is this a current diagnosis for this admission?: Yes - Time Time Spent with patient: 15-24 minutes Level of Care: TELE Medications reviewed and adjusted accordingly: Yes Anticipated discharge: Other Anticipated DC Timeframe: Other - Plan Summary Plan Summary: We will change the IV fluids and recheck the CBC and Chem-7 in the morning
[2020-04-27] MEDS: DILTIAZEM HCL 30 MG TABLET PO SCH ×4 (06:00→23:17)
[2020-04-27] MEDS: PANTOPRAZOLE SODIUM 40 MG TABLET.DR PO SCH (06:00)
[2020-04-27 07:18] LABS: ABSOLUTE BASOPHILS # (AUTO) 0.1 10^3/uL (0.0-0.2); ABSOLUTE LYMPHOCYTES (AUTO) 1.9 10^3/uL (0.5-4.7); ABSOLUTE NEUT (AUTO) 3.4 10^3/uL (1.7-8.2); BASOPHILS % (AUTO) 0.9 % (0-2); EOSINOPHILS % (AUTO) 0.3 % (0-6); HEMATOCRIT 32.8 % (37.9-51.0); HEMOGLOBIN 10.6 g/dL (13.5-17.0); MEAN CORPUSCULAR HEMOGLOBIN 30.5 pg (27.0-33.4); MEAN CORPUSCULAR HGB CONC 32.4 g/dL (32.0-36.0); MEAN CORPUSCULAR VOLUME 94 fl (80-97); MONOCYTES % (AUTO) 15.1 % (3-13); PLATELET COUNT 255 10^3/uL (150-450); RED BLOOD COUNT 3.48 10^6/uL (4.35-5.55); RED CELL DISTRIBUTION WIDTH 12.9 % (11.5-14.0); SEGMENTED NEUTROPHILS % (AUTO) 53.7 % (42-78); TOTAL CELLS COUNTED % (AUTO) 100 %; WHITE BLOOD COUNT 6.4 10^3/uL (4.0-10.5)
[2020-04-27 07:41] LABS: ANION GAP 6 (5-19); BLOOD UREA NITROGEN 23 mg/dL (7-20); CALCIUM 10.2 mg/dL (8.4-10.2); CARBON DIOXIDE 23 mmol/L (22-30); CHLORIDE 127 mmol/L (98-107); GLUCOSE 120 mg/dL (75-110)
[2020-04-27 07:44] LABS: POTASSIUM 3.5 mmol/L (3.6-5.0)
[2020-04-27] MEDS: QUETIAPINE FUMARATE 25 MG TABLET PO SCH ×2 (09:44→19:38)
[2020-04-27] MEDS: FERROUS SULFATE 325 MG TABLET PO SCH (09:44)
[2020-04-27] MEDS: BENAZEPRIL HCL 10 MG TABLET PO SCH (09:44)
[2020-04-27] MEDS: PENTOXIFYLLINE 400 MG TABLET.SA PO SCH ×2 (09:44→17:18)
[2020-04-27] MEDS: MULTIVITAMIN TABLET PO SCH (09:44)
[2020-04-27] MEDS: ENOXAPARIN SODIUM INJ 30 MG/0.3 ML DISP.SYRIN SUBCUT SCH (09:45)
--- NOTE | 2020-04-27 10:58 | PDOC PROGRESS REPORT ---
Subjective Progress Note for:: 04/27/20 Subjective:: Patient is currently alert awake According to nursing staff no other concerns Looking the chart patient sodium was 156 and potassium was 3.5 We will change the IV fluid from normal saline to D5 one half normal saline with potassium Reason For Visit: DEHYDRATION; METABOLIC ENCEPHALOPATHY; DEMENTIA Physical Exam Vital Signs: Temp Pulse Resp BP Pulse Ox 98.3 F 69 15 138/90 H 99 04/27/20 08:00 04/27/20 08:00 04/27/20 08:00 04/27/20 08:00 04/27/20 08:00 Intake & Output 04/26/20 04/27/20 04/28/20 06:59 06:59 06:59 Intake Total 1530 2417 Balance 1530 2417 Weight 58.7 kg 46.1 kg General appearance: PRESENT: no acute distress Head exam: PRESENT: atraumatic, normocephalic Eye exam: PRESENT: conjunctiva pink, EOMI, PERRLA. ABSENT: scleral icterus Ear exam: PRESENT: normal external ear exam Mouth exam: PRESENT: moist, tongue midline Neck exam: PRESENT: full ROM. ABSENT: carotid bruit, JVD, lymphadenopathy, thyromegaly Respiratory exam: PRESENT: clear to auscultation stacie Cardiovascular exam: PRESENT: RRR. ABSENT: diastolic murmur, rubs, systolic murmur Vascular exam: PRESENT: normal capillary refill GI/Abdominal exam: PRESENT: normal bowel sounds, soft. ABSENT: distended, guarding, mass, organolmegaly, rebound, tenderness Rectal exam: PRESENT: deferred Neurological exam: PRESENT: alert, awake. ABSENT: motor sensory deficit Psychiatric exam: PRESENT: appropriate affect, normal mood. ABSENT: homicidal ideation, suicidal ideation Skin exam: PRESENT: dry, intact, warm. ABSENT: cyanosis, rash Results Laboratory Results: 04/27/20 07:06 04/27/20 07:06 04/27/20 04/27/20 07:06 07:06 WBC 6.4 RBC 3.48 L Hgb 10.6 L Hct 32.8 L MCV 94 MCH 30.5 MCHC 32.4 RDW 12.9 Plt Count 255 Seg Neutrophils % 53.7 Sodium 156.2 H Potassium 3.5 L Chloride 127 H Carbon Dioxide 23 Anion Gap 6 BUN 23 H Creatinine 1.29 H Est GFR ( Amer) > 60 Glucose 120 H Calcium 10.2 04/03/20 04/03/20 14:35 14:35 Creatine Kinase 52 L CK-MB (CK-2) 0.48 Troponin I < 0.012 Impressions: Chest X-Ray 04/03/20 14:15 IMPRESSION: Borderline cardiomegaly. No gregoria pulmonary edema. Head CT 04/03/20 14:15 IMPRESSION: Involutional changes with mild chronic microvascular ischemia. Chronic frontal subdural fluid collections are smaller than on the prior study. EVIDENCE OF ACUTE STROKE: NO. Assessment & Plan - Diagnosis (1) Hypernatremia Is this a current diagnosis for this admission?: Yes Plan: Continues to D5W (2) Dehydration Is this a current diagnosis for this admission?: Yes Plan: Continues the IV fluid (3) Metabolic encephalopathy Is this a current diagnosis for this admission?: Yes (4) Senile dementia with behavioral disturbance Is this a current diagnosis for this admission?: Yes (5) Urinary incontinence Qualifiers: Urinary Incontinence type: unspecified incontinence Qualified Code(s): R32 - Unspecified urinary incontinence Is this a current diagnosis for this admission?: Yes (6) Anemia due to chronic blood loss Is this a current diagnosis for this admission?: Yes (7) Atrial fibrillation with controlled ventricular response Is this a current diagnosis for this admission?: Yes (8) HTN (hypertension) Qualifiers: Hypertension type: essential hypertension Qualified Code(s): I10 - Essential (primary) hypertension Is this a current diagnosis for this admission?: Yes - Time Time Spent with patient: 15-24 minutes Level of Care: TELE Medications reviewed and adjusted accordingly: Yes Anticipated discharge: Other Anticipated DC Timeframe: Other - Plan Summary Plan Summary: Change the IV fluid repeat the blood work in the morning
[2020-04-27] MEDS: POTASSI CL 20 MEQ/D5-1/2NS 1L 1,000 ML IV PRN (19:35)
[2020-04-28] MEDS: DILTIAZEM HCL 30 MG TABLET PO SCH ×3 (05:59→18:00)
[2020-04-28] MEDS: PANTOPRAZOLE SODIUM 40 MG TABLET.DR PO SCH (06:00)
[2020-04-28 06:47] LABS: ABSOLUTE LYMPHOCYTES (AUTO) 2.5 10^3/uL (0.5-4.7); ABSOLUTE MONOCYTES (AUTO) 0.9 10^3/uL (0.1-1.4); ABSOLUTE NEUT (AUTO) 2.4 10^3/uL (1.7-8.2); BASOPHILS % (AUTO) 0.6 % (0-2); EOSINOPHILS % (AUTO) 0.6 % (0-6); HEMATOCRIT 30.8 % (37.9-51.0); HEMOGLOBIN 10.1 g/dL (13.5-17.0); LYMPHOCYTES % (AUTO) 42.4 % (13-45); MEAN CORPUSCULAR HEMOGLOBIN 30.7 pg (27.0-33.4); MEAN CORPUSCULAR HGB CONC 32.8 g/dL (32.0-36.0); MEAN CORPUSCULAR VOLUME 94 fl (80-97); MONOCYTES % (AUTO) 15.5 % (3-13); PLATELET COUNT 240 10^3/uL (150-450); RED BLOOD COUNT 3.28 10^6/uL (4.35-5.55); RED CELL DISTRIBUTION WIDTH 12.9 % (11.5-14.0); SEGMENTED NEUTROPHILS % (AUTO) 40.9 % (42-78); TOTAL CELLS COUNTED % (AUTO) 100 %; WHITE BLOOD COUNT 5.9 10^3/uL (4.0-10.5)
[2020-04-28 06:52] LABS: BLOOD UREA NITROGEN 18 mg/dL (7-20); GLUCOSE 111 mg/dL (75-110); POTASSIUM 3.5 mmol/L (3.6-5.0)
[2020-04-28 06:58] LABS: ANION GAP 6 (5-19); CARBON DIOXIDE 24 mmol/L (22-30); CHLORIDE 123 mmol/L (98-107)
[2020-04-28] MEDS: MULTIVITAMIN TABLET PO SCH (10:30)
[2020-04-28] MEDS: BENAZEPRIL HCL 10 MG TABLET PO SCH (10:30)
[2020-04-28] MEDS: PENTOXIFYLLINE 400 MG TABLET.SA PO SCH ×2 (10:30→18:00)
[2020-04-28] MEDS: QUETIAPINE FUMARATE 25 MG TABLET PO SCH ×2 (10:30→22:45)
[2020-04-28] MEDS: FERROUS SULFATE 325 MG TABLET PO SCH (10:30)
[2020-04-28] MEDS: ENOXAPARIN SODIUM INJ 30 MG/0.3 ML DISP.SYRIN SUBCUT SCH (10:34)
--- NOTE | 2020-04-28 13:10 | PDOC PROGRESS REPORT ---
Subjective Progress Note for:: 04/28/20 Subjective:: No chest pain or difficulty with breathing. No fever or chills. No nausea, vomiting or abdominal pain. PO intake remain poor. Still awaiting SNF placement due to issue with insurance coverage transfer. Reason For Visit: DEHYDRATION; METABOLIC ENCEPHALOPATHY; DEMENTIA Physical Exam Vital Signs: Temp Pulse Resp BP Pulse Ox 98.2 F 89 12 135/73 H 81 L 04/27/20 23:27 04/27/20 19:41 04/27/20 23:27 04/27/20 23:27 04/27/20 19:41 Intake & Output 04/27/20 04/28/20 04/29/20 06:59 06:59 06:59 Intake Total 2417 1500 Balance 2417 1500 Weight 46.1 kg 46.1 kg Physical Exam: General appearance: PRESENT: no acute distress Head exam: PRESENT: atraumatic, normocephalic Eye exam: PRESENT : conjunctiva pink, ABSENT: pallor, scleral icterus Respiratory exam: PRESENT: clear to auscultation stacie Cardiovascular exam: PRESENT: RRR, +S1, +S2. ABSENT: diastolic murmur, rubs, systolic murmur GI/Abdominal exam: PRESENT: normal bowel sounds, soft. ABSENT: tenderness Extremities exam: ABSENT: pedal edema Neurological exam: PRESENT: alert, awake, cooperative with examination psych exam: PRESENT: delusional but not agitated Skin exam: PRESENT: dry, warm Results Laboratory Results: 04/28/20 05:53 04/28/20 05:53 04/28/20 04/28/20 05:53 05:53 WBC 5.9 RBC 3.28 L Hgb 10.1 L Hct 30.8 L MCV 94 MCH 30.7 MCHC 32.8 RDW 12.9 Plt Count 240 Seg Neutrophils % 40.9 L Sodium 152.5 H Potassium 3.5 L Chloride 123 H Carbon Dioxide 24 Anion Gap 6 BUN 18 Creatinine 1.14 Est GFR ( Amer) > 60 Glucose 111 H Calcium 10.0 04/03/20 04/03/20 14:35 14:35 Creatine Kinase 52 L CK-MB (CK-2) 0.48 Troponin I < 0.012 Impressions: Chest X-Ray 04/03/20 14:15 IMPRESSION: Borderline cardiomegaly. No gregoria pulmonary edema. Head CT 04/03/20 14:15 IMPRESSION: Involutional changes with mild chronic microvascular ischemia. Chronic frontal subdural fluid collections are smaller than on the prior study. EVIDENCE OF ACUTE STROKE: NO. Assessment & Plan - Diagnosis (1) Dehydration Is this a current diagnosis for this admission?: Yes (2) Metabolic encephalopathy Is this a current diagnosis for this admission?: Yes (3) Senile dementia with behavioral disturbance Is this a current diagnosis for this admission?: Yes (4) Paroxysmal atrial fibrillation Is this a current diagnosis for this admission?: Yes (5) HTN (hypertension) Qualifiers: Hypertension type: essential hypertension Qualified Code(s): I10 - Essential (primary) hypertension Is this a current diagnosis for this admission?: Yes (6) Urinary incontinence Qualifiers: Urinary Incontinence type: unspecified incontinence Qualified Code(s): R32 - Unspecified urinary incontinence Is this a current diagnosis for this admission?: Yes - Time Time Spent with patient: 25-34 minutes Level of Care: MEDICAL Medications reviewed and adjusted accordingly: Yes Anticipated discharge: SNF Anticipated DC Timeframe: when bed available - Inpatient Certification Based on my medical assessment, after consideration of the patient's comorbidities, presenting symptoms, or acuity I expect that the services needed warrant INPATIENT care.: Yes I certify that my determination is in accordance with my understanding of Medicare's requirements for reasonable and necessary INPATIENT services [42 CFR 412.3e].: Yes Medical Necessity: Significant Comorbidiites Make Outpatient Treatment Too Risky, Need Close Monitoring Due to Risk of Patient Decompensation, Need For IV Fluids, Risk of Complication if Not Cared For in Hospital, Risk of Diagnosis Which Will Require Inpatient Eval/Care/Monitoring Post Hospital Care: D/C or Transfer Summary - Plan Summary Plan Summary: Continue current medication management. Obtain BMP in am. Follow up with case planner effort on SNF placement.
[2020-04-28] MEDS: POTASSI CL 20 MEQ/D5-1/2NS 1L 1,000 ML IV PRN (18:00)
[2020-04-29] MEDS: DILTIAZEM HCL 30 MG TABLET PO SCH ×5 (00:14→23:48)
[2020-04-29] MEDS: PANTOPRAZOLE SODIUM 40 MG TABLET.DR PO SCH (06:07)
[2020-04-29 07:42] LABS: ANION GAP 6 (5-19); BLOOD UREA NITROGEN 20 mg/dL (7-20); CALCIUM 10.2 mg/dL (8.4-10.2); CARBON DIOXIDE 24 mmol/L (22-30); CHLORIDE 121 mmol/L (98-107); GLUCOSE 102 mg/dL (75-110); POTASSIUM 3.8 mmol/L (3.6-5.0)
[2020-04-29] MEDS: FERROUS SULFATE 325 MG TABLET PO SCH (10:40)
[2020-04-29] MEDS: MULTIVITAMIN TABLET PO SCH (10:40)
[2020-04-29] MEDS: QUETIAPINE FUMARATE 25 MG TABLET PO SCH ×2 (10:40→23:48)
[2020-04-29] MEDS: BENAZEPRIL HCL 10 MG TABLET PO SCH (10:41)
[2020-04-29] MEDS: ENOXAPARIN SODIUM INJ 30 MG/0.3 ML DISP.SYRIN SUBCUT SCH (10:41)
[2020-04-29] MEDS: PENTOXIFYLLINE 400 MG TABLET.SA PO SCH ×2 (10:42→17:10)
--- NOTE | 2020-04-29 17:00 | PDOC PROGRESS REPORT ---
Subjective Progress Note for:: 04/29/20 Subjective:: Spouse at bedside during my visit. She reported attendance at [place] medicaid office to effect transfer of patient's medicaid to [facility] and she was informed that the patient will move into SNF later this week. No fever or chills. No nausea, vomiting or abdominal pain. No chest pain or difficulty with breathing. oral intake still a problem. Reason For Visit: DEHYDRATION; METABOLIC ENCEPHALOPATHY; DEMENTIA Physical Exam Vital Signs: Temp Pulse Resp BP Pulse Ox 97.5 F 82 14 136/98 H 91 L 04/29/20 11:20 04/29/20 11:20 04/29/20 11:20 04/29/20 11:20 04/29/20 11:20 Intake & Output 04/28/20 04/29/20 04/30/20 06:59 06:59 06:59 Intake Total 1500 1168 Balance 1500 1168 Weight 46.1 kg 46.1 kg Physical Exam: General appearance: PRESENT: no acute distress Head exam: PRESENT: atraumatic, normocephalic Eye exam: PRESENT : conjunctiva pink, ABSENT: pallor, scleral icterus Respiratory exam: PRESENT: clear to auscultation stacie Cardiovascular exam: PRESENT: RRR, +S1, +S2. ABSENT: diastolic murmur, rubs, systolic murmur GI/Abdominal exam: PRESENT: normal bowel sounds, soft. ABSENT: tenderness Extremities exam: ABSENT: pedal edema Neurological exam: PRESENT: alert, awake, cooperative with examination psych exam: PRESENT: delusional but not agitated Skin exam: PRESENT: dry, warm Results Laboratory Results: 04/28/20 05:53 04/29/20 06:45 04/29/20 06:45 Sodium 151.1 H Potassium 3.8 Chloride 121 H Carbon Dioxide 24 Anion Gap 6 BUN 20 Creatinine 1.21 Est GFR ( Amer) > 60 Glucose 102 Calcium 10.2 04/03/20 04/03/20 14:35 14:35 Creatine Kinase 52 L CK-MB (CK-2) 0.48 Troponin I < 0.012 Impressions: Chest X-Ray 04/03/20 14:15 IMPRESSION: Borderline cardiomegaly. No gregoria pulmonary edema. Head CT 04/03/20 14:15 IMPRESSION: Involutional changes with mild chronic microvascular ischemia. Chronic frontal subdural fluid collections are smaller than on the prior study. EVIDENCE OF ACUTE STROKE: NO. Assessment & Plan - Diagnosis (1) Dehydration Is this a current diagnosis for this admission?: Yes (2) Metabolic encephalopathy Is this a current diagnosis for this admission?: Yes (3) Senile dementia with behavioral disturbance Is this a current diagnosis for this admission?: Yes (4) Paroxysmal atrial fibrillation Is this a current diagnosis for this admission?: Yes (5) HTN (hypertension) Qualifiers: Hypertension type: essential hypertension Qualified Code(s): I10 - Essential (primary) hypertension Is this a current diagnosis for this admission?: Yes (6) Urinary incontinence Qualifiers: Urinary Incontinence type: unspecified incontinence Qualified Code(s): R32 - Unspecified urinary incontinence Is this a current diagnosis for this admission?: Yes - Time Time Spent with patient: 25-34 minutes Level of Care: MEDICAL Medications reviewed and adjusted accordingly: Yes Anticipated discharge: SNF Anticipated DC Timeframe: when bed available - Inpatient Certification Based on my medical assessment, after consideration of the patient's comorbidities, presenting symptoms, or acuity I expect that the services needed warrant INPATIENT care.: Yes I certify that my determination is in accordance with my understanding of Medicare's requirements for reasonable and necessary INPATIENT services [42 CFR 412.3e].: Yes Medical Necessity: Significant Comorbidiites Make Outpatient Treatment Too Risky, Need Close Monitoring Due to Risk of Patient Decompensation, Need For IV Fluids, Risk of Complication if Not Cared For in Hospital, Risk of Diagnosis Which Will Require Inpatient Eval/Care/Monitoring Post Hospital Care: D/C or Transfer Summary - Plan Summary Plan Summary: Continue current medication management. Obtain CBC and BMP in AM.
[2020-04-30] MEDS: DILTIAZEM HCL 30 MG TABLET PO SCH ×4 (06:00→17:32)
[2020-04-30] MEDS: PANTOPRAZOLE SODIUM 40 MG TABLET.DR PO SCH (06:01)
[2020-04-30 06:51] LABS: HEMATOCRIT 29.1 % (37.9-51.0); HEMOGLOBIN 9.6 g/dL (13.5-17.0); MEAN CORPUSCULAR HEMOGLOBIN 31.1 pg (27.0-33.4); MEAN CORPUSCULAR HGB CONC 32.9 g/dL (32.0-36.0); MEAN CORPUSCULAR VOLUME 95 fl (80-97); PLATELET COUNT 234 10^3/uL (150-450); RED BLOOD COUNT 3.08 10^6/uL (4.35-5.55); WHITE BLOOD COUNT 5.5 10^3/uL (4.0-10.5)
[2020-04-30 07:27] LABS: ANION GAP 5 (5-19); BLOOD UREA NITROGEN 23 mg/dL (7-20); CARBON DIOXIDE 25 mmol/L (22-30); CHLORIDE 121 mmol/L (98-107); GLUCOSE 90 mg/dL (75-110); POTASSIUM 4.1 mmol/L (3.6-5.0)
[2020-04-30] MEDS: PENTOXIFYLLINE 400 MG TABLET.SA PO SCH ×4 (11:37→18:00)
[2020-04-30] MEDS: POTASSI CL 20 MEQ/D5-1/2NS 1L 1,000 ML IV PRN (11:37)
[2020-04-30] MEDS: BENAZEPRIL HCL 10 MG TABLET PO SCH ×2 (11:37→11:50)
[2020-04-30] MEDS: MULTIVITAMIN TABLET PO SCH ×2 (11:37→11:52)
[2020-04-30] MEDS: FERROUS SULFATE 325 MG TABLET PO SCH ×2 (11:37→11:52)
[2020-04-30] MEDS: QUETIAPINE FUMARATE 25 MG TABLET PO SCH ×3 (11:38→20:31)
[2020-04-30] MEDS: ENOXAPARIN SODIUM INJ 30 MG/0.3 ML DISP.SYRIN SUBCUT SCH (11:38)
--- NOTE | 2020-04-30 16:03 | PDOC PROGRESS REPORT ---
Subjective Progress Note for:: 04/30/20 Subjective:: Spouse at bedside during my visit. She expressed need for overseeing patient financial issues with social service department to assist with his SNF placement expenses. No chest pain or difficulty with breathing. No fever or chills. No nausea, vomiting or abdominal pain. Oral intake remain a challenge. Reason For Visit: DEHYDRATION; METABOLIC ENCEPHALOPATHY; DEMENTIA Physical Exam Vital Signs: Temp Pulse Resp BP Pulse Ox 98.6 F 73 14 122/54 L 100 04/30/20 12:00 04/30/20 12:00 04/30/20 12:00 04/30/20 12:00 04/30/20 12:00 Intake & Output 04/29/20 04/30/20 05/01/20 06:59 06:59 06:59 Intake Total 2168 240 Balance 2168 240 Weight 46.1 kg 45.1 kg Physical Exam: General appearance: PRESENT: no acute distress Head exam: PRESENT: atraumatic, normocephalic Eye exam: PRESENT : conjunctiva pink, ABSENT: pallor, sclera icterus Respiratory exam: PRESENT: clear to auscultation stacie Cardiovascular exam: PRESENT: RRR, +S1, +S2. ABSENT: diastolic murmur, rubs, systolic murmur GI/Abdominal exam: PRESENT: normal bowel sounds, soft. ABSENT: tenderness Extremities exam: ABSENT: pedal edema Neurological exam: PRESENT: alert, awake, cooperative with examination psych exam: PRESENT: demented, delusional but not agitated Skin exam: PRESENT: dry, warm Results Laboratory Results: 04/30/20 06:30 04/30/20 06:30 04/30/20 04/30/20 06:30 06:30 WBC 5.5 RBC 3.08 L Hgb 9.6 L Hct 29.1 L MCV 95 MCH 31.1 MCHC 32.9 RDW 13.0 Plt Count 234 Sodium 150.6 H Potassium 4.1 Chloride 121 H Carbon Dioxide 25 Anion Gap 5 BUN 23 H Creatinine 1.40 H Est GFR ( Amer) 58 L Glucose 90 Calcium 10.0 04/03/20 04/03/20 14:35 14:35 Creatine Kinase 52 L CK-MB (CK-2) 0.48 Troponin I < 0.012 Impressions: Chest X-Ray 04/03/20 14:15 IMPRESSION: Borderline cardiomegaly. No gregoria pulmonary edema. Head CT 04/03/20 14:15 IMPRESSION: Involutional changes with mild chronic microvascular ischemia. Chronic frontal subdural fluid collections are smaller than on the prior study. EVIDENCE OF ACUTE STROKE: NO. Assessment & Plan - Diagnosis (1) Dehydration Is this a current diagnosis for this admission?: Yes (2) Metabolic encephalopathy Is this a current diagnosis for this admission?: Yes (3) Senile dementia with behavioral disturbance Is this a current diagnosis for this admission?: Yes (4) Paroxysmal atrial fibrillation Is this a current diagnosis for this admission?: Yes (5) HTN (hypertension) Qualifiers: Hypertension type: essential hypertension Qualified Code(s): I10 - Essential (primary) hypertension Is this a current diagnosis for this admission?: Yes (6) Urinary incontinence Qualifiers: Urinary Incontinence type: unspecified incontinence Qualified Code(s): R32 - Unspecified urinary incontinence Is this a current diagnosis for this admission?: Yes - Time Time Spent with patient: 25-34 minutes Level of Care: MEDICAL Medications reviewed and adjusted accordingly: Yes Anticipated discharge: SNF Anticipated DC Timeframe: when bed available - Inpatient Certification Based on my medical assessment, after consideration of the patient's comorbidities, presenting symptoms, or acuity I expect that the services needed warrant INPATIENT care.: Yes I certify that my determination is in accordance with my understanding of Medicare's requirements for reasonable and necessary INPATIENT services [42 CFR 412.3e].: Yes Medical Necessity: Significant Comorbidiites Make Outpatient Treatment Too Risky, Need Close Monitoring Due to Risk of Patient Decompensation, Need For IV Fluids, Risk of Complication if Not Cared For in Hospital, Risk of Diagnosis Which Will Require Inpatient Eval/Care/Monitoring Post Hospital Care: D/C or Transfer Summary - Plan Summary Plan Summary: Continue current medication management. I wrote a letter of declaration for the patient's dementia and need for assistance in handling his estate affairs and protective environment. A copy was given to his and a copy placed on his medical record. I discussed case with assigned senior materials planner.
[2020-05-01] MEDS: DILTIAZEM HCL 30 MG TABLET PO SCH ×4 (01:02→17:49)
[2020-05-01] MEDS: PANTOPRAZOLE SODIUM 40 MG TABLET.DR PO SCH (05:52)
--- NOTE | 2020-05-01 07:23 | PDOC PROGRESS REPORT ---
Subjective Progress Note for:: 05/01/20 Subjective:: No chest pain or difficulty with breathing. No fever or chills. No nausea, vomiting or abdominal pain. Reason For Visit: DEHYDRATION; METABOLIC ENCEPHALOPATHY; DEMENTIA Physical Exam Vital Signs: Temp Pulse Resp BP Pulse Ox 97.4 F 69 16 177/74 H 98 05/01/20 05:00 05/01/20 05:00 05/01/20 05:00 05/01/20 05:00 05/01/20 05:00 Intake & Output 04/30/20 05/01/20 05/02/20 06:59 06:59 06:59 Intake Total 240 Balance 240 Weight 45.1 kg 45 kg Physical Exam: General appearance: PRESENT: no acute distress Head exam: PRESENT: atraumatic, normocephalic Eye exam: PRESENT : conjunctiva pink, ABSENT: pallor, sclera icterus Respiratory exam: PRESENT: clear to auscultation stacie Cardiovascular exam: PRESENT: RRR, +S1, +S2. ABSENT: diastolic murmur, rubs, systolic murmur GI/Abdominal exam: PRESENT: normal bowel sounds, soft. ABSENT: tenderness Extremities exam: ABSENT: pedal edema Neurological exam: PRESENT: alert, awake, cooperative with examination psych exam: PRESENT: demented, delusional but not agitated Skin exam: PRESENT: dry, warm Results Laboratory Results: 04/30/20 06:30 04/30/20 06:30 04/30/20 06:30 Sodium 150.6 H Potassium 4.1 Chloride 121 H Carbon Dioxide 25 Anion Gap 5 BUN 23 H Creatinine 1.40 H Est GFR ( Amer) 58 L Glucose 90 Calcium 10.0 04/03/20 04/03/20 14:35 14:35 Creatine Kinase 52 L CK-MB (CK-2) 0.48 Troponin I < 0.012 Impressions: Chest X-Ray 04/03/20 14:15 IMPRESSION: Borderline cardiomegaly. No gregoria pulmonary edema. Head CT 04/03/20 14:15 IMPRESSION: Involutional changes with mild chronic microvascular ischemia. Chronic frontal subdural fluid collections are smaller than on the prior study. EVIDENCE OF ACUTE STROKE: NO. Assessment & Plan - Diagnosis (1) Dehydration Is this a current diagnosis for this admission?: Yes (2) Metabolic encephalopathy Is this a current diagnosis for this admission?: Yes (3) Senile dementia with behavioral disturbance Is this a current diagnosis for this admission?: Yes (4) Paroxysmal atrial fibrillation Is this a current diagnosis for this admission?: Yes (5) HTN (hypertension) Qualifiers: Hypertension type: essential hypertension Qualified Code(s): I10 - E ssential (primary) hypertension Is this a current diagnosis for this admission?: Yes (6) Urinary incontinence Qualifiers: Urinary Incontinence type: unspecified incontinence Qualified Code(s): R32 - Unspecified urinary incontinence Is this a current diagnosis for this admission?: Yes - Time Time Spent with patient: 25-34 minutes Level of Care: MEDICAL Medications reviewed and adjusted accordingly: Yes Anticipated discharge: SNF Anticipated DC Timeframe: when bed available - Inpatient Certification Based on my medical assessment, after consideration of the patient's comorbidities, presenting symptoms, or acuity I expect that the services needed warrant INPATIENT care.: Yes I certify that my determination is in accordance with my understanding of Medicare's requirements for reasonable and necessary INPATIENT services [42 CFR 412.3e].: Yes Medical Necessity: Significant Comorbidiites Make Outpatient Treatment Too Risky, Need Close Monitoring Due to Risk of Patient Decompensation, Need For IV Fluids, Risk of Complication if Not Cared For in Hospital, Risk of Diagnosis Which Will Require Inpatient Eval/Care/Monitoring Post Hospital Care: D/C or Transfer Summary - Plan Summary Plan Summary: Continue current medial management. Follow up with cyber ops planner regarding social service issue for financial coverage of his SNF services.
[2020-05-01] MEDS: ENOXAPARIN SODIUM INJ 30 MG/0.3 ML DISP.SYRIN SUBCUT SCH (09:00)
[2020-05-01] MEDS: PENTOXIFYLLINE 400 MG TABLET.SA PO SCH ×2 (09:00→17:49)
[2020-05-01] MEDS: QUETIAPINE FUMARATE 25 MG TABLET PO SCH ×2 (09:00→20:24)
[2020-05-01] MEDS: FERROUS SULFATE 325 MG TABLET PO SCH (09:00)
[2020-05-01] MEDS: MULTIVITAMIN TABLET PO SCH (09:00)
[2020-05-01] MEDS: BENAZEPRIL HCL 10 MG TABLET PO SCH (09:00)
[2020-05-02] MEDS: DILTIAZEM HCL 30 MG TABLET PO SCH ×4 (02:03→17:40)
[2020-05-02] MEDS: PANTOPRAZOLE SODIUM 40 MG TABLET.DR PO SCH (06:04)
[2020-05-02] MEDS: MULTIVITAMIN TABLET PO SCH (09:37)
[2020-05-02] MEDS: FERROUS SULFATE 325 MG TABLET PO SCH (09:37)
[2020-05-02] MEDS: QUETIAPINE FUMARATE 25 MG TABLET PO SCH ×2 (09:37→21:06)
[2020-05-02] MEDS: BENAZEPRIL HCL 10 MG TABLET PO SCH (09:38)
[2020-05-02] MEDS: PENTOXIFYLLINE 400 MG TABLET.SA PO SCH ×2 (09:39→17:40)
[2020-05-02] MEDS: ENOXAPARIN SODIUM INJ 30 MG/0.3 ML DISP.SYRIN SUBCUT SCH (09:40)
--- NOTE | 2020-05-02 14:26 | PDOC PROGRESS REPORT ---
Subjective Progress Note for:: 05/02/20 Subjective:: No chest pain or difficulty with breathing. No fever or chills. No nausea, vomiting or abdominal pain. Awaiting resolution of financial issues affecting his SNF transfer. Reason For Visit: DEHYDRATION; METABOLIC ENCEPHALOPATHY; DEMENTIA Physical Exam Vital Signs: Temp Pulse Resp BP Pulse Ox 98.2 F 84 15 145/75 H 95 05/02/20 12:00 05/02/20 12:00 05/02/20 12:00 05/02/20 12:00 05/02/20 12:00 Intake & Output 05/01/20 05/02/20 05/03/20 06:59 06:59 06:59 Intake Total 280 Balance 280 Weight 45 kg 45 kg Physical Exam: General appearance: PRESENT: no acute distress Head exam: PRESENT: atraumatic, normocephalic Eye exam: PRESENT : conjunctiva pink, ABSENT: pallor, sclera icterus Respiratory exam: PRESENT: clear to auscultation stacie Cardiovascular exam: PRESENT: RRR, +S1, +S2. ABSENT: diastolic murmur, rubs, systolic murmur GI/Abdominal exam: PRESENT: normal bowel sounds, soft. ABSENT: tenderness Extremities exam: ABSENT: pedal edema Neurological exam: PRESENT: alert, awake, cooperative with examination psych exam: PRESENT: demented, delusional but not agitated Skin exam: PRESENT: dry, warm Results Laboratory Results: 04/30/20 06:30 04/30/20 06:30 04/03/20 04/03/20 14:35 14:35 Creatine Kinase 52 L CK-MB (CK-2) 0.48 Troponin I < 0.012 Impressions: Chest X-Ray 04/03/20 14:15 IMPRESSION: Borderline cardiomegaly. No gregoria pulmonary edema. Head CT 04/03/20 14:15 IMPRESSION: Involutional changes with mild chronic microvascular ischemia. Chronic frontal subdural fluid collections are smaller than on the prior study. EVIDENCE OF ACUTE STROKE: NO. Assessment & Plan - Diagnosis (1) Dehydration Is this a current diagnosis for this admission?: Yes (2) Metabolic encephalopathy Is this a current diagnosis for this admission?: Yes (3) Senile dementia with behavioral disturbance Is this a current diagnosis for this admission?: Yes (4) Paroxysmal atrial fibrillation Is this a current diagnosis for this admission?: Yes (5) HTN (hypertension) Qualifiers: Hypertension type: essential hypertension Qualified Code(s): I10 - Essential (primary) hypertension Is this a current diagnosis for this admission?: Yes (6) Urinary incontinence Qualifiers: Urinary Incontinence type: unspecified incontinence Qualified Code(s): R32 - Unspecified urinary incontinence Is this a current diagnosis for this admission?: Yes - Time Time Spent with patient: 25-34 minutes Level of Care: MEDICAL Medications reviewed and adjusted accordingly: Yes Anticipated discharge: SNF Anticipated DC Timeframe: when bed available - Inpatient Certification Based on my medical assessment, after consideration of the patient's comorbidities, presenting symptoms, or acuity I expect that the services needed warrant INPATIENT care.: Yes I certify that my determination is in accordance with my understanding of Medicare's requirements for reasonable and necessary INPATIENT services [42 CFR 412.3e].: Yes Medical Necessity: Significant Comorbidiites Make Outpatient Treatment Too Risky, Need Close Monitoring Due to Risk of Patient Decompensation, Risk of Complication if Not Cared For in Hospital, Risk of Diagnosis Which Will Require Inpatient Eval/Care/Monitoring Post Hospital Care: D/C or Transfer Summary - Plan Summary Plan Summary: Continue current mediation management. Follow up on placement efforts.
[2020-05-02] MEDS: POTASSI CL 20 MEQ/D5-1/2NS 1L 1,000 ML IV PRN (18:07)
[2020-05-03] MEDS: DILTIAZEM HCL 30 MG TABLET PO SCH ×5 (00:06→23:17)
[2020-05-03] MEDS: PANTOPRAZOLE SODIUM 40 MG TABLET.DR PO SCH (06:42)
[2020-05-03] MEDS: QUETIAPINE FUMARATE 25 MG TABLET PO SCH ×2 (07:56→20:07)
[2020-05-03] MEDS: PENTOXIFYLLINE 400 MG TABLET.SA PO SCH ×2 (09:32→17:07)
[2020-05-03] MEDS: BENAZEPRIL HCL 10 MG TABLET PO SCH (09:32)
[2020-05-03] MEDS: MULTIVITAMIN TABLET PO SCH (09:32)
[2020-05-03] MEDS: FERROUS SULFATE 325 MG TABLET PO SCH (09:32)
[2020-05-03] MEDS: ENOXAPARIN SODIUM INJ 30 MG/0.3 ML DISP.SYRIN SUBCUT SCH (09:33)
--- NOTE | 2020-05-03 15:44 | PDOC PROGRESS REPORT ---
Subjective Progress Note for:: 05/03/20 Subjective:: Patient with baseline dementia, awaiting placement in [facility] Reason For Visit: DEHYDRATION; METABOLIC ENCEPHALOPATHY; DEMENTIA Physical Exam Vital Signs: Temp Pulse Resp BP Pulse Ox 97.9 F 70 19 123/57 L 100 05/03/20 12:00 05/03/20 12:00 05/03/20 12:00 05/03/20 12:00 05/03/20 12:00 Intake & Output 05/02/20 05/03/20 05/04/20 06:59 06:59 06:59 Intake Total 280 240 120 Balance 280 240 120 Weight 45 kg 46 kg Results Laboratory Results: 04/30/20 06:30 04/30/20 06:30 04/03/20 04/03/20 14:35 14:35 Creatine Kinase 52 L CK-MB (CK-2) 0.48 Troponin I < 0.012 Impressions: Chest X-Ray 04/03/20 14:15 IMPRESSION: Borderline cardiomegaly. No gregoria pulmonary edema. Head CT 04/03/20 14:15 IMPRESSION: Involutional changes with mild chronic microvascular ischemia. Chronic frontal subdural fluid collections are smaller than on the prior study. EVIDENCE OF ACUTE STROKE: NO. Assessment & Plan - Diagnosis (1) Metabolic encephalopathy Is this a current diagnosis for this admission?: Yes (2) Dehydration Is this a current diagnosis for this admission?: Yes - Time Time Spent with patient: Less than 15 minutes Level of Care: MEDICAL Medications reviewed and adjusted accordingly: Yes Anticipated discharge: SNF
[2020-05-04] MEDS: DILTIAZEM HCL 30 MG TABLET PO SCH ×4 (05:54→23:17)
[2020-05-04] MEDS: PANTOPRAZOLE SODIUM 40 MG TABLET.DR PO SCH (05:54)
[2020-05-04] MEDS: QUETIAPINE FUMARATE 25 MG TABLET PO SCH ×2 (07:56→19:25)
[2020-05-04] MEDS: FERROUS SULFATE 325 MG TABLET PO SCH (09:40)
[2020-05-04] MEDS: MULTIVITAMIN TABLET PO SCH (09:40)
[2020-05-04] MEDS: ENOXAPARIN SODIUM INJ 30 MG/0.3 ML DISP.SYRIN SUBCUT SCH (09:41)
[2020-05-04] MEDS: PENTOXIFYLLINE 400 MG TABLET.SA PO SCH ×2 (09:47→17:02)
[2020-05-04] MEDS: BENAZEPRIL HCL 10 MG TABLET PO SCH (09:48)
--- NOTE | 2020-05-04 12:21 | PDOC PROGRESS REPORT ---
Subjective Progress Note for:: 05/04/20 Subjective:: Patient with baseline dementia, awaiting placement in skilled nursing Reason For Visit: DEHYDRATION; METABOLIC ENCEPHALOPATHY; DEMENTIA Physical Exam Vital Signs: Temp Pulse Resp BP Pulse Ox 98.1 F 73 20 146/67 H 95 05/04/20 08:00 05/04/20 08:00 05/04/20 08:00 05/04/20 08:00 05/04/20 08:00 Intake & Output 05/03/20 05/04/20 05/05/20 06:59 06:59 06:59 Intake Total 240 340 Balance 240 340 Weight 46 kg 46.3 kg Results Laboratory Results: 04/30/20 06:30 04/30/20 06:30 04/03/20 04/03/20 14:35 14:35 Creatine Kinase 52 L CK-MB (CK-2) 0.48 Troponin I < 0.012 Impressions: Chest X-Ray 04/03/20 14:15 IMPRESSION: Borderline cardiomegaly. No gregoria pulmonary edema. Head CT 04/03/20 14:15 IMPRESSION: Involutional changes with mild chronic microvascular ischemia. Chronic frontal subdural fluid collections are smaller than on the prior study. EVIDENCE OF ACUTE STROKE: NO. Assessment & Plan - Diagnosis (1) Metabolic encephalopathy Is this a current diagnosis for this admission?: Yes (2) Dehydration Is this a current diagnosis for this admission?: Yes - Time Time Spent with patient: Less than 15 minutes Level of Care: MEDICAL Anticipated discharge: SNF Anticipated DC Timeframe: within 72 hours
[2020-05-05] MEDS: DILTIAZEM HCL 30 MG TABLET PO SCH ×4 (05:22→23:36)
[2020-05-05] MEDS: PANTOPRAZOLE SODIUM 40 MG TABLET.DR PO SCH (05:22)
[2020-05-05] MEDS: FERROUS SULFATE 325 MG TABLET PO SCH (09:37)
[2020-05-05] MEDS: QUETIAPINE FUMARATE 25 MG TABLET PO SCH ×2 (09:37→19:24)
[2020-05-05] MEDS: PENTOXIFYLLINE 400 MG TABLET.SA PO SCH ×2 (09:37→19:24)
[2020-05-05] MEDS: MULTIVITAMIN TABLET PO SCH (09:37)
[2020-05-05] MEDS: BENAZEPRIL HCL 10 MG TABLET PO SCH (09:37)
[2020-05-05] MEDS: ENOXAPARIN SODIUM INJ 30 MG/0.3 ML DISP.SYRIN SUBCUT SCH (09:38)
--- NOTE | 2020-05-05 20:24 | PDOC PROGRESS REPORT ---
Subjective Progress Note for:: 05/05/20 Subjective:: No chest pain or difficulty with breathing. No fever or chills. No nausea, vomiting or abdominal pain. I had extensive discussion with spouse at bedside regarding transfer to SNF and continued financial issue regarding coverage for his SNF services. She reported discussion with the social service department in [place] via telephone due to the coronavirus pandemic and she was informed that financial banking issue will not be resolved until June,! Reason For Visit: DEHYDRATION; METABOLIC ENCEPHALOPATHY; DEMENTIA Physical Exam Vital Signs: Temp Pulse Resp BP Pulse Ox 97.4 F 82 14 149/92 H 100 05/05/20 19:22 05/05/20 19:22 05/05/20 19:22 05/05/20 19:22 05/05/20 19:22 Intake & Output 05/04/20 05/05/20 05/06/20 06:59 06:59 06:59 Intake Total 340 1166 50 Balance 340 1166 50 Weight 46.3 kg 44.4 kg Physical Exam: General appearance: PRESENT: no acute distress Head exam: PRESENT: atraumatic, normocephalic Eye exam: PRESENT : conjunctiva pink, ABSENT: pallor, sclera icterus Respiratory exam: PRESENT: clear to auscultation stacie Cardiovascular exam: PRESENT: RRR, +S1, +S2. ABSENT: diastolic murmur, rubs, systolic murmur GI/Abdominal exam: PRESENT: normal bowel sounds, soft. ABSENT: tenderness Extremities exam: ABSENT: pedal edema Neurological exam: PRESENT: alert, awake, cooperative with examination psych exam: PRESENT: demented, delusional but not agitated Skin exam: PRESENT: dry, warm Results Laboratory Results: 04/30/20 06:30 04/30/20 06:30 04/03/20 04/03/20 14:35 14:35 Creatine Kinase 52 L CK-MB (CK-2) 0.48 Troponin I < 0.012 Impressions: Chest X-Ray 04/03/20 14:15 IMPRESSION: Borderline cardiomegaly. No gregoria pulmonary edema. Head CT 04/03/20 14:15 IMPRESSION: Involutional changes with mild chronic microvascular ischemia. Chronic frontal subdural fluid collections are smaller than on the prior study. EVIDENCE OF ACUTE STROKE: NO. Assessment & Plan - Diagnosis (1) Dehydration Is this a current diagnosis for this admission?: Yes (2) Metabolic encephalopathy Is this a current diagnosis for this admission?: Yes (3) Senile dementia with behavioral disturbance Is this a current diagnosis for this admission?: Yes (4) Paroxysmal atrial fibrillation Is this a current diagnosis for this admission?: Yes (5) HTN (hypertension) Qualifiers: Hypertension type: essential hypertension Qualified Code(s): I10 - Essential (primary) hypertension Is this a current diagnosis for this admission?: Yes (6) Urinary incontinence Qualifiers: Urinary Incontinence type: unspecified incontinence Qualified Code(s): R32 - Unspecified urinary incontinence Is this a current diagnosis for this admission?: Yes - Time Time Spent with patient: 25-34 minutes Level of Care: MEDICAL Medications reviewed and adjusted accordingly: Yes Anticipated discharge: SNF Anticipated DC Timeframe: Other - Inpatient Certification Based on my medical assessment, after consideration of the patient's comorbidi ties, presenting symptoms, or acuity I expect that the services needed warrant INPATIENT care.: Yes I certify that my determination is in accordance with my understanding of [facility]'s requirements for reasonable and necessary INPATIENT services [42 CFR 412.3e].: Yes Medical Necessity: Significant Comorbidiites Make Outpatient Treatment Too Risky, Need Close Monitoring Due to Risk of Patient Decompensation, Risk of Complication if Not Cared For in Hospital, Risk of Diagnosis Which Will Require Inpatient Eval/Care/Monitoring Post Hospital Care: D/C or Transfer Summary - Plan Summary Plan Summary: I will discuss case with convention planner regarding possible discharge home with home health service while we continue efforts at SNF placement if his discharge is not possible until June. Continue current medical management.
[2020-05-06] MEDS: DILTIAZEM HCL 30 MG TABLET PO SCH ×4 (05:37→23:38)
[2020-05-06] MEDS: PANTOPRAZOLE SODIUM 40 MG TABLET.DR PO SCH (05:37)
[2020-05-06] MEDS: QUETIAPINE FUMARATE 25 MG TABLET PO SCH ×2 (10:21→19:30)
[2020-05-06] MEDS: FERROUS SULFATE 325 MG TABLET PO SCH (10:21)
[2020-05-06] MEDS: PENTOXIFYLLINE 400 MG TABLET.SA PO SCH ×2 (10:21→19:01)
[2020-05-06] MEDS: ENOXAPARIN SODIUM INJ 30 MG/0.3 ML DISP.SYRIN SUBCUT SCH (10:21)
[2020-05-06] MEDS: BENAZEPRIL HCL 10 MG TABLET PO SCH (10:21)
[2020-05-06] MEDS: MULTIVITAMIN TABLET PO SCH (10:21)
--- NOTE | 2020-05-06 12:01 | ADVANCED CARE ---
- Diagnosis (1) Dehydration Diagnosis Current: Yes (2) Metabolic encephalopathy Diagnosis Current: Yes (3) Senile dementia with behavioral disturbance Diagnosis Current: Yes (4) Paroxysmal atrial fibrillation Diagnosis Current: Yes (5) HTN (hypertension) Diagnosis Current: Yes (6) Urinary incontinence Diagnosis Current: Yes Attendance: Spouse Patytari Singh Resuscitation Status: Do Not Resuscitate Discussion: Patient spouse made him a DNR at this time. Care Planning Goals: DNR status. Document(s) Completed: Completed with order on the EHR. Time Spent: 15 minutes
--- NOTE | 2020-05-06 18:11 | PDOC PROGRESS REPORT ---
Subjective Progress Note for:: 05/06/20 Subjective:: No chest pain or difficulty with breathing. No fever or chills. No nausea, vomiting or abdominal pain. Patient had episode of possible aspiration related syncope that lasted about 1 minute as per nursing report during feeding this afternoon. There is persistent administrative issue with patient's transfer to SNF involving [facility] transfer of Medicaid coverage to [facility]. At this point I think I have done all that is necessary and the manufacturing planner input have been optimal regarding placement efforts. I will discuss possible discharge home with the spouse. Reason For Visit: DEHYDRATION; METABOLIC ENCEPHALOPATHY; DEMENTIA Physical Exam Vital Signs: Temp Pulse Resp BP Pulse Ox 97.6 F 72 17 104/76 91 L 05/05/20 23:29 05/05/20 23:29 05/05/20 23:29 05/05/20 23:29 05/05/20 23:29 Intake & Output 05/05/20 05/06/20 05/07/20 06:59 06:59 06:59 Intake Total 1166 50 Balance 1166 50 Weight 44.4 kg 44.4 kg Physical Exam: General appearance: PRESENT: no acute distress Head exam: PRESENT: atraumatic, normocephalic Eye exam: PRESENT : conjunctiva pink, ABSENT: pallor, sclera icterus Respiratory exam: PRESENT: clear to auscultation stacie Cardiovascular exam: PRESENT: RRR, +S1, +S2. ABSENT: diastolic murmur, rubs, systolic murmur GI/Abdominal exam: PRESENT: normal bowel sounds, soft. ABSENT: tenderness Extremities exam: ABSENT: pedal edema Neurological exam: PRESENT: alert, awake, cooperative with examination psych exam: PRESENT: demented, delusional but not agitated Skin exam: PRESENT: dry, warm Results Laboratory Results: 04/30/20 06:30 04/30/20 06:30 04/03/20 04/03/20 14:35 14:35 Creatine Kinase 52 L CK-MB (CK-2) 0.48 Troponin I < 0.012 Impressions: Chest X-Ray 04/03/20 14:15 IMPRESSION: Borderline cardiomegaly. No gregoria pulmonary edema. Head CT 04/03/20 14:15 IMPRESSION: Involutional changes with mild chronic microvascular ischemia. Chronic frontal subdural fluid collections are smaller than on the prior study. EVIDENCE OF ACUTE STROKE: NO. Assessment & Plan - Diagnosis (1) Dehydration Is this a current diagnosis for this admission?: Yes (2) Metabolic encephalopathy Is this a current diagnosis for this admission?: Yes (3) Senile dementia with behavioral disturbance Is this a current diagnosis for this admission?: Yes (4) Paroxysmal atrial fibrillation Is this a current diagnosis for this admission?: Yes (5) HTN (hypertension) Qualifiers: Hypertension type: essential hypertension Qualified Code(s): I10 - Essential (primary) hypertension Is this a current diagnosis for this admission?: Yes (6) Urinary incontinence Qualifiers: Urinary Incontinence type: unspecified incontinence Qualified Code(s): R32 - Unspecified urinary incontinence Is this a current diagnosis for this admission?: Yes - Time Time Spent with patient: 25-34 minutes Level of Care: MEDICAL Medications reviewed and adjusted accordingly: Yes Anticipated discharge: Home with Homehealth, SNF Anticipated DC Timeframe: within 24 hours - Inpatient Certification Based on my medical assessment, after consideration of the patient's comorbidities, presenting symptoms, or acuity I expect that the services needed warrant INPATIENT care.: Yes I certify that my determination is in accordance with my understanding of Medicare's requirements for reasonable and necessary INPATIENT services [42 CFR 412.3e].: Yes Medical Necessity: Significant Comorbidiites Make Outpatient Treatment Too Risky, Need Close Monitoring Due to Risk of Patient Decompensation, Need For Continuous Telemetry Monitoring, Risk of Complication if Not Cared For in [facility], Risk of Diagnosis Which Will Require Inpatient Eval/Care/Monitoring Post Hospital Care: D/C Craft Demonstrator Documentation, D/C or Transfer Summary - Plan Summary Plan Summary: Continue current medication management. Possible discharge home versus transfer to SNF tomorrow.
[2020-05-07] MEDS: PANTOPRAZOLE SODIUM 40 MG TABLET.DR PO SCH (05:05)
[2020-05-07] MEDS: DILTIAZEM HCL 30 MG TABLET PO SCH ×2 (05:05→17:15)
[2020-05-07] MEDS: QUETIAPINE FUMARATE 25 MG TABLET PO SCH (07:36)
[2020-05-07] MEDS: FERROUS SULFATE 325 MG TABLET PO SCH (12:50)
[2020-05-07] MEDS: BENAZEPRIL HCL 10 MG TABLET PO SCH (12:50)
[2020-05-07] MEDS: MULTIVITAMIN TABLET PO SCH (12:51)
[2020-05-07] MEDS: ENOXAPARIN SODIUM INJ 30 MG/0.3 ML DISP.SYRIN SUBCUT SCH (12:51)
[2020-05-07] MEDS: PENTOXIFYLLINE 400 MG TABLET.SA PO SCH (12:52)
--- NOTE | 2020-05-07 13:45 | PDOC DISCHARGE SUMMARY ---
Impression - Admit/DC Date/PCP Admission Date/Primary Care Provider: 04/06/20 13:10 ROS AMAYA Discharge Date: 05/07/20 - Discharge Diagnosis (1) Dehydration Is this a current diagnosis for this admission?: Yes (2) Metabolic encephalopathy Is this a current diagnosis for this admission?: Yes (3) Senile dementia with behavioral disturbance Is this a current diagnosis for this admission?: Yes (4) Paroxysmal atrial fibrillation Is this a current diagnosis for this admission?: Yes (5) HTN (hypertension) Is this a current diagnosis for this admission?: Yes (6) Urinary incontinence Is this a current diagnosis for this admission?: Yes - Assessment Summary: Patient was admitted for generalized debility and acute onset of inability to transfer out of spouse car. There was concern for possible stroke but is evaluation was negative for acute stroke. He was managed with IV fluid rehydration with supplemental vitamins and oral intake. He has potassium replacement during this hospital stay. His care was compromised with his advance dementia status. His spouse did expressed difficulty with caring for the patient at home due to his baseline dementia. Significant effort was taken to place patient in [facility] but due to bureaucratic mitigating issues this was not possible. Considering the amount of time requested to resolve this issue it is advisable for patient to be discharged home with [facility] services and embark on placement from the community. He will follow up in the office as instructed upon discharge. - Additional Information Resuscitation Status: Do Not Resuscitate Discharge Diet: As Tolerated Discharge Activity: Activity As Tolerated Referrals: [facility] [Other] ROS AMAYA MD [Primary Care Provider] - 05/15/20 10:00 am Prescriptions: Quetiapine Fumarate [Seroquel 25 mg Tablet] 25 mg PO Q12@0800,1999 #60 tablet Home Medications: Omeprazole 20 mg PO QAM 12/12/16 Pentoxifylline [Pentoxil] 400 mg PO BID 12/12/16 Benazepril HCl 20 mg PO DAILY 04/14/17 Diltiazem HCl [Cardizem 30 mg Tablet] 15 mg PO Q6 04/03/20 Ferrous Sulfate [Feosol 325 mg Tablet] 325 mg PO DAILY 04/03/20 Furosemide [Lasix 20 mg Tablet] 20 mg PO DAILY 04/03/20 Quetiapine Fumarate [Seroquel 25 mg Tablet] 25 mg PO Q12@0800,1999 #60 tablet 05/07/20 History of Present Illiness History of Present Illness: RASHAD GOODSON is a 84 year old male patient known to my practice who presented to the ED with spouse reporting that he was unable to transfer out of her car. She reported that she went to her chiropractor session with the patient and upon returning him he was unable to transfer out of her car which was unusual. She denied any preceding or associated event of loss of consciousness or seizure activity. No reported chest pain or difficulty with breathing. No fever or chills. No reported headache or focal weakness. His initial ED evaluation was unrevealing except for possible dehydration and generalized debility as well as his baseline dementia with behavioral problem. His spouse was advised hospitalization for further evaluation and management. His morbidities are as listed below. Hospital Course Hospital Course: Patient was admitted for generalized debility and acute onset of inability to transfer out of spouse car. There was concern for possible stroke but is evaluation was negative for acute stroke. He was managed with IV fluid rehydration with supplemental vitamins and oral intake. He has potassium replacement during this hospital stay. His care was compromised with his advance dementia status. His spouse did expressed difficulty with caring for the patient at home due to his baseline dementia. Significant effort was taken to place patient in [facility] but due to bureaucratic mitigating issues this was not possible. Considering the amount of time requested to resolve this issue it is advisable for patient to be discharged home with [facility] PNEUMATIC TE[facility] services and embark on placement from the community. He will follow up in the office as instructed upon discharge. Physical Exam Vital Signs: Temp Pulse Resp BP Pulse Ox 97.2 F 92 16 150/62 H 96 05/07/20 12:00 05/07/20 12:00 05/07/20 12:00 05/07/20 12:00 05/07/20 12:00 Intake & Output 05/06/20 05/07/20 05/08/20 06:59 06:59 06:59 Intake Total 50 240 Balance 50 240 Weight 44.4 kg 44.4 kg General appearance: PRESENT: no acute distress Head exam: PRESENT: atraumatic, normocephalic Eye exam: PRESENT : conjunctiva pink, ABSENT: pallor, sclera icterus Respiratory exam: PRESENT: clear to auscultation stacie Cardiovascular exam: PRESENT: RRR, +S1, +S2. ABSENT: diastolic murmur, rubs, systolic murmur GI/Abdominal exam: PRESENT: normal bowel sounds, soft. ABSENT: tenderness Extremities exam: ABSENT: pedal edema Neurological exam: PRESENT: alert, awake, cooperative with examination psych exam: PRESENT: demented, delusional but not agitated Skin exam: PRESENT: dry, warm Results Laboratory Results: WBC 5.5 10^3/uL (4.0-10.5) 04/30/20 06:30 RBC 3.08 10^6/uL (4.35-5.55) L 04/30/20 06:30 Hgb 9.6 g/dL (13.5-17.0) L 04/30/20 06:30 Hct 29.1 % (37.9-51.0) L 04/30/20 06:30 MCV 95 fl (80-97) 04/30/20 06:30 MCH 31.1 pg (27.0-33.4) 04/30/20 06:30 MCHC 32.9 g/dL (32.0-36.0) 04/30/20 06:30 RDW 13.0 % (11.5-14.0) 04/30/20 06:30 Plt Count 234 10^3/uL (150-450) 04/30/20 06:30 Lymph % (Auto) 42.4 % (13-45) 04/28/20 05:53 [place] % (Auto) 15.5 % (3-13) H 04/28/20 05:53 Eos % (Auto) 0.6 % (0-6) 04/28/20 05:53 Baso % (Auto) 0.6 % (0-2) 04/28/20 05:53 Absolute Neuts (auto) 2.4 10^3/uL (1.7-8.2) 04/28/20 05:53 Absolute Lymphs (auto) 2.5 10^3/uL (0.5-4.7) 04/28/20 05:53 Absolute Monos (auto) 0.9 10^3/uL (0.1-1.4) 04/28/20 05:53 Absolute Eos (auto) 0.0 10^3/uL (0.0-0.6) 04/28/20 05:53 Absolute Basos (auto) 0.0 10^3/uL (0.0-0.2) 04/28/20 05:53 Total Counted 100 04/23/20 10:12 Seg Neutrophils % 40.9 % (42-78) L 04/28/20 05:53 Seg Neuts % (Manual) 59 % (42-78) 04/23/20 10:12 Band Neutrophils % 2 % (3-5) L 04/23/20 10:12 Lymphocytes % (Manual) 28 % (13-45) 04/23/20 10:12 Monocytes % (Manual) 11 % (3-13) 04/23/20 10:12 Eosinophils % (Manual) 0 % (0-6) 04/23/20 10:12 Basophils % (Manual) 0 % (0-2) 04/23/20 10:12 Abs Neuts (Manual) 5.4 10^3/uL (1.7-8.2) 04/23/20 10:12 Abs Lymphs (Manual) 2.5 10^3/uL (0.5-4.7) 04/23/20 10:12 Abs Monocytes (Manual) 1.0 10^3/uL (0.1-1.4) 04/23/20 10:12 Absolute Eos (Manual) 0.0 10^3/uL (0.0-0.6) 04/23/20 10:12 Abs Basophils (Manual) 0.0 10^3/uL (0.0-0.2) 04/23/20 10:12 Clumped Platelets PRESENT 04/23/20 10:12 Large Platelets PRESENT 04/23/20 10:12 Platelet Comment ADEQUATE 04/23/20 10:12 Polychromasia SLIGHT 04/23/20 10:12 PT 13.8 SEC (11.4-15.4) 04/03/20 14:35 INR 1.06 04/03/20 14:35 APTT 30.2 SEC (23.5-35.8) 04/03/20 14:35 Sodium 150.6 mmol/L (137-145) H 04/30/20 06:30 Potassium 4.1 mmol/L (3.6-5.0) 04/30/20 06:30 Chloride 121 mmol/L (98-107) H 04/30/20 06:30 Carbon Dioxide 25 mmol/L (22-30) 04/30/20 06:30 Anion Gap 5 (5-19) 04/30/20 06:30 BUN 23 mg/dL (7-20) H 04/30/20 06:30 Creatinine 1.40 mg/dL (0.52-1.25) H 04/30/20 06:30 Est GFR ( Amer) 58 (>60) L 04/30/20 06:30 Est GFR (MDRD) Non-Af 48 (>60) L 04/30/20 06:30 Glucose 90 mg/dL (75-110) 04/30/20 06:30 POC Glucose 136 mg/dL (70-110) H 04/03/20 14:32 Calcium 10.0 mg/dL (8.4-10.2) 04/30/20 06:30 Magnesium 2.2 mg/dL (1.6-2.3) 04/28/20 05:53 Total Bilirubin 1.2 mg/dL (0.2-1.3) 04/23/20 10:12 Direct Bilirubin 0.1 mg/dL (0.0-0.4) 04/23/20 10:12 Neonat Total Bilirubin Not Reportable 04/23/20 10:12 Neonat Direct Bilirubin Not Reportable 04/23/20 10:12 Neonat Indirect Bili Not Reportable 04/23/20 10:12 AST 42 U/L (17-59) 04/23/20 10:12 ALT 36 U/L (<50) 04/23/20 10:12 Alkaline Phosphatase 80 U/L (38-126) 04/23/20 10:12 Ammonia < 8.7 umol/L (9-33) L 04/03/20 15:20 Creatine Kinase 52 U/L (55-170) L 04/03/20 14:35 CK-MB (CK-2) 0.48 ng/mL (<4.55) 04/03/20 14:35 Troponin I < 0.012 ng/mL 04/03/20 14:35 Total Protein 8.8 g/dL (6.3-8.2) H 04/23/20 10:12 Albumin 4.5 g/dL (3.5-5.0) 04/23/20 10:12 Urine Color YELLOW 04/03/20 16:14 Urine Appearance CLEAR 04/03/20 16:14 Urine pH 5.0 (5.0-9.0) 04/03/20 16:14 Ur Specific [place] 1.017 04/03/20 16:14 Urine Protein NEGATIVE mg/dL (NEGATIVE) 04/03/20 16:14 Urine Glucose (UA) NEGATIVE mg/dL (NEGATIVE) 04/03/20 16:14 Urine Ketones NEGATIVE mg/dL (NEGATIVE) 04/03/20 16:14 Urine Blood NEGATIVE (NEGATIVE) 04/03/20 16:14 Urine Nitrite (Reflex) NEGATIVE (NEGATIVE) 04/03/20 16:14 Urine Bilirubin NEGATIVE (NEGATIVE) 04/03/20 16:14 Urine Urobilinogen 2.0 mg/dL (<2.0) H 04/03/20 16:14 Leukocyte Esterase Rfl NEGATIVE (NEGATIVE) 04/03/20 16:14 Urine RBC (Auto) 1 /HPF 04/03/20 16:14 U Hyaline Cast (Auto) 4 /LPF 04/03/20 16:14 Urine WBC (Reflex) < 1 /HPF 04/03/20 16:14 Squamous Epi Cells Auto 1 /HPF 04/03/20 16:14 Urine Mucus (Auto) RARE /LPF 04/03/20 16:14 Urine Ascorbic Acid NEGATIVE (NEGATIVE) 04/03/20 16:14 COVID-19 Source NASOPHARYNGEAL 04/07/20 16:10 COVID-19 (ROBSON) NOT DETECTED 04/07/20 16:10 04/03/20 14:35 CK-MB (CK-2) 0.48 Troponin I < 0.012 Impressions: Chest X-Ray 04/03/20 14:15 IMPRESSION: Borderline cardiomegaly. No gregoria pulmonary edema. Head CT 04/03/20 14:15 IMPRESSION: Involutional changes with mild chronic microvascular ischemia. Chronic frontal subdural fluid collections are smaller than on the prior study. EVIDENCE OF ACUTE STROKE: NO. Plan Health Concerns: Compliance with medication and self care assistance at home. Plan of Treatment: Discharge home with HYDRO PNEUMATIC TESTER services and close community follow up. Goals: Reduce readmission risk with close community follow up. Time Spent: Less than 30 Minutes - care coordinbnation with principal planner and spouse. Stroke Is this a Stroke Patient?: No Acute Heart Failure - Is this a Heart Failure Patient?: No
[2020-05-07 16:27] VITALS: BP 117/46
== END 2020-05-07 17:14 | disposition home health service (06) | DRG 640 ==
LOC: ER 13:52 → EH 19:42 → 4S 21:07 → OBSVTOIN 04-06 13:10
PROVIDERS: ADMIT Internal Medicine Geriatric Medicine; ATTEND Internal Medicine Geriatric Medicine
DX: E86.0 Dehydration (principal); G93.41 Metabolic encephalopathy; F03.91 Unspecified dementia, unspecified severity, with behavioral disturbance; I48.0 Paroxysmal atrial fibrillation; F03.90 Unspecified dementia, unspecified severity, without behavioral disturbance, psychotic disturbance, mood disturbance, and anxiety; M19.90 Unspecified osteoarthritis, unspecified site; I10 Essential (primary) hypertension; R32 Unspecified urinary incontinence; Z66 Do not resuscitate; Z88.0 Allergy status to penicillin; Z75.1 Person awaiting admission to adequate facility elsewhere; E87.0 Hyperosmolality and hypernatremia; D50.0 Iron deficiency anemia secondary to blood loss (chronic); Z78.1 Physical restraint status; Z03.818 Encounter for observation for suspected exposure to other biological agents ruled out; Z79.899 Other long term (current) drug therapy
CPT/HCPCS: 36415; 70450; 71045; 80048; 80053; 81001; 82140; 82550; 82553; 82962; 83735; 84484; 85025; 85027; 85610; 85730; 87635; 93005; 93010; 96360; 99285; C9803; G0378; J1650; J3411; J3475; J3480; J3490; J7030